=== PATIENT | male | born 1935 | race Caucasian/White ===

== ENCOUNTER 2016-08-27 11:38 | Inpatient (IN) | payer OTHER, MEDICARE ==
[2016-08-27] MEDS ORDERED: oxyCODONE HCL 5 MG TABLET PO ONE (12:00)
[2016-08-27] MEDS ORDERED: oxyCODONE HCL 5 MG TABLET ONE (12:07)
[2016-08-27 12:27] LABS: BASOPHIL 0.6 % (0-2.0); MCH 29.8 pg (25.7-33.7); MCHC 33.2 g/dl (32.0-35.9); MEAN PLT VOLUME 6.8 fl (7.5-11.1); NEUTROPHILS 72.5 % (42.8-82.8); PLATELET COUNT 317 K/MM3 (134-434); RDW 15.6 % (11.9-15.9); WHITE BLOOD COUNT 6.3 K/mm3 (4.0-10.0)
[2016-08-27 12:46] LABS: ALBUMIN 2.7 g/dl (3.4-5.0); ANION GAP 8 (8-16); BILIRUBIN,TOTAL 0.5 mg/dL (0.2-1.0); CALCIUM 8.6 mg/dL (8.5-10.1); CO2 31 mmol/L (21-32); CREATININE 0.7 mg/dL (0.7-1.3); GLUCOSE,RANDOM 152 mg/dL (74-106); MAGNESIUM 1.9 mg/dL (1.8-2.4); SGOT/AST 17 U/L (15-37); SGPT/ALT 12 U/L (12-78)
[2016-08-27 12:47] LABS: ALK PHOS 126 U/L (45-117); TOT PROT 5.4 g/dl (6.4-8.2)
--- NOTE | 2016-08-27 12:52 | PDOC ---
*Physical Exam - Vital Signs Last Vital Signs Temp Pulse Resp BP Pulse Ox 97.3 F L 78 20 107/84 100 08/27/16 11:53 08/27/16 11:53 08/27/16 11:53 08/27/16 11:53 08/27/16 11:53 ED Treatment Course - LABORATORY CBC & Chemistry Diagram: 08/28/16 07:10 08/28/16 07:10 - ADDITIONAL ORDERS Additional order review: Laboratory Results 08/27/16 12:04 Sodium 139 Potassium 4.1 Chloride 100 Carbon Dioxide 31 Anion Gap 8 BUN 13 Creatinine 0.7 Creat Clearance w eGFR > 60 Random Glucose 152 H D Calcium 8.6 Magnesium 1.9 D Total Bilirubin 0.5 D AST 17 D ALT 12 D Alkaline Phosphatase 126 H D Total Protein 5.4 L Albumin 2.7 L 08/27/16 12:04 RBC 4.19 D MCV 90.0 MCHC 33.2 RDW 15.6 MPV 6.8 L Neutrophils % 72.5 Lymphocytes % 11.7 Monocytes % 10.2 Eosinophils % 5.0 H Basophils % 0.6 - Medications Given in the ED: ED Medications Discontinued Medications Generic Name Dose Route Start Last Admin Trade Name Freq PRN Reason Stop Dose Admin Oxycodone HCl 10 mg 08/27/16 12:00 08/27/16 12:09 Roxicodone - PO 08/27/16 12:01 10 mg ONCE ONE Administration Medical Decision Making - Medical Decision Making 08/27/16 12:51 Patient seen and evaluated with the nurse practitioner. I agree with the overall evaluation, assessment, and management with the following summary of visit: 80-year-old male with worsening cellulitis despite outpatient antibiotics. Has history of similar complicated peripheral cellulitis. Agree with management as outlined, will admit for IV antibiotics. *DC/Admit/Observation/Transfer Diagnosis at time of Disposition: Cellulitis, Sepsis, Leg pain
[2016-08-27] MEDS ORDERED: SODIUM CHLORIDE 1,000 ML IV STA (13:07)
[2016-08-27] MEDS ORDERED: VANCOMYCIN 1,000 MG in DEXTROSE 5%-WATER - 250 ML IVPB ONE (13:09)
[2016-08-27] MEDS ORDERED: PIPERACILLIN/TAZOB 3.375 GM 3.375 GM in DEXTROSE 5%-WATER - 50 ML IVPB SCH (13:15)
[2016-08-27] MEDS ORDERED: PIPERACILLIN/TAZOB 3.375 GM 50 ML IVPB ONE (13:25)
[2016-08-27] MEDS ORDERED: VANCOMYCIN 1 GRAM (PRE-DOCKED) 250 ML IVPB ONE (13:25)
--- NOTE | 2016-08-27 13:50 | PDOC ---
History of Present Illness - General Chief Complaint: Wound Infection Stated Complaint: FOOT PAIN Time Seen by Provider: 08/27/16 11:45 History Source: Patient Exam Limitations: Dementia - History of Present Illness Initial Comments: 08/27/16 12:50 80-year-old male brought in by for worsening bilateral lower extremity redness swelling, and pain. states patient had cellulitis a few months ago and completed antibiotics at that point. states patient has had no fever and receives home care services with no abnormal vital signs. Patient with history of cellulitis, AMS secondary to sepsis, dementia, BPH, high cholesterol , hypertension, and seizures. Timing/Duration: getting worse Severity: moderate Associated Symptoms: denies: denies symptoms Past History - Past Medical History Allergies/Adverse Reactions: Allergies Allergy/AdvReac Type Severity Reaction Status Date / Time No Known Allergies Allergy Verified 08/27/16 11:55 Home Medications: Ambulatory Orders Atorvastatin Ca [Lipitor] 40 mg PO HS #30 tablet 03/19/16 Carbidopa/Levodopa *Cr* 50/200 [Sinemet *Cr* 50/200 -] 1 combo PO TID #90 tablet.er 03/19/16 Cilostazol 100 mg PO DAILY #30 tablet 03/19/16 Metoprolol Tartrate [Lopressor -] 25 mg PO BID #60 tablet 03/19/16 Oxycodone HCl 10 mg PO Q4H PRN #30 tablet MDD 60mg 03/19/16 Quetiapine Fumarate [Seroquel -] 75 mg PO BID #90 tablet 03/19/16 Cholecalciferol (Vitamin D3) [Vitamin D3] 1,000 unit PO DAILY 08/27/16 Olanzapine [Zyprexa -] 10 mg PO HS 08/27/16 Anemia: No Asthma: No Cancer: No Cardiac Disorders: Yes CVA: No COPD: No Dementia: Yes Diabetes: No GI Disorders: Yes (COLONIC POLYPS,DIVERTICULOSIS) Disorders: Yes (BPH) HTN: Yes Hypercholesterolemia: Yes Liver Disease: No Seizures: Yes Thyroid Disease: No - Surgical History Abdominal Surgery: No Appendectomy: Yes Cardiac Surgery: No Cholecystectomy: No Lung Surgery: No Neurologic Surgery: No Orthopedic Surgery: Yes (S/P BILATERAL FOOT SURGERIES FOR HAMMER TOES WITH SUBSEQUENT REMOVAL OF) - Immunization History Immunization Up to Date: Yes - Psycho/Social/Smoking Cessation Hx Anxiety: No Suicidal Ideation: No Smoking History: Unknown if ever smoked Have you smoked in the past 12 months: No If you are a former smoker, when did you quit?: 1959 Information on smoking cessation initiated: No Hx Alcohol Use: No Drug/Substance Use Hx: No Substance Use Type: None Hx Substance Use Treatment: No Patient Lives Alone: No Lives with/in: spouse/SO Review of Systems - Review of Systems Able to Perform ROS?: Yes Constitutional: No: Symptoms Reported HEENTM: No: Symptoms Reported Respiratory: No: Symptoms reported Cardiac (ROS): Yes: Edema (ble) ABD/GI: No: Symptoms Reported : No: Symptoms Reported Musculoskeletal: Yes: Muscle Pain (BLE calves) Integumentary: Yes: Erythema Neurological: No: Symptoms reported Endocrine: No: Symptoms Reported Hematologic/Lymphatic: No: Symptoms Reported *Physical Exam - Vital Signs Last Vital Signs Temp Pulse Resp BP Pulse Ox 97.3 F L 78 20 107/84 100 08/27/16 11:53 08/27/16 11:53 08/27/16 11:53 08/27/16 11:53 08/27/16 11:53 - Physical Exam General Appearance: Yes: Nourished, Appropriately Dressed. No: Apparent Distress HEENT: positive: FAHEEM. negative: Pale Conjunctivae Neck: positive: Supple Respiratory/Chest: positive: Lungs Clear, Normal Breath Sounds. negative: Respiratory Distress, Accessory Muscle Use Cardiovascular: positive: Regular Rhythm, Regular Rate. negative: Murmur Gastrointestinal/Abdominal: positive: Soft. negative: Tenderness Extremity: positive: Normal Capillary Refill, Pedal Edema (2+ bilateral pitting) , Erythema (to bilateral lower extremity with pustular bullae to right lower extremity . no increased warmth) Integumentary: positive: Erythema, Moist Neurologic: positive: Alert, Motor Strength 5/5 (moves all extremities on stretcher) ED Treatment Course - LABORATORY CBC & Chemistry Diagram: 08/27/16 12:04 08/27/16 12:04 - ADDITIONAL ORDERS Additional order review: Laboratory Results 08/27/16 08/27/16 12:04 12:04 Sodium 139 Potassium 4.1 Chloride 100 Carbon Dioxide 31 Anion Gap 8 BUN 13 Creatinine 0.7 Creat Clearance w eGFR > 60 Random Glucose 152 H D Lactic Acid 2.599 H* Calcium 8.6 Magnesium 1.9 D Total Bilirubin 0.5 D AST 17 D ALT 12 D Alkaline Phosphatase 126 H D Total Protein 5.4 L Albumin 2.7 L 08/27/16 12:04 RBC 4.19 D MCV 90.0 MCHC 33.2 RDW 15.6 MPV 6.8 L Neutrophils % 72.5 Lymphocytes % 11.7 Monocytes % 10.2 Eosinophils % 5.0 H Basophils % 0.6 - RADIOLOGY Radiology Studies Ordered: Category Date Time Status DUPLEX VASCUL US-2LEGS [US] Stat Ultrasound 08/27/16 11:59 Taken - Medications Given in the ED: ED Medications Discontinued Medications Generic Name Dose Route Start Last Admin Trade Name Freq PRN Reason Stop Dose Admin Oxycodone HCl 10 mg 08/27/16 12:00 08/27/16 12:09 Roxicodone - PO 08/27/16 12:01 10 mg ONCE ONE Administration Medical Decision Making - Medical Decision Making 08/27/16 12:57 Patient with worsening bilateral lower extremity redness and pain patient with history of cellulitis and clinically presents the cellulitis. Patient ordered for septic workup including ultrasound to rule out DVT. Patient requesting oxycodone which he takes every 4 hours for pain control. 08/27/16 13:59 Laboratory Tests 08/27/16 08/27/16 08/27/16 12:04 12:04 12:04 WBC 6.3 Hgb 12.5 D Hct 37.7 D MPV 6.8 L Neutrophils % 72.5 Eosinophils % 5.0 H Sodium 139 Potassium 4.1 Chloride 100 Carbon Dioxide 31 Anion Gap 8 BUN 13 Creatinine 0.7 Creat Clearance w eGFR > 60 Random Glucose 152 H D Lactic Acid 2.599 H* Calcium 8.6 Magnesium 1.9 D AST 17 D ALT 12 D Alkaline Phosphatase 126 H D Total Protein 5.4 L Albumin 2.7 L DVT study negative. Patient ordered for Vanco Zosyn second lactic acid and a second bag of IV fluid. pt's urine pending. Will microblog Dr. Hsieh for admission. 08/27/16 15:06 Laboratory Tests 08/27/16 13:20 Urine Ketones Negative Urine Blood 1+ H Urine Urobilinogen Negative Ur Leukocyte Esterase Negative Urine RBC 9 Urine WBC 2 *DC/Admit/Observation/Transfer Diagnosis at time of Disposition: Cellulitis Qualifiers: Site of cellulitis: extremity Site of cellulitis of extremity: lower extremity Laterality: unspecified laterality Qualified Code(s): L03.119 - Cellulitis of unspecified part of limb Sepsis Qualifiers: Sepsis type: sepsis due to unspecified organism Qualified Code(s): A41.9 - Sepsis, unspecified organism Leg pain Qualifiers: Laterality: bilateral Qualified Code(s): M79.604 - Pain in right leg - Discharge Dispostion Admit: Yes - Referrals Referrals: Mo Menon MD [Primary Care Provider] - - Patient Instructions - Post Discharge Activity
[2016-08-27 14:03] LABS: URINE APPEARANCE CLOUDY; URINE BILIRUBIN NEGATIVE (NEGATIVE); URINE COLOR YELLOW; URINE GLUCOSE (UA) NEGATIVE (NEGATIVE); URINE KETONE NEGATIVE (NEGATIVE); URINE LEUK ESTERASE NEGATIVE (NEGATIVE); URINE NITRITE NEGATIVE (NEGATIVE); URINE PROTEIN NEGATIVE (NEGATIVE); URINE UROBILINOGEN NEGATIVE E.U./dl (0.2-1.0)
[2016-08-27 14:06] LABS: URINE BLOOD 1+ (NEGATIVE)
[2016-08-27 14:08] LABS: URINE MUCUS RARE; URINE RBC 9 /hpf (0-3); URINE WBC 2 /hpf (3-5)
[2016-08-27] MEDS ORDERED: PROMETHAZINE HCL 25 MG/1 ML VIAL IM PRN (14:43)
[2016-08-27] MEDS ORDERED: PATIENT'S OWN MEDICATION (NON-FORMULARY) (Oxycodone Hcl [Oxycodone Hcl] 10 MG) PO PRN (14:43)
[2016-08-27] MEDS ORDERED: SODIUM CHLORIDE 1,000 ML IV SCH (15:00)
[2016-08-27] MEDS ORDERED: oxyCODONE HCL 5 MG TABLET PO PRN (15:03)
--- NOTE | 2016-08-27 15:15 | HP ---
Admitting History and Physical - Primary Care Physician PCP: Mo Menon - Admission Chief Complaint: I'm ready to get out of here History of Present Illness: Mr Whitfield is a 80 year old male with history of dementia who was brought in for worsening cellulitis. 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 She says that over the past month she notes his legs have become redder. Wound care was coming and recommended he come to the hospital today for further care. She says he has been on antibiotics in the past but not currently, she is unsure when was the last time he took antibiotics. Mr Whitfield is able to answer yes/no questions appropriately. He denies fevers, chills, lightheadedness, dizziness, chest pain, shortness of breath, abdominal pain, nausea, vomiting, diarrhea, or difficulty urinating. He says he feels fine. 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 Cardiovascular: Yes: HTN, Hyperlipdemia, Other (PVD with claudication) Gastrointestinal: Yes: GERD Renal/: Yes: Other (CKD) Musculoskeletal: Yes: Osteoarthritis - Past Surgical History Past Surgical History: Yes: Appendectomy - Smoking History Smoking history: Unknown if ever smoked Have you smoked in the past 12 months: No If you are a former smoker, when did you quit?: 1960 - Alcohol/Substance Use Hx Alcohol Use: No History of Substance Use: reports: None - Social History Usual Living Arrangement: Yes: With Spouse ADL: Family Assistance History of Recent Travel: No Home Medications - Allergies Allergies/Adverse Reactions: Allergies Allergy/AdvReac Type Severity Reaction Status Date / Time No Known Allergies Allergy Verified 08/27/16 11:55 - Home Medications Home Medications: Ambulatory Orders Atorvastatin Ca [Lipitor] 40 mg PO HS #30 tablet 03/19/16 Carbidopa/Levodopa *Cr* 50/200 [Sinemet *Cr* 50/200 -] 1 combo PO TID #90 tablet.er 03/19/16 Cilostazol 100 mg PO DAILY #30 tablet 03/19/16 Metoprolol Tartrate [Lopressor -] 25 mg PO BID #60 tablet 03/19/16 Oxycodone HCl 10 mg PO Q4H PRN #30 tablet MDD 60mg 03/19/16 Quetiapine Fumarate [Seroquel -] 75 mg PO BID #90 tablet 03/19/16 Cholecalciferol (Vitamin D3) [Vitamin D3] 1,000 unit PO DAILY 08/27/16 Olanzapine [Zyprexa -] 10 mg PO HS 08/27/16 Family Disease History - Family Disease History Family Disease History: CA: Father (colon), Mother (unsure) Review of Systems Findings/Remarks: full review of systems obtained, as per HPI and otherwise negative Physical Examination Vital Signs: Vital Signs Temperature 97.3 F L 08/27/16 11:53 Pulse Rate 78 08/27/16 11:53 Respiratory Rate 20 08/27/16 11:53 Blood Pressure 107/84 08/27/16 11:53 O2 Sat by Pulse Oximetry (%) 100 08/27/16 11:53 Constitutional: Yes: No Distress, Calm, Obese Eyes: Yes: Conjunctiva Clear, PERRL HENT: Yes: Atraumatic, Normocephalic Cardiovascular: Yes: Regular Rate and Rhythm. No: Gallop, Murmur, Rub Respiratory: Yes: Regular, CTA Bilaterally. No: Rales, Rhonchi, Wheezes Gastrointestinal: Yes: Normal Bowel Sounds, Soft. No: Distention, Tenderness Extremities: Yes: Erythema (bilaterally, R>L with pustules) Edema: Yes Edema: LLE: 1+, RLE: 1+ Labs: CBC, BMP 08/27/16 12:04 08/27/16 12:04 Imaging - Results Ultrasound: Report Reviewed Problem List - Problems (1) Cellulitis Assessment/Plan: -patient with cellulitis of bilateral extremities, R>L -right leg with developing pustules -admit to the hospital -received vancomycin and zosyn in the ED -consult ID for further antibiotic care -wound care consult Code(s): L03.90 - CELLULITIS, UNSPECIFIED Qualifiers: Site of cellulitis: extremity Site of cellulitis of extremity: lower extremity Laterality: unspecified laterality Qualified Code(s): L03.119 - Cellulitis of unspecified part of limb (2) Sepsis Assessment/Plan: -cellulitis with lactic acidosis -treat with antibiotics per ID -gentle hydration Code(s): A41.9 - SEPSIS, UNSPECIFIED ORGANISM Qualifiers: Sepsis type: sepsis due to unspecified organism Qualified Code(s): A41.9 - Sepsis, unspecified organism (3) Dementia Assessment/Plan: -stable -with behavioral disturbance in the past -today friendly on exam -continue seroquel and zyprexa -may have some worsening with infection and change in environment Code(s): F03.90 - UNSPECIFIED DEMENTIA WITHOUT BEHAVIORAL DISTURBANCE Qualifiers: Dementia type: unspecified type Dementia behavioral disturbance: with behavioral disturbance Qualified Code(s): F03.91 - Unspecified dementia with behavioral disturbance; F10.97 - Alcohol use, unspecified with alcohol- induced persisting dementia (4) HTN (hypertension) Assessment/Plan: -controlled -continue toprol Code(s): I10 - ESSENTIAL (PRIMARY) HYPERTENSION (5) Parkinson disease Assessment/Plan: -continue sinemet Code(s): G20 - PARKINSON'S DISEASE (6) PVD (peripheral vascular disease) Assessment/Plan: -continue pletal Code(s): I73.9 - PERIPHERAL VASCULAR DISEASE, UNSPECIFIED
[2016-08-27] MEDS: oxyCODONE HCL 5 MG TABLET PO SCH ×2 (16:39→21:30)
[2016-08-27] MEDS: morphine CARPU-JECT 2 MG/1 ML DISP.SYRIN IVPUSH PRN (16:39)
--- NOTE | 2016-08-27 17:53 | PN ---
Progress Note (short form) - Note Progress Note: ID Consult dictated Recurrent bilateral LE cellulitis Hx Parkinsonism/ OBS Hx C difficile Pending c/s empiric vancomycin/zosyn
[2016-08-27 18:38] VITALS: BMI 35.8
[2016-08-27] MEDS: PIPERACILLIN/TAZOB 3.375 GM 50 ML IVPB SCH (18:53)
[2016-08-27] MEDS: VANCOMYCIN 1 GRAM (PRE-DOCKED) 250 ML IVPB SCH (18:54)
--- NOTE | 2016-08-27 19:22 | CONS ---
DATE OF CONSULTATION: DATE OF DICTATION: 08/27/2016 INFECTIOUS DISEASE CONSULTATION HISTORY OF PRESENT ILLNESS: The patient is a 80-year-old male with a history of Parkinsonism, dementia, and recurrent lower extremity cellulitis, now admitted with worsening erythema, warmth, and swelling of the lower extremities bilaterally. Patient was seen in the emergency room in the presence of his . He reports developing worsening bilateral leg edema, erythema, and pustules with purulent drainage. He denied any traumatic injury. No reports of any insect or animal bites or scratches. No associated fevers or chills. He denies recent oral antibiotic therapy. He has had a history of recurrent lower extremity cellulitis, last hospitalization for that condition was in April of 2016. Cultures in the past have grown klebsiella from the urine. PAST MEDICAL HISTORY: Positive for Parkinsonism, dementia, chronic kidney disease, gastroesophageal reflux, diverticulosis, peripheral vascular disease, hypertension, BPH, hyperlipidemia, C. difficile colitis (January,). ALLERGIES: No known allergies. MEDICATION: Include vancomycin and Zosyn, heparin, Zyprexa, Seroquel, Lopressor, Colace, Sinemet, Lipitor, oxycodone. SOCIAL HISTORY: Lives at home with his . Nonsmoker. Nondrinker. SYSTEMS REVIEW: Neurologic: Positive for Parkinsonism and dementia. Cardiac: Negative chest pain or palpitations. Respiratory: Negative cough or sputum production. Gastrointestinal: Negative vomiting or diarrhea. Genitourinary: Negative for urinary tract infection. LABORATORY DATA: White count 6.3, hematocrit 37.7, platelet count 317. BUN 13, creatinine 0.7. Urinalysis: 2 white cells, blood in urine cultures are pending. PHYSICAL EXAMINATION: General: He is awake and responsive. He is mildly confused . Vital signs: Temperature 98.2, blood pressure 136/65, pulse 67 regular, respirations 19 per minute. HEENT: Sclerae anicteric. Cardiovascular: Heart sounds S1, S2. Respiratory: Lungs clear. Abdomen: Soft. Nontender. Extremities: Positive for lower extremity edema. There is intense erythema involving both lower extremities from below the knee to the ankle area. It is warm to touch. There are scattered pustular lesions present, predominantly on the right lower extremity with seropurulent drainage. No crepitus or fluctuance. No lymphangitic streaking. IMPRESSION: 1. Recurrent bilateral lower extremity cellulitis. 2. Possible sepsis secondary to skin sores. 3. History of Parkinsonism and dementia. 4. History of Clostridium difficile colitis. Pending sepsis workup, empiric antibiotic coverage with vancomycin and Zosyn. Local wound care. Case discussed with patient's , present at the time of the examination. Thank you for the kind referral. LISETH WOODS M.D. [id number]
[2016-08-27] MEDS: METOPROLOL TARTRATE 25 MG TABLET (FP) PO SCH (22:18)
[2016-08-27] MEDS: ATORVASTATIN CA 40 MG TABLET (FP) PO SCH (22:18)
[2016-08-27] MEDS: QUEtiapine FUMARATE 25 MG TABLET (FP) PO SCH (22:18)
[2016-08-27] MEDS: OLANZapine 10 MG TABLET PO SCH (22:18)
[2016-08-27] MEDS: DOCUSATE SODIUM 100 MG CAPSULE (FP) PO SCH (22:18)
[2016-08-27] MEDS: HEPARIN NA (PORCINE) 5,000 UNITS/ML 1ML VIAL SQ SCH (22:18)
[2016-08-28] MEDS: oxyCODONE HCL 5 MG TABLET PO SCH ×6 (00:15→21:00)
[2016-08-28] MEDS: PIPERACILLIN/TAZOB 3.375 GM 50 ML IVPB SCH ×3 (01:55→17:11)
[2016-08-28] MEDS: VANCOMYCIN 1 GRAM (PRE-DOCKED) 250 ML IVPB SCH ×2 (06:33→17:56)
[2016-08-28] MEDS: HEPARIN NA (PORCINE) 5,000 UNITS/ML 1ML VIAL SQ SCH ×3 (06:33→21:24)
[2016-08-28 08:17] LABS: BASOPHIL 0.4 % (0-2.0); EOSINOPHIL 6.4 % (0-4.5); MCH 29.9 pg (25.7-33.7); MCHC 33.2 g/dl (32.0-35.9); MEAN CELL VOLUME 89.9 fl (80-96); MEAN PLT VOLUME 6.8 fl (7.5-11.1); NEUTROPHILS 63.3 % (42.8-82.8); PLATELET COUNT 339 K/MM3 (134-434); RDW 15.6 % (11.9-15.9); WHITE BLOOD COUNT 6.8 K/mm3 (4.0-10.0)
[2016-08-28 08:39] LABS: CALCIUM 8.9 mg/dL (8.5-10.1); MAGNESIUM 2.1 mg/dL (1.8-2.4)
[2016-08-28 08:40] LABS: CREATININE 0.8 mg/dL (0.7-1.3); PHOSPHOROUS 3.6 mg/dL (2.5-4.9)
--- NOTE | 2016-08-28 09:28 | CONSULT ---
Consultation: REQUESTING PROVIDER: Dr. Zhen Pompa (Dr. Grady covering until 08/30) CONSULT REQUEST: We have been asked to surgically evaluate this patient for b/l LE cellulitis. HISTORY OF PRESENT ILLNESS: Called to eval 80 yo male with PMHx noted below. Patient admitted to [facility] for worsening of LE cellulitis (chronic). Mr. Whitfield is well know to Wound Care Service. 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 Denies n/v/f/c, CP, SOB, numbness, tingling or coolness to lower extremity b/l. PMHx: Dementia, Parkinson's, HTN, Hyperlipdemia, PVD with claudication, GERD, CKD and Osteoarthritis ROS: CONSTITUTIONAL: Absent: diaphoresis, generalized weakness, malaise, loss of appetite, weight change CARDIOVASCULAR: Absent: syncope, palpitations, irregular heart rate, lightheadedness RESPIRATORY: Absent: cough, orthopnea, wheezing, stridor, hemoptysis GASTROINTESTINAL:Absent: abdominal distension, constipation, melena, hematochezia GENITOURINARY: Absent: dysuria, frequency, urgency, hesitancy, hematuria, flank pain, genital pain MUSCULOSKELETAL: Absent: myalgia, arthralgia, joint swelling, back pain, neck pain SKIN: Absent: SEE ABOVE. HEMATOLOGIC/IMMUNOLOGIC: Absent: easy bleeding, easy bruising, lymphadenopathy, frequent infections NEUROLOGIC: Absent: headache, focal weakness, dizziness, unsteady gait, seizure , mental status changes PSYCHIATRIC: Absent: anxiety, depression, suicidal or homicidal ideation, hallucinations. VITALS Temp Pulse Resp BP Pulse Ox 98.5 F 109 H 19 127/96 96 08/28/16 05:48 08/28/16 05:48 08/28/16 05:48 08/28/16 05:48 08/27/16 15:50 PE GENERAL: Awake, alert, in no acute distress. LUNGS: CTA b/l anteriorly COR: RRR ABD: Obese. Soft. NT. LE: b/l LE +2 edema (R>L). Feet warm b/l. No calf tenderness. RLE w/ circumfrential cellulitis w/ pustule formation to lateral aspect of virk. LLE erythematous. Palpable DP on left . Hard to assess right DP due to edema. Cap refill < 3 seconds b/l LABS: CBC, BMP 08/28/16 07:10 08/28/16 07:10 <Alverto Campbell P - Last Filed: 08/28/16 09:12> Consultation: REQUESTING PROVIDER: CONSULT REQUEST: We have been asked to surgically evaluate this patient for ( specify). HISTORY OF PRESENT ILLNESS: REVIEW OF SYSTEMS: CONSTITUTIONAL: Absent: fever, chills, diaphoresis, generalized weakness, malaise, loss of appetite, weight change CARDIOVASCULAR: Absent: chest pain, syncope, palpitations, irregular heart rate, lightheadedness , peripheral edema RESPIRATORY: Absent: cough, shortness of breath, dyspnea with exertion, orthopnea, wheezing, stridor, hemoptysis GASTROINTESTINAL: Absent: abdominal pain, abdominal distension, nausea, vomiting, diarrhea, constipation, melena, hematochezia GENITOURINARY: Absent: dysuria, frequency, urgency, hesitancy, hematuria, flank pain, genital pain MUSCULOSKELETAL: Absent: myalgia, arthralgia, joint swelling, back pain, neck pain SKIN: Absent: rash, itching, pallor HEMATOLOGIC/IMMUNOLOGIC: Absent: easy bleeding, easy bruising, lymphadenopathy, frequent infections NEUROLOGIC: Absent: headache, focal weakness or paresthesias, dizziness, unsteady gait, seizure, mental status changes, bladder or bowel incontinence PSYCHIATRIC: Absent: anxiety, depression, suicidal or homicidal ideation, hallucinations. PHYSICAL EXAMINATION Vital Signs Temperature 98.2 F 08/28/16 14:03 Pulse Rate 88 08/28/16 14:03 Respiratory Rate 20 08/28/16 09:00 Blood Pressure 102/44 08/28/16 14:03 O2 Sat by Pulse Oximetry (%) 96 08/27/16 15:50 GENERAL: Awake, alert, and fully oriented, in no acute distress. HEAD: Normal with no signs of trauma. EYES: Pupils equal, round and reactive to light, sclera anicteric, conjunctiva clear. NECK: Normal range of motion, supple without lymphadenopathy, JVD, or masses. LUNGS: Breath sounds equal, clear to auscultation bilaterally. No wheezes, and no crackles. No accessory muscle use. HEART: Regular rate and rhythm, normal S1 and S2 without murmur, rub or gallop. ABDOMEN: Soft, nontender, not distended, normoactive bowel sounds, no guarding, no rebound, no masses. No hepatomegaly or splenomegaly. MUSCULOSKELETAL: Normal range of motion at all joints. No bony deformities or tenderness. No CVA tenderness. UPPER EXTREMITIES: 2+ pulses, warm, well-perfused. No cyanosis. Cap refill <2 seconds. No peripheral edema. LOWER EXTREMITIES: 2+ pulses, warm, well-perfused. No calf tenderness. No peripheral edema. NEUROLOGICAL: Normal speech, gait not observed. PSYCH: Cooperative. Good eye contact. Appropriate mood and affect. SKIN: Warm, dry, normal turgor, no rashes or lesions noted. LABS: Laboratory Results - last 24 hr 08/28/16 08/28/16 08/28/16 07:10 07:10 07:10 WBC 6.8 RBC 4.09 Hgb 12.2 Hct 36.7 MCV 89.9 MCHC 33.2 RDW 15.6 Plt Count 339 MPV 6.8 L Neutrophils % 63.3 Lymphocytes % 17.8 D Monocytes % 12.1 H Eosinophils % 6.4 H Basophils % 0.4 Sodium 139 Potassium 4.3 Chloride 101 Carbon Dioxide 32 Anion Gap 6 L BUN 12 Creatinine 0.8 Random Glucose 85 D Lactic Acid 1.823 Calcium 8.9 Phosphorus 3.6 Magnesium 2.1 History reviewed and patient discussed with PA. Chronic leg swelling and ulceration. No fever or leukocytosis. Current wound care and antibiotics acceptable. <Oscar Grady - Last Filed: 08/28/16 20:01> Problem List - Problems (1) Cellulitis Assessment/Plan: Dressing changes ordered --> xeroform to rle. Both: kerlix from toes to knees then compression with tammy bandage agian, wrapping from toes to knees. Leg elevation while in bed or seated in chair. IV ABX Cont care per primary team No surgical intervention at this time. Code(s): L03.90 - CELLULITIS, UNSPECIFIED Qualifiers: Site of cellulitis: extremity Site of cellulitis of extremity: lower extremity Laterality: unspecified laterality Qualified Code(s): L03.119 - Cellulitis of unspecified part of limb <Alverto Campbell - Last Filed: 08/28/16 09:12> Visit type - Case Type Case Type: ED Admission - Emergency Emergency Visit: Yes ED Registration Date: 08/27/16 Care time: The patient presented to the Emergency Department on the above date and was hospitalized for further evaluation of their emergent condition. - New patient This patient is new to me today: Yes Date on this admission: 08/28/16 <Alverto Campbell - Last Filed: 08/28/16 09:12>
[2016-08-28] MEDS: METOPROLOL TARTRATE 25 MG TABLET (FP) PO SCH ×2 (10:04→21:22)
[2016-08-28] MEDS: QUEtiapine FUMARATE 25 MG TABLET (FP) PO SCH ×2 (10:04→21:24)
[2016-08-28] MEDS: CHOLECALCIFEROL (VITAMIN D3) 1,000 UNIT TABLET (FP) PO SCH (10:04)
[2016-08-28] MEDS: DOCUSATE SODIUM 100 MG CAPSULE (FP) PO SCH ×2 (10:05→21:23)
[2016-08-28] MEDS: POLYETHYLENE GLYCOL 3350 119 GM BTL PO SCH (10:06)
--- NOTE | 2016-08-28 11:03 | PN ---
Progress Note, Physician History of Present Illness: Awake, mildly confused No c/o leg pain No fever/ chills Tolerating antibiotics - Current Medication List Current Medications: Active Medications Acetaminophen (Tylenol -) 650 mg PO Q4H PRN PRN Reason: FEVER OR PAIN Atorvastatin Calcium (Lipitor -) 40 mg PO HS [facility] Last Admin: 08/27/16 22:18 Dose: 40 mg Carbidopa/Levodopa (Sinemet *Cr* 50/200 -) 1 combo PO TID [facility] Last Admin: 08/28/16 06:33 Dose: 1 combo Cholecalciferol (Vitamin D3 -) 1,000 unit PO DAILY [facility] Last Admin: 08/28/16 10:04 Dose: 1,000 unit Cilostazol (Pletal -) 100 mg PO DAILY [facility] Docusate Sodium (Colace -) 100 mg PO BID [facility] Last Admin: 08/28/16 10:05 Dose: 100 mg Heparin Sodium (Porcine) (Heparin -) 5,000 unit SQ TID [facility] Last Admin: 08/28/16 06:33 Dose: 5,000 unit Sodium Chloride (Normal Saline -) 1,000 mls @ 50 mls/hr IV ASDIR [facility] Stop: 08/28/16 14:47 Last Admin: 08/27/16 16:56 Dose: 50 mls/hr Vancomycin HCl (Vancomycin (Pre-Docked)) 250 mls @ 200 mls/hr IVPB Q12H [facility] Last Admin: 08/28/16 06:33 Dose: 200 mls/hr Piperacillin Sod/Tazobactam Sod (Zosyn 3.375gm Ivpb (Pre-Docked)) 50 mls @ 100 mls/hr IVPB Q8H-IV [facility] Last Admin: 08/28/16 10:05 Dose: 100 mls/hr Metoprolol Tartrate (Lopressor -) 25 mg PO BID [facility] Last Admin: 08/28/16 10:04 Dose: 25 mg Morphine Sulfate (Morphine Injection -) 1 mg IVPUSH Q4H PRN PRN Reason: PAIN Last Admin: 08/27/16 16:39 Dose: 1 mg Olanzapine (Zyprexa -) 10 mg PO HS [facility] Last Admin: 08/27/16 22:18 Dose: 10 mg Oxycodone HCl (Roxicodone -) 10 mg PO Q4H [facility] Last Admin: 08/28/16 08:36 Dose: 10 mg Polyethylene Glycol (Miralax (For Daily Use) -) 17 gm PO DAILY [facility] Last Admin: 08/28/16 10:06 Dose: 17 gm Promethazine HCl (Phenergan Injection -) 25 mg IM Q6H PRN PRN Reason: NAUSEA AND/OR VOMITING Quetiapine Fumarate (Seroquel -) 75 mg PO BID [facility] Last Admin: 08/28/16 10:04 Dose: 75 mg - Objective Vital Signs: Vital Signs Temperature 97.4 F L 08/28/16 09:00 Pulse Rate 71 08/28/16 09:00 Respiratory Rate 20 08/28/16 09:00 Blood Pressure 129/55 08/28/16 09:00 O2 Sat by Pulse Oximetry (%) 96 08/27/16 15:50 Constitutional: Yes: No Distress Eyes: Yes: Conjunctiva Clear Cardiovascular: Yes: Regular Rate and Rhythm, S1, S2 Respiratory: Yes: CTA Bilaterally Gastrointestinal: Yes: Normal Bowel Sounds, Soft, Abdomen, Obese. No: Tenderness Extremities: Yes: Other (+ erythema/warmth/tenderness LE bilaterally) Edema: Yes Labs: CBC, BMP 08/28/16 07:10 08/28/16 07:10 Assessment/Plan Bilateral LE cellulitis, recurrent Parkinsonism/ OBS Hx C difficile Continue empiric zosyn/ vancomycin Local wound care
[2016-08-28] MEDS: CILOSTAZOL 100 MG TABLET PO SCH (12:36)
--- NOTE | 2016-08-28 13:16 | PN ---
Progress Note, Physician Chief Complaint: Says he needs a pain pill, unable to obtain any further subjective. at bedside stating he just had pain medications - Current Medication List Current Medications: Active Medications Acetaminophen (Tylenol -) 650 mg PO Q4H PRN PRN Reason: FEVER OR PAIN Atorvastatin Calcium (Lipitor -) 40 mg PO HS [facility] Last Admin: 08/27/16 22:18 Dose: 40 mg Carbidopa/Levodopa (Sinemet *Cr* 50/200 -) 1 combo PO TID [facility] Last Admin: 08/28/16 06:33 Dose: 1 combo Cholecalciferol (Vitamin D3 -) 1,000 unit PO DAILY [facility] Last Admin: 08/28/16 10:04 Dose: 1,000 unit Cilostazol (Pletal -) 100 mg PO DAILY [facility] Last Admin: 08/28/16 12:36 Dose: 100 mg Docusate Sodium (Colace -) 100 mg PO BID [facility] Last Admin: 08/28/16 10:05 Dose: 100 mg Heparin Sodium (Porcine) (Heparin -) 5,000 unit SQ TID [facility] Last Admin: 08/28/16 06:33 Dose: 5,000 unit Sodium Chloride (Normal Saline -) 1,000 mls @ 50 mls/hr IV [facility]IR [facility] Stop: 08/28/16 14:47 Last Admin: 08/27/16 16:56 Dose: 50 mls/hr Vancomycin HCl (Vancomycin (Pre-Docked)) 250 mls @ 200 mls/hr IVPB Q12H [facility] Last Admin: 08/28/16 06:33 Dose: 200 mls/hr Piperacillin Sod/Tazobactam Sod (Zosyn 3.375gm Ivpb (Pre-Docked)) 50 mls @ 100 mls/hr IVPB Q8H-IV [facility] Last Admin: 08/28/16 10:05 Dose: 100 mls/hr Metoprolol Tartrate (Lopressor -) 25 mg PO BID [facility] Last Admin: 08/28/16 10:04 Dose: 25 mg Morphine Sulfate (Morphine Injection -) 1 mg IVPUSH Q4H PRN PRN Reason: PAIN Last Admin: 08/27/16 16:39 Dose: 1 mg Olanzapine (Zyprexa -) 10 mg PO HS [facility] Last Admin: 08/27/16 22:18 Dose: 10 mg Oxycodone HCl (Roxicodone -) 10 mg PO Q4H [facility] Last Admin: 08/28/16 12:36 Dose: 10 mg Polyethylene Glycol (Miralax (For Daily Use) -) 17 gm PO DAILY [facility] Last Admin: 08/28/16 10:06 Dose: 17 gm Promethazine HCl (Phenergan Injection -) 25 mg IM Q6H PRN PRN Reason: NAUSEA AND/OR VOMITING Quetiapine Fumarate (Seroquel -) 75 mg PO BID [facility] Last Admin: 08/28/16 10:04 Dose: 75 mg - Objective Vital Signs: Vital Signs Temperature 97.4 F L 08/28/16 09:00 Pulse Rate 71 08/28/16 09:00 Respiratory Rate 20 08/28/16 09:00 Blood Pressure 129/55 08/28/16 09:00 O2 Sat by Pulse Oximetry (%) 96 08/27/16 15:50 Constitutional: Yes: No Distress, Calm, Obese Cardiovascular: Yes: Regular Rate and Rhythm. No: Gallop, Murmur, Rub Respiratory: Yes: Regular, CTA Bilaterally. No: Rales, Rhonchi, Wheezes Gastrointestinal: Yes: Normal Bowel Sounds, Soft. No: Distention, Tenderness Extremities: Yes: Other (BLE wrapped) Edema: Yes Edema: LLE: Trace, RLE: Trace Labs: CBC, BMP 08/28/16 07:10 08/28/16 07:10 Problem List - Problems (1) Cellulitis Code(s): L03.90 - CELLULITIS, UNSPECIFIED Qualifiers: Site of cellulitis: extremity Site of cellulitis of extremity: lower extremity Laterality: unspecified laterality Qualified Code(s): L03.119 - Cellulitis of unspecified part of limb (2) Sepsis Code(s): A41.9 - SEPSIS, UNSPECIFIED ORGANISM Qualifiers: Sepsis type: sepsis due to unspecified organism Qualified Code(s): A41.9 - Sepsis, unspecified organism (3) Dementia Code(s): F03.90 - UNSPECIFIED DEMENTIA WITHOUT BEHAVIORAL DISTURBANCE Qualifiers: Dementia type: unspecified type Dementia behavioral disturbance: with behavioral disturbance Qualified Code(s): F03.91 - Unspecified dementia with behavioral disturbance; F10.97 - Alcohol use, unspecified with alcohol- induced persisting dementia (4) HTN (hypertension) Code(s): I10 - ESSENTIAL (PRIMARY) HYPERTENSION (5) Parkinson disease Code(s): G20 - PARKINSON'S DISEASE (6) PVD (peripheral vascular disease) Code(s): I73.9 - PERIPHERAL VASCULAR DISEASE, UNSPECIFIED Assessment/Plan (1) Cellulitis Assessment/Plan: -appreciate wound care and ID assistance -legs currently wrapped -on broad spectrum antibiotics -continue currently, will discuss with ID and wound care Code(s): L03.90 - CELLULITIS, UNSPECIFIED Qualifiers: Site of cellulitis: extremity Site of cellulitis of extremity: lower extremity Laterality: unspecified laterality Qualified Code(s): L03.119 - Cellulitis of unspecified part of limb (2) Sepsis Assessment/Plan: -resolved -will stop IVF Code(s): A41.9 - SEPSIS, UNSPECIFIED ORGANISM Qualifiers: Sepsis type: sepsis due to unspecified organism Qualified Code(s): A41.9 - Sepsis, unspecified organism (3) Dementia Assessment/Plan: -stable -with behavioral disturbance in the past -today friendly on exam -continue seroquel and zyprexa Code(s): F03.90 - UNSPECIFIED DEMENTIA WITHOUT BEHAVIORAL DISTURBANCE Qualifiers: Dementia type: unspecified type Dementia behavioral disturbance: with behavioral disturbance Qualified Code(s): F03.91 - Unspecified dementia with behavioral disturbance; F10.97 - Alcohol use, unspecified with alcohol- induced persisting dementia (4) HTN (hypertension) Assessment/Plan: -controlled -continue toprol Code(s): I10 - ESSENTIAL (PRIMARY) HYPERTENSION (5) Parkinson disease Assessment/Plan: -continue sinemet Code(s): G20 - PARKINSON'S DISEASE (6) PVD (peripheral vascular disease) Assessment/Plan: -continue pletal Code(s): I73.9 - PERIPHERAL VASCULAR DISEASE, UNSPECIFIED
[2016-08-28] MEDS ORDERED: PT OWN MED DRAWER 7, Y5N ONE ×2 (14:21→21:11)
[2016-08-28] MEDS: ATORVASTATIN CA 40 MG TABLET (FP) PO SCH (21:23)
[2016-08-28] MEDS: OLANZapine 10 MG TABLET PO SCH (21:25)
[2016-08-29] MEDS: oxyCODONE HCL 5 MG TABLET PO SCH ×6 (00:20→20:25)
[2016-08-29] MEDS: PIPERACILLIN/TAZOB 3.375 GM 50 ML IVPB SCH ×3 (02:30→17:17)
[2016-08-29] MEDS: VANCOMYCIN 1 GRAM (PRE-DOCKED) 250 ML IVPB SCH ×2 (06:48→18:30)
[2016-08-29] MEDS: HEPARIN NA (PORCINE) 5,000 UNITS/ML 1ML VIAL SQ SCH ×3 (06:48→21:26)
[2016-08-29 07:37] LABS: BASOPHIL 0.6 % (0-2.0); EOSINOPHIL 6.3 % (0-4.5); MCHC 33.7 g/dl (32.0-35.9); MEAN PLT VOLUME 6.9 fl (7.5-11.1); NEUTROPHILS 63.2 % (42.8-82.8); PLATELET COUNT 334 K/MM3 (134-434); RDW 15.5 % (11.9-15.9); WHITE BLOOD COUNT 6.8 K/mm3 (4.0-10.0)
[2016-08-29] MEDS: ACETAMINOPHEN 325 MG TABLET (FP) PO PRN (07:43)
[2016-08-29 08:31] LABS: CALCIUM 8.4 mg/dL (8.5-10.1); CREATININE 0.7 mg/dL (0.7-1.3); PHOSPHOROUS 3.3 mg/dL (2.5-4.9)
[2016-08-29] MEDS ORDERED: PT OWN MED DRAWER 7, Y5N ONE (10:45)
[2016-08-29] MEDS: CILOSTAZOL 100 MG TABLET PO SCH (10:57)
[2016-08-29] MEDS: QUEtiapine FUMARATE 25 MG TABLET (FP) PO SCH ×2 (10:58→21:27)
[2016-08-29] MEDS: DOCUSATE SODIUM 100 MG CAPSULE (FP) PO SCH ×2 (10:58→21:25)
[2016-08-29] MEDS: METOPROLOL TARTRATE 25 MG TABLET (FP) PO SCH ×2 (10:58→21:27)
[2016-08-29] MEDS: CHOLECALCIFEROL (VITAMIN D3) 1,000 UNIT TABLET (FP) PO SCH (10:59)
[2016-08-29] MEDS: POLYETHYLENE GLYCOL 3350 119 GM BTL PO SCH (11:01)
--- NOTE | 2016-08-29 15:08 | PN ---
Progress Note, Physician Chief Complaint: Mr Whitfield says he is feeling fine and is without complaint. - Current Medication List Current Medications: Active Medications Acetaminophen (Tylenol -) 650 mg PO Q4H PRN PRN Reason: FEVER OR PAIN Last Admin: 08/29/16 07:43 Dose: 650 mg Atorvastatin Calcium (Lipitor -) 40 mg PO HS [facility] Last Admin: 08/28/16 21:23 Dose: 40 mg Carbidopa/Levodopa (Sinemet *Cr* 50/200 -) 1 combo PO TID [facility] Last Admin: 08/29/16 06:48 Dose: 1 combo Cholecalciferol (Vitamin D3 -) 1,000 unit PO DAILY [facility] Last Admin: 08/29/16 10:59 Dose: 1,000 unit Cilostazol (Pletal -) 100 mg PO DAILY [facility] Last Admin: 08/29/16 10:57 Dose: 100 mg Docusate Sodium (Colace -) 100 mg PO BID [facility] Last Admin: 08/29/16 10:58 Dose: 100 mg Heparin Sodium (Porcine) (Heparin -) 5,000 unit SQ TID [facility] Last Admin: 08/29/16 13:41 Dose: 5,000 unit Vancomycin HCl (Vancomycin (Pre-Docked)) 250 mls @ 200 mls/hr IVPB Q12H [facility] Last Admin: 08/29/16 06:48 Dose: 200 mls/hr Piperacillin Sod/Tazobactam Sod (Zosyn 3.375gm Ivpb (Pre-Docked)) 50 mls @ 100 mls/hr IVPB Q8H-IV [facility] Last Admin: 08/29/16 11:04 Dose: 100 mls/hr Metoprolol Tartrate (Lopressor -) 25 mg PO BID [facility] Last Admin: 08/29/16 10:58 Dose: 25 mg Morphine Sulfate (Morphine Injection -) 1 mg IVPUSH Q4H PRN PRN Reason: PAIN Last Admin: 08/27/16 16:39 Dose: 1 mg Olanzapine (Zyprexa -) 10 mg PO HS [facility] Last Admin: 08/28/16 21:25 Dose: 10 mg Oxycodone HCl (Roxicodone -) 10 mg PO Q4H [facility] Last Admin: 08/29/16 13:38 Dose: 10 mg Polyethylene Glycol (Miralax (For Daily Use) -) 17 gm PO DAILY [facility] Last Admin: 08/29/16 11:01 Dose: Not Given Promethazine HCl (Phenergan Injection -) 25 mg IM Q6H PRN PRN Reason: NAUSEA AND/OR VOMITING Quetiapine Fumarate (Seroquel -) 75 mg PO BID [facility] Last Admin: 08/29/16 10:58 Dose: 75 mg - Objective Vital Signs: Vital Signs Temperature 97.2 F L 08/29/16 14:46 Pulse Rate 75 08/29/16 14:46 Respiratory Rate 20 08/29/16 09:00 Blood Pressure 140/60 08/29/16 09:00 O2 Sat by Pulse Oximetry (%) 96 08/27/16 15:50 Constitutional: Yes: No Distress, Calm, Obese Cardiovascular: Yes: Regular Rate and Rhythm. No: Gallop, Murmur, Rub Respiratory: Yes: Regular, CTA Bilaterally. No: Rales, Rhonchi, Wheezes Gastrointestinal: Yes: Normal Bowel Sounds, Soft. No: Distention, Tenderness Extremities: Yes: Other (legs wrapped) Edema: Yes Edema: LLE: Trace, RLE: Trace Labs: CBC, BMP 08/29/16 06:30 08/29/16 06:30 Problem List - Problems (1) Cellulitis Code(s): L03.90 - CELLULITIS, UNSPECIFIED Qualifiers: Site of cellulitis: extremity Site of cellulitis of extremity: lower extremity Laterality: unspecified laterality Qualified Code(s): L03.119 - Cellulitis of unspecified part of limb (2) Sepsis Code(s): A41.9 - SEPSIS, UNSPECIFIED ORGANISM Qualifiers: Sepsis type: sepsis due to unspecified organism Qualified Code(s): A41.9 - Sepsis, unspecified organism (3) Dementia Code(s): F03.90 - UNSPECIFIED DEMENTIA WITHOUT BEHAVIORAL DISTURBANCE Qualifiers: Dementia type: unspecified type Dementia behavioral disturbance: with behavioral disturbance Qualified Code(s): F03.91 - Unspecified dementia with behavioral disturbance; F10.97 - Alcohol use, unspecified with alcohol- induced persisting dementia (4) HTN (hypertension) Code(s): I10 - ESSENTIAL (PRIMARY) HYPERTENSION (5) Parkinson disease Code(s): G20 - PARKINSON'S DISEASE (6) PVD (peripheral vascular disease) Code(s): I73.9 - PERIPHERAL VASCULAR DISEASE, UNSPECIFIED Assessment/Plan (1) Cellulitis Assessment/Plan: -appreciate wound care and ID assistance -legs currently wrapped -continue vancomycin and zosyn Code(s): L03.90 - CELLULITIS, UNSPECIFIED Qualifiers: Site of cellulitis: extremity Site of cellulitis of extremity: lower extremity Laterality: unspecified laterality Qualified Code(s): L03.119 - Cellulitis of unspecified part of limb (2) Sepsis Assessment/Plan: -resolved Code(s): A41.9 - SEPSIS, UNSPECIFIED ORGANISM Qualifiers: Sepsis type: sepsis due to unspecified organism Qualified Code(s): A41.9 - Sepsis, unspecified organism (3) Dementia Assessment/Plan: -stable -with behavioral disturbance in the past -continues to be friendly -continue seroquel and zyprexa Code(s): F03.90 - UNSPECIFIED DEMENTIA WITHOUT BEHAVIORAL DISTURBANCE Qualifiers: Dementia type: unspecified type Dementia behavioral disturbance: with behavioral disturbance Qualified Code(s): F03.91 - Unspecified dementia with behavioral disturbance; F10.97 - Alcohol use, unspecified with alcohol- induced persisting dementia (4) HTN (hypertension) Assessment/Plan: -controlled -continue toprol Code(s): I10 - ESSENTIAL (PRIMARY) HYPERTENSION (5) Parkinson disease Assessment/Plan: -continue sinemet Code(s): G20 - PARKINSON'S DISEASE (6) PVD (peripheral vascular disease) Assessment/Plan: -continue pletal Code(s): I73.9 - PERIPHERAL VASCULAR DISEASE, UNSPECIFIED
--- NOTE | 2016-08-29 15:42 | PN ---
Progress Note, Physician History of Present Illness: No c/o leg pain at rest No c/o fever/ chills Tolerating antibiotics - Current Medication List Current Medications: Active Medications Acetaminophen (Tylenol -) 650 mg PO Q4H PRN PRN Reason: FEVER OR PAIN Last Admin: 08/29/16 07:43 Dose: 650 mg Atorvastatin Calcium (Lipitor -) 40 mg PO HS [facility] Last Admin: 08/28/16 21:23 Dose: 40 mg Carbidopa/Levodopa (Sinemet *Cr* 50/200 -) 1 combo PO TID [facility] Last Admin: 08/29/16 06:48 Dose: 1 combo Cholecalciferol (Vitamin D3 -) 1,000 unit PO DAILY [facility] Last Admin: 08/29/16 10:59 Dose: 1,000 unit Cilostazol (Pletal -) 100 mg PO DAILY [facility] Last Admin: 08/29/16 10:57 Dose: 100 mg Docusate Sodium (Colace -) 100 mg PO BID [facility] Last Admin: 08/29/16 10:58 Dose: 100 mg Heparin Sodium (Porcine) (Heparin -) 5,000 unit SQ TID [facility] Last Admin: 08/29/16 13:41 Dose: 5,000 unit Vancomycin HCl (Vancomycin (Pre-Docked)) 250 mls @ 200 mls/hr IVPB Q12H [facility] Last Admin: 08/29/16 06:48 Dose: 200 mls/hr Piperacillin Sod/Tazobactam Sod (Zosyn 3.375gm Ivpb (Pre-Docked)) 50 mls @ 100 mls/hr IVPB Q8H-IV [facility] Last Admin: 08/29/16 11:04 Dose: 100 mls/hr Metoprolol Tartrate (Lopressor -) 25 mg PO BID [facility] Last Admin: 08/29/16 10:58 Dose: 25 mg Morphine Sulfate (Morphine Injection -) 1 mg IVPUSH Q4H PRN PRN Reason: PAIN Last Admin: 08/27/16 16:39 Dose: 1 mg Olanzapine (Zyprexa -) 10 mg PO HS [facility] Last Admin: 08/28/16 21:25 Dose: 10 mg Oxycodone HCl (Roxicodone -) 10 mg PO Q4H [facility] Last Admin: 08/29/16 13:38 Dose: 10 mg Polyethylene Glycol (Miralax (For Daily Use) -) 17 gm PO DAILY [facility] Last Admin: 08/29/16 11:01 Dose: Not Given Promethazine HCl (Phenergan Injection -) 25 mg IM Q6H PRN PRN Reason: NAUSEA AND/OR VOMITING Quetiapine Fumarate (Seroquel -) 75 mg PO BID [facility] Last Admin: 08/29/16 10:58 Dose: 75 mg - Objective Vital Signs: Vital Signs Temperature 97.2 F L 08/29/16 14:46 Pulse Rate 75 08/29/16 14:46 Respiratory Rate 20 08/29/16 09:00 Blood Pressure 140/60 08/29/16 09:00 O2 Sat by Pulse Oximetry (%) 96 08/27/16 15:50 Constitutional: Yes: No Distress Eyes: Yes: Conjunctiva Clear Cardiovascular: Yes: Regular Rate and Rhythm, S1, S2 Respiratory: Yes: CTA Bilaterally Gastrointestinal: Yes: Normal Bowel Sounds, Soft. No: Tenderness Extremities: Yes: Other (decreased edema/ erythema LE bilaterally) Labs: CBC, BMP 08/29/16 06:30 08/29/16 06:30 Assessment/Plan Bilateral LE cellulitis, recurrent Parkinsonism/ OBS Hx C difficile Continue empiric zosyn/ vancomycin Vanco level pending Local wound care
[2016-08-29] MEDS: ATORVASTATIN CA 40 MG TABLET (FP) PO SCH (21:26)
[2016-08-29] MEDS: OLANZapine 10 MG TABLET PO SCH (21:27)
[2016-08-30] MEDS: oxyCODONE HCL 5 MG TABLET PO SCH ×6 (01:10→20:30)
[2016-08-30] MEDS: PIPERACILLIN/TAZOB 3.375 GM 50 ML IVPB SCH ×2 (02:42→09:46)
[2016-08-30] MEDS ORDERED: PT OWN MED DRAWER 7, Y5N ONE ×3 (06:02→20:52)
[2016-08-30] MEDS: VANCOMYCIN 1 GRAM (PRE-DOCKED) 250 ML IVPB SCH ×2 (06:10→17:51)
[2016-08-30] MEDS: HEPARIN NA (PORCINE) 5,000 UNITS/ML 1ML VIAL SQ SCH ×3 (06:13→21:05)
[2016-08-30 08:35] LABS: BASOPHIL 0.5 % (0-2.0); EOSINOPHIL 7.4 % (0-4.5); MCH 29.6 pg (25.7-33.7); MCHC 33.4 g/dl (32.0-35.9); MEAN CELL VOLUME 88.7 fl (80-96); MEAN PLT VOLUME 6.7 fl (7.5-11.1); NEUTROPHILS 63.1 % (42.8-82.8); PLATELET COUNT 352 K/MM3 (134-434); RDW 15.7 % (11.9-15.9); WHITE BLOOD COUNT 6.9 K/mm3 (4.0-10.0)
--- NOTE | 2016-08-30 08:52 | PN ---
Progress Note, Physician Chief Complaint: Mr Whitfield says he is feeling fine and is without complaint. - Current Medication List Current Medications: Active Medications Acetaminophen (Tylenol -) 650 mg PO Q4H PRN PRN Reason: FEVER OR PAIN Last Admin: 08/29/16 07:43 Dose: 650 mg Atorvastatin Calcium (Lipitor -) 40 mg PO HS [facility] Last Admin: 08/29/16 21:26 Dose: 40 mg Carbidopa/Levodopa (Sinemet *Cr* 50/200 -) 1 combo PO TID [facility] Last Admin: 08/30/16 06:11 Dose: 1 combo Cholecalciferol (Vitamin D3 -) 1,000 unit PO DAILY [facility] Last Admin: 08/29/16 10:59 Dose: 1,000 unit Cilostazol (Pletal -) 100 mg PO DAILY [facility] Last Admin: 08/29/16 10:57 Dose: 100 mg Docusate Sodium (Colace -) 100 mg PO BID [facility] Last Admin: 08/29/16 21:25 Dose: 100 mg Heparin Sodium (Porcine) (Heparin -) 5,000 unit SQ TID [facility] Last Admin: 08/30/16 06:13 Dose: 5,000 unit Vancomycin HCl (Vancomycin (Pre-Docked)) 250 mls @ 200 mls/hr IVPB Q12H [facility] Last Admin: 08/30/16 06:10 Dose: 200 mls/hr Piperacillin Sod/Tazobactam Sod (Zosyn 3.375gm Ivpb (Pre-Docked)) 50 mls @ 100 mls/hr IVPB Q8H-IV [facility] Last Admin: 08/30/16 02:42 Dose: 100 mls/hr Metoprolol Tartrate (Lopressor -) 25 mg PO BID [facility] Last Admin: 08/29/16 21:27 Dose: 25 mg Morphine Sulfate (Morphine Injection -) 1 mg IVPUSH Q4H PRN PRN Reason: PAIN Last Admin: 08/27/16 16:39 Dose: 1 mg Olanzapine (Zyprexa -) 10 mg PO HS [facility] Last Admin: 08/29/16 21:27 Dose: 10 mg Oxycodone HCl (Roxicodone -) 10 mg PO Q4H [facility] Last Admin: 08/30/16 07:57 Dose: 10 mg Polyethylene Glycol (Miralax (For Daily Use) -) 17 gm PO DAILY [facility] Last Admin: 08/29/16 11:01 Dose: Not Given Promethazine HCl (Phenergan Injection -) 25 mg IM Q6H PRN PRN Reason: NAUSEA AND/OR VOMITING Quetiapine Fumarate (Seroquel -) 75 mg PO BID [facility] Last Admin: 08/29/16 21:27 Dose: 75 mg - Objective Vital Signs: Vital Signs Temperature 98.4 F 08/30/16 02:05 Pulse Rate 75 08/30/16 02:05 Respiratory Rate 20 08/30/16 02:05 Blood Pressure 126/63 08/30/16 02:05 O2 Sat by Pulse Oximetry (%) 96 08/27/16 15:50 Constitutional: Yes: Well Nourished, No Distress, Calm Cardiovascular: Yes: Regular Rate and Rhythm. No: Gallop, Murmur, Rub Respiratory: Yes: Regular, CTA Bilaterally. No: Rales, Rhonchi, Wheezes Gastrointestinal: Yes: Normal Bowel Sounds, Soft. No: Distention, Tenderness Extremities: Yes: Other (wrapped) Edema: Yes Edema: LLE: Trace, RLE: Trace Labs: CBC, BMP 08/30/16 07:00 Problem List - Problems (1) Cellulitis Code(s): L03.90 - CELLULITIS, UNSPECIFIED Qualifiers: Site of cellulitis: extremity Site of cellulitis of extremity: lower extremity Laterality: unspecified laterality Qualified Code(s): L03.119 - Cellulitis of unspecified part of limb (2) Sepsis Code(s): A41.9 - SEPSIS, UNSPECIFIED ORGANISM Qualifiers: Sepsis type: sepsis due to unspecified organism Qualified Code(s): A41.9 - Sepsis, unspecified organism (3) Dementia Code(s): F03.90 - UNSPECIFIED DEMENTIA WITHOUT BEHAVIORAL DISTURBANCE Qualifiers: Dementia type: unspecified type Dementia behavioral disturbance: with behavioral disturbance Qualified Code(s): F03.91 - Unspecified dementia with behavioral disturbance; F10.97 - Alcohol use, unspecified with alcohol- induced persisting dementia (4) HTN (hypertension) Code(s): I10 - ESSENTIAL (PRIMARY) HYPERTENSION (5) Parkinson disease Code(s): G20 - PARKINSON'S DISEASE (6) PVD (peripheral vascular disease) Code(s): I73.9 - PERIPHERAL VASCULAR DISEASE, UNSPECIFIED Assessment/Plan (1) Cellulitis Assessment/Plan: -appreciate wound care and ID assistance -legs currently wrapped -continue vancomycin -zosyn discontinued per ID Code(s): L03.90 - CELLULITIS, UNSPECIFIED Qualifiers: Site of cellulitis: extremity Site of cellulitis of extremity: lower extremity Laterality: unspecified laterality Qualified Code(s): L03.119 - Cellulitis of unspecified part of limb (2) Sepsis Assessment/Plan: -resolved Code(s): A41.9 - SEPSIS, UNSPECIFIED ORGANISM Qualifiers: Sepsis type: sepsis due to unspecified organism Qualified Code(s): A41.9 - Sepsis, unspecified organism (3) Dementia Assessment/Plan: -stable -with behavioral disturbance in the past -continues to be friendly -continue seroquel and zyprexa Code(s): F03.90 - UNSPECIFIED DEMENTIA WITHOUT BEHAVIORAL DISTURBANCE Qualifiers: Dementia type: unspecified type Dementia behavioral disturbance: with behavioral disturbance Qualified Code(s): F03.91 - Unspecified dementia with behavioral disturbance; F10.97 - Alcohol use, unspecified with alcohol- induced persisting dementia (4) HTN (hypertension) Assessment/Plan: -controlled -continue toprol Code(s): I10 - ESSENTIAL (PRIMARY) HYPERTENSION (5) Parkinson disease Assessment/Plan: -continue sinemet Code(s): G20 - PARKINSON'S DISEASE (6) PVD (peripheral vascular disease) Assessment/Plan: -continue pletal Code(s): I73.9 - PERIPHERAL VASCULAR DISEASE, UNSPECIFIED
[2016-08-30 09:03] LABS: CALCIUM 8.5 mg/dL (8.5-10.1); CREATININE 0.7 mg/dL (0.7-1.3); MAGNESIUM 2.1 mg/dL (1.8-2.4); PHOSPHOROUS 3.7 mg/dL (2.5-4.9)
[2016-08-30] MEDS: DOCUSATE SODIUM 100 MG CAPSULE (FP) PO SCH ×2 (09:49→21:05)
[2016-08-30] MEDS: METOPROLOL TARTRATE 25 MG TABLET (FP) PO SCH ×2 (09:49→21:08)
[2016-08-30] MEDS: POLYETHYLENE GLYCOL 3350 119 GM BTL PO SCH (09:49)
[2016-08-30] MEDS: QUEtiapine FUMARATE 25 MG TABLET (FP) PO SCH ×2 (09:49→21:05)
[2016-08-30] MEDS: CHOLECALCIFEROL (VITAMIN D3) 1,000 UNIT TABLET (FP) PO SCH (09:49)
[2016-08-30] MEDS: CILOSTAZOL 100 MG TABLET PO SCH (09:50)
--- NOTE | 2016-08-30 11:24 | PN ---
Progress Note, Physician History of Present Illness: No c/o leg pain No fever/ chills Tolerating antibiotics Vanco trough noted - Current Medication List Current Medications: Active Medications Acetaminophen (Tylenol -) 650 mg PO Q4H PRN PRN Reason: FEVER OR PAIN Last Admin: 08/29/16 07:43 Dose: 650 mg Atorvastatin Calcium (Lipitor -) 40 mg PO HS [facility] Last Admin: 08/29/16 21:26 Dose: 40 mg Carbidopa/Levodopa (Sinemet *Cr* 50/200 -) 1 combo PO TID [facility] Last Admin: 08/30/16 06:11 Dose: 1 combo Cholecalciferol (Vitamin D3 -) 1,000 unit PO DAILY [facility] Last Admin: 08/30/16 09:49 Dose: 1,000 unit Cilostazol (Pletal -) 100 mg PO DAILY [facility] Last Admin: 08/30/16 09:50 Dose: 100 mg Docusate Sodium (Colace -) 100 mg PO BID [facility] Last Admin: 08/30/16 09:49 Dose: 100 mg Heparin Sodium (Porcine) (Heparin -) 5,000 unit SQ TID [facility] Last Admin: 08/30/16 06:13 Dose: 5,000 unit Vancomycin HCl (Vancomycin (Pre-Docked)) 250 mls @ 200 mls/hr IVPB Q12H [facility] Last Admin: 08/30/16 06:10 Dose: 200 mls/hr Piperacillin Sod/Tazobactam Sod (Zosyn 3.375gm Ivpb (Pre-Docked)) 50 mls @ 100 mls/hr IVPB Q8H-IV [facility] Last Admin: 08/30/16 09:46 Dose: 100 mls/hr Metoprolol Tartrate (Lopressor -) 25 mg PO BID [facility] Last Admin: 08/30/16 09:49 Dose: 25 mg Morphine Sulfate (Morphine Injection -) 1 mg IVPUSH Q4H PRN PRN Reason: PAIN Last Admin: 08/27/16 16:39 Dose: 1 mg Olanzapine (Zyprexa -) 10 mg PO HS [facility] Last Admin: 08/29/16 21:27 Dose: 10 mg Oxycodone HCl (Roxicodone -) 10 mg PO Q4H [facility] Last Admin: 08/30/16 07:57 Dose: 10 mg Polyethylene Glycol (Miralax (For Daily Use) -) 17 gm PO DAILY [facility] Last Admin: 08/30/16 09:49 Dose: 17 gm Promethazine HCl (Phenergan Injection -) 25 mg IM Q6H PRN PRN Reason: NAUSEA AND/OR VOMITING Quetiapine Fumarate (Seroquel -) 75 mg PO BID [facility] Last Admin: 08/30/16 09:49 Dose: 75 mg - Objective Vital Signs: Vital Signs Temperature 98.5 F 08/30/16 09:01 Pulse Rate 82 08/30/16 09:01 Respiratory Rate 20 08/30/16 09:01 Blood Pressure 144/68 08/30/16 09:01 O2 Sat by Pulse Oximetry (%) 93 L 08/30/16 09:00 Constitutional: Yes: No Distress Eyes: Yes: Conjunctiva Clear Cardiovascular: Yes: Regular Rate and Rhythm, S1, S2 Respiratory: Yes: CTA Bilaterally Gastrointestinal: Yes: Normal Bowel Sounds, Soft. No: Tenderness Extremities: Yes: Other (decreased bilateral LE edema Continued improvement, bilateral LE erythema) Labs: CBC, BMP 08/30/16 07:00 08/30/16 07:00 Assessment/Plan Bilateral LE cellulitis, recurrent + wound c/s MRSA Parkinsonism/ OBS Hx C difficile Continue vancomycin; D/C zosyn Anticipate pt will need additional 24-48hr IV antibiotics Local wound care
[2016-08-30] MEDS: ACETAMINOPHEN 325 MG TABLET (FP) PO PRN (13:20)
[2016-08-30] MEDS: OLANZapine 10 MG TABLET PO SCH (21:04)
[2016-08-30] MEDS: ATORVASTATIN CA 40 MG TABLET (FP) PO SCH (21:05)
[2016-08-31] MEDS: oxyCODONE HCL 5 MG TABLET PO SCH ×6 (00:15→20:32)
[2016-08-31] MEDS: morphine CARPU-JECT 2 MG/1 ML DISP.SYRIN IVPUSH PRN (03:05)
[2016-08-31] MEDS: VANCOMYCIN 1 GRAM (PRE-DOCKED) 250 ML IVPB SCH ×2 (06:35→18:42)
[2016-08-31] MEDS: HEPARIN NA (PORCINE) 5,000 UNITS/ML 1ML VIAL SQ SCH ×3 (06:35→21:27)
[2016-08-31] MEDS: ACETAMINOPHEN 325 MG TABLET (FP) PO PRN (06:39)
[2016-08-31 07:22] LABS: BASOPHIL 0.5 % (0-2.0); EOSINOPHIL 8.3 % (0-4.5); MCH 29.7 pg (25.7-33.7); MCHC 33.4 g/dl (32.0-35.9); MEAN CELL VOLUME 89.1 fl (80-96); MEAN PLT VOLUME 6.9 fl (7.5-11.1); PLATELET COUNT 380 K/MM3 (134-434); RDW 15.6 % (11.9-15.9); WHITE BLOOD COUNT 6.1 K/mm3 (4.0-10.0)
[2016-08-31 07:39] LABS: CALCIUM 8.7 mg/dL (8.5-10.1); CREATININE 0.7 mg/dL (0.7-1.3); MAGNESIUM 2.1 mg/dL (1.8-2.4); PHOSPHOROUS 3.8 mg/dL (2.5-4.9)
[2016-08-31] MEDS: QUEtiapine FUMARATE 25 MG TABLET (FP) PO SCH ×2 (09:47→21:27)
[2016-08-31] MEDS: DOCUSATE SODIUM 100 MG CAPSULE (FP) PO SCH ×2 (09:48→21:27)
[2016-08-31] MEDS: CHOLECALCIFEROL (VITAMIN D3) 1,000 UNIT TABLET (FP) PO SCH (09:48)
[2016-08-31] MEDS: METOPROLOL TARTRATE 25 MG TABLET (FP) PO SCH ×2 (09:48→21:27)
[2016-08-31] MEDS: POLYETHYLENE GLYCOL 3350 119 GM BTL PO SCH (09:49)
[2016-08-31] MEDS ORDERED: PT OWN MED DRAWER 7, Y5N ONE (09:52)
[2016-08-31] MEDS: CILOSTAZOL 100 MG TABLET PO SCH (09:55)
--- NOTE | 2016-08-31 14:58 | PN ---
Physical Exam: SUBJECTIVE: Patient seen and examined. Refuses to walk or get OOB. OBJECTIVE: Vital Signs Period Temp Pulse Resp BP Sys/Martinez Pulse Ox Last 24 Hr 97.8 F-98.2 F 67-72 20-20 132-157/79-84 93-95 GENERAL: The patient is awake, alert, and fully oriented, in no acute distress. HEAD: Normal with no signs of trauma. LUNGS: Breath sounds equal, clear to auscultation bilaterally, no wheezes, no crackles, no accessory muscle use. HEART: Regular rate and rhythm, S1, S2 without murmur, rub or gallop. ABDOMEN: Soft, nontender, nondistended, normoactive bowel sounds, no guarding, no rebound, no hepatosplenomegaly, no masses. RLE: extensive venous stasis changes, erythema, warm to touch, multiple areas of broken blisters with minor bleeding; right foot 4+ edema, 2+ pulses LLE: extensive venous stasis changes, erythema, warm to touch, one area of broken blister with bleeding; left foot 2+ edema, 2+ pulses NEUROLOGICAL: Cranial nerves II through XII grossly intact. Normal speech, gait not observed. Laboratory Results - last 24 hr 08/31/16 08/31/16 05:50 05:50 WBC 6.1 RBC 3.94 L Hgb 11.7 Hct 35.1 L MCV 89.1 MCHC 33.4 RDW 15.6 Plt Count 380 MPV 6.9 L Neutrophils % 59.0 Lymphocytes % 19.1 D Monocytes % 13.1 H Eosinophils % 8.3 H Basophils % 0.5 Sodium 140 Potassium 4.3 Chloride 101 Carbon Dioxide 32 Anion Gap 7 L BUN 8 Creatinine 0.7 Random Glucose 69 L Calcium 8.7 Phosphorus 3.8 Magnesium 2.1 Active Medications Generic Name Dose Route Start Last Admin Trade Name Freq PRN Reason Stop Dose Admin Acetaminophen 650 mg 08/27/16 14:43 08/31/16 06:39 Tylenol - PO 650 mg Q4H PRN Administration FEVER OR PAIN Atorvastatin Calcium 40 mg 08/27/16 22:00 08/30/16 21:05 Lipitor - PO 40 mg HS IRENE Administration Carbidopa/Levodopa 1 combo 08/27/16 22:00 08/31/16 14:06 Sinemet *Cr* 50/200 - PO 1 combo TID IRENE Administration Cholecalciferol 1,000 unit 08/28/16 10:00 08/31/16 09:48 Vitamin D3 - PO 1,000 unit DAILY IRENE Administration Cilostazol 100 mg 08/28/16 10:00 08/31/16 09:55 Pletal - PO 100 mg DAILY IRENE Administration Docusate Sodium 100 mg 08/27/16 22:00 08/31/16 09:48 Colace - PO 100 mg BID IRENE Administration Heparin Sodium (Porcine) 5,000 unit 08/27/16 22:00 08/31/16 14:06 Heparin - SQ 5,000 unit TID IRENE Administration Vancomycin HCl 250 mls @ 200 mls/hr 08/27/16 18:00 08/31/16 06:35 Vancomycin (Pre-Docked) IVPB 200 mls/hr Q12H IRENE Administration Metoprolol Tartrate 25 mg 08/27/16 22:00 08/31/16 09:48 Lopressor - PO 25 mg BID IRENE Administration Olanzapine 10 mg 08/27/16 22:00 08/30/16 21:04 Zyprexa - PO 10 mg HS IRENE Administration Oxycodone HCl 10 mg 08/27/16 16:16 08/31/16 11:54 Roxicodone - PO 10 mg Q4H IRENE Administration Polyethylene Glycol 17 gm 08/28/16 10:00 08/31/16 09:49 Miralax (For Daily Use) - PO 17 gm DAILY IRENE Administration Promethazine HCl 25 mg 08/27/16 14:43 Phenergan Injection - IM Q6H PRN NAUSEA AND/OR VOMITING Quetiapine Fumarate 75 mg 08/27/16 22:00 08/31/16 09:47 Seroquel - PO 75 mg BID IRENE Administration ASSESSMENT/PLAN: Bilateral lower extremity MRSA cellulitis --continue Vanco (day #5) --apply xeroform to open blisters and cover with sterile gauze daily Sepsis, resolved Dementia with behavioral distrubance --continue Zyprexa, Seroquel Hypertension --continue metoprolol Peripheral vascular disease Parkinson's disease --continue carbidopa/levodopa Peripheral vascular disease F/E/N Fluids: PO intake adequate Electrolytes: replete as indicated Nutrition: low sodium DVT prophylaxis: subq heparin Dispo: patient refuses to participate in PT; continues to require inpatient care. Full code. Visit type - Emergency Visit Emergency Visit: Yes ED Registration Date: 08/27/16 Care time: The patient presented to the Emergency Department on the above date and was hospitalized for further evaluation of their emergent condition. - New Patient This patient is new to me today: Yes Date on this admission: 08/31/16 - Critical Care Critical Care patient: No
[2016-08-31] MEDS: OLANZapine 10 MG TABLET PO SCH (21:26)
[2016-08-31] MEDS: ATORVASTATIN CA 40 MG TABLET (FP) PO SCH (21:27)
[2016-09-01] MEDS: oxyCODONE HCL 5 MG TABLET PO SCH ×6 (00:59→20:08)
[2016-09-01] MEDS: VANCOMYCIN 1 GRAM (PRE-DOCKED) 250 ML IVPB SCH ×2 (05:19→17:01)
[2016-09-01] MEDS: HEPARIN NA (PORCINE) 5,000 UNITS/ML 1ML VIAL SQ SCH ×3 (05:20→21:24)
[2016-09-01 07:46] LABS: BASOPHIL 0.2 % (0-2.0); EOSINOPHIL 4.2 % (0-4.5); MCH 29.8 pg (25.7-33.7); MCHC 33.5 g/dl (32.0-35.9); MEAN PLT VOLUME 6.6 fl (7.5-11.1); NEUTROPHILS 72.1 % (42.8-82.8); PLATELET COUNT 385 K/MM3 (134-434); RDW 15.8 % (11.9-15.9); WHITE BLOOD COUNT 8.9 K/mm3 (4.0-10.0)
[2016-09-01 08:11] LABS: ALBUMIN 2.6 g/dl (3.4-5.0); ANION GAP 6 (8-16); BILIRUBIN,TOTAL 0.5 mg/dL (0.2-1.0); CALCIUM 8.6 mg/dL (8.5-10.1); CO2 31 mmol/L (21-32); CREATININE 0.7 mg/dL (0.7-1.3); GLUCOSE,RANDOM 78 mg/dL (74-106); SGOT/AST 13 U/L (15-37); SGPT/ALT 6 U/L (12-78); TOT PROT 5.3 g/dl (6.4-8.2)
[2016-09-01 08:12] LABS: ALK PHOS 101 U/L (45-117)
[2016-09-01] MEDS: CHOLECALCIFEROL (VITAMIN D3) 1,000 UNIT TABLET (FP) PO SCH (09:38)
[2016-09-01] MEDS: DOCUSATE SODIUM 100 MG CAPSULE (FP) PO SCH ×2 (09:39→21:24)
[2016-09-01] MEDS: METOPROLOL TARTRATE 25 MG TABLET (FP) PO SCH ×2 (09:39→21:24)
[2016-09-01] MEDS: POLYETHYLENE GLYCOL 3350 119 GM BTL PO SCH (09:39)
[2016-09-01] MEDS: CILOSTAZOL 100 MG TABLET PO SCH (09:40)
[2016-09-01] MEDS: QUEtiapine FUMARATE 25 MG TABLET (FP) PO SCH ×2 (09:40→21:24)
[2016-09-01] MEDS ORDERED: PT OWN MED DRAWER 7, Y5N ONE ×2 (13:37→21:02)
--- NOTE | 2016-09-01 17:58 | HP ---
CHIEF COMPLAINT: PCP: HISTORY OF PRESENT ILLNESS: ER course was notable for: (1) (2) (3) Recent Travel: PAST MEDICAL HISTORY: PAST SURGICAL HISTORY: Social History: Smoking: Alcohol: Drugs: Family History: Allergies No Known Allergies Allergy (Verified 08/27/16 11:55) HOME MEDICATIONS: Medication Instructions Recorded Atorvastatin Ca [Lipitor] 40 mg PO HS #30 tablet 03/19/16 Carbidopa/Levodopa *Cr* 50/200 1 combo PO TID #90 tablet.er 03/19/16 [Sinemet *Cr* 50/200 -] Cilostazol 100 mg PO DAILY #30 tablet 03/19/16 Metoprolol Tartrate [Lopressor -] 25 mg PO BID #60 tablet 03/19/16 Oxycodone HCl 10 mg PO Q4H PRN #30 tablet MDD 03/19/16 60mg Quetiapine Fumarate [Seroquel -] 75 mg PO BID #90 tablet 03/19/16 Cholecalciferol (Vitamin D3) 1,000 unit PO DAILY 08/27/16 [Vitamin D3] Olanzapine [Zyprexa -] 10 mg PO HS 08/27/16 REVIEW OF SYSTEMS CONSTITUTIONAL: Absent: fever, chills, diaphoresis, generalized weakness, malaise, loss of appetite, weight change HEENT: Absent: rhinorrhea, nasal congestion, throat pain, throat swelling, difficulty swallowing, mouth swelling, ear pain, eye pain, visual changes CARDIOVASCULAR: Absent: chest pain, syncope, palpitations, irregular heart rate, lightheadedness , peripheral edema RESPIRATORY: Absent: cough, shortness of breath, dyspnea with exertion, orthopnea, wheezing, stridor, hemoptysis GASTROINTESTINAL: Absent: abdominal pain, abdominal distension, nausea, vomiting, diarrhea, constipation, melena, hematochezia GENITOURINARY: Absent: dysuria, frequency, urgency, hesitancy, hematuria, flank pain, genital pain MUSCULOSKELETAL: Absent: myalgia, arthralgia, joint swelling, back pain, neck pain SKIN: Absent: rash, itching, pallor HEMATOLOGIC/IMMUNOLOGIC: Absent: easy bleeding, easy bruising, lymphadenopathy, frequent infections ENDOCRINE: Absent: unexplained weight gain, unexplained weight loss, heat intolerance, cold intolerance NEUROLOGIC: Absent: headache, focal weakness or paresthesias, dizziness, unsteady gait, seizure, mental status changes, bladder or bowel incontinence PSYCHIATRIC: Absent: anxiety, depression, suicidal or homicidal ideation, hallucinations. PHYSICAL EXAMINATION Vital Signs - 24 hr 08/31/16 08/31/16 08/31/16 19:27 21:00 22:00 Temperature 97.8 F Pulse Rate 79 71 Respiratory 18 18 Rate Blood Pressure 150/73 166/86 O2 Sat by Pulse 95 Oximetry (%) 09/01/16 09/01/16 09/01/16 06:00 08:00 14:59 Temperature 98.0 F 98.1 F 98.4 F Pulse Rate 75 85 79 Respiratory 16 20 20 Rate Blood Pressure 144/63 147/74 95/57 O2 Sat by Pulse 95 Oximetry (%) GENERAL: Awake, alert, and fully oriented, in no acute distress. HEAD: Normal with no signs of trauma. EYES: Pupils equal, round and reactive to light, extraocular movements intact, sclera anicteric, conjunctiva clear. No lid lag. EARS, NOSE, THROAT: Ears normal, nares patent, oropharynx clear without exudates. Moist mucous membranes. NECK: Normal range of motion, supple without lymphadenopathy, JVD, or masses. LUNGS: Breath sounds equal, clear to auscultation bilaterally. No wheezes, and no crackles. No accessory muscle use. HEART: Regular rate and rhythm, normal S1 and S2 without murmur, rub or gallop. ABDOMEN: Soft, nontender, not distended, normoactive bowel sounds, no guarding, no rebound, no masses. No hepatomegaly or splenomegaly. MUSCULOSKELETAL: Normal range of motion at all joints. No bony deformities or tenderness. No CVA tenderness. UPPER EXTREMITIES: 2+ pulses, warm, well-perfused. No cyanosis. No clubbing. Cap refill <2 seconds. No peripheral edema. LOWER EXTREMITIES: 2+ pulses, warm, well-perfused. No calf tenderness. No peripheral edema. NEUROLOGICAL: Cranial nerves II-XII intact. Normal speech. Normal gait. PSYCHIATRIC: Cooperative. Good eye contact. Appropriate mood and affect. SKIN: Warm, dry, normal turgor, no rashes or lesions noted. Laboratory Results - last 24 hr 09/01/16 09/01/16 06:00 06:00 WBC 8.9 D RBC 3.86 L Hgb 11.5 L Hct 34.4 L MCV 89.0 MCHC 33.5 RDW 15.8 Plt Count 385 MPV 6.6 L Neutrophils % 72.1 D Lymphocytes % 10.8 D Monocytes % 12.7 H Eosinophils % 4.2 Basophils % 0.2 Sodium 138 Potassium 4.2 Chloride 101 Carbon Dioxide 31 Anion Gap 6 L BUN 11 D Creatinine 0.7 Creat Clearance w eGFR > 60 Random Glucose 78 Calcium 8.6 Magnesium 2.0 Total Bilirubin 0.5 AST 13 L D ALT 6 L D Alkaline Phosphatase 101 Total Protein 5.3 L Albumin 2.6 L ASSESSMENT/PLAN:
--- NOTE | 2016-09-01 17:59 | PN ---
Physical Exam: SUBJECTIVE: Patient seen and examined at bedside. present. OBJECTIVE: Vital Signs Period Temp Pulse Resp BP Sys/Martinez Pulse Ox Last 24 Hr 97.8 F-98.4 F 71-85 16-20 95-166/57-86 95-95 GENERAL: The patient is awake, alert, and fully oriented, in no acute distress. HEAD: Normal with no signs of trauma. LUNGS: Breath sounds equal, clear to auscultation bilaterally, no wheezes, no crackles, no accessory muscle use. HEART: Regular rate and rhythm, S1, S2 without murmur, rub or gallop. ABDOMEN: Soft, nontender, nondistended, normoactive bowel sounds, no guarding, no rebound, no hepatosplenomegaly, no masses. RLE: extensive venous stasis changes, erythema, warm to touch, bleeding sites have all resolved; right foot 4+ edema, 2+ pulses LLE: extensive venous stasis changes, erythema, warm to touch, bleeding sites have all resolved; left foot 2+ edema, 2+ pulses NEUROLOGICAL: Cranial nerves II through XII grossly intact. Normal speech, gait not observed. Laboratory Results - last 24 hr 09/01/16 09/01/16 06:00 06:00 WBC 8.9 D RBC 3.86 L Hgb 11.5 L Hct 34.4 L MCV 89.0 MCHC 33.5 RDW 15.8 Plt Count 385 MPV 6.6 L Neutrophils % 72.1 D Lymphocytes % 10.8 D Monocytes % 12.7 H Eosinophils % 4.2 Basophils % 0.2 Sodium 138 Potassium 4.2 Chloride 101 Carbon Dioxide 31 Anion Gap 6 L BUN 11 D Creatinine 0.7 Creat Clearance w eGFR > 60 Random Glucose 78 Calcium 8.6 Magnesium 2.0 Total Bilirubin 0.5 AST 13 L D ALT 6 L D Alkaline Phosphatase 101 Total Protein 5.3 L Albumin 2.6 L Active Medications Generic Name Dose Route Start Last Admin Trade Name Freq PRN Reason Stop Dose Admin Acetaminophen 650 mg 08/27/16 14:43 08/31/16 06:39 Tylenol - PO 650 mg Q4H PRN Administration FEVER OR PAIN Atorvastatin Calcium 40 mg 08/27/16 22:00 08/31/16 21:27 Lipitor - PO 40 mg HS IRENE Administration Carbidopa/Levodopa 1 combo 08/27/16 22:00 09/01/16 13:40 Sinemet *Cr* 50/200 - PO 1 combo TID IRENE Administration Cholecalciferol 1,000 unit 08/28/16 10:00 09/01/16 09:38 Vitamin D3 - PO 1,000 unit DAILY IRENE Administration Cilostazol 100 mg 08/28/16 10:00 09/01/16 09:40 Pletal - PO 100 mg DAILY IRENE Administration Docusate Sodium 100 mg 08/27/16 22:00 09/01/16 09:39 Colace - PO 100 mg BID IRENE Administration Heparin Sodium (Porcine) 5,000 unit 08/27/16 22:00 09/01/16 13:55 Heparin - SQ 5,000 unit TID IRENE Administration Vancomycin HCl 250 mls @ 200 mls/hr 08/27/16 18:00 09/01/16 17:01 Vancomycin (Pre-Docked) IVPB 200 mls/hr Q12H IRENE Administration Metoprolol Tartrate 25 mg 08/27/16 22:00 09/01/16 09:39 Lopressor - PO 25 mg BID IRENE Administration Olanzapine 10 mg 08/27/16 22:00 08/31/16 21:26 Zyprexa - PO 10 mg HS IRENE Administration Oxycodone HCl 10 mg 08/27/16 16:16 09/01/16 17:00 Roxicodone - PO 10 mg Q4H IRENE Administration Polyethylene Glycol 17 gm 08/28/16 10:00 09/01/16 09:39 Miralax (For Daily Use) - PO 17 gm DAILY IRENE Administration Promethazine HCl 25 mg 08/27/16 14:43 Phenergan Injection - IM Q6H PRN NAUSEA AND/OR VOMITING Quetiapine Fumarate 75 mg 08/27/16 22:00 09/01/16 09:40 Seroquel - PO 75 mg BID IRENE Administration Microbiology 08/27/16 12:04 Blood - Peripheral Venous Blood Culture - Final NO GROWTH AFTER 5 DAYS INCUBATION 08/27/16 12:04 Blood - Peripheral Venous Blood Culture - Final NO GROWTH AFTER 5 DAYS INCUBATION 08/27/16 12:04 Leg - Right Lower Gram Stain - Final 08/27/16 12:04 Leg - Right Lower Wound Culture - Final Mr S Aureus Staphylococcus Epidermidis 08/27/16 13:20 Urine - Urine Clean Catch Urine Culture - Final NO GROWTH OBTAINED ASSESSMENT/PLAN: Bilateral lower extremity MRSA cellulitis --continue Vanco (day #5) --apply xeroform to any open blisters and cover lightly with curlix daily Sepsis, resolved Dementia with behavioral distrubance --continue Zyprexa, Seroquel Hypertension --continue metoprolol Peripheral vascular disease Parkinson's disease --continue carbidopa/levodopa F/E/N Fluids: PO intake adequate Electrolytes: replete as indicated Nutrition: low sodium DVT prophylaxis: subq heparin Dispo: patient refuses to participate with PT; continues to require inpatient care. Full code. Visit type - Emergency Visit Emergency Visit: Yes ED Registration Date: 08/27/16 Care time: The patient presented to the Emergency Department on the above date and was hospitalized for further evaluation of their emergent condition. - New Patient This patient is new to me today: No - Critical Care Critical Care patient: No
[2016-09-01] MEDS: OLANZapine 10 MG TABLET PO SCH (21:24)
[2016-09-01] MEDS: ATORVASTATIN CA 40 MG TABLET (FP) PO SCH (21:24)
[2016-09-02] MEDS: oxyCODONE HCL 5 MG TABLET PO SCH ×7 (00:04→23:59)
[2016-09-02] MEDS ORDERED: PT OWN MED DRAWER 7, Y5N ONE ×3 (05:51→21:01)
[2016-09-02] MEDS: HEPARIN NA (PORCINE) 5,000 UNITS/ML 1ML VIAL SQ SCH ×3 (05:52→21:09)
[2016-09-02] MEDS: VANCOMYCIN 1 GRAM (PRE-DOCKED) 250 ML IVPB SCH (05:52)
[2016-09-02] MEDS: QUEtiapine FUMARATE 25 MG TABLET (FP) PO SCH ×2 (09:34→21:09)
[2016-09-02] MEDS: DOCUSATE SODIUM 100 MG CAPSULE (FP) PO SCH ×2 (09:34→21:09)
[2016-09-02] MEDS: METOPROLOL TARTRATE 25 MG TABLET (FP) PO SCH ×2 (09:35→21:09)
[2016-09-02] MEDS: CHOLECALCIFEROL (VITAMIN D3) 1,000 UNIT TABLET (FP) PO SCH (09:35)
[2016-09-02] MEDS: POLYETHYLENE GLYCOL 3350 119 GM BTL PO SCH (09:36)
[2016-09-02] MEDS: CILOSTAZOL 100 MG TABLET PO SCH (10:16)
--- NOTE | 2016-09-02 13:28 | PN ---
Progress Note (short form) - Note Progress Note: Subjective: The patient was seen and examined at the bedside, he has no complaints at this time Awaiting reevaluation by ID for abx duration Current Medications Generic Name Dose Route Start Last Admin Trade Name Freq PRN Reason Stop Dose Admin Acetaminophen 650 mg 08/27/16 14:43 08/31/16 06:39 Tylenol - PO 650 mg Q4H PRN Administration FEVER OR PAIN Atorvastatin Calcium 40 mg 08/27/16 22:00 09/01/16 21:24 Lipitor - PO 40 mg HS IRENE Administration Carbidopa/Levodopa 1 combo 08/27/16 22:00 09/02/16 05:52 Sinemet *Cr* 50/200 - PO 1 combo TID IRENE Administration Cholecalciferol 1,000 unit 08/28/16 10:00 09/02/16 09:35 Vitamin D3 - PO 1,000 unit DAILY IRENE Administration Cilostazol 100 mg 08/28/16 10:00 09/02/16 10:16 Pletal - PO 100 mg DAILY IRENE Administration Docusate Sodium 100 mg 08/27/16 22:00 09/02/16 09:34 Colace - PO 100 mg BID IRENE Administration Heparin Sodium (Porcine) 5,000 unit 08/27/16 22:00 09/02/16 05:52 Heparin - SQ 5,000 unit TID IRENE Administration Vancomycin HCl 250 mls @ 200 mls/hr 08/27/16 18:00 09/02/16 05:52 Vancomycin (Pre-Docked) IVPB 200 mls/hr Q12H IRENE Administration Metoprolol Tartrate 25 mg 08/27/16 22:00 09/02/16 09:35 Lopressor - PO 25 mg BID IRENE Administration Olanzapine 10 mg 08/27/16 22:00 09/01/16 21:24 Zyprexa - PO 10 mg HS IRENE Administration Oxycodone HCl 10 mg 08/27/16 16:16 09/02/16 12:21 Roxicodone - PO 10 mg Q4H IRENE Administration Polyethylene Glycol 17 gm 08/28/16 10:00 09/02/16 09:36 Miralax (For Daily Use) - PO 17 gm DAILY IRENE Administration Promethazine HCl 25 mg 08/27/16 14:43 Phenergan Injection - IM Q6H PRN NAUSEA AND/OR VOMITING Quetiapine Fumarate 75 mg 08/27/16 22:00 09/02/16 09:34 Seroquel - PO 75 mg BID IRENE Administration Objective: Vital Signs Period Temp Pulse Resp BP Sys/Martinez Pulse Ox Last 24 Hr 97.9 F-98.4 F 65-79 18-20 95-141/57-70 96 Physical Exam: General: NAD, A&Ox3 Lungs: CTA bilaterally Heart: RRR, S1S2 Abd: Soft, non-tender, non-distended. Normoactive bowel sounds Ext: B/l lower extremities with chronic venous stasis changes, non-blanchable erythema, warm. B/l pitting edema, R>L. RLE wound with dressing in place, c/d/i Neuro: CN 2-12 intact CBCD WBC 8.9 K/mm3 (4.0-10.0) D 09/01/16 06:00 RBC 3.86 M/mm3 (4.00-5.60) L 09/01/16 06:00 Hgb 11.5 GM/dL (11.7-16.9) L 09/01/16 06:00 Hct 34.4 % (35.4-49) L 09/01/16 06:00 MCV 89.0 fl (80-96) 09/01/16 06:00 MCHC 33.5 g/dl (32.0-35.9) 09/01/16 06:00 RDW 15.8 % (11.9-15.9) 09/01/16 06:00 Plt Count 385 K/MM3 (134-434) 09/01/16 06:00 MPV 6.6 fl (7.5-11.1) L 09/01/16 06:00 CMP Sodium 138 mmol/L (136-145) 09/01/16 06:00 Potassium 4.2 mmol/L (3.5-5.1) 09/01/16 06:00 Chloride 101 mmol/L (98-107) 09/01/16 06:00 Carbon Dioxide 31 mmol/L (21-32) 09/01/16 06:00 Anion Gap 6 (8-16) L 09/01/16 06:00 BUN 11 mg/dL (7-18) D 09/01/16 06:00 Creatinine 0.7 mg/dL (0.7-1.3) 09/01/16 06:00 Creat Clearance w eGFR > 60 (>60) 09/01/16 06:00 Random Glucose 78 mg/dL (74-106) 09/01/16 06:00 Calcium 8.6 mg/dL (8.5-10.1) 09/01/16 06:00 Total Bilirubin 0.5 mg/dL (0.2-1.0) 09/01/16 06:00 AST 13 U/L (15-37) L D 09/01/16 06:00 ALT 6 U/L (12-78) L D 09/01/16 06:00 Alkaline Phosphatase 101 U/L (45-117) 09/01/16 06:00 Total Protein 5.3 g/dl (6.4-8.2) L 09/01/16 06:00 Albumin 2.6 g/dl (3.4-5.0) L 09/01/16 06:00 Microbiology 08/27/16 12:04 Blood - Peripheral Venous Blood Culture - Final NO GROWTH AFTER 5 DAYS INCUBATION 08/27/16 12:04 Blood - Peripheral Venous Blood Culture - Final NO GROWTH AFTER 5 DAYS INCUBATION 08/27/16 12:04 Leg - Right Lower Gram Stain - Final 08/27/16 12:04 Leg - Right Lower Wound Culture - Final Mr S Aureus Staphylococcus Epidermidis 08/27/16 13:20 Urine - Urine Clean Catch Urine Culture - Final NO GROWTH OBTAINED Assessment: This is a 80 year old male with PMHx of dementia, HTN, hyperlipidemia, PVD, CKD, osteoarthritis, who presented to the ED with worsening cellulitis. Plan: 1) ID: Recurrent b/l lower extremity MRSA cellulitis - Continue Vancomycin (day 7) - Continue local wound care with xeroform to open blisters and cover with curlex then compression with tammy bandage - Leg elevation - Appreciate ID consult 2) Cardiology: HTN - Continue Lopressor - BP controlled Peripheral vascular disease 3) Neuro: Parkinson's disease - Continue Sinemet Dementia - Continue Seroquel - Continue Zyprexa 4) F/E/N: - Monitor electrolytes - Sodium controlled diet 5) Prophylaxis: - Patient has continued to refuse physical therapy - Heparin 5,000u sq tid 6) Dispo: - Today pending ID recommendations CODE STATUS: FULL CODE Visit type - Emergency Visit Emergency Visit: Yes ED Registration Date: 08/27/16 Care time: The patient presented to the Emergency Department on the above date and was hospitalized for further evaluation of their emergent condition. - New Patient This patient is new to me today: Yes Date on this admission: 09/02/16 - Critical Care Critical Care patient: No
--- NOTE | 2016-09-02 14:07 | PN ---
Progress Note, Physician History of Present Illness: C/O low back pain No c/o leg pain Afebrile - Current Medication List Current Medications: Active Medications Acetaminophen (Tylenol -) 650 mg PO Q4H PRN PRN Reason: FEVER OR PAIN Last Admin: 08/31/16 06:39 Dose: 650 mg Atorvastatin Calcium (Lipitor -) 40 mg PO HS [facility] [place] Last Admin: 09/01/16 21:24 Dose: 40 mg Carbidopa/Levodopa (Sinemet *Cr* 50/200 -) 1 combo PO TID [facility] [place] Last Admin: 09/02/16 05:52 Dose: 1 combo Cholecalciferol (Vitamin D3 -) 1,000 unit PO DAILY [facility] [place] Last Admin: 09/02/16 09:35 Dose: 1,000 unit Cilostazol (Pletal -) 100 mg PO DAILY [facility] [place] Last Admin: 09/02/16 10:16 Dose: 100 mg Docusate Sodium (Colace -) 100 mg PO BID [facility] [place] Last Admin: 09/02/16 09:34 Dose: 100 mg Heparin Sodium (Porcine) (Heparin -) 5,000 unit SQ TID [facility] [place] Last Admin: 09/02/16 05:52 Dose: 5,000 unit Metoprolol Tartrate (Lopressor -) 25 mg PO BID [facility] [place] Last Admin: 09/02/16 09:35 Dose: 25 mg Olanzapine (Zyprexa -) 10 mg PO [facility] Last Admin: 09/01/16 21:24 Dose: 10 mg Oxycodone HCl (Roxicodone -) 10 mg PO Q4H [facility] [place] Last Admin: 09/02/16 12:21 Dose: 10 mg Polyethylene Glycol (Miralax (For Daily Use) -) 17 gm PO DAILY [facility] [place] Last Admin: 09/02/16 09:36 Dose: 17 gm Promethazine HCl (Phenergan Injection -) 25 mg IM Q6H PRN PRN Reason: NAUSEA AND/OR VOMITING Quetiapine Fumarate (Seroquel -) 75 mg PO BID [facility] [place] Last Admin: 09/02/16 09:34 Dose: 75 mg Trimethoprim/Sulfamethoxazole (Bactrim Ds -) 1 each PO BID [facility] - Objective Vital Signs: Vital Signs Temperature 97.9 F 09/02/16 09:00 Pulse Rate 65 09/02/16 09:00 Respiratory Rate 18 09/02/16 09:00 Blood Pressure 125/70 09/02/16 09:00 O2 Sat by Pulse Oximetry (%) 96 09/01/16 21:00 Constitutional: Yes: No Distress Cardiovascular: Yes: Regular Rate and Rhythm, S1, S2 Respiratory: Yes: CTA Bilaterally Gastrointestinal: Yes: Normal Bowel Sounds, Soft, Abdomen, Obese. No: Tenderness Extremities: Yes: Other (erythema LE much improved. No warmth + chronic venous stasis) Labs: CBC, BMP 09/01/16 06:00 09/01/16 06:00 Assessment/Plan Bilateral LE cellulitis, recurrent- improved + wound c/s MRSA Parkinsonism/ OBS Hx C difficile D/C vancomycin Substitute po Bactrim DS bid x 7d Local wound care
--- NOTE | 2016-09-02 14:20 | DS ---
Physical Examination Vital Signs: Vital Signs Temperature 97.9 F 09/02/16 09:00 Pulse Rate 65 09/02/16 09:00 Respiratory Rate 18 09/02/16 09:00 Blood Pressure 125/70 09/02/16 09:00 O2 Sat by Pulse Oximetry (%) 96 09/01/16 21:00 Findings/Remarks: Physical Exam: General: NAD, A&Ox3 Lungs: CTA bilaterally Heart: RRR, S1S2 Abd: Soft, non-tender, non-distended. Normoactive bowel sounds Ext: B/l lower extremities with chronic venous stasis changes, non-blanchable erythema, warm. B/l pitting edema, R>L. RLE wound with dressing in place, c/d/i Neuro: CN 2-12 intact Labs: CBC, BMP 09/01/16 06:00 09/01/16 06:00 Discharge Summary Reason For Visit: SEPSIS/CELLULITIS Current Active Problems Cellulitis (Acute) Leg pain (Acute) Sepsis (Acute) Hospital Course: This is a 80 year old male with PMHx of dementia, HTN, hyperlipidemia, PVD, CKD , osteoarthritis, who presented to the ED with worsening cellulitis. Plan: 1) ID: Recurrent b/l lower extremity MRSA cellulitis - Bactrim as an outpatient - Continue local wound care with xeroform to open blisters and cover with curlex then compression with tammy bandage - Leg elevation - Appreciate ID consult 2) Cardiology: HTN - Continue Lopressor - BP controlled Peripheral vascular disease 3) Neuro: Parkinson's disease - Continue Sinemet Dementia - Continue Seroquel - Continue Zyprexa 4) F/E/N: - Sodium controlled diet Please follow-up with ID, vascular surgery, and pcp within 1 week. Please return to the ED with new, persistent, or worsening symptoms. This discharge took 35 minutes to complete. Condition: Improved - Instructions Diet, Activity, Other Instructions: Please return to the ED with new, persistent, or worsening symptoms. Please follow-up with providers as indicated. Right leg wound care instructions: xeroform dressing daily to wound with Kerlix from toes to knees on both legs followed by tammy bandage Referrals: Zhen Pompa MD [Staff Physician] - (Please follow-up with vascular surgery for further management of your lower extremities ) Mo Menon MD [Primary Care Provider] - (Please follow up with your pcp within 2-3 days for further management of your legs) Cullen Lacy MD [Staff Physician] - (Please follow-up with Dr. Lacy ( infectious disease) within 1 week for further management of your lower extermity cellulitis) Disposition: VNS/HOME HEALTH CARE - Home Medications Comprehensive Discharge Medication List: Ambulatory Orders Atorvastatin Ca [Lipitor] 40 mg PO HS #30 tablet 03/19/16 Carbidopa/Levodopa *Cr* 50/200 [Sinemet *Cr* 50/200 -] 1 combo PO TID #90 tablet.er 03/19/16 Cilostazol 100 mg PO DAILY #30 tablet 03/19/16 Metoprolol Tartrate [Lopressor -] 25 mg PO BID #60 tablet 03/19/16 Oxycodone HCl 10 mg PO Q4H PRN #30 tablet MDD 60mg 03/19/16 Quetiapine Fumarate [Seroquel -] 75 mg PO BID #90 tablet 03/19/16 Cholecalciferol (Vitamin D3) [Vitamin D3] 1,000 unit PO DAILY 08/27/16 Olanzapine [Zyprexa -] 10 mg PO HS 08/27/16 Docusate Sodium [Colace -] 100 mg PO BID capsule 09/02/16 Sulfamethoxazole/Trimethoprim [Bactrim DS -] 1 each PO BID #14 tablet 09/02/16 This patient is new to me today: Yes Date on this admission: 09/02/16 Emergency Visit: Yes ED Registration Date: 08/27/16 Care time: The patient presented to the Emergency Department on the above date and was hospitalized for further evaluation of their emergent condition. Critical Care patient: No - Discharge Referral Referred to [facility] No
[2016-09-02] MEDS: OLANZapine 10 MG TABLET PO SCH (21:09)
[2016-09-02] MEDS: SULFAMETHOXAZOLE/TRIMETHOPRIM 800MG/160MG D.S. TABLET PO SCH (21:09)
[2016-09-02] MEDS: ATORVASTATIN CA 40 MG TABLET (FP) PO SCH (21:09)
[2016-09-03] MEDS: oxyCODONE HCL 5 MG TABLET PO SCH ×2 (04:21→08:23)
[2016-09-03] MEDS ORDERED: PT OWN MED DRAWER 7, Y5N ONE ×2 (05:28→08:58)
[2016-09-03] MEDS: HEPARIN NA (PORCINE) 5,000 UNITS/ML 1ML VIAL SQ SCH (05:34)
[2016-09-03] MEDS: CHOLECALCIFEROL (VITAMIN D3) 1,000 UNIT TABLET (FP) PO SCH (09:21)
[2016-09-03] MEDS: QUEtiapine FUMARATE 25 MG TABLET (FP) PO SCH (09:21)
[2016-09-03] MEDS: METOPROLOL TARTRATE 25 MG TABLET (FP) PO SCH (09:21)
[2016-09-03] MEDS: SULFAMETHOXAZOLE/TRIMETHOPRIM 800MG/160MG D.S. TABLET PO SCH (09:22)
[2016-09-03] MEDS: DOCUSATE SODIUM 100 MG CAPSULE (FP) PO SCH (09:22)
[2016-09-03] MEDS: CILOSTAZOL 100 MG TABLET PO SCH (09:22)
[2016-09-03] MEDS: POLYETHYLENE GLYCOL 3350 119 GM BTL PO SCH (09:29)
--- NOTE | 2016-09-03 10:06 | CONSULT ---
Consult - text type - Consultation Consultation Note: Podiatry Consultation: 80 year old Parkinson's M, sent in for admission for B/L cellulitis. Podiatry consultation requested for trimming of elongated, discolored, thickened toe nails x 10. As per nursing staff, B/L LE cellulitis improved. Denies any open lesions/wounds on the toes. PMHx: Parkinson's Dx, HTN, HLP, claudication Meds: noted in chart PSHx: appendectomy ALL: NKMA VISHNU: Pedal pulses 1/4, TG wnl, CFT brisk to all toes bilaterally. Toe nails are elongated, discolored, thickened, tender with subungual debris x 10 bilaterally. No open wounds, no signs of pedal infection. Dry, scaling lesions on bilateral feet. Imp: 80 year old M with onychomycosis x 10, tinea pedis bilaterally 1. Manual debridement of mycotic nails x 10 with nail nipper. Patient tolerated the procedure well without complications. 2. Recommend Rx for clotrimazole cream for tinea pedis as outpatient. Apply daily to bilateral feet. 3. Foot hygiene discussed. 4. Can f/u with me in [facility] wound healing center in about 3 months. Thank you for the courtesy of this consultation. Anneliese Alfaro DPM
[2016-09-03 10:07] VITALS: BP 155/69; PULSE 77; TEMP 98.6
== END 2016-09-03 10:32 | disposition home health service (06) | DRG 602 ==
LOC: JER 11:38 → JERBED 15:17 → J6S 18:08
PROVIDERS: ADMIT Internal Medicine; ATTEND Registered Nurse
PROC: 0HDQXZZ Extraction of Finger Nail, External Approach (ICD-10-PCS; principal; 2016-09-03)
DX: L03.116 Cellulitis of left lower limb (principal); A41.02 Sepsis due to Methicillin resistant Staphylococcus aureus; F03.91 Unspecified dementia, unspecified severity, with behavioral disturbance; L03.115 Cellulitis of right lower limb; G20 Parkinson's disease; I73.9 Peripheral vascular disease, unspecified; E78.5 Hyperlipidemia, unspecified; I12.9 Hypertensive chronic kidney disease with stage 1 through stage 4 chronic kidney disease, or unspecified chronic kidney disease; N18.9 Chronic kidney disease, unspecified; F09 Unspecified mental disorder due to known physiological condition; K21.9 Gastro-esophageal reflux disease without esophagitis; B35.3 Tinea pedis; B35.1 Tinea unguium
CPT/HCPCS: 36415; 71010-TC; 80048; 80053; 81003; 81015; 83605; 83735; 84100; 85025; 87040; 87070; 87086; 87186; 87205; 93970-TC; 99285-25; G0480; J1644

== ENCOUNTER 2017-09-28 17:20 | Inpatient (IN) | payer MEDICARE, OTHER ==
[2017-09-28] MEDS ORDERED: SODIUM CHLORIDE 0.9% 1000 ML INFUS.BAG IV PRN (17:55)
--- NOTE | 2017-09-28 18:17 | PDOC ---
History of Present Illness - General Chief Complaint: SIRS, Suspected/Possible Stated Complaint: SEPSIS/fever Time Seen by Provider: 09/28/17 17:29 History Source: EMS, Significant Other Exam Limitations: Dementia - History of Present Illness Initial Comments: This is an 82 YOM with h/o dementia, Parkinson's disease, leg cellulitis with sepsis (admitted 08/27/17-09/02/17), PVD, claudication, and HTN who presents BIBA for fever. The patient is unable to provide any of his relevant medical history 2/2 his severe dementia. The states that the patient has been feeling sick with cough, sore throat, and SOB for the past 2-3 days but today she began taking his temperature, measuring it to be up to 102 orally. She additionally notes that he has chonic wounds all over both of his legs d/t his vascular disease, and they have noticed pus drainage whenever they take a scab off of them. The patient has a home health aid who comes to the house daily, and he lives with his in their home. Per the , he has a DNR order but would want to be intubated temporarily in the event that he needed help breathing. Past History - Past Medical History Allergies/Adverse Reactions: Allergies Allergy/AdvReac Type Severity Reaction Status Date / Time No Known Allergies Allergy Verified 08/27/16 11:55 Home Medications: Ambulatory Orders Atorvastatin Ca [Lipitor] 40 mg PO HS #30 tablet 03/19/16 Carbidopa/Levodopa *Cr* 50/200 [Sinemet *Cr* 50/200 -] 1 combo PO TID #90 tablet.er 03/19/16 Cilostazol 100 mg PO DAILY #30 tablet 03/19/16 Metoprolol Tartrate [Lopressor -] 25 mg PO BID #60 tablet 03/19/16 Oxycodone HCl 10 mg PO Q4H PRN #30 tablet MDD 60mg 03/19/16 Quetiapine Fumarate [Seroquel -] 75 mg PO BID #90 tablet 03/19/16 Cholecalciferol (Vitamin D3) [Vitamin D3] 1,000 unit PO DAILY 08/27/16 Olanzapine [Zyprexa -] 10 mg PO HS 08/27/16 Bismuth Tribromoph/Petrolatum [Xeroform Petrolatum Dress] 1 each TP DAILY #30 bandage 09/02/16 Docusate Sodium [Colace -] 100 mg PO BID capsule 09/02/16 Sulfamethoxazole/Trimethoprim [Bactrim DS -] 1 each PO BID #14 tablet 09/02/16 Anemia: No Asthma: No Cancer: No Cardiac Disorders: Yes CVA: No COPD: No Dementia: Yes Diabetes: No GI Disorders: Yes (COLONIC POLYPS,DIVERTICULOSIS) Disorders: Yes (BPH) HTN: Yes Hypercholesterolemia: Yes Liver Disease: No Seizures: Yes Thyroid Disease: No - Surgical History Abdominal Surgery: No Appendectomy: Yes Cardiac Surgery: No Cholecystectomy: No Lung Surgery: No Neurologic Surgery: No Orthopedic Surgery: Yes (S/P BILATERAL FOOT SURGERIES FOR HAMMER TOES WITH SUBSEQUENT REMOVAL OF) - Immunization History Immunization Up to Date: Yes - Suicide/Smoking/Psychosocial Hx Smoking History: Unknown if ever smoked Have you smoked in the past 12 months: No If you are a former smoker, when did you quit?: 1960 Information on smoking cessation initiated: No Hx Alcohol Use: No Drug/Substance Use Hx: No Substance Use Type: None Hx Substance Use Treatment: No Review of Systems - Review of Systems Able to Perform ROS?: No (dementia) *Physical Exam - Vital Signs Last Vital Signs Temp Pulse Resp BP Pulse Ox 101.1 F H 105 H 18 118/68 90 L 09/28/17 17:30 09/28/17 17:30 09/28/17 17:30 09/28/17 17:30 09/28/17 17:30 - Physical Exam General Appearance: Yes: Nourished, Appropriately Dressed, Obese, Other ( elderly chronically ill-appearing male who occasionally answers simple yes/no questions, does not appear uncomfortable, accompanied by at bedside). No: Apparent Distress HEENT: positive: EOMI, FAHEEM, Normal Voice, Hearing Grossly Normal, Other (thick secretions present within oropharynx). negative: Normal ENT Inspection, Scleral Icterus (R), Scleral Icterus (L), Nasal Congestion Neck: positive: Trachea midline, Supple. negative: Tender, Rigid Respiratory/Chest: positive: Lungs Clear, Normal Breath Sounds. negative: Respiratory Distress, Crackles, Rhonchi, Stridor, Wheezing Cardiovascular: positive: Regular Rhythm, Regular Rate, S1, S2, Systolic Murmur (2/6). negative: Edema, JVD Gastrointestinal/Abdominal: positive: Normal Bowel Sounds, Flat, Soft. negative : Tender, Organomegaly, Pulsatile Mass, Guarding Musculoskeletal: positive: Normal Inspection. negative: Decreased Range of Motion, Vertebral Tenderness Extremity: positive: Normal Capillary Refill, Normal Inspection, Normal Range of Motion. negative: Tender, Cyanosis Integumentary: positive: Normal Color, Dry, Warm. negative: Erythema, Rash, Bruising Neurologic: positive: rock lather II-XII NML intact (grossly), Normal Mood/Affect, Responsive, Disoriented (baseline disoriented per , patient ), Other ( patient unable to follow commands, does make eye contact and track). negative: Fully Oriented, EOM Palsy, Facial Droop ED Treatment Course - LABORATORY CBC & Chemistry Diagram: 09/28/17 17:57 09/28/17 17:57 - RADIOLOGY Radiology Studies Ordered: Category Date Time Status CHEST X-RAY PORTABLE* [RAD] Stat Radiology 09/28/17 17:55 Ordered Medical Decision Making - Medical Decision Making 09/28/17 20:34 DDX IBNLT sepsis from PNA (bacterial versus viral e.g. influenza), cellulitis ( BLE), UTI, other source. Ordered is sepsis order set (complete), flu swab, vancomycin, 1 liter fluid bolus and likely more pending BNP. 09/28/17 20:37 Lactate 2.8, WBC 21.7k, CXR with patchy infiltrates with L>R and worse at the bases. BNP 743 and 2 liters additional IVF ordered. Zosyn added on for empiric coverage. 09/28/17 20:43 Microblog sent to [facility] for admission (patient's PCP is Jass Menon). [facility] not covering Dr. Sinan monson. 09/28/17 21:[address] Irene who is admitting for Dr. Sinan monson. Patient admitted to Inpatient Telemetry. Consult placed to ID (Dr. Raygoza). 09/28/17 21:05 Placed order for repeat cardiac enzymes and lactate at 10 pm. *DC/Admit/Observation/Transfer Diagnosis at time of Disposition: Sepsis Qualifiers: Sepsis type: sepsis due to unspecified organism Qualified Code(s): A41.9 - Sepsis, unspecified organism Dementia Qualifiers: Dementia type: unspecified type Dementia behavioral disturbance: without behavioral disturbance Qualified Code(s): F03.90 - Unspecified dementia without behavioral disturbance Pneumonia Qualifiers: Pneumonia type: due to unspecified organism Laterality: unspecified laterality Lung location: unspecified part of lung Qualified Code(s): J18.9 - Pneumonia, unspecified organism Cellulitis Qualifiers: Site of cellulitis: extremity Site of cellulitis of extremity: lower extremity Laterality: unspecified laterality Qualified Code(s): L03.119 - Cellulitis of unspecified part of limb - Discharge Dispostion Condition at time of disposition: Guarded Admit: Yes - Referrals Referrals: Mo Menon MD [Primary Care Provider] - - Patient Instructions - Post Discharge Activity
[2017-09-28] MEDS ORDERED: VANCOMYCIN 1 GRAM (PRE-DOCKED) 1,000 MG/250 ML BAG IVPB ONE ×2 (18:28→19:00)
[2017-09-28 18:40] LABS: BASO % 0.2 % (0-2.0); HEMATOCRIT 43.6 % (35.4-49); HEMOGLOBIN 14.3 GM/dL (11.7-16.9); LYMPH % 1.6 % (8-40); MCH 30.1 pg (25.7-33.7); MCHC 32.7 g/dl (32.0-35.9); MEAN CELL VOLUME 92.3 fl (80-96); MEAN PLT VOLUME 7.1 fl (7.5-11.1); MONO % 5.5 % (3.8-10.2); NEUT % 92.7 % (42.8-82.8); PLATELET COUNT 376 K/MM3 (134-434); RBC 4.73 M/mm3 (4.00-5.60); VENOUS PH 7.38 (7.32-7.42); VENOUS PO2 27.7 mmHg (28-48); WHITE BLOOD COUNT 21.7 K/mm3 (4.0-10.0)
[2017-09-28 18:53] LABS: INR 1.14 (0.82-1.09); PROTHROMBIN TIME (PATIENT) 12.9 SEC (9.98-11.88)
[2017-09-28 18:56] LABS: ACTIVATED PTT 33.9 SECONDS (26.9-34.4)
[2017-09-28 19:11] LABS: ANION GAP 7 (8-16); BILIRUBIN,TOTAL 1.1 mg/dL (0.2-1.0); BLOOD UREA NITROGEN 18 mg/dL (7-18); CHLORIDE 102 mmol/L (98-107); CO2 32 mmol/L (21-32); CREATININE 1.1 mg/dL (0.7-1.3); GLUCOSE,RANDOM 112 mg/dL (74-106); POTASSIUM 4.9 mmol/L (3.5-5.1); SGOT/AST 14 U/L (15-37); SGPT/ALT 8 U/L (12-78); SODIUM 141 mmol/L (136-145); TOT PROT 6.4 g/dl (6.4-8.2)
[2017-09-28 19:14] LABS: ALK PHOS 154 U/L (45-117)
[2017-09-28 19:15] LABS: N-TERMINAL BNP 743.07 pg/ml (5-450)
[2017-09-28 19:21] LABS: URINE APPEARANCE CLEAR; URINE BILIRUBIN NEGATIVE (NEGATIVE); URINE BLOOD NEGATIVE (NEGATIVE); URINE COLOR DKYELLOW; URINE GLUCOSE (UA) NEGATIVE (NEGATIVE); URINE KETONE TRACE (NEGATIVE); URINE LEUK ESTERASE NEGATIVE (NEGATIVE); URINE NITRITE NEGATIVE (NEGATIVE)
[2017-09-28 19:31] LABS: URINE PROTEIN 1+ (NEGATIVE)
[2017-09-28 19:32] LABS: EPI CELLS RARE /HPF (FEW); URINE MUCUS RARE
[2017-09-28] MEDS ORDERED: SODIUM CHLORIDE 2,000 ML IV STA (20:30)
[2017-09-28] MEDS ORDERED: PIPERACIL/TAZOB 3.375 GM 3.375 GM/50 ML PREMIX IVPB ONE (20:36)
[2017-09-28] MEDS ORDERED: ACETAMINOPHEN 1000 MG/100 ML VIAL (NON FORMULARY) IVPB ONE (20:43)
[2017-09-28] MEDS ORDERED: ACETAMINOPHEN INJECTION 100 ML IVPB ONE (20:47)
[2017-09-28] MEDS ORDERED: PIPERACILLIN/TAZOB 3.375 GM 3.375 GM/50 ML BAG IVPB ONE ×2 (20:47→23:06)
[2017-09-28] MEDS ORDERED: QUEtiapine FUMARATE 50 MG TABLET PO SCH (22:00)
[2017-09-28] MEDS ORDERED: PIPERACIL/TAZOB 3.375 GM 3.375 GM/50 ML PREMIX IVPB SCH (22:00)
--- NOTE | 2017-09-28 22:06 | HP ---
Admitting History and Physical - Admission Chief Complaint: fever, unresponsive at home History of Present Illness: 82 yo male, h/o dementia, LE wounds from chronic PVD, presents to ED with cough , congestion and fevers. noted today was barely responsive, so advised to come to ED. In ED found to be septic with WBC >20,000, fever 101, tachycardic. Found to have LLL infiltrates and sarted on IVF, abx, with improved mental status. Answers almost all questions "no" and wants to go home, denies any complaints currently. 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 Cardiovascular: Yes: HTN, Hyperlipdemia, Other (PVD with claudication) Gastrointestinal: Yes: GERD Renal/: Yes: Other (CKD) Musculoskeletal: Yes: Osteoarthritis - Past Surgical History Past Surgical History: Yes: Appendectomy - Smoking History Smoking history: Unknown if ever smoked Have you smoked in the past 12 months: No If you are a former smoker, when did you quit?: 1960 - Alcohol/Substance Use Hx Alcohol Use: No History of Substance Use: reports: None - Social History ADL: Family Assistance History of Recent Travel: No Home Medications - Allergies Allergies/Adverse Reactions: Allergies Allergy/AdvReac Type Severity Reaction Status Date / Time No Known Allergies Allergy Verified 08/27/16 11:55 - Home Medications Home Medications: Ambulatory Orders Atorvastatin Ca [Lipitor] 40 mg PO HS #30 tablet 03/19/16 Carbidopa/Levodopa *Cr* 50/200 [Sinemet *Cr* 50/200 -] 1 combo PO TID #90 tablet.er 03/19/16 Cilostazol 100 mg PO DAILY #30 tablet 03/19/16 Metoprolol Tartrate [Lopressor -] 25 mg PO BID #60 tablet 03/19/16 Oxycodone HCl 10 mg PO Q4H PRN #30 tablet MDD 60mg 03/19/16 Quetiapine Fumarate [Seroquel -] 75 mg PO BID #90 tablet 03/19/16 Cholecalciferol (Vitamin D3) [Vitamin D3] 1,000 unit PO DAILY 08/27/16 Olanzapine [Zyprexa -] 10 mg PO HS 08/27/16 Bismuth Tribromoph/Petrolatum [Xeroform Petrolatum Dress] 1 each TP DAILY #30 bandage 09/02/16 Docusate Sodium [Colace -] 100 mg PO BID capsule 09/02/16 Sulfamethoxazole/Trimethoprim [Bactrim DS -] 1 each PO BID #14 tablet 09/02/16 Family Disease History - Family Disease History Family Disease History: CA: Father (colon), Mother (unsure) Review of Systems - Review of Systems Constitutional: reports: Fever, Lethargy Eyes: reports: No Symptoms HENT: denies: Difficult Swallowing, Throat Pain Neck: denies: Decreased ROM, Tenderness Cardiovascular: denies: Chest Pain, Palpitations Respiratory: reports: Cough. denies: SOB Gastrointestinal: denies: Abdominal Pain, Constipation, Diarrhea, Nausea, Vomiting Genitourinary: denies: Burning, Discharge, Dysuria Musculoskeletal: denies: Back Pain, Extremity Pain Integumentary: reports: Wound (b/l LE) Neurological: reports: Confusion Physical Examination Vital Signs: Vital Signs Temperature 101.6 F H 09/28/17 18:13 Pulse Rate 90 09/28/17 18:59 Respiratory Rate 16 09/28/17 18:59 Blood Pressure 118/68 09/28/17 17:30 O2 Sat by Pulse Oximetry (%) 98 09/28/17 18:59 Constitutional: Yes: No Distress, Mild Distress (as wants to go home) Eyes: Yes: Conjunctiva Clear, EOM Intact, PERRL HENT: Yes: Atraumatic, Normocephalic Neck: Yes: Supple, Trachea Midline Cardiovascular: Yes: Regular Rate and Rhythm, S1, S2. No: Murmur Respiratory: Yes: Regular, Rhonchi. No: Rales, Wheezes Gastrointestinal: Yes: Normal Bowel Sounds, Soft, Abdomen, Obese. No: Distention, Tenderness Extremities: Yes: Other (dressing b/l LE) Edema: No Neurological: Yes: Alert, Confusion Labs: CBC, BMP 09/28/17 17:57 09/28/17 17:57 Imaging - Results Chest X-ray: Image Reviewed (unofficially has LLL infiltrates) Problem List - Problems (1) Sepsis Assessment/Plan: -likely pneumonia, but possibly also skin source. Given vanco and zojaimen in ED ( ID consulted) Code(s): A41.9 - SEPSIS, UNSPECIFIED ORGANISM Qualifiers: Sepsis type: sepsis due to unspecified organism Qualified Code(s): A41.9 - Sepsis, unspecified organism (2) Elevated troponin Assessment/Plan: -due to sepsis? -repeat CE, cardio consult, tele monitor Code(s): R74.8 - ABNORMAL LEVELS OF OTHER SERUM ENZYMES (3) Cellulitis Assessment/Plan: -given vanco, to cont zosyn Code(s): L03.90 - CELLULITIS, UNSPECIFIED Qualifiers: Site of cellulitis: extremity Site of cellulitis of extremity: lower extremity Laterality: unspecified laterality Qualified Code(s): L03.119 - Cellulitis of unspecified part of limb (4) Pneumonia Assessment/Plan: -on zosyn Code(s): J18.9 - PNEUMONIA, UNSPECIFIED ORGANISM Qualifiers: Pneumonia type: due to unspecified organism Laterality: unspecified laterality Lung location: unspecified part of lung Qualified Code(s): J18.9 - Pneumonia, unspecified organism (5) Dementia Assessment/Plan: -has history of behavioral disturbance -on olanzapine, seroquel Code(s): F03.90 - UNSPECIFIED DEMENTIA WITHOUT BEHAVIORAL DISTURBANCE Qualifiers: Dementia type: unspecified type Dementia behavioral disturbance: without behavioral disturbance Qualified Code(s): F03.90 - Unspecified dementia without behavioral disturbance (6) HTN (hypertension) Assessment/Plan: -cont metoprolol Code(s): I10 - ESSENTIAL (PRIMARY) HYPERTENSION (7) PVD (peripheral vascular disease) Assessment/Plan: -on cilastazol Code(s): I73.9 - PERIPHERAL VASCULAR DISEASE, UNSPECIFIED (8) Parkinson disease Assessment/Plan: -on sinemet Code(s): G20 - PARKINSON'S DISEASE
[2017-09-28] MEDS ORDERED: PIPERACILLIN/TAZOB 3.375 GM 3.375 GM in DEXTROSE 5%-WATER - 100 ML IVPB SCH (22:15)
[2017-09-28] MEDS ORDERED: ATORVASTATIN CA 40 MG TABLET (FP) ONE (22:31)
[2017-09-28] MEDS ORDERED: METOPROLOL TARTRATE 25 MG TABLET (FP) ONE (22:31)
[2017-09-28] MEDS ORDERED: DOCUSATE SODIUM 100 MG CAPSULE (FP) PO ONE (22:32)
[2017-09-28] MEDS ORDERED: CARBIDOPA/LEVODOPA 25/100 TABLET (FP) ONE (22:32)
[2017-09-28] MEDS ORDERED: QUEtiapine FUMARATE 25 MG TABLET (FP) ONE (22:32)
[2017-09-28] MEDS: ATORVASTATIN CA 40 MG TABLET (FP) PO SCH (22:52)
[2017-09-28] MEDS: METOPROLOL TARTRATE 25 MG TABLET (FP) PO SCH (22:52)
[2017-09-28] MEDS: DOCUSATE SODIUM 100 MG CAPSULE (FP) PO SCH (22:52)
[2017-09-28] MEDS: OLANZapine 10 MG TABLET PO SCH (22:53)
[2017-09-28] MEDS: QUETIAPINE FUMARATE 25 MG, QUETIAPINE FUMARATE 50 MG PO SCH (22:53)
[2017-09-28] MEDS: PIPERACILLIN/TAZOB 3.375 GM 3.375 GM in DEXTROSE 5%-WATER - 100 ML IVPB SCH (23:03)
[2017-09-28] MEDS ORDERED: oxyCODONE HCL 5 MG TABLET ONE (23:05)
[2017-09-28] MEDS: oxyCODONE HCL 5 MG TABLET PO PRN (23:12)
--- NOTE | 2017-09-29 00:40 | PDOC ---
Attending Attestation - Resident Resident Name: Carol Deluna - ED Attending Attestation I have performed the following: I have examined & evaluated the patient, The case was reviewed & discussed with the resident, I agree w/resident's findings & plan, Exceptions are as noted - HPI HPI: 09/29/17 00:40 82 yo male BIBA for fever and increased weakness and LE erythema - Physicial Exam PE: 09/29/17 00:40 82 yo male BIBA ill appearing with b/l lower extremities with chronic venous stasis and cough head ncat eyes librado eomi neck supple lungs cvs tachycardia abd protuberant,no rebound,no guarding ext b/l erythema,multiple lesions neuro sl lethargic,moving his extremities - Medical Decision Making 09/30/17 22:25 82 yo BIBA for sepsis admitted for cellulitis,pneumonia
[2017-09-29] MEDS ORDERED: PIPERACILLIN/TAZOB 3.375 GM 3.375 GM/50 ML BAG IVPB ONE (03:57)
[2017-09-29] MEDS: PIPERACILLIN/TAZOB 3.375 GM 3.375 GM in DEXTROSE 5%-WATER - 100 ML IVPB SCH (05:04)
[2017-09-29] MEDS: oxyCODONE HCL 5 MG TABLET PO PRN ×3 (08:15→18:11)
[2017-09-29] MEDS ORDERED: oxyCODONE HCL 5 MG TABLET ONE (08:17)
--- NOTE | 2017-09-29 08:55 | CON.ID ---
Consult Consult Specialty:: infectious disease Referred by:: jewell - History of Present Illness Chief Complaint: fever, cough, sore throat History of Present Illness: 82 year old man with dementia and parkinsons disease recently hospitalized 08/27 to 09/02 for lower extremity cellulitis - +MRSA - treated with vancomycin, discharged on bactrim for one week now brought to ED by family with fever at home, cough reports purulent drainage from scabs on legs he had negative influenza screen in ED CXRAY with LLL infiltrate, he was started on vanco/zosyn currently he is still in ED afebrile resting comfortably, no respiratory complaints no cough noted - History Source History Provided By: Patient, Medical Record Limitations to Obtaining History: Dementia - 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, 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 Cardio/Vascular: Yes: HTN, Hyperlipdemia, Other (PVD with claudication) Gastrointestinal: Yes: GERD Renal/: Yes: Other (CKD) Infectious Disease: Yes: C-Diff (january 2016) Musculoskeletal: Yes: Osteoarthritis - Past Surgical History Past Surgical History: Yes: Appendectomy Additional Surgical History: bilateral foot surgery - Alcohol/Substance Use Hx Alcohol Use: No History of Substance Use: reports: None - Smoking History Smoking history: Unknown if ever smoked Have you smoked in the past 12 months: No If you are a former smoker, when did you quit?: 1960 - Social History Usual Living Arrangement: With Spouse ADL: Family Assistance History of Recent Travel: No Home Medications - Allergies Allergies/Adverse Reactions: Allergies Allergy/AdvReac Type Severity Reaction Status Date / Time No Known Allergies Allergy Verified 08/27/16 11:55 - Home Medications Home Medications: Ambulatory Orders Atorvastatin Ca [Lipitor] 40 mg PO HS #30 tablet 03/19/16 Carbidopa/Levodopa *Cr* 50/200 [Sinemet *Cr* 50/200 -] 1 combo PO TID #90 tablet.er 03/19/16 Cilostazol 100 mg PO DAILY #30 tablet 03/19/16 Metoprolol Tartrate [Lopressor -] 25 mg PO BID #60 tablet 03/19/16 Oxycodone HCl 10 mg PO Q4H PRN #30 tablet MDD 60mg 03/19/16 Quetiapine Fumarate [Seroquel -] 75 mg PO BID #90 tablet 03/19/16 Cholecalciferol (Vitamin D3) [Vitamin D3] 1,000 unit PO DAILY 08/27/16 Olanzapine [Zyprexa -] 10 mg PO HS 08/27/16 Bismuth Tribromoph/Petrolatum [Xeroform Petrolatum Dress] 1 each TP DAILY #30 bandage 09/02/16 Docusate Sodium [Colace -] 100 mg PO BID capsule 09/02/16 Sulfamethoxazole/Trimethoprim [Bactrim DS -] 1 each PO BID #14 tablet 09/02/16 Family Disease History - Family Disease History Family Disease History: CA: Father (colon), Mother (unsure) Review of Systems - Review of Systems Constitutional: reports: Fever. denies: Lethargy Respiratory: reports: Cough Gastrointestinal: reports: No Symptoms Genitourinary: reports: No Symptoms Integumentary: reports: Other (drainage from scabs on legs- purulent) Neurological: reports: No Symptoms Physical Exam Vital Signs: Vital Signs Temperature 98.2 F 09/28/17 23:38 Pulse Rate 72 09/29/17 06:56 Respiratory Rate 16 09/29/17 06:56 Blood Pressure 129/60 09/29/17 06:56 O2 Sat by Pulse Oximetry (%) 96 09/29/17 06:56 Constitutional: Yes: Well Nourished, No Distress, Calm Eyes: Yes: Conjunctiva Clear HENT: Yes: Atraumatic, Normocephalic. No: Thrush Neck: Yes: Supple, Trachea Midline Cardiovascular: Yes: Regular Rate and Rhythm Respiratory: Yes: Regular, CTA Bilaterally, Diminished Gastrointestinal: Yes: Normal Bowel Sounds, Soft, Abdomen, Obese ...Rectal Exam: Yes: Deferred Renal/: No: Bladder Distention, Moreno Present Extremities: Yes: Other (bilateral venous stasis with multiple scabs-some with purulent drainage minimal erythema) Edema: LLE: 1+, RLE: 1+ Neurological: Yes: Alert. No: Lethargy Labs: CBC, BMP 09/28/17 17:57 09/28/17 17:57 Microbiology 09/28/17 18:49 Nasopharyngeal Swab Influenza Types A,B Antigen (DANIEL) - Final 09/28/17 18:49 Nasopharyngeal Swab - Final Imaging - Results Chest X-ray: Report Reviewed, Image Reviewed (probable LLL intfiltrate) Problem List - Problems (1) Sepsis Code(s): A41.9 - SEPSIS, UNSPECIFIED ORGANISM Qualifiers: Sepsis type: sepsis due to unspecified organism Qualified Code(s): A41.9 - Sepsis, unspecified organism (2) Pneumonia Code(s): J18.9 - PNEUMONIA, UNSPECIFIED ORGANISM Qualifiers: Pneumonia type: due to unspecified organism Laterality: left Lung location: lower lobe of lung Qualified Code(s): J18.1 - Lobar pneumonia, unspecified organism (3) Cellulitis Code(s): L03.90 - CELLULITIS, UNSPECIFIED Qualifiers: Site of cellulitis: extremity Site of cellulitis of extremity: lower extremity Laterality: unspecified laterality Qualified Code(s): L03.119 - Cellulitis of unspecified part of limb (4) MRSA (methicillin resistant staph aureus) culture positive Code(s): Z22.322 - CARRIER OR SUSPECTED CARRIER OF METHICILLIN RESIS STAPH (5) Elevated troponin Code(s): R74.8 - ABNORMAL LEVELS OF OTHER SERUM ENZYMES Assessment/Plan fever, leukocytosis, lactic acidosis sepsis suspect pneumonia and cellulitis are contributors recent admission to hospital MRSA culture positive influenza swab negative agree with HAP coverage with vancomycin and zosyn culture legs legionella urinary antige f/u blood cultures mrsa isolation elevated troponins -cardiology to see, suspect due to sepsis
--- NOTE | 2017-09-29 09:44 | CON.CARD ---
Consult Consult Specialty:: cardio Referred by:: hospitalist Reason for Consultation:: sob, elev troponin - History of Present Illness Chief Complaint: cough, sob History of Present Illness: 82 yo male here with fever, cough, sore throat. recently here with MRSA wound on leg sec to cellulitis. family reports ongoing purulent drainage from wound. flu negative in ER, cxr early infiltrate. 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 Cardio/Vascular: Yes: HTN, Hyperlipdemia, Other (PVD with claudication) Gastrointestinal: Yes: GERD Renal/: Yes: Other (CKD) Infectious Disease: Yes: C-Diff (january 2016) Musculoskeletal: Yes: Osteoarthritis - Past Surgical History Past Surgical History: Yes: Appendectomy Additional Surgical History: bilateral foot surgery - Alcohol/Substance Use Hx Alcohol Use: No History of Substance Use: reports: None - Smoking History Smoking history: Unknown if ever smoked Have you smoked in the past 12 months: No If you are a former smoker, when did you quit?: 1959 - Social History Usual Living Arrangement: With Spouse ADL: Family Assistance History of Recent Travel: No Home Medications - Allergies Allergies/Adverse Reactions: Allergies Allergy/AdvReac Type Severity Reaction Status Date / Time No Known Allergies Allergy Verified 08/27/16 11:55 - Home Medications Home Medications: Ambulatory Orders Atorvastatin Ca [Lipitor] 40 mg PO HS #30 tablet 03/19/16 Carbidopa/Levodopa *Cr* 50/200 [Sinemet *Cr* 50/200 -] 1 combo PO TID #90 tablet.er 03/19/16 Cilostazol 100 mg PO DAILY #30 tablet 03/19/16 Metoprolol Tartrate [Lopressor -] 25 mg PO BID #60 tablet 03/19/16 Oxycodone HCl 10 mg PO Q4H PRN #30 tablet MDD 60mg 03/19/16 Quetiapine Fumarate [Seroquel -] 75 mg PO BID #90 tablet 03/19/16 Cholecalciferol (Vitamin D3) [Vitamin D3] 1,000 unit PO DAILY 12/27/16 Olanzapine [Zyprexa -] 10 mg PO HS 08/27/16 Bismuth Tribromoph/Petrolatum [Xeroform Petrolatum Dress] 1 each TP DAILY #30 bandage 09/02/16 Docusate Sodium [Colace -] 100 mg PO BID capsule 09/02/16 Sulfamethoxazole/Trimethoprim [Bactrim DS -] 1 each PO BID #14 tablet 09/02/16 Family Disease History - Family Disease History Family Disease History: CA: Father (colon), Mother (unsure) Review of Systems - Review of Systems Constitutional: denies: Chills Eyes: denies: Eye Pain HENT: denies: Nasal Congestion Neck: denies: Stiffness Cardiovascular: denies: Palpitations Respiratory: denies: Orthopnea, PND Gastrointestinal: denies: Diarrhea, Rectal Bleeding Genitourinary: denies: Burning, Hematuria Musculoskeletal: denies: Muscle Pain Integumentary: denies: Rash Neurological: denies: Numbness, Seizure, Syncope Endocrine: denies: Excessive Sweating Hematology/Lymphatic: denies: Excessive Bleeding Vital Signs: Vital Signs Temperature 98.2 F 09/28/17 23:38 Pulse Rate 72 09/29/17 06:56 Respiratory Rate 16 09/29/17 06:56 Blood Pressure 129/60 09/29/17 06:56 O2 Sat by Pulse Oximetry (%) 96 09/29/17 06:56 Constitutional: Yes: Well Nourished, No Distress Eyes: No: Sclera Icterus HENT: No: Nasal Congestion Neck: No: Decreased ROM Respiratory: Yes: CTA Bilaterally. No: Accessory Muscle Use, Rales, Wheezes Gastrointestinal: Yes: Normal Bowel Sounds. No: Distention, Hepatomegaly, Palpable Mass, Tenderness Cardiovascular: Yes: Regular Rate and Rhythm JVD: No Carotid Bruit: No PMI: Non-Displaced Heart Sounds: Yes: S1, S2. No: Gallop Murmur: No: Systolic Murmur, Diastolic Murmur Musculoskeletal: Yes: Other (No kyphosis) Extremities: No: Cold, Cyanosis Edema: No (chronic skin changes) Peripheral Pulses: 2+ Left Carotid, 2+ Right Carotid, 2+ Left Doralis Pedis, 2+ Right Dorsalis Pedis Integumentary: No: Jaundice Neurological: Yes: Alert, Oriented (x3) Psychiatric: No: Agitated - Other Data Labs, Other Data: CBC, BMP 09/28/17 17:57 09/28/17 17:57 INR, PTT INR 1.14 (0.82-1.09) 09/28/17 17:57 Troponin, BNP 09/28/17 09/28/17 17:57 23:30 Troponin I 0.13 H D 0.08 H D B-Natriuretic Peptide 743.07 H Troponin, BNP 09/28/17 09/28/17 17:57 23:30 Troponin I 0.13 H D 0.08 H D B-Natriuretic Peptide 743.07 H Laboratory Tests 09/28/17 09/28/17 09/28/17 17:57 17:57 17:57 WBC 21.7 H D Hgb 14.3 D Plt Count 376 Sodium 141 Potassium 4.9 Carbon Dioxide 32 BUN 18 D Creatinine 1.1 D Lactic Acid 2.8 H* AST 14 L ALT 8 L D Creatine Kinase 36 L Troponin I 0.13 H D B-Natriuretic Peptide 743.07 H Albumin 3.0 L 09/28/17 23:30 WBC Hgb Plt Count Sodium Potassium Carbon Dioxide BUN Creatinine Lactic Acid AST ALT Creatine Kinase 45 Troponin I 0.08 H D B-Natriuretic Peptide Albumin Assessment/Plan ECG--sinus tach; R bowden axis (borderline). inc RBBB. no pathol q's. no ST-Ts ( similar to prior 04/16) CXR--early L base infiltrate Echo 2016: nl LV/EF; dd1; nl RV; mild LAE; valves WNL; no RVSP (2015 echo: at least mild pHTN) MPI (fuad) 2012: no STs. no ischemia. nl EF sepsis/CXR early L base infiltrate/HAP (recently discharged), elevated lactate/ chronic cellulitis with active wound: -abx per ID -ok for IVF if bp trends down or other indicators of ongoing sepsis elevated troponin: -troponin in intermediate range, flat trend = not c/w ACS -no isch ecg changes -no sx's suggestive of angina -observe HTN: -bp currently stable despite active infection -cont metoprolol as doing COPD: -? details of prior w/u, saw dr pack in past, pt didn't comply with meds at that tmie chronic venous ins'y, LE edema: -recently treated for cellulitis/wound -per pmd -exam tds for chf given habitus, not suspected here with no cxr congestion either. PAD: -mild PVR abnormalities. -had been on pletal per pmd/dr rose, nonspecific chronic LE sx's
[2017-09-29] MEDS ORDERED: PIPERACILLIN/TAZOB 3.375 GM 3.375 GM in DEXTROSE 5%-WATER - 100 ML IVPB SCH (09:45)
[2017-09-29] MEDS: VANCOMYCIN 1,250 MG in DEXTROSE 5%-WATER - 250 ML IVPB SCH ×2 (10:13→23:37)
[2017-09-29] MEDS: DOCUSATE SODIUM 100 MG CAPSULE (FP) PO SCH ×2 (10:14→23:37)
[2017-09-29] MEDS: ENOXAPARIN NA (PORCINE) 40 MG/0.4 ML DISP.SYRIN SQ SCH (10:14)
[2017-09-29] MEDS: METOPROLOL TARTRATE 25 MG TABLET (FP) PO SCH ×2 (10:14→23:37)
[2017-09-29] MEDS: CILOSTAZOL 100 MG TABLET PO SCH (10:15)
[2017-09-29] MEDS: QUETIAPINE FUMARATE 25 MG, QUETIAPINE FUMARATE 50 MG PO SCH ×2 (10:15→23:38)
[2017-09-29] MEDS: CHOLECALCIFEROL (VITAMIN D3) 1,000 UNIT TABLET (FP) PO SCH (10:16)
[2017-09-29] MEDS ORDERED: cefTRIAXone 2 GM/100 ML BAG (PRE-DOCKED) IVPB SCH (12:15)
[2017-09-29] MEDS: ACETAMINOPHEN 325 MG TABLET (FP) PO PRN ×2 (12:18→18:12)
[2017-09-29 12:39] VITALS: BMI 32.3
--- NOTE | 2017-09-29 13:03 | EKG ---
Test Reason : Blood Pressure : / mmHG Vent. Rate : 103 BPM Atrial Rate : 103 BPM P-R Int : 166 ms QRS Dur : 086 ms QT Int : 348 ms P-R-T Axes : 058 111 031 degrees QTc Int : 455 ms SINUS TACHYCARDIA POSSIBLE RIGHT VENTRICULAR HYPERTROPHY ABNORMAL ECG WHEN COMPARED WITH ECG OF 24-APR-2016 18:10, NO SIGNIFICANT CHANGE WAS FOUND Confirmed by CARIDAD NELSON MD ([id number]) on 09/29/2017 1:02:51 PM Referred By: Confirmed By:CARIDAD NELSON MD
--- NOTE | 2017-09-29 13:05 | PN ---
Addendum entered and electronically signed by Migel Hsieh MD 09/29/17 14:52 : Patient seen and examined with Susan Ospina NP. Agree with physical exam and assessment and plan as detailed below. Original Note: Progress Note, Physician Chief Complaint: Pt sitting in bed in no acute distress. appears calm. at bedside - Current Medication List Current Medications: Active Medications Acetaminophen (Tylenol -) 650 mg PO Q4H PRN PRN Reason: FEVER Last Admin: 09/29/17 12:18 Dose: 650 mg Atorvastatin Calcium (Lipitor -) 40 mg PO HS [facility] Last Admin: 09/28/17 22:52 Dose: 40 mg Carbidopa/Levodopa (Sinemet *Cr* 50/200 -) 1 combo PO TID [facility] Last Admin: 09/29/17 08:00 Dose: 1 combo Ceftriaxone Sodium (Rocephin 2gm Ivpb (Pre-Docked)) 2 gm IVPB DAILY [facility] PRN Reason: Protocol Cholecalciferol (Vitamin D3 -) 1,000 unit PO DAILY [facility] Last Admin: 09/29/17 10:16 Dose: 1,000 unit Cilostazol (Pletal -) 100 mg PO DAILY [facility] Last Admin: 09/29/17 10:15 Dose: 100 mg Docusate Sodium (Colace -) 100 mg PO BID [facility] Last Admin: 09/29/17 10:14 Dose: 100 mg Enoxaparin Sodium (Lovenox -) 40 mg SQ DAILY [facility] Last Admin: 09/29/17 10:14 Dose: 40 mg Vancomycin HCl 1,250 mg/ (Dextrose) 250 mls @ 166.667 mls/hr IVPB BID [facility] PRN Reason: Protocol Last Admin: 09/29/17 10:13 Dose: 166.667 mls/hr Influenza Virus Vaccine Quadrival (Flulaval Quad 7956-1004) 60 mcg IM .ONCE ONE Stop: 09/29/17 12:40 Metoprolol Tartrate (Lopressor -) 25 mg PO BID [facility] Last Admin: 09/29/17 10:14 Dose: 25 mg Olanzapine (Zyprexa -) 10 mg PO HS [facility] Last Admin: 09/28/17 22:53 Dose: 10 mg Oxycodone HCl (Roxicodone -) 10 mg PO Q4H PRN PRN Reason: PAIN LEVEL 5-10 Last Admin: 09/29/17 12:18 Dose: 10 mg Quetiapine Fumarate 25 mg/ (Quetiapine Fumarate 50 mg) 75 mg PO BID [facility] Last Admin: 09/29/17 10:15 Dose: 75 mg Sodium Chloride (Normal Saline -) 1,000 ml IV Q20M PRN PRN Reason: MAP<65mm Hg OR SBP <90 Last Admin: 09/28/17 18:50 Dose: 1,000 ml - Objective Vital Signs: Vital Signs Temperature 98.2 F 09/29/17 12:26 Pulse Rate 76 09/29/17 12:26 Respiratory Rate 20 09/29/17 12:26 Blood Pressure 133/75 09/29/17 12:26 O2 Sat by Pulse Oximetry (%) 94 L 09/29/17 12:26 Constitutional: Yes: No Distress, Calm Cardiovascular: Yes: WNL, Regular Rate and Rhythm. No: Gallop, Murmur, Rub Respiratory: Yes: Regular, Other (pt not taking deep breaths, unable to hear clearly). No: SOB, Tachypnea, Wheezes Gastrointestinal: Yes: WNL, Normal Bowel Sounds, Soft, Abdomen, Obese. No: Distention, Tenderness Edema: Yes Edema: LLE: 1+, RLE: 1+ Wound/Incision: Yes: Open to air, Draining (b/l lower extremities crusted, open areas) Neurological: Yes: WNL, Alert, Confusion Psychiatric: Yes: Alert Labs: CBC, BMP 09/28/17 17:57 09/28/17 17:57 INR, PTT INR 1.14 (0.82-1.09) 09/28/17 17:57 - ....Imaging Chest X-ray: Report Reviewed Problem List - Problems (1) Pneumonia Assessment/Plan: CAP, chest xray LLL infiltrate, leukocytosis, influenza swab neg, UA neg continue ceftriaxone f/u on blood/urine cultures, urine legionella antigen ID following Code(s): J18.9 - PNEUMONIA, UNSPECIFIED ORGANISM Qualifiers: Pneumonia type: due to unspecified organism Laterality: left Lung location: lower lobe of lung Qualified Code(s): J18.1 - Lobar pneumonia, unspecified organism (2) Sepsis Assessment/Plan: wbc 21.7, chest xray LLL infiltrate, b/l cellulitis with purulent drainage continue ceftriaxone and vancomycin f/u blood cultures Code(s): A41.9 - SEPSIS, UNSPECIFIED ORGANISM Qualifiers: Sepsis type: sepsis due to unspecified organism Qualified Code(s): A41.9 - Sepsis, unspecified organism (3) Acute metabolic encephalopathy Assessment/Plan: secondary to sepsis improved, pt back at baseline Code(s): G93.41 - METABOLIC ENCEPHALOPATHY (4) Cellulitis Assessment/Plan: chronic pvd, +mrsa, b/l cellulitis with purulent drainage and crusting continue vanco wound culture ordered wound care consulted ID following Code(s): L03.90 - CELLULITIS, UNSPECIFIED Qualifiers: Site of cellulitis: extremity Site of cellulitis of extremity: lower extremity Laterality: unspecified laterality Qualified Code(s): L03.119 - Cellulitis of unspecified part of limb (5) Elevated troponin Assessment/Plan: secondary to sepsis trending down tele cardiology following will monitor Code(s): R74.8 - ABNORMAL LEVELS OF OTHER SERUM ENZYMES (6) Dementia Assessment/Plan: continue zyprexa, seroquel will monitor Code(s): F03.90 - UNSPECIFIED DEMENTIA WITHOUT BEHAVIORAL DISTURBANCE Qualifiers: Dementia type: Parkinson's disease Dementia behavioral disturbance: without behavioral disturbance Qualified Code(s): G20 - Parkinson's disease; F02.80 - Dementia in other diseases classified elsewhere without behavioral disturbance; F02.80 - Dementia in other diseases classified elsewhere without behavioral disturbance; F02.80 - Dementia in other diseases classified elsewhere without behavioral disturbance (7) MRSA (methicillin resistant staph aureus) culture positive Assessment/Plan: continue vancomycin ID following Code(s): Z22.322 - CARRIER OR SUSPECTED CARRIER OF METHICILLIN RESIS STAPH (8) PVD (peripheral vascular disease) Assessment/Plan: chronic continue cilastazol continue lovenox Code(s): I73.9 - PERIPHERAL VASCULAR DISEASE, UNSPECIFIED (9) HTN (hypertension) Assessment/Plan: stable continue metoprolol Code(s): I10 - ESSENTIAL (PRIMARY) HYPERTENSION (10) Hyperlipidemia Assessment/Plan: continue atorvastatin 40mg Code(s): E78.5 - HYPERLIPIDEMIA, UNSPECIFIED (11) Parkinson disease Assessment/Plan: continue sinemet Code(s): G20 - PARKINSON'S DISEASE
[2017-09-29] MEDS: CEFTRIAXONE IN IS-OSM DEXTROSE 2 GM/50 ML BAG IVPB SCH (13:34)
--- NOTE | 2017-09-29 14:25 | CONSULT ---
- Consultation REQUESTING PROVIDER: Zhen Pompa CONSULT REQUEST: We have been asked to surgically evaluate this patient for LE cellulitis PCP: Morgan Irene History Provided By: Patient, Medical Record Limitations to Obtaining History: Dementia HPI: Called to thalia 82 yo male with PMHx noted below. Admitted to [facility] with sepsis secondary to CAP. CXR 09/28/16 --> LLL infiltrate. Patient seen/evaluated by ID who started patient on IV ABX. Currently, sitting in bed with HOB at ~ 30 degree. Appears calm. Denies n/v/f/c, CP, SOB, GRANDA, hemoptysis, cough, wheezing. PMHx: Obesity, OA, Dementia, Parkinson's, HTN, Hyperlipidemia, PVD (w/ claudication), GERD, CKD, C-diff(2015) PSHx: Appendectomy, b/l foot surgery Home Meds Atorvastatin Ca [Lipitor] 40 mg PO HS #30 tablet Carbidopa/Levodopa *Cr* 50/200 [Sinemet *Cr* 50/200 -] 1 combo PO TID #90 tablet.er Cilostazol 100 mg PO DAILY #30 tablet Metoprolol Tartrate [Lopressor -] 25 mg PO BID #60 tablet Oxycodone HCl 10 mg PO Q4H PRN #30 tablet MDD 60mg Quetiapine Fumarate [Seroquel -] 75 mg PO BID #90 tablet Cholecalciferol (Vitamin D3) [Vitamin D3] 1,000 unit PO DAILY Olanzapine [Zyprexa -] 10 mg PO HS Bismuth Tribromoph/Petrolatum [Xeroform Petrolatum Dress] 1 each TP DAILY #30 bandage Docusate Sodium [Colace -] 100 mg PO BID capsule Sulfamethoxazole/Trimethoprim [Bactrim DS -] 1 each PO BID #14 tablet Allergies: NKDA ROS Systems reviewed and are negative except for what's contained in HPI. PE: GENERAL: nad. HEAD: nc.at. EYES: Sclera anicteric, conjunctiva clear. NECK: Normal ROM, supple without lymphadenopathy, JVD, or masses. LUNGS: cta bilat. slightly diminished at bases bilat HEART: rrr ABDOMEN: obese. Soft, nt, nd, normoactive bowel sounds MUSCULOSKELETAL: No CVAT bilat LE: 1+ edema bilat. +pulses, warm, well-perfused. No cyanosis. Cap refill <2 seconds. b/l venous stasis w/ multiple lesions- serous drainage. Mild erythema Last Vital Signs Temp Pulse Resp BP Pulse Ox 98.2 F 64 20 111/50 94 L 09/29/17 14:05 09/29/17 14:05 09/29/17 14:05 09/29/17 14:05 09/29/17 12:26 Blood Type Blood Type O POSITIVE 09/28/17 17:57 CBC, BMP 09/28/17 17:57 09/28/17 17:57 INR, PTT INR 1.14 (0.82-1.09) 09/28/17 17:57 Hepatic Panel Total Bilirubin 1.1 mg/dL (0.2-1.0) H D 09/28/17 17:57 AST 14 U/L (15-37) L 09/28/17 17:57 ALT 8 U/L (12-78) L D 09/28/17 17:57 Alkaline Phosphatase 154 U/L (45-117) H D 09/28/17 17:57 Albumin 3.0 g/dl (3.4-5.0) L 09/28/17 17:57 Urine Urine Color Dkyellow 09/28/17 18:52 Urine Appearance Clear 09/28/17 18:52 Urine pH 5.0 (5.0-8.0) D 09/28/17 18:52 Ur Specific [employer] 1.026 (1.001-1.035) 09/28/17 18:52 Urine Protein 1+ (NEGATIVE) H 09/28/17 18:52 Urine Glucose (UA) Negative (NEGATIVE) 09/28/17 18:52 Urine Ketones Trace (NEGATIVE) H 09/28/17 18:52 Urine Blood Negative (NEGATIVE) 09/28/17 18:52 Urine Nitrite Negative (NEGATIVE) 09/28/17 18:52 Urine Bilirubin Negative (NEGATIVE) 09/28/17 18:52 Ur Leukocyte Esterase Negative (NEGATIVE) 09/28/17 18:52 Ur Epithelial Cells Rare /HPF (FEW) 09/28/17 18:52 Urine Mucus Rare 09/28/17 18:52 Microbiology 09/28/17 18:49 Nasopharyngeal Swab Influenza Types A,B Antigen (DANIEL) - Final 09/28/17 18:49 Nasopharyngeal Swab - Final Problem List - Problems (1) Cellulitis Assessment/Plan: Xeroform to open lesions. 4x4, Kerlix, light LESLYE compression keep legs elevated while in bed or seated in chair. Cont IV ABX per ID for CAP Monitor WBC Cont medical management No surgical intervention Code(s): L03.90 - CELLULITIS, UNSPECIFIED Qualifiers: Site of cellulitis: extremity Site of cellulitis of extremity: lower extremity Laterality: unspecified laterality Qualified Code(s): L03.119 - Cellulitis of unspecified part of limb (2) Pneumonia Code(s): J18.9 - PNEUMONIA, UNSPECIFIED ORGANISM Qualifiers: Pneumonia type: due to unspecified organism Laterality: left Lung location: lower lobe of lung Qualified Code(s): J18.1 - Lobar pneumonia, unspecified organism Visit type - Case Type Case Type: ED Admission - Emergency Emergency Visit: Yes ED Registration Date: 09/28/17 Care time: The patient presented to the Emergency Department on the above date and was hospitalized for further evaluation of their emergent condition. - New patient This patient is new to me today: Yes Date on this admission: 09/29/17
[2017-09-29] MEDS ORDERED: FLU VACCINE QUAD 60 MCG/0.5 ML (MDV 17-18) IM ONE (16:00)
[2017-09-29] MEDS ORDERED: PT OWN MED DRAWER 7, Y5N ONE (23:00)
[2017-09-29] MEDS: OLANZapine 10 MG TABLET PO SCH (23:38)
[2017-09-29] MEDS: ATORVASTATIN CA 40 MG TABLET (FP) PO SCH (23:38)
[2017-09-30 07:47] LABS: ANION GAP 2 (8-16); BLOOD UREA NITROGEN 14 mg/dL (7-18); CHLORIDE 106 mmol/L (98-107); CO2 31 mmol/L (21-32); CREATININE 0.7 mg/dL (0.7-1.3); GLUCOSE,RANDOM 83 mg/dL (74-106); PHOSPHOROUS 2.9 mg/dL (2.5-4.9); POTASSIUM 4.1 mmol/L (3.5-5.1); SODIUM 139 mmol/L (136-145)
[2017-09-30 07:50] LABS: BASO % 0.2 % (0-2.0); EOS % 4.3 % (0-4.5); HEMOGLOBIN 11.5 GM/dL (11.7-16.9); LYMPH % 8.2 % (8-40); MCH 30.4 pg (25.7-33.7); MCHC 32.9 g/dl (32.0-35.9); MEAN CELL VOLUME 92.4 fl (80-96); MEAN PLT VOLUME 7.2 fl (7.5-11.1); MONO % 9.7 % (3.8-10.2); NEUT % 77.6 % (42.8-82.8); PLATELET COUNT 285 K/MM3 (134-434); RBC 3.79 M/mm3 (4.00-5.60); RDW 14.7 % (11.9-15.9); WHITE BLOOD COUNT 8.3 K/mm3 (4.0-10.0)
[2017-09-30] MEDS: CEFTRIAXONE IN IS-OSM DEXTROSE 2 GM/50 ML BAG IVPB SCH (10:01)
[2017-09-30] MEDS: METOPROLOL TARTRATE 25 MG TABLET (FP) PO SCH (10:02)
[2017-09-30] MEDS: CILOSTAZOL 100 MG TABLET PO SCH (10:02)
[2017-09-30] MEDS: DOCUSATE SODIUM 100 MG CAPSULE (FP) PO SCH (10:02)
[2017-09-30] MEDS: ENOXAPARIN NA (PORCINE) 40 MG/0.4 ML DISP.SYRIN SQ SCH (10:02)
[2017-09-30] MEDS: CHOLECALCIFEROL (VITAMIN D3) 1,000 UNIT TABLET (FP) PO SCH (10:02)
[2017-09-30] MEDS: QUEtiapine FUMARATE 25 MG TABLET (FP) PO SCH (10:03)
[2017-09-30] MEDS: VANCOMYCIN 1,250 MG in DEXTROSE 5%-WATER - 250 ML IVPB SCH (10:58)
--- NOTE | 2017-09-30 12:47 | PN ---
Progress Note, Physician Chief Complaint: Pt sitting in bed in no acute distress. appears calm. denies any chest pain, sob , n/v/d. - Current Medication List Current Medications: Active Medications Acetaminophen (Tylenol -) 650 mg PO Q4H PRN PRN Reason: FEVER Last Admin: 09/29/17 18:12 Dose: 650 mg Atorvastatin Calcium (Lipitor -) 40 mg PO HS [facility] Last Admin: 09/29/17 23:38 Dose: 40 mg Carbidopa/Levodopa (Sinemet *Cr* 50/200 -) 1 combo PO TID [facility] Last Admin: 09/30/17 05:52 Dose: 1 combo Cholecalciferol (Vitamin D3 -) 1,000 unit PO DAILY [facility] Last Admin: 09/30/17 10:02 Dose: 1,000 unit Cilostazol (Pletal -) 100 mg PO DAILY [facility] Last Admin: 09/30/17 10:02 Dose: 100 mg Docusate Sodium (Colace -) 100 mg PO BID [facility] Last Admin: 09/30/17 10:02 Dose: 100 mg Enoxaparin Sodium (Lovenox -) 40 mg SQ DAILY [facility] Last Admin: 09/30/17 10:02 Dose: 40 mg Vancomycin HCl 1,250 mg/ (Dextrose) 250 mls @ 166.667 mls/hr IVPB BID [facility] PRN Reason: Protocol Last Admin: 09/30/17 10:58 Dose: 166.667 mls/hr CEFTRIAXONE IN IS-OSM DEXTROSE (Ceftriaxone 2 Gm-D5w Bag) 2 gm in 50 mls @ 100 mls/hr IVPB DAILY [facility] Last Admin: 09/30/17 10:01 Dose: 100 mls/hr Metoprolol Tartrate (Lopressor -) 25 mg PO BID [facility] Last Admin: 09/30/17 10:02 Dose: 25 mg Olanzapine (Zyprexa -) 10 mg PO HS [facility] Last Admin: 09/29/17 23:38 Dose: 10 mg Oxycodone HCl (Roxicodone -) 10 mg PO Q4H PRN PRN Reason: PAIN LEVEL 5-10 Last Admin: 09/29/17 18:11 Dose: 10 mg Quetiapine Fumarate (Seroquel -) 75 mg PO BID [facility] Last Admin: 09/30/17 10:03 Dose: 75 mg - Objective Vital Signs: Vital Signs Temperature 99.1 F 01/30/18 09:11 Pulse Rate 88 09/30/17 09:11 Respiratory Rate 20 09/30/17 09:11 Blood Pressure 159/74 09/30/17 09:11 O2 Sat by Pulse Oximetry (%) 97 09/29/17 21:00 Constitutional: Yes: Well Nourished, No Distress, Calm Cardiovascular: Yes: WNL, Regular Rate and Rhythm. No: Gallop, Murmur Respiratory: Yes: Regular, CTA Bilaterally, Diminished. No: Accessory Muscle Use, Rales, Rhonchi, SOB, Tachypnea Gastrointestinal: Yes: WNL, Normal Bowel Sounds, Soft, Abdomen, Obese. No: Distention, Tenderness Musculoskeletal: Yes: WNL Extremities: Yes: WNL Edema: Yes Edema: LLE: 1+, RLE: 1+ Wound/Incision: Yes: Dressing Dry and Intact (b/l lower extremities) Neurological: Yes: Alert, Confusion Psychiatric: Yes: Alert Labs: CBC, BMP 09/30/17 06:00 09/30/17 06:00 INR, PTT INR 1.14 (0.82-1.09) 09/28/17 17:57 Problem List - Problems (1) Pneumonia Code(s): J18.9 - PNEUMONIA, UNSPECIFIED ORGANISM Qualifiers: Pneumonia type: due to unspecified organism Laterality: left Lung location: lower lobe of lung Qualified Code(s): J18.1 - Lobar pneumonia, unspecified organism (2) Sepsis Code(s): A41.9 - SEPSIS, UNSPECIFIED ORGANISM Qualifiers: Sepsis type: sepsis due to unspecified organism Qualified Code(s): A41.9 - Sepsis, unspecified organism (3) Acute metabolic encephalopathy Code(s): G93.41 - METABOLIC ENCEPHALOPATHY (4) Cellulitis Code(s): L03.90 - CELLULITIS, UNSPECIFIED Qualifiers: Site of cellulitis: extremity Site of cellulitis of extremity: lower extremity Laterality: unspecified laterality Qualified Code(s): L03.119 - Cellulitis of unspecified part of limb (5) Elevated troponin Code(s): R74.8 - ABNORMAL LEVELS OF OTHER SERUM ENZYMES (6) Dementia Code(s): F03.90 - UNSPECIFIED DEMENTIA WITHOUT BEHAVIORAL DISTURBANCE Qualifiers: Dementia type: Parkinson's disease Dementia behavioral disturbance: without behavioral disturbance Qualified Code(s): G20 - Parkinson's disease; F02.80 - Dementia in other diseases classified elsewhere without behavioral disturbance; F02.80 - Dementia in other diseases classified elsewhere without behavioral disturbance; F02.80 - Dementia in other diseases classified elsewhere without behavioral disturbance (7) MRSA (methicillin resistant staph aureus) culture positive Code(s): Z22.322 - CARRIER OR SUSPECTED CARRIER OF METHICILLIN RESIS STAPH (8) PVD (peripheral vascular disease) Code(s): I73.9 - PERIPHERAL VASCULAR DISEASE, UNSPECIFIED (9) HTN (hypertension) Code(s): I10 - ESSENTIAL (PRIMARY) HYPERTENSION (10) Hyperlipidemia Code(s): E78.5 - HYPERLIPIDEMIA, UNSPECIFIED (11) Parkinson disease Code(s): G20 - PARKINSON'S DISEASE Assessment/Plan (1) Pneumonia Assessment/Plan: CAP, chest xray LLL infiltrate, leukocytosis, influenza swab neg UA/UC, blood cultures neg f/u on urine legionella antigen continue ceftriaxone ID following Code(s): J18.9 - PNEUMONIA, UNSPECIFIED ORGANISM Qualifiers: Pneumonia type: due to unspecified organism Laterality: left Lung location: lower lobe of lung Qualified Code(s): J18.1 - Lobar pneumonia, unspecified organism (2) Sepsis Assessment/Plan: wbc wnl, chest xray LLL infiltrate, b/l cellulitis with purulent drainage continue ceftriaxone and vancomycin blood cultures neg Code(s): A41.9 - SEPSIS, UNSPECIFIED ORGANISM Qualifiers: Sepsis type: sepsis due to unspecified organism Qualified Code(s): A41.9 - Sepsis, unspecified organism (3) Acute metabolic encephalopathy Assessment/Plan: secondary to sepsis improved, pt back at baseline Code(s): G93.41 - METABOLIC ENCEPHALOPATHY (4) Cellulitis Assessment/Plan: chronic pvd, +mrsa, b/l cellulitis with purulent drainage and crusting continue vanco wound culture pending wound care as directed ID following Code(s): L03.90 - CELLULITIS, UNSPECIFIED Qualifiers: Site of cellulitis: extremity Site of cellulitis of extremity: lower extremity Laterality: unspecified laterality Qualified Code(s): L03.119 - Cellulitis of unspecified part of limb (5) Elevated troponin Assessment/Plan: secondary to sepsis trending down tele cardiology following will monitor Code(s): R74.8 - ABNORMAL LEVELS OF OTHER SERUM ENZYMES (6) Dementia Assessment/Plan: continue zyprexa, seroquel will monitor Code(s): F03.90 - UNSPECIFIED DEMENTIA WITHOUT BEHAVIORAL DISTURBANCE Qualifiers: Dementia type: Parkinson's disease Dementia behavioral disturbance: without behavioral disturbance Qualified Code(s): G20 - Parkinson's disease; F02.80 - Dementia in other diseases classified elsewhere without behavioral disturbance; F02.80 - Dementia in other diseases classified elsewhere without behavioral disturbance; F02.80 - Dementia in other diseases classified elsewhere without behavioral disturbance (7) MRSA (methicillin resistant staph aureus) culture positive Assessment/Plan: continue vancomycin ID following Code(s): Z22.322 - CARRIER OR SUSPECTED CARRIER OF METHICILLIN RESIS STAPH (8) PVD (peripheral vascular disease) Assessment/Plan: chronic continue cilastazol continue lovenox Code(s): I73.9 - PERIPHERAL VASCULAR DISEASE, UNSPECIFIED (9) HTN (hypertension) Assessment/Plan: stable continue metoprolol Code(s): I10 - ESSENTIAL (PRIMARY) HYPERTENSION (10) Hyperlipidemia Assessment/Plan: continue atorvastatin 40mg Code(s): E78.5 - HYPERLIPIDEMIA, UNSPECIFIED (11) Parkinson disease Assessment/Plan: continue sinemet Code(s): G20 - PARKINSON'S DISEASE
--- NOTE | 2017-09-30 13:41 | PN ---
Progress Note (short form) - Note Progress Note: Chief Complaint: cough, sob History of Present Illness: S: patient denies complaints today. no cp, palps, dizziness, sob. remote ex cigs Current Medications Acetaminophen (Tylenol -) 650 mg PO Q4H PRN PRN Reason: FEVER Last Admin: 09/29/17 18:12 Dose: 650 mg Atorvastatin Calcium (Lipitor -) 40 mg PO HS [facility] Last Admin: 09/29/17 23:38 Dose: 40 mg Carbidopa/Levodopa (Sinemet *Cr* 50/200 -) 1 combo PO TID [facility] Last Admin: 09/30/17 05:52 Dose: 1 combo Cholecalciferol (Vitamin D3 -) 1,000 unit PO DAILY [facility] Last Admin: 09/30/17 10:02 Dose: 1,000 unit Cilostazol (Pletal -) 100 mg PO DAILY [facility] Last Admin: 09/30/17 10:02 Dose: 100 mg Docusate Sodium (Colace -) 100 mg PO BID [facility] Last Admin: 09/30/17 10:02 Dose: 100 mg Enoxaparin Sodium (Lovenox -) 40 mg SQ DAILY [facility] Last Admin: 09/30/17 10:02 Dose: 40 mg Vancomycin HCl 1,250 mg/ (Dextrose) 250 mls @ 166.667 mls/hr IVPB BID [facility] PRN Reason: Protocol Last Admin: 09/30/17 10:58 Dose: 166.667 mls/hr CEFTRIAXONE IN IS-OSM DEXTROSE (Ceftriaxone 2 Gm-D5w Bag) 2 gm in 50 mls @ 100 mls/hr IVPB DAILY [facility] Last Admin: 09/30/17 10:01 Dose: 100 mls/hr Metoprolol Tartrate (Lopressor -) 25 mg PO BID [facility] Last Admin: 09/30/17 10:02 Dose: 25 mg Olanzapine (Zyprexa -) 10 mg PO HS [facility] Last Admin: 09/29/17 23:38 Dose: 10 mg Oxycodone HCl (Roxicodone -) 10 mg PO Q4H PRN PRN Reason: PAIN LEVEL 5-10 Last Admin: 09/29/17 18:11 Dose: 10 mg Quetiapine Fumarate (Seroquel -) 75 mg PO BID [facility] Last Admin: 09/30/17 10:03 Dose: 75 mg Vital Signs - 24 hr 09/29/17 09/29/17 09/29/17 14:05 18:00 21:00 Temperature 98.2 F 97.9 F Pulse Rate 64 67 Respiratory 20 18 Rate Blood Pressure 111/50 143/72 O2 Sat by Pulse 97 Oximetry (%) 09/29/17 09/30/17 09/30/17 23:56 03:00 05:46 Temperature 98 F 98.2 F 98.4 F Pulse Rate 74 60 71 Respiratory 18 20 20 Rate Blood Pressure 138/90 148/62 108/52 O2 Sat by Pulse Oximetry (%) 09/30/17 09/30/17 09:00 09:11 Temperature 99.1 F 99.1 F Pulse Rate 88 88 Respiratory 20 20 Rate Blood Pressure 159/74 159/74 O2 Sat by Pulse 97 Oximetry (%) Intake & Output 09/28/17 09/29/17 09/30/17 10/01/17 07:59 07:59 07:59 07:59 Intake Total 500 520 150 Output Total 200 Balance 300 520 150 Weight 300 lb 251 lb 6 oz Constitutional: Yes: Well Nourished, No Distress Eyes: No: Sclera Icterus HENT: No: Nasal Congestion Neck: No: Decreased ROM Respiratory: Yes: bibasilar dullness. No: Accessory Muscle Use, Rales, Wheezes Gastrointestinal: Yes: Normal Bowel Sounds. No: Distention, Hepatomegaly, Palpable Mass, Tenderness Cardiovascular: Yes: Regular Rate and Rhythm JVD: No Carotid Bruit: No PMI: Non-Displaced Heart Sounds: Yes: S1, S2. No: Gallop Murmur: No: Systolic Murmur, Diastolic Murmur Musculoskeletal: Yes: Other (No kyphosis) Extremities: No: Cold, Cyanosis Edema: trace - 1+, diffuse dependent edema Peripheral Pulses: 2+ Left Carotid, 2+ Right Carotid, 2+ Left Doralis Pedis, 2+ Right Dorsalis Pedis Integumentary: No: Jaundice Neurological: Yes: Alert, Oriented Psychiatric: No: Agitated - Other Data Labs, Other Data: CBC, BMP 09/30/17 06:00 09/30/17 06:00 Laboratory Tests 09/28/17 09/30/17 09/30/17 17:57 06:00 06:00 Hgb 14.3 D Lactic Acid 0.8 Magnesium 2.0 Assessment/Plan ECG--sinus tach; R bowden axis (borderline). inc RBBB. no pathol q's. no ST-Ts ( similar to prior 04/16) CXR--early L base infiltrate Echo 2016: nl LV/EF; dd1; nl RV; mild LAE; valves WNL; no RVSP (2015 echo: at least mild pHTN) MPI (fuad) 2012: no STs. no ischemia. nl EF 82 yo with h/o htn, hl, pad with claudication, venous insufficiency with h/o cellulitis, ?copd, GERD with Lyn's, dementia/parkinson's here with sob/ sepsis/pna/celllulitis. sepsis/CXR early L base infiltrate/HAP (recently discharged), elevated lactate/ chronic cellulitis with active wound: -abx per ID. mgm't of wound per vascular surgery. -ok for IVF if bp trends down or other indicators of ongoing sepsis elevated troponin: -troponin in intermediate range, flat trend = not c/w ACS -no isch ecg changes -no sx's suggestive of angina -observe HTN: -bp currently overall stable on home regimen (lopressor bid) despite active infection -cont to monitor COPD: -? details of prior w/u, saw dr pack in past, pt didn't comply with meds at that tmie chronic venous ins'y, LE edema: -recently treated for cellulitis/wound -per pmd -exam tds for chf given habitus, not suspected here with no cxr congestion either. PAD: -mild PVR abnormalities. -had been on pletal per pmd/dr rose, continues on it here. not on anti- platelets. vascular following. nonspecific chronic LE sx's - con't home atorva 40 -
--- NOTE | 2017-09-30 13:58 | PN ---
Progress Note (short form) - Note Progress Note: much more alert and conversant no complaints Vital Signs Period Temp Pulse Resp BP Sys/Martinez Pulse Ox Last 24 Hr 97.9 F-99.1 F 60-88 18-20 108-159/50-90 97-97 cor-rrr lungs decreased bs at bases abd soft,nt ext legs wrapped CBC, BMP 09/30/17 06:00 09/30/17 06:00 Microbiology 09/29/17 09:10 Ulcer Wound Culture - Preliminary Presumptive Mrsa (Pbp2a Pos) 09/28/17 18:52 Urine - Urine Clean Catch Urine Culture - Final NO GROWTH OBTAINED 09/28/17 17:57 Blood - Peripheral Venous Blood Culture - Preliminary NO GROWTH OBTAINED AFTER 24 HOURS, INCUBATION TO CONTINUE FOR 4 DAYS. 09/28/17 17:57 Blood - Peripheral Venous Blood Culture - Preliminary NO GROWTH OBTAINED AFTER 24 HOURS, INCUBATION TO CONTINUE FOR 4 DAYS. 09/28/17 18:49 Nasopharyngeal Swab Influenza Types A,B Antigen (DANIEL) - Final 09/28/17 18:49 Nasopharyngeal Swab - Final Current Medications Acetaminophen (Tylenol -) 650 mg PO Q4H PRN PRN Reason: FEVER Last Admin: 09/29/17 18:12 Dose: 650 mg Atorvastatin Calcium (Lipitor -) 40 mg PO HS [facility] Last Admin: 09/29/17 23:38 Dose: 40 mg Carbidopa/Levodopa (Sinemet *Cr* 50/200 -) 1 combo PO TID [facility] [place] Last Admin: 09/30/17 05:52 Dose: 1 combo Cholecalciferol (Vitamin D3 -) 1,000 unit PO DAILY [facility] [place] Last Admin: 09/30/17 10:02 Dose: 1,000 unit Cilostazol (Pletal -) 100 mg PO DAILY [facility] Last Admin: 09/30/17 10:02 Dose: 100 mg Docusate Sodium (Colace -) 100 mg PO BID [facility] Last Admin: 09/30/17 10:02 Dose: 100 mg Enoxaparin Sodium (Lovenox -) 40 mg SQ DAILY [facility] Last Admin: 09/30/17 10:02 Dose: 40 mg Vancomycin HCl 1,250 mg/ (Dextrose) 250 mls @ 166.667 mls/hr IVPB BID [facility] PRN Reason: Protocol Last Admin: 09/30/17 10:58 Dose: 166.667 mls/hr CEFTRIAXONE IN IS-OSM DEXTROSE (Ceftriaxone 2 Gm-D5w Bag) 2 gm in 50 mls @ 100 mls/hr IVPB DAILY [facility] [place] Last Admin: 09/30/17 10:01 Dose: 100 mls/hr Metoprolol Tartrate (Lopressor -) 25 mg PO BID [facility] [place] Last Admin: 09/30/17 10:02 Dose: 25 mg Olanzapine (Zyprexa -) 10 mg PO HS [facility] [place] Last Admin: 09/29/17 23:38 Dose: 10 mg Oxycodone HCl (Roxicodone -) 10 mg PO Q4H PRN PRN Reason: PAIN LEVEL 5-10 Last Admin: 09/29/17 18:11 Dose: 10 mg Quetiapine Fumarate (Seroquel -) 75 mg PO BID [facility] Last Admin: 09/30/17 10:03 Dose: 75 mg a/p pneumonia -CAP cellulitis MRSA vanco/rocephin day #2 check vanco trough overall improved Problem List - Problems (1) Sepsis Code(s): A41.9 - SEPSIS, UNSPECIFIED ORGANISM Qualifiers: Sepsis type: sepsis due to unspecified organism Qualified Code(s): A41.9 - Sepsis, unspecified organism (2) Pneumonia Code(s): J18.9 - PNEUMONIA, UNSPECIFIED ORGANISM Qualifiers: Pneumonia type: due to unspecified organism Laterality: left Lung location: lower lobe of lung Qualified Code(s): J18.1 - Lobar pneumonia, unspecified organism (3) Cellulitis Code(s): L03.90 - CELLULITIS, UNSPECIFIED Qualifiers: Site of cellulitis: extremity Site of cellulitis of extremity: lower extremity Laterality: unspecified laterality Qualified Code(s): L03.119 - Cellulitis of unspecified part of limb (4) MRSA (methicillin resistant staph aureus) culture positive Code(s): Z22.322 - CARRIER OR SUSPECTED CARRIER OF METHICILLIN RESIS STAPH (5) Elevated troponin Code(s): R74.8 - ABNORMAL LEVELS OF OTHER SERUM ENZYMES
[2017-09-30] MEDS ORDERED: PT OWN MED DRAWER 7, Y5N ONE (23:53)
[2017-10-01] MEDS: DOCUSATE SODIUM 100 MG CAPSULE (FP) PO SCH ×3 (00:12→21:26)
[2017-10-01] MEDS: QUEtiapine FUMARATE 25 MG TABLET (FP) PO SCH ×3 (00:12→21:28)
[2017-10-01] MEDS: METOPROLOL TARTRATE 25 MG TABLET (FP) PO SCH ×3 (00:12→21:27)
[2017-10-01] MEDS: ATORVASTATIN CA 40 MG TABLET (FP) PO SCH ×2 (00:12→21:26)
[2017-10-01] MEDS: VANCOMYCIN 1,250 MG in DEXTROSE 5%-WATER - 250 ML IVPB SCH ×2 (00:13→11:18)
[2017-10-01] MEDS: OLANZapine 10 MG TABLET PO SCH ×2 (00:13→17:49)
[2017-10-01] MEDS ORDERED: LORazepam 2 MG/ML SDV VIAL IVPUSH ONE (00:29)
[2017-10-01] MEDS ORDERED: HALOPERIDOL LACTATE 5 MG/ML IM ONE ×2 (02:53→05:39)
--- NOTE | 2017-10-01 06:21 | HOSP ---
Subjective - Review of Symptoms Events since last encounter: Called by nurse who reports pt remains combative and refusing any care despite ativan 1mg IVP and haldol 2mg IM. Pt did not receive his PM medications including vancomycin. Subjective: Pt states he is fine. But that everyone is out to get him. And that I don't really care, I am just acting. Pt grabbed my hands and arms and squeezed and twisted to inflict pain. When pt asked why he is doing this, he stated that he wasnt really here. He stated that he was in a grocery store. Pt finally did allow me to examine him after much talking him down. Physical Examination Vital Signs: Vital Signs Temperature 98.0 F 09/30/17 18:22 Pulse Rate 85 09/30/17 18:22 Respiratory Rate 18 09/30/17 18:22 Blood Pressure 179/81 10/01/17 06:01 O2 Sat by Pulse Oximetry (%) 97 09/30/17 09:00 Findings/Remarks: Pt laying in bed calmly on approach but when examiner close enough, pt grabbed examiners arms. Constitutional: Yes: No Distress Cardiovascular: Yes: Regular Rate and Rhythm, S1, S2 Respiratory: Yes: CTA Bilaterally Gastrointestinal: Yes: Normal Bowel Sounds, Soft. No: Tenderness Labs: CBC, BMP 09/30/17 06:00 09/30/17 06:00 Hospitalist Encounter Assessment: Agitation - pt combative and agitated with all cares, refusing to allow vitals to be taken. Pulled out IV - attempted to give pt po meds when calm after exam. Pt took water into his mouth and spit it at examiner. did not attempt to give pt pills after this - haldol 2mg IM to be given again. - will need medications to be reassessed by primary team. - zyprexa dosing changed from HS to 6pm. - RN to attempt IV placement after haldol takes effect.
[2017-10-01 08:43] LABS: BASO % 0.4 % (0-2.0); EOS % 3.9 % (0-4.5); HEMATOCRIT 33.7 % (35.4-49); HEMOGLOBIN 11.3 GM/dL (11.7-16.9); LYMPH % 9.7 % (8-40); MCH 30.7 pg (25.7-33.7); MCHC 33.5 g/dl (32.0-35.9); MEAN CELL VOLUME 91.6 fl (80-96); MONO % 10.9 % (3.8-10.2); NEUT % 75.1 % (42.8-82.8); PLATELET COUNT 294 K/MM3 (134-434); RBC 3.68 M/mm3 (4.00-5.60); RDW 14.4 % (11.9-15.9); WHITE BLOOD COUNT 7.1 K/mm3 (4.0-10.0)
--- NOTE | 2017-10-01 09:48 | PN ---
Progress Note (short form) - Note Progress Note: "please don't hurt me I didn't do anything wrong" he is alert but paranoid pulled out his iv last night refused po meds going for head ct no SOB no chest pain or abd pain Vital Signs Period Temp Pulse Resp BP Sys/Martinez Pulse Ox Last 24 Hr 97.7 F-99.0 F 77-85 18-20 125-179/64-88 cor-rrr lungs clear, decreased bs at bases abd soft, NT, +BS ext-+open scabs, no edema minimal erythema, minimal drainage CBC, BMP 10/01/17 08:00 Microbiology 09/28/17 17:57 Blood - Peripheral Venous Blood Culture - Preliminary NO GROWTH OBTAINED AFTER 48 HOURS, INCUBATION TO CONTINUE FOR 3 DAYS. 09/28/17 17:57 Blood - Peripheral Venous Blood Culture - Preliminary NO GROWTH OBTAINED AFTER 48 HOURS, INCUBATION TO CONTINUE FOR 3 DAYS. 09/29/17 09:10 Ulcer Gram Stain - Final 09/29/17 09:10 Ulcer Wound Culture - Preliminary Presumptive Mrsa (Pbp2a Pos) 09/28/17 18:52 Urine - Urine Clean Catch Urine Culture - Final NO GROWTH OBTAINED 09/28/17 18:49 Nasopharyngeal Swab Influenza Types A,B Antigen (DANIEL) - Final 09/28/17 18:49 Nasopharyngeal Swab - Final a/p pneumonia -CAP cellulitis MRSA vanco/rocephin day #[address]- will d/w PMD currently has no iv access, nurse reports intermittently refusing pills as well Problem List - Problems (1) Sepsis Code(s): A41.9 - SEPSIS, UNSPECIFIED ORGANISM Qualifiers: Sepsis type: sepsis due to unspecified organism Qualified Code(s): A41.9 - Sepsis, unspecified organism (2) Pneumonia Code(s): J18.9 - PNEUMONIA, UNSPECIFIED ORGANISM Qualifiers: Pneumonia type: due to unspecified organism Laterality: left Lung location: lower lobe of lung Qualified Code(s): J18.1 - Lobar pneumonia, unspecified organism (3) Cellulitis Code(s): L03.90 - CELLULITIS, UNSPECIFIED Qualifiers: Site of cellulitis: extremity Site of cellulitis of extremity: lower extremity Laterality: unspecified laterality Qualified Code(s): L03.119 - Cellulitis of unspecified part of limb (4) MRSA (methicillin resistant staph aureus) culture positive Code(s): Z22.322 - CARRIER OR SUSPECTED CARRIER OF METHICILLIN RESIS STAPH (5) Elevated troponin Code(s): R74.8 - ABNORMAL LEVELS OF OTHER SERUM ENZYMES
[2017-10-01 10:06] LABS: ANION GAP 6 (8-16); BLOOD UREA NITROGEN 9 mg/dL (7-18); CALCIUM 8.1 mg/dL (8.5-10.1); CHLORIDE 105 mmol/L (98-107); CO2 30 mmol/L (21-32); CREATININE 0.6 mg/dL (0.7-1.3); GLUCOSE,RANDOM 80 mg/dL (74-106); PHOSPHOROUS 2.4 mg/dL (2.5-4.9); POTASSIUM 3.7 mmol/L (3.5-5.1); SODIUM 141 mmol/L (136-145)
[2017-10-01] MEDS ORDERED: PT OWN MED DRAWER 7, Y5N ONE ×2 (10:51→17:09)
[2017-10-01] MEDS: ENOXAPARIN NA (PORCINE) 40 MG/0.4 ML DISP.SYRIN SQ SCH (10:54)
[2017-10-01] MEDS: CILOSTAZOL 100 MG TABLET PO SCH (10:54)
[2017-10-01] MEDS: CHOLECALCIFEROL (VITAMIN D3) 1,000 UNIT TABLET (FP) PO SCH (10:54)
[2017-10-01] MEDS: CEFTRIAXONE IN IS-OSM DEXTROSE 2 GM/50 ML BAG IVPB SCH (11:18)
--- NOTE | 2017-10-01 12:57 | PN ---
Progress Note, Physician Chief Complaint: Pt sitting in bed in no acute distress. appears calm but nonverbal and guarded. denies any chest pain, sob, n/v/d. - Current Medication List Current Medications: Active Medications Acetaminophen (Tylenol -) 650 mg PO Q4H PRN PRN Reason: FEVER Last Admin: 09/29/17 18:12 Dose: 650 mg Atorvastatin Calcium (Lipitor -) 40 mg PO HS [facility] Last Admin: 10/01/17 00:12 Dose: Not Given Carbidopa/Levodopa (Sinemet *Cr* 50/200 -) 1 combo PO TID [facility] Last Admin: 10/01/17 06:36 Dose: Not Given Cefuroxime Axetil (Ceftin -) 500 mg PO BID [facility] Cholecalciferol (Vitamin D3 -) 1,000 unit PO DAILY [facility] Last Admin: 10/01/17 10:54 Dose: 1,000 unit Cilostazol (Pletal -) 100 mg PO DAILY [facility] Last Admin: 10/01/17 10:54 Dose: 100 mg Docusate Sodium (Colace -) 100 mg PO BID [facility] Last Admin: 10/01/17 10:54 Dose: 100 mg Enoxaparin Sodium (Lovenox -) 40 mg SQ DAILY [facility] Last Admin: 10/01/17 10:54 Dose: 40 mg Metoprolol Tartrate (Lopressor -) 25 mg PO BID [facility] Last Admin: 10/01/17 10:54 Dose: 25 mg Olanzapine (Zyprexa -) 10 mg PO DAILY@1800 [facility] Oxycodone HCl (Roxicodone -) 10 mg PO Q4H PRN PRN Reason: PAIN LEVEL 5-10 Last Admin: 09/29/17 18:11 Dose: 10 mg Quetiapine Fumarate (Seroquel -) 75 mg PO BID [facility] Last Admin: 10/01/17 10:54 Dose: 75 mg - Objective Vital Signs: Vital Signs Temperature 99.0 F 10/01/17 09:24 Pulse Rate 83 10/01/17 09:24 Respiratory Rate 20 10/01/17 09:24 Blood Pressure 162/88 10/01/17 09:24 O2 Sat by Pulse Oximetry (%) 97 10/01/17 09:00 Constitutional: Yes: Well Nourished, No Distress, Calm Cardiovascular: Yes: WNL, Regular Rate and Rhythm Respiratory: Yes: WNL, Regular, Diminished. No: Rales, Rhonchi, Tachypnea, Wheezes Gastrointestinal: Yes: WNL, Normal Bowel Sounds, Soft, Abdomen, Obese. No: Distention, Tenderness Extremities: Yes: Erythema Edema: Yes Edema: LLE: 2+, RLE: 2+ Wound/Incision: Yes: Dressing Dry and Intact (b/l lower extremities) Labs: CBC, BMP 10/01/17 08:00 10/01/17 08:00 INR, PTT INR 1.14 (0.82-1.09) 09/28/17 17:57 - ....Imaging Cat Scan: Report Reviewed Problem List - Problems (1) Pneumonia Code(s): J18.9 - PNEUMONIA, UNSPECIFIED ORGANISM Qualifiers: Pneumonia type: due to unspecified organism Laterality: left Lung location: lower lobe of lung Qualified Code(s): J18.1 - Lobar pneumonia, unspecified organism (2) Sepsis Code(s): A41.9 - SEPSIS, UNSPECIFIED ORGANISM Qualifiers: Sepsis type: sepsis due to unspecified organism Qualified Code(s): A41.9 - Sepsis, unspecified organism (3) Acute metabolic encephalopathy Code(s): G93.41 - METABOLIC ENCEPHALOPATHY (4) Cellulitis Code(s): L03.90 - CELLULITIS, UNSPECIFIED Qualifiers: Site of cellulitis: extremity Site of cellulitis of extremity: lower extremity Laterality: unspecified laterality Qualified Code(s): L03.119 - Cellulitis of unspecified part of limb (5) Elevated troponin Code(s): R74.8 - ABNORMAL LEVELS OF OTHER SERUM ENZYMES (6) Dementia Code(s): F03.90 - UNSPECIFIED DEMENTIA WITHOUT BEHAVIORAL DISTURBANCE Qualifiers: Dementia type: Parkinson's disease Dementia behavioral disturbance: without behavioral disturbance Qualified Code(s): G20 - Parkinson's disease; F02.80 - Dementia in other diseases classified elsewhere without behavioral disturbance; F02.80 - Dementia in other diseases classified elsewhere without behavioral disturbance; F02.80 - Dementia in other diseases classified elsewhere without behavioral disturbance (7) MRSA (methicillin resistant staph aureus) culture positive Code(s): Z22.322 - CARRIER OR SUSPECTED CARRIER OF METHICILLIN RESIS STAPH (8) PVD (peripheral vascular disease) Code(s): I73.9 - PERIPHERAL VASCULAR DISEASE, UNSPECIFIED (9) HTN (hypertension) Code(s): I10 - ESSENTIAL (PRIMARY) HYPERTENSION (10) Hyperlipidemia Code(s): E78.5 - HYPERLIPIDEMIA, UNSPECIFIED (11) Parkinson disease Code(s): G20 - PARKINSON'S DISEASE Assessment/Plan (1) Pneumonia Assessment/Plan: CAP, chest xray LLL infiltrate, leukocytosis, influenza swab neg UA/UC, blood cultures neg Pt afebrile for 48 hours on PO ceftin ID following Code(s): J18.9 - PNEUMONIA, UNSPECIFIED ORGANISM Qualifiers: Pneumonia type: due to unspecified organism Laterality: left Lung location: lower lobe of lung Qualified Code(s): J18.1 - Lobar pneumonia, unspecified organism (2) Sepsis Assessment/Plan: wbc wnl, chest xray LLL infiltrate, b/l cellulitis with purulent drainage blood cultures neg ceftin and doxycycline per ID Code(s): A41.9 - SEPSIS, UNSPECIFIED ORGANISM Qualifiers: Sepsis type: sepsis due to unspecified organism Qualified Code(s): A41.9 - Sepsis, unspecified organism (3) Acute metabolic encephalopathy Assessment/Plan: secondary to sepsis improved, pt back at baseline Code(s): G93.41 - METABOLIC ENCEPHALOPATHY (4) Cellulitis Assessment/Plan: chronic pvd, +mrsa, b/l cellulitis with purulent drainage and crusting on po ceftin and doxycycline wound care as directed ID following Code(s): L03.90 - CELLULITIS, UNSPECIFIED Qualifiers: Site of cellulitis: extremity Site of cellulitis of extremity: lower extremity Laterality: unspecified laterality Qualified Code(s): L03.119 - Cellulitis of unspecified part of limb (5) Elevated troponin Assessment/Plan: secondary to sepsis trending down tele cardiology following will monitor Code(s): R74.8 - ABNORMAL LEVELS OF OTHER SERUM ENZYMES (6) Dementia Assessment/Plan: pt has been very agitated per jewel hole cornerer, refusing meds and uncooperative with care, head ct without significant findings, possible related to unfamilar setting and loss of routine at home continue zyprexa, seroquel will monitor Code(s): F03.90 - UNSPECIFIED DEMENTIA WITHOUT BEHAVIORAL DISTURBANCE Qualifiers: Dementia type: Parkinson's disease Dementia behavioral disturbance: without behavioral disturbance Qualified Code(s): G20 - Parkinson's disease; F02.80 - Dementia in other diseases classified elsewhere without behavioral disturbance; F02.80 - Dementia in other diseases classified elsewhere without behavioral disturbance; F02.80 - Dementia in other diseases classified elsewhere without behavioral disturbance (7) MRSA (methicillin resistant staph aureus) culture positive Assessment/Plan: Ceftin and doxycycline per ID ID following Code(s): Z22.322 - CARRIER OR SUSPECTED CARRIER OF METHICILLIN RESIS STAPH (8) PVD (peripheral vascular disease) Assessment/Plan: chronic continue cilastazol continue lovenox Code(s): I73.9 - PERIPHERAL VASCULAR DISEASE, UNSPECIFIED (9) HTN (hypertension) Assessment/Plan: stable continue metoprolol Code(s): I10 - ESSENTIAL (PRIMARY) HYPERTENSION (10) Hyperlipidemia Assessment/Plan: continue atorvastatin 40mg Code(s): E78.5 - HYPERLIPIDEMIA, UNSPECIFIED (11) Parkinson disease Assessment/Plan: continue sinemet Code(s): G20 - PARKINSON'S DISEASE Spoke to at bedside, she wishes to take pt home considering his agitation and uncooperative behavior with meds/care at the hospital. I agree considering pt has been afebrile for 48 hours, wbc normal and without further signs and symptoms. Pt is on oral antibiotics. Dispo home tomorrow on po antibiotics and home services
[2017-10-01] MEDS: CEFUROXIME AXETIL 500 MG TABLET PO SCH ×2 (14:29→21:25)
[2017-10-01] MEDS: DOXYCYCLINE HYCLATE 100 MG CAPSULE PO SCH (17:49)
[2017-10-01] MEDS: oxyCODONE HCL 5 MG TABLET PO PRN (20:19)
[2017-10-02 07:40] LABS: BASO % 0.4 % (0-2.0); EOS % 2.4 % (0-4.5); HEMATOCRIT 36.4 % (35.4-49); HEMOGLOBIN 12.2 GM/dL (11.7-16.9); LYMPH % 12.3 % (8-40); MCH 30.6 pg (25.7-33.7); MCHC 33.6 g/dl (32.0-35.9); MEAN CELL VOLUME 91.1 fl (80-96); MONO % 11.3 % (3.8-10.2); NEUT % 73.6 % (42.8-82.8); PLATELET COUNT 330 K/MM3 (134-434); RDW 14.5 % (11.9-15.9); WHITE BLOOD COUNT 7.2 K/mm3 (4.0-10.0)
[2017-10-02 08:36] LABS: ANION GAP 8 (8-16); BLOOD UREA NITROGEN 11 mg/dL (7-18); CALCIUM 8.8 mg/dL (8.5-10.1); CHLORIDE 105 mmol/L (98-107); CO2 27 mmol/L (21-32); CREATININE 0.7 mg/dL (0.7-1.3); GLUCOSE,RANDOM 87 mg/dL (74-106); MAGNESIUM 1.9 mg/dL (1.8-2.4); PHOSPHOROUS 2.6 mg/dL (2.5-4.9); POTASSIUM 3.7 mmol/L (3.5-5.1); SODIUM 140 mmol/L (136-145)
[2017-10-02] MEDS ORDERED: PT OWN MED DRAWER 7, Y5N ONE ×3 (10:18→22:07)
[2017-10-02] MEDS: CHOLECALCIFEROL (VITAMIN D3) 1,000 UNIT TABLET (FP) PO SCH (10:27)
[2017-10-02] MEDS: METOPROLOL TARTRATE 25 MG TABLET (FP) PO SCH ×2 (10:27→22:12)
[2017-10-02] MEDS: ENOXAPARIN NA (PORCINE) 40 MG/0.4 ML DISP.SYRIN SQ SCH (10:27)
[2017-10-02] MEDS: DOCUSATE SODIUM 100 MG CAPSULE (FP) PO SCH ×2 (10:27→22:40)
[2017-10-02] MEDS: DOXYCYCLINE HYCLATE 100 MG CAPSULE PO SCH (10:27)
[2017-10-02] MEDS: CILOSTAZOL 100 MG TABLET PO SCH (10:28)
[2017-10-02] MEDS: QUEtiapine FUMARATE 25 MG TABLET (FP) PO SCH ×2 (10:28→22:12)
[2017-10-02] MEDS: CEFUROXIME AXETIL 500 MG TABLET PO SCH ×2 (10:28→22:13)
[2017-10-02] MEDS ORDERED: PROMETHAZINE HCL 25 MG TABLET PO PRN (13:51)
--- NOTE | 2017-10-02 13:52 | PN ---
Progress Note, Physician Chief Complaint: Patient mental status much improved today, much more pleasant. Denies cp, sob, n /v. However later patient had episode of emesis. - Current Medication List Current Medications: Active Medications Acetaminophen (Tylenol -) 650 mg PO Q4H PRN PRN Reason: FEVER Last Admin: 09/29/17 18:12 Dose: 650 mg Atorvastatin Calcium (Lipitor -) 40 mg PO HS [facility] Last Admin: 10/01/17 21:26 Dose: 40 mg Carbidopa/Levodopa (Sinemet *Cr* 50/200 -) 1 combo PO TID [facility] Last Admin: 10/02/17 05:50 Dose: 1 combo Cefuroxime Axetil (Ceftin -) 500 mg PO BID [facility] Last Admin: 10/02/17 10:28 Dose: 500 mg Cholecalciferol (Vitamin D3 -) 1,000 unit PO DAILY [facility] Last Admin: 10/02/17 10:27 Dose: 1,000 unit Cilostazol (Pletal -) 100 mg PO DAILY [facility] Last Admin: 10/02/17 10:28 Dose: 100 mg Docusate Sodium (Colace -) 100 mg PO BID [facility] Last Admin: 10/02/17 10:27 Dose: 100 mg Doxycycline Hyclate (Vibramycin -) 100 mg PO BID@1000,1800 [facility] Last Admin: 10/02/17 10:27 Dose: 100 mg Enoxaparin Sodium (Lovenox -) 40 mg SQ DAILY [facility] Last Admin: 10/02/17 10:27 Dose: 40 mg Metoprolol Tartrate (Lopressor -) 25 mg PO BID [facility] Last Admin: 10/02/17 10:27 Dose: 25 mg Olanzapine (Zyprexa -) 10 mg PO DAILY@1800 [facility] Last Admin: 10/01/17 17:49 Dose: 10 mg Oxycodone HCl (Roxicodone -) 10 mg PO Q4H PRN PRN Reason: PAIN LEVEL 5-10 Last Admin: 10/01/17 20:19 Dose: 10 mg Quetiapine Fumarate (Seroquel -) 75 mg PO BID [facility] Last Admin: 10/02/17 10:28 Dose: 75 mg - Objective Vital Signs: Vital Signs Temperature 37.0 C 10/02/17 09:00 Pulse Rate 69 10/02/17 09:00 Respiratory Rate 18 10/02/17 09:00 Blood Pressure 168/89 10/02/17 09:00 O2 Sat by Pulse Oximetry (%) 95 10/02/17 09:00 Constitutional: Yes: No Distress, Calm, Obese Cardiovascular: Yes: Regular Rate and Rhythm. No: Gallop, Murmur, Rub Respiratory: Yes: Regular, CTA Bilaterally. No: Rales, Rhonchi, Wheezes Gastrointestinal: Yes: Normal Bowel Sounds, Soft. No: Distention, Tenderness Extremities: Yes: WNL Edema: No Labs: CBC, BMP 10/02/17 07:00 10/02/17 08:15 INR, PTT INR 1.14 (0.82-1.09) 09/28/17 17:57 Assessment/Plan (1) Pneumonia Assessment/Plan: -stable -continue oral antibiotics -plan for discharge once emesis resolved Code(s): J18.9 - PNEUMONIA, UNSPECIFIED ORGANISM Qualifiers: Pneumonia type: due to unspecified organism Laterality: left Lung location: lower lobe of lung Qualified Code(s): J18.1 - Lobar pneumonia, unspecified organism (2) Sepsis Assessment/Plan: -resolved Code(s): A41.9 - SEPSIS, UNSPECIFIED ORGANISM Qualifiers: Sepsis type: sepsis due to unspecified organism Qualified Code(s): A41.9 - Sepsis, unspecified organism (3) Acute metabolic encephalopathy Assessment/Plan: -back to baseline Code(s): G93.41 - METABOLIC ENCEPHALOPATHY (4) Cellulitis Assessment/Plan: -continue ceftin and vibramycin -may need to stop vibramycin if causing emesis Code(s): L03.90 - CELLULITIS, UNSPECIFIED Qualifiers: Site of cellulitis: extremity Site of cellulitis of extremity: lower extremity Laterality: unspecified laterality Qualified Code(s): L03.119 - Cellulitis of unspecified part of limb (5) Elevated troponin Assessment/Plan: -stable -stress induced Code(s): R74.8 - ABNORMAL LEVELS OF OTHER SERUM ENZYMES (6) Dementia Assessment/Plan: -back to baseline -continue current management Code(s): F03.90 - UNSPECIFIED DEMENTIA WITHOUT BEHAVIORAL DISTURBANCE Qualifiers: Dementia type: Parkinson's disease Dementia behavioral disturbance: without behavioral disturbance Qualified Code(s): G20 - Parkinson's disease; F02.80 - Dementia in other diseases classified elsewhere without behavioral disturbance; F02.80 - Dementia in other diseases classified elsewhere without behavioral disturbance; F02.80 - Dementia in other diseases classified elsewhere without behavioral disturbance (7) MRSA (methicillin resistant staph aureus) culture positive Assessment/Plan: -continue vibramycin currently Code(s): Z22.322 - CARRIER OR SUSPECTED CARRIER OF METHICILLIN RESIS STAPH (8) PVD (peripheral vascular disease) Assessment/Plan: -continue cilastozal and lovenox Code(s): I73.9 - PERIPHERAL VASCULAR DISEASE, UNSPECIFIED (9) HTN (hypertension) Assessment/Plan: -continue metoprolol Code(s): I10 - ESSENTIAL (PRIMARY) HYPERTENSION (10) Hyperlipidemia Assessment/Plan: -continue lipitor Code(s): E78.5 - HYPERLIPIDEMIA, UNSPECIFIED (11) Parkinson disease Assessment/Plan: -continue sinemet Code(s): G20 - PARKINSON'S DISEASE (12) Emesis -patient with sudden onset emesis -brown, concern for coffee grounds -send emesis for occult blood -check cbc now and at 1999 -prn phenergan -protonix IV bid, first dose now -npo except meds -will hold on GI consult currently unless having GI bleed
[2017-10-02] MEDS ORDERED: PROMETHAZINE HCL 25 MG/1 ML VIAL IM PRN (15:24)
[2017-10-02] MEDS: PANTOPRAZOLE SODIUM 40 MG VIAL IVPUSH SCH ×2 (17:31→22:18)
[2017-10-02] MEDS: OLANZapine 10 MG TABLET PO SCH (17:31)
--- NOTE | 2017-10-02 18:31 | PN ---
Progress Note (short form) - Note Progress Note: Chief Complaint: cough, sob History of Present Illness: S: episode of agitation 09/30, refused po meds yesterday --> head ct negative for acute pathology. no significant agitation today. emesis today, axr showed fecal retention. bp higher today, endorses pain in ankles and low back. no cp, palps, dizziness, sob. remote ex cigs Current Medications Acetaminophen (Tylenol -) 650 mg PO Q4H PRN PRN Reason: FEVER Last Admin: 09/29/17 18:12 Dose: 650 mg Atorvastatin Calcium (Lipitor -) 40 mg PO HS [facility] Last Admin: 10/01/17 21:26 Dose: 40 mg Carbidopa/Levodopa (Sinemet *Cr* 50/200 -) 1 combo PO TID [facility] Last Admin: 10/02/17 14:14 Dose: 1 combo Cefuroxime Axetil (Ceftin -) 500 mg PO BID [facility] Last Admin: 10/02/17 10:28 Dose: 500 mg Cholecalciferol (Vitamin D3 -) 1,000 unit PO DAILY [facility] Last Admin: 10/02/17 10:27 Dose: 1,000 unit Cilostazol (Pletal -) 100 mg PO DAILY [facility] Last Admin: 10/02/17 10:28 Dose: 100 mg Docusate Sodium (Colace -) 100 mg PO BID [facility] Last Admin: 10/02/17 10:27 Dose: 100 mg Metoprolol Tartrate (Lopressor -) 25 mg PO BID [facility] Last Admin: 10/02/17 10:27 Dose: 25 mg Olanzapine (Zyprexa -) 10 mg PO DAILY@1800 [facility] Last Admin: 10/02/17 17:31 Dose: 10 mg Oxycodone HCl (Roxicodone -) 10 mg PO Q4H PRN PRN Reason: PAIN LEVEL 5-10 Last Admin: 10/01/17 20:19 Dose: 10 mg Pantoprazole Sodium (Protonix Iv) 40 mg IVPUSH BID [facility] Last Admin: 10/02/17 17:31 Dose: 40 mg Promethazine HCl (Phenergan Injection -) 25 mg IM Q4H PRN PRN Reason: NAUSEA AND/OR VOMITING Last Admin: 10/02/17 17:30 Dose: 25 mg Quetiapine Fumarate (Seroquel -) 75 mg PO BID [facility] Last Admin: 10/02/17 10:28 Dose: 75 mg Vital Signs - 24 hr 10/01/17 10/01/17 10/02/17 20:28 20:31 04:00 Temperature 98.2 F 98 F Pulse Rate 85 69 Respiratory 18 18 18 Rate Blood Pressure 160/74 158/81 O2 Sat by Pulse 91 L Oximetry (%) 10/02/17 10/02/17 10/02/17 09:00 15:22 18:03 Temperature 98.6 F 98.2 F 97.9 F Pulse Rate 69 76 97 H Respiratory 18 20 20 Rate Blood Pressure 168/89 166/84 179/85 O2 Sat by Pulse 95 Oximetry (%) Intake & Output 09/30/17 10/01/17 10/02/17 10/03/17 07:59 07:59 07:59 07:59 Intake Total 520 450 550 777 Balance 520 450 550 777 Weight 251 lb 6 oz 249 lb 1.6 oz Constitutional: Yes: Well Nourished, No Distress Eyes: No: Sclera Icterus HENT: No: Nasal Congestion Neck: No: Decreased ROM Respiratory: Yes: bibasilar dullness. No: Accessory Muscle Use, Rales, Wheezes Gastrointestinal: Yes: Normal Bowel Sounds. No: Distention, Hepatomegaly, Palpable Mass, Tenderness Cardiovascular: Yes: Regular Rate and Rhythm JVD: No Carotid Bruit: No PMI: Non-Displaced Heart Sounds: Yes: S1, S2. No: Gallop Murmur: No: Systolic Murmur, Diastolic Murmur Musculoskeletal: Yes: Other (No kyphosis) Extremities: No: Cold, Cyanosis Edema: trace dependent edema Peripheral Pulses: 2+ Left Carotid, 2+ Right Carotid, 2+ Left Doralis Pedis, 2+ Right Dorsalis Pedis Integumentary: No: Jaundice Neurological: Yes: Alert, Oriented Psychiatric: No: Agitated - Other Data Labs, Other Data: CBC, BMP 10/02/17 07:00 10/02/17 08:15 Laboratory Tests 10/02/17 08:15 Magnesium 1.9 Assessment/Plan ECG--sinus tach; R bowden axis (borderline). inc RBBB. no pathol q's. no ST-Ts ( similar to prior 04/16) CXR--early L base infiltrate Echo 2016: nl LV/EF; dd1; nl RV; mild LAE; valves WNL; no RVSP (2015 echo: at least mild pHTN) MPI (fuad) 2012: no STs. no ischemia. nl EF 82 yo with h/o htn, hl, pad with claudication, venous insufficiency with h/o cellulitis, ?copd, GERD with Lyn's, dementia/parkinson's here with sob/ sepsis/pna/celllulitis. sepsis/CXR early L base infiltrate/HAP (recently discharged), elevated lactate/ chronic cellulitis with active wound: -abx per ID. mgm't of wound per vascular surgery. -resolving. s/p IVF elevated troponin: -troponin in intermediate range, flat trend = not c/w ACS -no isch ecg changes -no sx's suggestive of angina -observe HTN: -bp currently overall stable on home regimen (lopressor bid) despite active infection -10/02: bp trending home. ? on lisinopril 40 mg as outpatient (per prior office notes). Will add back low dose. COPD: -? details of prior w/u, saw dr pack in past, pt didn't comply with meds at that tmie chronic venous ins'y, LE edema: -recently treated for cellulitis/wound -per pmd -exam tds for chf given habitus, not suspected here with no cxr congestion either. -may have been on lasix as outpatient. Recently requiring IVF and edema stable/ minimal, weight stable so will hold off on resuming for now. PAD: -mild PVR abnormalities. -had been on pletal per pmd/dr rose, continues on it here. not on asa or plavix. vascular following. nonspecific chronic LE sx's - con't home atorva 40
[2017-10-02] MEDS ORDERED: LISINOPRIL 10 MG TABLET (FP) PO SCH (18:45)
[2017-10-02] MEDS ORDERED: INSULIN (NOVOLOG) ASPART 100 UNITS/ML 10ML VIAL ONE (18:55)
[2017-10-02] MEDS: ATORVASTATIN CA 40 MG TABLET (FP) PO SCH (22:18)
[2017-10-03 07:44] LABS: BASO % 0.4 % (0-2.0); EOS % 1.4 % (0-4.5); HEMATOCRIT 38.9 % (35.4-49); HEMOGLOBIN 12.7 GM/dL (11.7-16.9); LYMPH % 13.6 % (8-40); MCH 29.9 pg (25.7-33.7); MCHC 32.8 g/dl (32.0-35.9); MEAN CELL VOLUME 91.2 fl (80-96); MONO % 12.2 % (3.8-10.2); NEUT % 72.4 % (42.8-82.8); PLATELET COUNT 379 K/MM3 (134-434); RBC 4.26 M/mm3 (4.00-5.60); RDW 14.5 % (11.9-15.9)
[2017-10-03 07:58] LABS: ANION GAP 8 (8-16); BLOOD UREA NITROGEN 13 mg/dL (7-18); CALCIUM 8.4 mg/dL (8.5-10.1); CHLORIDE 105 mmol/L (98-107); CO2 29 mmol/L (21-32); CREATININE 0.7 mg/dL (0.7-1.3); GLUCOSE,RANDOM 77 mg/dL (74-106); MAGNESIUM 1.8 mg/dL (1.8-2.4); PHOSPHOROUS 2.9 mg/dL (2.5-4.9); POTASSIUM 3.6 mmol/L (3.5-5.1); SODIUM 142 mmol/L (136-145)
[2017-10-03 09:02] VITALS: BP 160/78; PULSE 82; TEMP 98.2
[2017-10-03] MEDS ORDERED: LISINOPRIL 10 MG TABLET (FP) PO SCH (10:00)
[2017-10-03] MEDS ORDERED: PT OWN MED DRAWER 7, Y5N ONE (10:24)
[2017-10-03] MEDS: CHOLECALCIFEROL (VITAMIN D3) 1,000 UNIT TABLET (FP) PO SCH (10:26)
[2017-10-03] MEDS: DOCUSATE SODIUM 100 MG CAPSULE (FP) PO SCH (10:26)
[2017-10-03] MEDS: METOPROLOL TARTRATE 25 MG TABLET (FP) PO SCH (10:26)
[2017-10-03] MEDS: QUEtiapine FUMARATE 25 MG TABLET (FP) PO SCH (10:27)
[2017-10-03] MEDS: PANTOPRAZOLE SODIUM 40 MG VIAL IVPUSH SCH (10:27)
[2017-10-03] MEDS: CILOSTAZOL 100 MG TABLET PO SCH (10:27)
[2017-10-03] MEDS: CEFUROXIME AXETIL 500 MG TABLET PO SCH (10:28)
--- NOTE | 2017-10-03 10:38 | DS ---
Physical Examination Vital Signs: Vital Signs Temperature 36.8 C 10/03/17 09:01 Pulse Rate 82 10/03/17 09:01 Respiratory Rate 20 10/03/17 09:01 Blood Pressure 160/78 10/03/17 09:01 O2 Sat by Pulse Oximetry (%) 95 10/02/17 21:00 Labs: CBC, BMP 10/03/17 06:30 10/03/17 06:30 Discharge Summary Reason For Visit: SEPSIS, DEMENTIA PNEUMONIA Current Active Problems Acute metabolic encephalopathy (Acute) Cellulitis (Acute) Dementia (Acute) Elevated troponin (Acute) Hyperlipidemia (Acute) MRSA (methicillin resistant staph aureus) culture positive (Acute) Pneumonia (Acute) Sepsis (Acute) Condition: Stable - Instructions Diet, Activity, Other Instructions: resume previous diet and activity Referrals: Mo Menon MD [Primary Care Provider] - Disposition: VNS/HOME HEALTH CARE - Home Medications Comprehensive Discharge Medication List: Ambulatory Orders Atorvastatin Ca [Lipitor] 40 mg PO HS #30 tablet 03/19/16 Carbidopa/Levodopa *Cr* 50/200 [Sinemet *Cr* 50/200 -] 1 combo PO TID #90 tablet.er 03/19/16 Cilostazol 100 mg PO DAILY #30 tablet 03/19/16 Metoprolol Tartrate [Lopressor -] 25 mg PO BID #60 tablet 03/19/16 Oxycodone HCl 10 mg PO Q4H PRN #30 tablet MDD 60mg 03/19/16 Quetiapine Fumarate [Seroquel -] 75 mg PO BID #90 tablet 03/19/16 Cholecalciferol (Vitamin D3) [Vitamin D3] 1,000 unit PO DAILY 08/27/16 Olanzapine [Zyprexa -] 10 mg PO HS 08/27/16 Bismuth Tribromoph/Petrolatum [Xeroform Petrolatum Dress] 1 each TP DAILY #30 bandage 09/02/16 Docusate Sodium [Colace -] 100 mg PO BID capsule 09/02/16 Cefuroxime Axetil [Ceftin -] 500 mg PO BID #3 tablet 10/03/17 Lisinopril [Prinivil] 10 mg PO DAILY #30 tablet 10/03/17
== END 2017-10-03 14:25 | disposition home health service (06) | DRG 871 ==
LOC: JER 17:20 → JERBED 21:10 → J7W 09-29 09:17
PROVIDERS: ADMIT Specialist; ATTEND Specialist
DX: A41.9 Sepsis, unspecified organism (principal); J18.9 Pneumonia, unspecified organism; G93.41 Metabolic encephalopathy; E87.2 Acidosis; L03.116 Cellulitis of left lower limb; L03.115 Cellulitis of right lower limb; G20 Parkinson's disease; F02.80 Dementia in other diseases classified elsewhere, unspecified severity, without behavioral disturbance, psychotic disturbance, mood disturbance, and anxiety; I73.9 Peripheral vascular disease, unspecified; E66.9 Obesity, unspecified; K21.9 Gastro-esophageal reflux disease without esophagitis; J44.9 Chronic obstructive pulmonary disease, unspecified; E78.5 Hyperlipidemia, unspecified; I12.9 Hypertensive chronic kidney disease with stage 1 through stage 4 chronic kidney disease, or unspecified chronic kidney disease; N18.9 Chronic kidney disease, unspecified; I87.2 Venous insufficiency (chronic) (peripheral); R11.10 Vomiting, unspecified; Z68.37 Body mass index [BMI] 37.0-37.9, adult
CPT/HCPCS: 36415; 70450-TC; 71045-TC; 74018-TC; 80048; 80053; 81003; 81015; 82550; 82803; 83605; 83735; 83880; 84100; 84484; 85025; 85610; 85730; 86850; 86900; 86901; 87040; 87070; 87086; 87186; 87205; 87804; 90688; 93005; 93010; 97161-GP; 99285-25; G0480

== ENCOUNTER 2019-07-22 20:00 | Inpatient (IN) | payer OTHER ==
[2019-07-22 20:18] VITALS: BMI 38.4
[2019-07-22] MEDS ORDERED: SODIUM CHLORIDE 1,000 ML IV STA (20:26)
[2019-07-22] MEDS ORDERED: ACETAMINOPHEN 1000 MG/100 ML VIAL (NON FORMULARY) IVPB ONE (20:26)
--- NOTE | 2019-07-22 20:26 | PDOC ---
History of Present Illness - General Chief Complaint: Nausea/Vomiting Stated Complaint: VOMITING Time Seen by Provider: 07/22/19 20:12 History Source: Patient Exam Limitations: Clinical Condition, Dementia - History of Present Illness Initial Comments: Tomer Whitfield is a 83 yo M w a hx of dementia, Parkinsons, HTN, HLD, PVD w claudication, chronic stasis dermatitis, non-ambulatory, CKD, Osteoarthritis, and GERD who presents to the [facility] er with his after 2 days of dark projectile vomiting associated with dark diarrhea. The states that he tried staying home hoping it would go away but the patient would simply not stop vomiting. The patient denies having any abdominal pain. The patient also states that he has not been feeling week or lightheaded recently. He denies taking NSAIDs for his osteoarthritis. The states that his abdomen is significantly more distended than usual despite the patient not having any abdominal pain. The patient also endorses chronic back pain which has not changed recently in character. Denies chest pain, SOB, difficulty breathing, headache, blurry vision, dysuria, frequency, or urgency. PCP: Dr. Anne/Teto PSH: Appendectomy Social Hx: Lives at home with who is the patient's primary director staffing Allergies: NKA, NKDA Past History - Past Medical History Allergies/Adverse Reactions: Allergies Allergy/AdvReac Type Severity Reaction Status Date / Time No Known Allergies Allergy Verified 07/22/19 20:16 Home Medications: Ambulatory Orders Atorvastatin Ca [Lipitor] 40 mg PO HS #30 tablet 03/19/16 Carbidopa/Levodopa *Cr* 50/200 [Sinemet *Cr* 50/200 -] 1 combo PO TID #90 tablet.er 03/19/16 Cilostazol 100 mg PO DAILY #30 tablet 03/19/16 Metoprolol Tartrate [Lopressor -] 25 mg PO BID #60 tablet 03/19/16 Oxycodone HCl 10 mg PO Q4H PRN #30 tablet MDD 60mg 03/19/16 Quetiapine Fumarate [Seroquel -] 75 mg PO BID #90 tablet 03/19/16 Cholecalciferol (Vitamin D3) [Vitamin D3] 1,000 unit PO DAILY 08/27/16 Olanzapine [Zyprexa -] 10 mg PO HS 08/27/16 Bismuth Tribromoph/Petrolatum [Xeroform Petrolatum Dress] 1 each TP DAILY #30 bandage 09/02/16 Docusate Sodium [Colace -] 100 mg PO BID capsule 09/02/16 Cefuroxime Axetil [Ceftin -] 500 mg PO BID #3 tablet 10/03/17 Lisinopril [Prinivil] 10 mg PO DAILY #30 tablet 10/03/17 Anemia: No Asthma: No Cancer: No Cardiac Disorders: Yes CVA: No COPD: No CHF: No Dementia: Yes Diabetes: No GI Disorders: Yes (COLONIC POLYPS,DIVERTICULOSIS) Disorders: Yes (BPH) HTN: Yes Hypercholesterolemia: Yes Liver Disease: No Seizures: Yes Thyroid Disease: No - Surgical History Abdominal Surgery: No Appendectomy: Yes Cardiac Surgery: No Cholecystectomy: No Lung Surgery: No Neurologic Surgery: No Orthopedic Surgery: Yes (S/P BILATERAL FOOT SURGERIES FOR HAMMER TOES WITH SUBSEQUENT REMOVAL OF) - Immunization History Immunization Up to Date: Yes - Psycho Social/Smoking Cessation Hx Smoking History: Unknown if ever smoked Have you smoked in the past 12 months: No If you are a former smoker, when did you quit?: 1959 Information on smoking cessation initiated: No Hx Alcohol Use: No Drug/Substance Use Hx: No Substance Use Type: None Hx Substance Use Treatment: No Review of Systems - Review of Systems Able to Perform ROS?: Yes Comments:: CONSTITUTIONAL: Absent: fever, no chills, no fatigue EYES: Absent: visual changes ENT: Absent: ear pain, no sore throat CARDIOVASCULAR: Absent: chest pain, no palpitations RESPIRATORY: Absent: cough, no SOB GI: Present: nausea, vomiting, diarrhea Absent: abdominal pain, no constipation GENITOURINARY: Absent: dysuria, no frequency, no hematuria MUSKULOSKELETAL: Present: back pain, arthralgia Absent: no myalgia SKIN: Absent: rash NEURO: Absent: headache *Physical Exam - Vital Signs Last Vital Signs Temp Pulse Resp BP Pulse Ox 98.8 F 93 H 18 152/72 93 L 07/22/19 20:17 07/22/19 20:17 07/22/19 20:17 07/22/19 20:17 07/22/19 20:17 - Physical Exam Comments: GENERAL: Mask facies, Obese, bedbound. No apparent distress. HEENT: Normocephalic, atraumatic. PERRL, EOM intact. CARDIOVASCULAR: Normal S1, S2. Regular rate and rhythm. PULMONARY: No evidence of respiratory distress. Lungs clear to auscultation bilaterally. No wheezing, rales or rhonchi. ABDOMEN: Distended, non-tender. Normal bowel sounds. EXTREMITIES: Normal ROM in upper extremities. Limited ROM in lower extremities. Right leg deformity. SKIN: Warm, dry. chronic stasis dermatitis in both lower legs. NEUROLOGICAL: No focal neurological deficits. ED Treatment Course - LABORATORY CBC & Chemistry Diagram: 07/22/19 22:02 07/22/19 22:02 Medical Decision Making - Medical Decision Making Tomer Whitfield is a 83 yo M w a hx of dementia, Parkinsons, HTN, HLD, PVD w claudication, chronic stasis dermatitis, non-ambulatory, CKD, Osteoarthritis, and GERD who presents to the [facility] er with his after 2 days of dark projectile vomiting associated with dark diarrhea. The states that he tried staying home hoping it would go away but the patient would simply not stop vomiting. The patient denies having any abdominal pain. The patient also states that he has not been feeling week or lightheaded recently. He denies taking NSAIDs for his osteoarthritis. The states that his abdomen is significantly more distended than usual despite the patient not having any abdominal pain. The patient also endorses chronic back pain which has not changed recently in character. Denies chest pain, SOB, difficulty breathing, headache, blurry vision, dysuria, frequency, or urgency. Vital Signs Temp Pulse Resp BP Pulse Ox 98.8 F 93 H 18 152/72 93 L 07/22/19 20:17 07/22/19 20:17 07/22/19 20:17 07/22/19 20:17 07/22/19 20:17 DDx IBNLT: GI bleed, gastroenteritis, SBO, LBO, paralytic ileus, electrolyte/, etabolic disturbance, anemia, coagulopathy Plan: Labs, CTAP, IV hydration, anti-emetics, EKG, CXR, likely admission to hospital EKG: NS rate of 96, narrow complexes, Slight RAD, no hypertrophy, inferior posterior infarct - age undetermined. QTc - 487, IN - 176. Labs: Leukocytosis with left shift, elevated BUN, mildly elevated glucose. CTAP: FINDINGS: Small left and trace right pleural effusions with overlying atelectasis Moderate hiatal hernia containing mostly fat Patulous GE junction with refluxed contrast in the visualized distal esophagus. The distal esophagus appears mildly thickened possibly secondary to reflux esophagitis Coronary artery and aortic valve calcifications. Trace pericardial effusion Gynecomastia There are fatty changes of the pancreas 6 mm nonobstructing stone left kidney The upper abdominal visceral organs are otherwise unremarkable The stomach is moderately distended with fluid and air There are a few mildly prominent loops of proximal jejunum with air-fluid levels , possibly ileus. These taper to normal caliber distally without a discrete transition point identified The appendix is not visualized Colonic diverticulosis, predominantly left colon without evidence of acute diverticulitis Moderate to large amount of retained stool in the rectosigmoid with concern for impaction Enlarged prostate No intra-abdominal free air, free fluid or loculated collections Re-assessment: Patient's abdomen still distended and he has vomited over 5 times since ED arrival - CT suggests possible ileus. - Will place NG tube to decompress bowel - NG tube placed and 500 cc of coffee ground emesis came out immediately on return. - CXR ordered for NG tube placement confirmation. disposition: Admit to hospital for severe persistent vomiting and the inability to maintain oral hydration Discharge - Discharge Information Problems reviewed: Yes Clinical Impression/Diagnosis: Coffee ground emesis, Projectile vomiting with nausea, Parkinson disease Abdominal pain Qualifiers: Abdominal location: unspecified location Qualified Code(s): R10.9 - Unspecified abdominal pain Condition: Stable - Admission Yes - Follow up/Referral - Patient Discharge Instructions - Post Discharge Activity
[2019-07-22] MEDS ORDERED: ONDANSETRON 4 MG/2 ML VIAL IVPUSH ONE ×2 (20:27→22:48)
[2019-07-22] MEDS ORDERED: FAMOTIDINE 20 MG/50 ML IVPB 20 MG/50 ML MG IVPB ONE ×2 (21:03→21:17)
[2019-07-22] MEDS ORDERED: MAG HYDROX/AL HYDROX/SIMETH 30 ML UNIT-DOSE CUP PO ONE (21:03)
[2019-07-22] MEDS ORDERED: ACETAMINOPHEN INJECTION 100 ML IVPB ONE (21:17)
[2019-07-22] MEDS ORDERED: MAG HYDROX/AL HYDROX/SIMETH 30 ML UNIT-DOSE CUP ONE (21:17)
[2019-07-22] MEDS ORDERED: ONDANSETRON 4 MG/2 ML VIAL ONE ×2 (21:17→23:04)
[2019-07-22] MEDS ORDERED: PANTOPRAZOLE SODIUM 40 MG VIAL IVPUSH ONE (21:20)
[2019-07-22 22:18] LABS: EOS % 0.1 % (0-4.5); HEMATOCRIT 43.4 % (35.4-49); HEMOGLOBIN 14.2 GM/dL (11.7-16.9); LYMPH % 2.6 % (8-40); MCHC 32.7 g/dl (32.0-35.9); MEAN CELL VOLUME 94.7 fl (80-96); MEAN PLT VOLUME 7.1 fl (7.5-11.1); MONO % 7.7 % (3.8-10.2); NEUT % 89.6 % (42.8-82.8); PLATELET COUNT 452 K/MM3 (134-434); RBC 4.58 M/mm3 (4.00-5.60); RDW 14.5 % (11.9-15.9)
[2019-07-22 22:30] LABS: INR 1.29 (0.83-1.09); PROTHROMBIN TIME (PATIENT) 15.3 SEC (9.7-13.0)
[2019-07-22 22:33] LABS: ACTIVATED PTT 35.5 SECONDS (25.2-36.5)
[2019-07-22 22:39] LABS: PLATELET ESTIMATE ADEQUATE
[2019-07-22 22:49] LABS: PHOSPHOROUS 3.2 mg/dL (2.5-4.9)
[2019-07-22 22:51] LABS: ALBUMIN 3.6 g/dl (3.4-5.0); BLOOD UREA NITROGEN 22.1 mg/dL (7-18); CALCIUM 9.2 mg/dL (8.5-10.1); POTASSIUM 3.9 mmol/L (3.5-5.1); TOT PROT 6.7 g/dl (6.4-8.2)
[2019-07-22] MEDS ORDERED: PANTOPRAZOLE SODIUM 40 MG VIAL ONE (23:04)
--- NOTE | 2019-07-22 23:31 | PDOC ---
Documentation entered by Timo Bueno SCRIBE, acting as scribe for Leonardo Moore MD. Leonardo Moore MD: This documentation has been prepared by the Myles ulloa Daniel, SCRIBE, under my direction and personally reviewed by me in its entirety. I confirm that the documentation accurately reflects all work, treatment, procedures, and medical decision making performed by me. Attending Attestation - Resident Resident Name: Robert Benites - ED Attending Attestation I have performed the following: I have examined & evaluated the patient, The case was reviewed & discussed with the resident, I agree w/resident's findings & plan, Exceptions are as noted - HPI HPI: 07/22/19 21:19 The patient is an 83 year old male with a past medical history of dementia, CKD , Parkinsons disease, HTN, HLD, peripheral vascular disease, GERD, and OA here today for evaluation of vomiting and diarrhea. The patient reports that he has had 3 days of non stop vomiting that is dark brown in color. He also reports 3- 4 daily episodes of dark diarrhea. Denies any significant abdominal pain but does endorse bloating. Denies CP/SOB. Patient denies headache, lightheadedness. Denies fever, chills. Denies chest pain, shortness of breath. Denies abdominal pain. Allergies: NKA Surgical history: appendectomy 07/23/19 01:20 - Physicial Exam PE: 07/22/19 21:19 GENERAL: Awake, alert, in no acute distress. HEAD: No signs of trauma EYES: PERRLA, EOMI, sclera anicteric, conjunctiva clear ENT: Auricles normal inspection, hearing grossly normal, nares patent, oropharynx clear without exudates. Moist mucosa NECK: Nontender, no stepoffs, Normal ROM, supple, no lymphadenopathy, JVD, or masses LUNGS: Breath sounds equal, clear to auscultation bilaterally. No wheezes, and no crackles HEART: Regular rate and rhythm, normal S1 and S2, no murmurs, rubs or gallops ABDOMEN: Soft, + distended, No guarding, no rebound. No masses EXTREMITIES: Normal range of motion, no edema. No clubbing or cyanosis. No cords, erythema, or tenderness NEUROLOGICAL: Cranial nerves II through XII intact. 5/5 strength and sensation in all extremities, Normal speech, normal gait, normal cerebellar function SKIN: Warm, Dry, normal turgor, no rashes or lesions noted. - Medical Decision Making 07/22/19 21:59 83 M with abdominal distention, vomiting, and diarrhea. Will r/o SBO. - Labs - CTAP 07/23/19 01:[address] [facility] report of CT shows ?ileus, no SBO However, pt with persistent projectile vomiting, clinically appears to have obstruction NGT placed Admitted to hospitalist
[2019-07-22] MEDS ORDERED: LACTATED RINGERS SOLUTION 1,000 ML/1,000 ML INFUS.BAG IV SCH (23:45)
[2019-07-23] MEDS ORDERED: TETRACAINE/BENZOCAINE/BUTAMBEN 20 GM SPR TP ONE (00:14)
[2019-07-23] MEDS ORDERED: LIDOCAINE HCL 2% JELLY (30 ML/TUBE) TP ONE (00:15)
[2019-07-23] MEDS ORDERED: LIDOCAINE HCL 2% JELLY (5 ML/TUBE) ONE ×2 (00:20→21:45)
[2019-07-23] MEDS ORDERED: BENZOCAINE 20% 57 GM BOTTLE TP ONE (00:20)
--- NOTE | 2019-07-23 01:00 | PN ---
Teaching Attending Note Name of Resident: Beth Villa ATTENDING PHYSICIAN STATEMENT I saw and evaluated the patient. I reviewed the resident's note and discussed the case with the resident. I agree with the resident's findings and plan as documented. SUBJECTIVE: Patient is an 83 year old man with PMH of Dementia, Appendectomy, Parkinson's disease, HTN, HLD, PVD with claudication, Chronic stasis dermatitis, CKD, Osteoarthritis, and GERD who presents to the ER with 2 days of dark projectile vomiting associated with dark diarrhea. The states that he tried staying home hoping it would go away but the patient would simply not stop vomiting. The patient denies having any abdominal pain. The patient also states that he has not been feeling week or lightheaded recently. He denies taking NSAIDs for his osteoarthritis. The states that his abdomen is significantly more distended than usual despite the patient not having any abdominal pain. The patient also has chronic back pain which has not changed recently in character. Patient denies chest pain, SOB, difficulty breathing, headache, blurry vision, dysuria, frequency, or urgency. No sick contacts and no recent travel. Denies tobacco, alcohol or illicit drug use. He also reports 3-4 daily episodes of dark diarrhea. Denies any significant abdominal pain but does endorse bloating. OBJECTIVE: Alert and restless - pulled out NGT Vital Signs Period Temp Pulse Resp BP Sys/Martinez Pulse Ox Last 24 Hr 98.8 F 93 18 152/72 93-97 HEENT: No Jaundice, eye redness or discharge, PERRLA, EOMI. Normocephalic, atraumatic. External ears are normal and hearing is grossly intact. No nasal discharge. Neck: Supple, nontender. No palpable adenopathy or thyromegaly. No JVD Chest: Good effort. Clear to auscultation and percussion. Heart: Regular. No S3, rub or murmur Abdomen: Distended, soft, nontender; reducible umblical hernia and no HSM. No rebound or guarding. Normal bowel sounds. Ext: Peripheral pulses intact. Chronic stasis dermatitis. No leg edema. Skin: Warm and dry. No petechiae, rash or ecchymosis. Neuro: Alert. Oriented x3. CN 2-12 grossly intact. Sensation grossly intact in upper extremities but diminished below the knees. Lower extremity weakness. gait not tested for safety reasons. Psych: Appropriate mood and affect. Good insight. Current Medications Generic Name Dose Route Start Last Admin Trade Name Freq PRN Reason Stop Dose Admin Lactated Ringer's 1,000 ml in 1,000 mls @ 75 mls/hr 07/22/19 23:45 07/22/19 23:53 Lactated Ringers Solution IV 75 mls/hr ASDIR IRENE Administration Home Medications Medication Instructions Recorded Atorvastatin Ca [Lipitor] 40 mg PO HS #30 tablet 03/19/16 Carbidopa/Levodopa *Cr* 50/200 1 combo PO TID #90 tablet.er 03/19/16 [Sinemet *Cr* 50/200 -] Cilostazol 100 mg PO DAILY #30 tablet 03/19/16 Metoprolol Tartrate [Lopressor -] 25 mg PO BID #60 tablet 03/19/16 Oxycodone HCl 10 mg PO Q4H PRN #30 tablet MDD 03/19/16 60mg Quetiapine Fumarate [Seroquel -] 75 mg PO BID #90 tablet 03/19/16 Cholecalciferol (Vitamin D3) 1,000 unit PO DAILY 08/27/16 [Vitamin D3] Olanzapine [Zyprexa -] 10 mg PO HS 08/27/16 Bismuth Tribromoph/Petrolatum 1 each TP DAILY #30 bandage 09/02/16 [Xeroform Petrolatum Dress] Docusate Sodium [Colace -] 100 mg PO BID capsule 09/02/16 Cefuroxime Axetil [Ceftin -] 500 mg PO BID #3 tablet 10/03/17 Lisinopril [Prinivil] 10 mg PO DAILY #30 tablet 10/03/17 Abnormal Lab Results 07/22/19 07/22/19 07/22/19 22:02 22:02 22:02 WBC 22.0 H Plt Count 452 H MPV 7.1 L Absolute Neuts (auto) 19.6 H Neutrophils % 89.6 H D Neutrophils % (Manual) 86.0 H Lymphocytes % 2.6 L D Lymphocytes % (Manual) 6.0 L Monocytes % (Manual) 3 L PT with INR 15.30 H INR 1.29 H Anion Gap 7 L BUN 22.1 H Random Glucose 134 H Alkaline Phosphatase 122 H ASSESSMENT AND PLAN: 1. Vomiting/?GI bleeding - CT abdomen/pelvis preliminary report = "The stomach is moderately distended with fluid and air. There are a few mildly prominent loops of proximal jejunum with air-fluid levels, possibly ileus. The appendix is not visualized. Colonic diverticulosis, predominantly left colon without evidence of acute diverticulitis. Moderate to large amount of retained stool in the rectosigmoid with concern for impaction. Enlarged prostate. No intra- abdominal free air, free fluid or loculated collections". EKG shows NSR with T wave inversion in II,III and V3. Will repeat EKG and troponin. Patient vomited over 5 times since ER arrival and NG tube placed and 500 cc of coffee ground emesis came out immediately on return. Etiology of leukocytosis is unclear. Will use fleet enema to address fecal impaction and treat with Flagyl and Levaquin for possible colitis or enteritis. Monitor HCT q 6 hour and give IV protonix. CXR shows cardiomegaly and wide mediastinum. Its unclear whether he had ever been investigated for lower extremity weakness and difficulty with ambulation. Will get lumbosacral MRI to rule out spinal cord compression or vertebral osteomyelitis/pathology. If MRI is negative, will need EMG. Consult PT and neurology. Will continue comprehensive care for all of patients comorbid conditions. 2. Obesity Counseled on the risks associated with obesity. Will provide patient all the necessary assistance, counseling and positive reinforcement to facilitate weight loss. Consult flame hardening machine operator. 3. Hypertension - Restart suitable outpatient antihypertensive drugs when clinically appropriate. Revise regimen to ensure [id number] excellent BP control and professor of counseling patient on the injurious effects of uncontrolled hypertension. Nonpharmacologic measures to control hypertension like weight loss , salt restriction and exercise discussed. Importance of adherence to treatment regimen and attainment of normotension emphasized. 4. DVT prophylaxis - SCD 5. Advance directives - Full code
--- NOTE | 2019-07-23 01:43 | HP ---
CHIEF COMPLAINT: vomiting PCP: Dr. Anne/Dr. Irene HISTORY OF PRESENT ILLNESS: 83 y/o male PMH dementia, Parkinson disease, CKD, HTN, HLD, PVD, GERD, OA, colonic polyps, diverticulosis c/o vomiting for three days. Vomitus was dark brown an occurred multiple times per day. Symptom onset was sudden and associated with lethargy. He reports abdominal distension but no tenderness. He denies use of medications to relieve symptoms, new foods, sick contacts, and recent illness. He states he has had back pain for many years. It is aching in character, non-radiating, and alleviated with rest. He denies GARCÍA, vision change , cough, SOB, CP, joint pain or any new skin changes. 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 Allergies: No Known Allergies Allergy (Verified 07/22/19 20:16) HOME MEDICATIONS: Home Medications Medication Instructions Recorded Atorvastatin Ca [Lipitor] 40 mg PO HS #30 tablet 03/19/16 Carbidopa/Levodopa *Cr* 50/200 1 combo PO TID #90 tablet.er 03/19/16 [Sinemet *Cr* 50/200 -] Cilostazol 100 mg PO DAILY #30 tablet 03/19/16 Metoprolol Tartrate [Lopressor -] 25 mg PO BID #60 tablet 03/19/16 Oxycodone HCl 10 mg PO Q4H PRN #30 tablet MDD 03/19/16 60mg Quetiapine Fumarate [Seroquel -] 75 mg PO BID #90 tablet 03/19/16 Cholecalciferol (Vitamin D3) 1,000 unit PO DAILY 08/27/16 [Vitamin D3] Olanzapine [Zyprexa -] 10 mg PO HS 08/27/16 Bismuth Tribromoph/Petrolatum 1 each TP DAILY #30 bandage 09/02/16 [Xeroform Petrolatum Dress] Docusate Sodium [Colace -] 100 mg PO BID capsule 09/02/16 Cefuroxime Axetil [Ceftin -] 500 mg PO BID #3 tablet 10/03/17 Lisinopril [Prinivil] 10 mg PO DAILY #30 tablet 10/03/17 REVIEW OF SYSTEMS CONSTITUTIONAL: Absent: fever, chills, diaphoresis, generalized weakness, malaise, loss of appetite, weight change HEENT: Absent: rhinorrhea, nasal congestion, throat pain, throat swelling, difficulty swallowing, mouth swelling, ear pain, eye pain, visual changes CARDIOVASCULAR: Absent: chest pain, syncope, palpitations, irregular heart rate, lightheadedness , peripheral edema RESPIRATORY: Absent: cough, shortness of breath, dyspnea with exertion, orthopnea, wheezing, stridor, hemoptysis GASTROINTESTINAL: Absent: abdominal pain, abdominal distension, nausea, vomiting, diarrhea, constipation, melena, hematochezia GENITOURINARY: Absent: dysuria, frequency, urgency, hesitancy, hematuria, flank pain, genital pain MUSCULOSKELETAL: Absent: myalgia, arthralgia, joint swelling, back pain, neck pain SKIN: Absent: rash, itching, pallor HEMATOLOGIC/IMMUNOLOGIC: Absent: easy bleeding, easy bruising, lymphadenopathy, frequent infections ENDOCRINE: Absent: unexplained weight gain, unexplained weight loss, heat intolerance, cold intolerance NEUROLOGIC: Absent: headache, focal weakness or paresthesias, dizziness, unsteady gait, seizure, mental status changes, bladder or bowel incontinence PSYCHIATRIC: Absent: anxiety, depression, suicidal or homicidal ideation, hallucinations. PHYSICAL EXAMINATION Vital Signs - 24 hr 07/22/19 07/22/19 20:17 23:21 Temperature 98.8 F Pulse Rate 93 H Respiratory 18 Rate Blood Pressure 152/72 O2 Sat by Pulse 93 L 97 Oximetry (%) GENERAL: AOx3, obese, in no acute distress, ?verbal tic, shouts "Minerva/help" HEAD: NCAT. Moustache partly shaven off on LEFT EYES: ANDREI, EOMI, grossly intact visual field (must reorient pt to instructions regularly) conjunctiva clear. ENT: Ears normal, nares patent, oropharynx clear without exudates. Moist mucous membranes. NECK: Normal range of motion, supple without lymphadenopathy, JVD, or masses. LUNGS: CTAB. LEft upper lobe wheeze. No crackles. No accessory muscle use. HEART: RRR s1 s2 ABDOMEN: Obese, distended, soft, NT, BS present in all 4 quadrants MUSCULOSKELETAL: No bony deformities or tenderness. No CVA tenderness. UPPER EXTREMITIES: 2+ pulses, warm, well-perfused. No cyanosis. No clubbing. No peripheral edema. LOWER EXTREMITIES: 1+ edema BL. Venous stasis BL. Shiny. Hairless distal to knee. 2+ pulses, warm, well-perfused. NEUROLOGICAL: Decreased sensation to touch distal to knee BL. Lower extremity power 4/5 BL. Cranial nerves II-XII intact. Normal speech. Gait not appreciated. PSYCHIATRIC: Cooperative. Good eye contact. Appropriate mood and affect. SKIN: Warm, dry, normal turgor, no rashes or lesions noted, normal capillary refill. Laboratory Results - last 24 hr 07/22/19 07/22/19 07/22/19 20:33 22:02 22:02 WBC 22.0 H RBC 4.58 Hgb 14.2 Hct 43.4 MCV 94.7 MCH 31.0 MCHC 32.7 RDW 14.5 Plt Count 452 H MPV 7.1 L Absolute Neuts (auto) 19.6 H Neutrophils % 89.6 H D Neutrophils % (Manual) 86.0 H Band Neutrophils % 5.0 Lymphocytes % 2.6 L D Lymphocytes % (Manual) 6.0 L Monocytes % 7.7 Monocytes % (Manual) 3 L Eosinophils % 0.1 D Eosinophils % (Manual) 0.0 Basophils % 0.0 Basophils % (Manual) 0.0 Nucleated RBC % 0 Platelet Estimate Adequate PT with INR INR PTT (Actin FS) Sodium 141 Potassium 3.9 Chloride 102 Carbon Dioxide 32 Anion Gap 7 L BUN 22.1 H Creatinine 1.0 Est GFR (CKD-EPI)AfAm 81.45 Est GFR (CKD-EPI)NonAf 70.27 Random Glucose 134 H Lactic Acid Calcium 9.2 Phosphorus Magnesium Total Bilirubin 1.0 AST 29 ALT 30 Alkaline Phosphatase 122 H Creatine Kinase Troponin I Total Protein 6.7 Albumin 3.6 Lipase 79 Stool Occult Blood Negative Blood Type Antibody Screen 07/22/19 07/22/19 07/22/19 22:02 22:02 22:02 WBC RBC Hgb Hct MCV MCH MCHC RDW Plt Count MPV Absolute Neuts (auto) Neutrophils % Neutrophils % (Manual) Band Neutrophils % Lymphocytes % Lymphocytes % (Manual) Monocytes % Monocytes % (Manual) Eosinophils % Eosinophils % (Manual) Basophils % Basophils % (Manual) Nucleated RBC % Platelet Estimate PT with INR 15.30 H INR 1.29 H PTT (Actin FS) 35.5 Sodium Potassium Chloride Carbon Dioxide Anion Gap BUN Creatinine Est GFR (CKD-EPI)AfAm Est GFR (CKD-EPI)NonAf Random Glucose Lactic Acid Calcium Phosphorus 3.2 Magnesium 2.3 Total Bilirubin AST ALT Alkaline Phosphatase Creatine Kinase 124 Troponin I < 0.02 Total Protein Albumin Lipase Stool Occult Blood Blood Type Antibody Screen 07/22/19 07/22/19 22:02 22:14 WBC RBC Hgb Hct MCV MCH MCHC RDW Plt Count MPV Absolute Neuts (auto) Neutrophils % Neutrophils % (Manual) Band Neutrophils % Lymphocytes % Lymphocytes % (Manual) Monocytes % Monocytes % (Manual) Eosinophils % Eosinophils % (Manual) Basophils % Basophils % (Manual) Nucleated RBC % Platelet Estimate PT with INR INR PTT (Actin FS) Sodium Potassium Chloride Carbon Dioxide Anion Gap BUN Creatinine Est GFR (CKD-EPI)AfAm Est GFR (CKD-EPI)NonAf Random Glucose Lactic Acid 1.9 Calcium Phosphorus Magnesium Total Bilirubin AST ALT Alkaline Phosphatase Creatine Kinase Troponin I Total Protein Albumin Lipase Stool Occult Blood Blood Type O POSITIVE Antibody Screen Negative ASSESSMENT/PLAN: 83 y/o male PMH dementia, Parkinson disease, CKD, HTN, HLD, PVD, GERD, OA, colonic polyps, diverticulosis c/o vomiting for three days. CT scan suggestive of stool impaction vs ileus: retained stool at rectosigmoid junction with prominent loops. Additional findings on CT: Trace pleural effusions, hiatal hernia, patulous GE junction, pericardial effusion, 6 mm LEFT kidney stone and stomach distension. # Stool impaction - IV hydration - Fleet enema - Diet as tolerated # Leukocytosis - UA - Consult GI - Rocephin - Flagyl # Lower extremity loss in sensation - MRI lumbosacral spine - PT - Consult neuro # HTN - Resume home regimen #F/E/N - NS - Cont. to monitor - Low sodium diet # DVT prophylaxis - Heparin SQ # Disposition - Admit to med/surg Jose Garay MD Visit type - Emergency Visit Emergency Visit: Yes ED Registration Date: 07/23/19 Care time: The patient presented to the Emergency Department on the above date and was hospitalized for further evaluation of their emergent condition. - New Patient This patient is new to me today: Yes Date on this admission: 07/23/19 - Critical Care Critical Care patient: No ATTENDING PHYSICIAN STATEMENT I saw and evaluated the patient. I reviewed the resident's note and discussed the case with the resident. I agree with the resident's findings and plan as documented. SUBJECTIVE: OBJECTIVE: ASSESSMENT AND PLAN:
[2019-07-23 04:28] LABS: URINE APPEARANCE CLEAR; URINE BILIRUBIN SMALL (NEGATIVE); URINE COLOR DK YELLOW; URINE GLUCOSE (UA) NEGATIVE (NEGATIVE); URINE KETONE TRACE (NEGATIVE); URINE PROTEIN 30 (NEGATIVE)
[2019-07-23 04:29] LABS: URINE LEUK ESTERASE NEGATIVE (NEGATIVE); URINE NITRITE NEGATIVE (NEGATIVE)
[2019-07-23 04:30] LABS: EPI CELLS 3.5 /HPF (0-5/HPF); HYALINE CASTS 15 /lpf (0-8); URINE BACTERIA 0.7 /hpf (NEGATIVE); URINE RBC 3 /hpf (0-4); URINE WBC 4 /hpf (0-5)
[2019-07-23 04:52] LABS: BASO % 0.4 % (0-2.0); EOS % 0.1 % (0-4.5); HEMATOCRIT 44.3 % (35.4-49); HEMOGLOBIN 14.5 GM/dL (11.7-16.9); LYMPH % 2.8 % (8-40); MCH 30.9 pg (25.7-33.7); MCHC 32.7 g/dl (32.0-35.9); MEAN CELL VOLUME 94.7 fl (80-96); MEAN PLT VOLUME 7.2 fl (7.5-11.1); MONO % 9.8 % (3.8-10.2); NEUT % 86.9 % (42.8-82.8); PLATELET COUNT 458 K/MM3 (134-434); RBC 4.68 M/mm3 (4.00-5.60); RDW 14.6 % (11.9-15.9); WHITE BLOOD COUNT 19.6 K/mm3 (4.0-10.0)
[2019-07-23] MEDS ORDERED: SODIUM PHOSPHATE/NA BIPHOS 133 ML ENEMA PR ONE (05:07)
[2019-07-23] MEDS ORDERED: DEXTROSE 5%-NORMAL SALINE 1,000 ML IV SCH (05:15)
[2019-07-23] MEDS ORDERED: ACETAMINOPHEN INJECTION 100 ML IVPB ONE (06:13)
[2019-07-23] MEDS ORDERED: CEFTRIAXONE 1 GM/50 ML BAG ONE (09:41)
[2019-07-23] MEDS ORDERED: CEFTRIAXONE 1 GM in DEXTROSE 5%-WATER - 50 ML IVPB SCH (10:00)
[2019-07-23] MEDS ORDERED: PANTOPRAZOLE SODIUM 40 MG VIAL IVPUSH SCH (10:45)
[2019-07-23] MEDS ORDERED: SODIUM CHLORIDE 1,000 ML IV SCH ×2 (10:45)
[2019-07-23] MEDS ORDERED: PANTOPRAZOLE SODIUM 40 MG/100 ML BAG IVPB ONE (11:21)
--- NOTE | 2019-07-23 12:56 | EKG ---
Test Reason : Blood Pressure : / mmHG Vent. Rate : 083 BPM Atrial Rate : 083 BPM P-R Int : 192 ms QRS Dur : 086 ms QT Int : 492 ms P-R-T Axes : 062 106 -02 degrees QTc Int : 578 ms NORMAL SINUS RHYTHM INFERIOR-POSTERIOR INFARCT (CITED ON OR BEFORE 22-JUL-2019) PROLONGED QT NONSPECIFIC ST ABNORMALITY ABNORMAL ECG Confirmed by LISETH WATSON MD ([id number]) on 07/23/2019 12:56:14 PM Referred By: ABDELRAHMAN NORTH Confirmed By:LISETH WATSON MD
--- NOTE | 2019-07-23 13:05 | EKG ---
Test Reason : Blood Pressure : / mmHG Vent. Rate : 096 BPM Atrial Rate : 096 BPM P-R Int : 176 ms QRS Dur : 090 ms QT Int : 386 ms P-R-T Axes : 054 134 -19 degrees QTc Int : 487 ms NORMAL SINUS RHYTHM INFERIOR-POSTERIOR INFARCT , AGE UNDETERMINED NONSPECIFIC ST ABNORMALITY ABNORMAL ECG Confirmed by LISETH WATSON MD ([id number]) on 07/23/2019 1:04:38 PM Referred By: Confirmed By:LISETH WATSON MD
--- NOTE | 2019-07-23 15:00 | PN ---
Physical Exam: SUBJECTIVE: Patient seen and examined at the bedside. Patient stated that he was at the hospital because he was vomiting. Otherwise is uncertain of his current condition. Denied any pain and was laying comfortably in bed. noted to the team that the patient usually spends much time in bed and does not ambulate well. OBJECTIVE: Vital Signs Period Temp Pulse Resp BP Sys/Martinez Pulse Ox Last 24 Hr 98.4 F-98.8 F 87-102 14-18 127-152/62-83 93-99 GENERAL: AOx1, obese, in no acute distress EYES: ANDREI, EOMI, grossly intact visual field (must reorient pt to instructions regularly) conjunctiva clear. NECK: Normal range of motion, supple without lymphadenopathy, JVD, or masses. LUNGS: Clear to auscultation bilaterally. No crackles. No accessory muscle use. HEART: Regular rate and rhythm, no murmurs appreciated. ABDOMEN: Obese, distended, soft, mildly tender to palpation, BS present in all 4 quadrants. Rectal exam negative for masses, gross blood, hemorrhoids. MUSCULOSKELETAL: No bony deformities or tenderness. UPPER EXTREMITIES: 2+ pulses, warm, well-perfused. No cyanosis. No clubbing. No peripheral edema. LOWER EXTREMITIES: 1+ edema BL. Venous stasis BL. Shiny. Hairless distal to knee. 2+ pulses, warm, well-perfused. NEUROLOGICAL: Decreased sensation to touch distal to knee BL. Lower extremity power 4/5 BL. Cranial nerves II-XII intact. Normal speech. Gait not appreciated. PSYCHIATRIC: Cooperative. Good eye contact. Appropriate mood and affect. SKIN: Warm, dry, normal turgor, no rashes or lesions noted, normal capillary refill. Laboratory Results - last 24 hr 07/22/19 07/22/19 07/22/19 20:33 22:02 22:02 WBC 22.0 H RBC 4.58 Hgb 14.2 Hct 43.4 MCV 94.7 MCH 31.0 MCHC 32.7 RDW 14.5 Plt Count 452 H MPV 7.1 L Absolute Neuts (auto) 19.6 H Neutrophils % 89.6 H D Neutrophils % (Manual) 86.0 H Band Neutrophils % 5.0 Lymphocytes % 2.6 L D Lymphocytes % (Manual) 6.0 L Monocytes % 7.7 Monocytes % (Manual) 3 L Eosinophils % 0.1 D Eosinophils % (Manual) 0.0 Basophils % 0.0 Basophils % (Manual) 0.0 Nucleated RBC % 0 Platelet Estimate Adequate PT with INR INR PTT (Actin FS) Sodium 141 Potassium 3.9 Chloride 102 Carbon Dioxide 32 Anion Gap 7 L BUN 22.1 H Creatinine 1.0 Est GFR (CKD-EPI)AfAm 81.45 Est GFR (CKD-EPI)NonAf 70.27 Random Glucose 134 H Lactic Acid Calcium 9.2 Phosphorus Magnesium Total Bilirubin 1.0 AST 29 ALT 30 Alkaline Phosphatase 122 H Creatine Kinase Troponin I Total Protein 6.7 Albumin 3.6 Lipase 79 Urine Color Urine Appearance Urine pH Ur Specific [place] Urine Protein Urine Glucose (UA) Urine Ketones Urine Blood Urine Nitrite Urine Bilirubin Urine Urobilinogen Ur Leukocyte Esterase Urine WBC (Auto) Urine RBC (Auto) Urine Casts (Auto) U Epithel Cells (Auto) Urine Bacteria (Auto) Stool Occult Blood Negative Blood Type Antibody Screen 07/22/19 07/22/19 07/22/19 22:02 22:02 22:02 WBC RBC Hgb Hct MCV MCH MCHC RDW Plt Count MPV Absolute Neuts (auto) Neutrophils % Neutrophils % (Manual) Band Neutrophils % Lymphocytes % Lymphocytes % (Manual) Monocytes % Monocytes % (Manual) Eosinophils % Eosinophils % (Manual) Basophils % Basophils % (Manual) Nucleated RBC % Platelet Estimate PT with INR 15.30 H INR 1.29 H PTT (Actin FS) 35.5 Sodium Potassium Chloride Carbon Dioxide Anion Gap BUN Creatinine Est GFR (CKD-EPI)AfAm Est GFR (CKD-EPI)NonAf Random Glucose Lactic Acid Calcium Phosphorus 3.2 Magnesium 2.3 Total Bilirubin AST ALT Alkaline Phosphatase Creatine Kinase 124 Troponin I < 0.02 Total Protein Albumin Lipase Urine Color Urine Appearance Urine pH Ur Specific [place] Urine Protein Urine Glucose (UA) Urine Ketones Urine Blood Urine Nitrite Urine Bilirubin Urine Urobilinogen Ur Leukocyte Esterase Urine WBC (Auto) Urine RBC (Auto) Urine Casts (Auto) U Epithel Cells (Auto) Urine Bacteria (Auto) Stool Occult Blood Blood Type Antibody Screen 07/22/19 07/22/19 07/23/19 22:02 22:14 02:30 WBC RBC Hgb Hct MCV MCH MCHC RDW Plt Count MPV Absolute Neuts (auto) Neutrophils % Neutrophils % (Manual) Band Neutrophils % Lymphocytes % Lymphocytes % (Manual) Monocytes % Monocytes % (Manual) Eosinophils % Eosinophils % (Manual) Basophils % Basophils % (Manual) Nucleated RBC % Platelet Estimate PT with INR INR PTT (Actin FS) Sodium Potassium Chloride Carbon Dioxide Anion Gap BUN Creatinine Est GFR (CKD-EPI)AfAm Est GFR (CKD-EPI)NonAf Random Glucose Lactic Acid 1.9 Calcium Phosphorus Magnesium Total Bilirubin AST ALT Alkaline Phosphatase Creatine Kinase Troponin I Total Protein Albumin Lipase Urine Color Dk yellow Urine Appearance Clear Urine pH 8.0 D Ur Specific [place] 1.051 H Urine Protein 30 Urine Glucose (UA) Negative Urine Ketones Trace H Urine Blood Negative Urine Nitrite Negative Urine Bilirubin Small Urine Urobilinogen 1.0 Ur Leukocyte Esterase Negative Urine WBC (Auto) 4 Urine RBC (Auto) 3 Urine Casts (Auto) 15 U Epithel Cells (Auto) 3.5 Urine Bacteria (Auto) 0.7 Stool Occult Blood Blood Type O POSITIVE Antibody Screen Negative 07/23/19 07/23/19 04:31 11:30 WBC 19.6 H RBC 4.68 Hgb 14.5 Hct 44.3 MCV 94.7 MCH 30.9 MCHC 32.7 RDW 14.6 Plt Count 458 H MPV 7.2 L Absolute Neuts (auto) 17.0 H Neutrophils % 86.9 H Neutrophils % (Manual) Band Neutrophils % Lymphocytes % 2.8 L Lymphocytes % (Manual) Monocytes % 9.8 Monocytes % (Manual) Eosinophils % 0.1 Eosinophils % (Manual) Basophils % 0.4 D Basophils % (Manual) Nucleated RBC % 0 Platelet Estimate PT with INR INR PTT (Actin FS) Sodium Potassium Chloride Carbon Dioxide Anion Gap BUN Creatinine Est GFR (CKD-EPI)AfAm Est GFR (CKD-EPI)NonAf Random Glucose Lactic Acid Calcium Phosphorus Magnesium Total Bilirubin AST ALT Alkaline Phosphatase Creatine Kinase Troponin I Total Protein Albumin Lipase Urine Color Urine Appearance Urine pH Ur Specific [place] Urine Protein Urine Glucose (UA) Urine Ketones Urine Blood Urine Nitrite Urine Bilirubin Urine Urobilinogen Ur Leukocyte Esterase Urine WBC (Auto) Urine RBC (Auto) Urine Casts (Auto) U Epithel Cells (Auto) Urine Bacteria (Auto) Stool Occult Blood Negative Blood Type Antibody Screen Active Medications Generic Name Dose Route Start Last Admin Trade Name Freq PRN Reason Stop Dose Admin Sodium Chloride 1,000 mls @ 100 mls/hr 07/23/19 10:45 07/23/19 11:30 Normal Saline - IV 100 mls/hr ASDIR IRENE Administration Pantoprazole Sodium 40 mg 07/23/19 10:45 07/23/19 11:30 Protonix Iv IVPUSH 40 mg BID IRENE Administration ASSESSMENT/PLAN: Tomer Whitfield is an 83 year old male with a past medical history of dementia, Parkinson disease, CKD, HTN, HLD, PVD, GERD, OA, colonic polyps, diverticulosis c/o vomiting for three days. Small Bowel Obstruction - IV hydration with NS at 100cc/hr - CT showing evidence of distended stomach consistent with partial SBO in the mid jejunal region - Fleet enema - Protonix 40mg bid - GI consulted - NPO - FOBT negative - patient had NG tube placed but pulled it out, will defer to GI to determine if needs placement Leukocytosis - UA negative for infection - likely in setting of SBO - monitor off abx, no overt signs of infection Lower extremity loss in sensation - MRI lumbosacral spine - PT HTN - Resume home regimen F/E/N - NS at 100cc/hr - Contine to monitor electrolytes and replete as necessary - Low sodium diet DVT prophylaxis - Heparin 5000 units SQ tid Disposition - continue to monitor on med/surg Visit type - Emergency Visit Emergency Visit: No - New Patient This patient is new to me today: Yes Date on this admission: 07/23/19 - Critical Care Critical Care patient: No
--- NOTE | 2019-07-23 15:54 | CON.GI ---
Consult Consult Specialty:: Gastroenterology Referred by:: Ida Gann MD Reason for Consultation:: Diarrhea - History of Present Illness Chief Complaint: Vomiting History of Present Illness: 83M is bought to the ER for vom,itng and inability to eat for the past 3 days. He has not had a BM for about a week according to his home health aide Pamela. He was eating well until 3 days ago. The vomitus is brown but nonbloody. He is bedridden due to Parkinson's Disease and chronically constipated. I last Tomer in the office on 07/20/15 and set up and EGD and colonoscopy in 07/31/15. 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 [place] [facility] but never went. Colonoscopy led to the removal of 3 cecal adenomas and hyperplastic rectal polyps. He also had universal diverticulosis. His father of colon cancer and a brother had a malignant cecal polyp. 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 found 07/31/15- never followed up for ablation therapy or surveillance), Hiatal Hernia, Other (colon adenomas) Renal/: Yes: BPH, Other (CKD) Infectious Disease: Yes: C-Diff (january 2016) Musculoskeletal: Yes: Osteoarthritis, Other (plantar fasciitis) - Past Surgical History Past Surgical History: Yes: Colonoscopy, Upper Endoscopy Additional Surgical History: bilateral foot surgeries for hammer toes and plantar fasciitis - Alcohol/Substance Use Hx Alcohol Use: Yes (remotely) History of Substance Use: reports: None - Smoking History Smoking history: Former smoker Have you smoked in the past 12 months: No If you are a former smoker, when did you quit?: 1959 - Social History Usual Living Arrangement: With Spouse ADL: Family Assistance 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[place], 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 Place of : [facility] History of Recent Travel: No Home Medications - Allergies Allergies/Adverse Reactions: Allergies Allergy/AdvReac Type Severity Reaction Status Date / Time No Known Allergies Allergy Verified 07/22/19 20:16 - Home Medications Home Medications: Ambulatory Orders Atorvastatin Ca [Lipitor] 40 mg PO HS #30 tablet 03/19/16 Metoprolol Tartrate [Lopressor -] 25 mg PO BID #60 tablet 03/19/16 Oxycodone HCl 10 mg PO Q4H PRN #30 tablet MDD 60mg 03/19/16 Olanzapine [Zyprexa -] 10 mg PO ASDIR 08/27/16 Lisinopril [Prinivil] 10 mg PO DAILY #30 tablet 10/03/17 Atorvastatin Ca [Lipitor] 40 mg DAILY 07/23/19 Famotidine 20 mg PO DAILY 07/23/19 Lactulose 1 tbs PO DAILY 07/23/19 Quetiapine Fumarate [Seroquel -] 50 mg TID 07/23/19 Family Medical History Family Hx Cancer: Father ( age 50 colon cancer), Sister ( of lymphoma NHL), Brother (cecal cancer) Family Hx Coronary Artery Disease: Mother ( of [place] in her 90s) Review of Systems Unable to obtain ROS, reason: dementia Physical Exam-GI Vital Signs: Vital Signs Temperature 98.5 F 07/23/19 11:00 Pulse Rate 87 07/23/19 11:00 Respiratory Rate 14 07/23/19 11:00 Blood Pressure 148/62 07/23/19 11:00 O2 Sat by Pulse Oximetry (%) 98 07/23/19 11:00 CBC,CMP WBC 19.6 K/mm3 (4.0-10.0) H 07/23/19 04:31 RBC 4.68 M/mm3 (4.00-5.60) 07/23/19 04:31 Hgb 14.5 GM/dL (11.7-16.9) 07/23/19 04:31 Hct 44.3 % (35.4-49) 07/23/19 04:31 MCV 94.7 fl (80-96) 07/23/19 04:31 MCH 30.9 pg (25.7-33.7) 07/23/19 04:31 MCHC 32.7 g/dl (32.0-35.9) 07/23/19 04:31 RDW 14.6 % (11.9-15.9) 07/23/19 04:31 Plt Count 458 K/MM3 (134-434) H 07/23/19 04:31 MPV 7.2 fl (7.5-11.1) L 07/23/19 04:31 Absolute Neuts (auto) 17.0 K/mm3 (1.5-8.0) H 07/23/19 04:31 Neutrophils % 86.9 % (42.8-82.8) H 07/23/19 04:31 Neutrophils % (Manual) 86.0 % (42.8-82.8) H 07/22/19 22:02 Band Neutrophils % 5.0 % 07/22/19 22:02 Lymphocytes % 2.8 % (8-40) L 07/23/19 04:31 Lymphocytes % (Manual) 6.0 % (8-40) L 07/22/19 22:02 Monocytes % 9.8 % (3.8-10.2) 07/23/19 04:31 Monocytes % (Manual) 3 % (3.8-10.2) L 07/22/19 22:02 Eosinophils % 0.1 % (0-4.5) 07/23/19 04:31 Eosinophils % (Manual) 0.0 % (0-4.5) 07/22/19 22:02 Basophils % 0.4 % (0-2.0) D 07/23/19 04:31 Basophils % (Manual) 0.0 % (0-2.0) 07/22/19 22:02 Nucleated RBC % 0 % (0-0) 07/23/19 04:31 Platelet Estimate Adequate 07/22/19 22:02 Sodium 141 mmol/L (136-145) 07/22/19 22:02 Potassium 3.9 mmol/L (3.5-5.1) 07/22/19 22:02 Chloride 102 mmol/L (98-107) 07/22/19 22:02 Carbon Dioxide 32 mmol/L (21-32) 07/22/19 22:02 Anion Gap 7 MMOL/L (8-16) L 07/22/19 22:02 BUN 22.1 mg/dL (7-18) H 07/22/19 22:02 Creatinine 1.0 mg/dL (0.55-1.3) 07/22/19 22:02 Est GFR (CKD-EPI)AfAm 81.45 07/22/19 22:02 Est GFR (CKD-EPI)NonAf 70.27 07/22/19 22:02 Random Glucose 134 mg/dL (74-106) H 07/22/19 22:02 Lactic Acid 1.9 mmol/L (0.4-2.0) 07/22/19 22:14 Calcium 9.2 mg/dL (8.5-10.1) 07/22/19 22:02 Phosphorus 3.2 mg/dL (2.5-4.9) 07/22/19 22:02 Magnesium 2.3 mg/dL (1.8-2.4) 07/22/19 22:02 Total Bilirubin 1.0 mg/dL (0.2-1) 07/22/19 22:02 AST 29 U/L (15-37) 07/22/19 22:02 ALT 30 U/L (13-61) 07/22/19 22:02 Alkaline Phosphatase 122 U/L (45-117) H 07/22/19 22:02 Creatine Kinase 124 U/L (26-308) 07/22/19 22:02 Troponin I < 0.02 ng/ml (0.00-0.05) 07/22/19 22:02 Total Protein 6.7 g/dl (6.4-8.2) 07/22/19 22:02 Albumin 3.6 g/dl (3.4-5.0) 07/22/19 22:02 Lipase 79 U/L (73-393) 07/22/19 22:02 Current Medications Generic Name Dose Route Start Last Admin Trade Name Freq PRN Reason Stop Dose Admin Sodium Chloride 1,000 mls @ 100 mls/hr 07/23/19 10:45 07/23/19 11:30 Normal Saline - IV 100 mls/hr ASDIR IRENE Administration Pantoprazole Sodium 40 mg 07/23/19 10:45 07/23/19 11:30 Protonix Iv IVPUSH 40 mg BID IRENE Administration Constitutional: Yes: Calm Eyes: Yes: Conjunctiva Clear HENT: Yes: Normocephalic Neck: Yes: Supple Cardiovascular: Yes: Regular Rate and Rhythm Respiratory: Yes: Diminished (breath sounds at the bases) Gastrointestinal Inspection: Yes: Distention ...Auscultate: Yes: Hypoactive Bowel Sounds ...Palpate: Yes: Soft, Other (nontender) ...Percussion: Yes: Tympanitic ...Rectal Exam: Yes: Guaiac Negative (impacted with semisolid brown g negative stool) Extremities: Yes: Other (everted RLQ) Edema: LLE: 3+, RLE: 3+ Integumentary: Yes: Venous Stasis Changes (lower extremities) Neurological: Yes: Confusion Labs: CBC, BMP 07/23/19 04:31 07/22/19 22:02 INR, PTT INR 1.29 (0.83-1.09) H 07/22/19 22:02 Imaging - Results Cat Scan: Report Reviewed ( Final Report CT ABDOMEN & PELVIS CT WITH CONTR Show Printer-Friendly Version Patient Name: Tomer Quintana : ID: [id number] Study Date: 22-Jul-2019 23:03 [facility] Name : TOMER QUINTANA DEPARTMENT OF RADIOLOGY Phys: Robert Benites RESIDENT : 1935 Age: 83 Sex: M [facility] [place] Acct: [id number] Loc: [address] Exam Date: 07/22/19 Status: [place] [id number] Unit Number: [id number] EXAM#: TYPE/EXAM: RESULT: [id number] CT/ABDOMEN PELVIS CT WITH CONTR HISTORY PROVIDED: Rule out SBO. Sequential axial images were obtained from the domes of the diaphragms through the symphysis pubis following the administration of intravenous contrast material. Evaluation lung bases demonstrates small bilateral pleural effusions, left greater than right. There is a hiatal hernia in the retrocardiac space with a patulous GE junction and dilatation and thickening of the distal esophagus. Clinical correlation is advised. Upper endoscopic follow-up may be warranted. The stomach, duodenum and proximal jejunal loops are moderately distended. The remainder of the small bowel is of normal-caliber. Air and stool is noted within a nondistended colon. This appearance is suggestive of a partial SBO, most likely in the mid jejunal region. Clinical correlation and follow-up is recommended. The liver, spleen, pancreas, adrenal glands and kidneys demonstrate no significant abnormalities. There is a 6 mm nonobstructing calculus within the central portion of the left kidney. There is no evidence of intra-abdominal or retroperitoneal lymphadenopathy or fluid collections. There is no evidence of pneumoperitoneum or intra-abdominal abscess. There is no CT evidence of acute appendicitis. There is extensive diverticulosis of the left colon with no evidence of acute diverticulitis. Examination of the pelvis demonstrates no evidence of pelvic masses, fluid collections or lymphadenopathy. Fecal impaction is noted within the rectum and distal sigmoid colon. The prostate gland is enlarged measuring approximately 6.4 x 5.4 x 5.2 cm. There is no evidence of acute bony pathology. IMPRESSION: 1. Bilateral pleural effusions, left greater than right. 2. Hiatal hernia with patulous GE junction and dilated and thickened distal esophagus. Endoscopic follow-up recommended. 3. Distended stomach, duodenum and proximal jejunal loops consistent with a partial SBO. Clinical correlation and follow-up recommended. 4. Left nephrolithiasis. 5. Prostatic enlargement. 6. Fecal impaction. Please see above discussion. Reported By: Dante Jensen MD 07/23/19814 Technologist: Carito Esparza Transcribed Date/Time: 07/23/19814 Core Analyst: Dante Jensen Printed Date/Time: By: Signed by: Dante Jensen Signed on: 23-Jul-2019 08:17) Problem List - Problems (1) SBO (small bowel obstruction) Code(s): K56.609 - UNSP INTESTNL OBST, UNSP TO PARTIAL VERSUS COMPLETE OBST (2) Guerrier's esophagus with high grade dysplasia Code(s): K22.711 - GUERRIER'S ESOPHAGUS WITH HIGH GRADE DYSPLASIA (3) Hiatal hernia with GERD Code(s): K21.9 - GASTRO-ESOPHAGEAL REFLUX DISEASE WITHOUT ESOPHAGITIS; K44.9 - DIAPHRAGMATIC HERNIA WITHOUT OBSTRUCTION OR GANGRENE (4) Colon adenomas Code(s): D12.6 - BENIGN NEOPLASM OF COLON, UNSPECIFIED (5) Family history of colon cancer in father Code(s): Z80.0 - FAMILY HISTORY OF MALIGNANT NEOPLASM OF DIGESTIVE ORGANS (6) Plantar fasciitis Code(s): M72.2 - PLANTAR FASCIAL FIBROMATOSIS (7) Diverticula of colon Code(s): K57.30 - DVRTCLOS OF LG INT W/O PERFORATION OR ABSCESS W/O BLEEDING (8) Parkinson disease Code(s): G20 - PARKINSON'S DISEASE (9) Projectile vomiting with nausea Code(s): R11.12 - PROJECTILE VOMITING (10) Constipation Code(s): K59.00 - CONSTIPATION, UNSPECIFIED (11) Dementia Code(s): F03.90 - UNSPECIFIED DEMENTIA WITHOUT BEHAVIORAL DISTURBANCE Qualifiers: Dementia type: Parkinson's disease Dementia behavioral disturbance: without behavioral disturbance Qualified Code(s): G20 - Parkinson's disease; F02.80 - Dementia in other diseases classified elsewhere without behavioral disturbance; F02.80 - Dementia in other diseases classified elsewhere without behavioral disturbance; F02.80 - Dementia in other diseases classified elsewhere without behavioral disturbance (12) HTN (hypertension) Code(s): I10 - ESSENTIAL (PRIMARY) HYPERTENSION (13) Hyperlipidemia Code(s): E78.5 - HYPERLIPIDEMIA, UNSPECIFIED Assessment/Plan Assessment - SBO at the level of the jejunum - Guerrier's esophagus with high grade dysplasia with thickened distal esophagus on CT ? malignancy - Chronic constipation aggravated by Parkinson's Disease - Personal h/o colon adenomas - Diverticulosis - FH colon cancer in father and brother Plan: -- NG to low intermittent suctioning -- D5 1/2 NS IV -- FUA in AM -- Pantoprazole -- EGD and colonoscopy if and when his clinical condition permits and if deemed appropriate -- SBO should have a surgical elastic knitter following
[2019-07-23] MEDS: DEXTROSE 5%-0.45% SALINE 1,000 ML IV SCH (18:29)
--- NOTE | 2019-07-23 18:53 | PN ---
Teaching Attending Note Name of Resident: Primo Tellez ATTENDING PHYSICIAN STATEMENT I saw and evaluated the patient. I reviewed the resident's note and discussed the case with the resident. I agree with the resident's findings and plan as documented. SUBJECTIVE: No complaints currently. No witnessed vomiting. OBJECTIVE: Afebrile, Hemodynamically Stable. Last Vital Signs Temp Pulse Resp BP Pulse Ox 98 F 73 20 133/76 3 L 07/23/19 17:00 07/23/19 17:00 07/23/19 17:00 07/23/19 17:00 07/23/19 17:00 HEENT - Atraumatic, normocephalic. Heart - S1 S2, RRR Lungs -decreased air entry at bases Abdomen - distended, umbilical hernia, mild generalized tenderness. Extremities - chronic venous stasis skin changes. Neuro - AAO x 1-2. Tone/Power normal all 4 extremities. Laboratory Results - last 24 hr 07/22/19 07/22/19 07/22/19 20:33 22:02 22:02 WBC 22.0 H RBC 4.58 Hgb 14.2 Hct 43.4 MCV 94.7 MCH 31.0 MCHC 32.7 RDW 14.5 Plt Count 452 H MPV 7.1 L Absolute Neuts (auto) 19.6 H Neutrophils % 89.6 H D Neutrophils % (Manual) 86.0 H Band Neutrophils % 5.0 Lymphocytes % 2.6 L D Lymphocytes % (Manual) 6.0 L Monocytes % 7.7 Monocytes % (Manual) 3 L Eosinophils % 0.1 D Eosinophils % (Manual) 0.0 Basophils % 0.0 Basophils % (Manual) 0.0 Nucleated RBC % 0 Platelet Estimate Adequate PT with INR INR PTT (Actin FS) Sodium 141 Potassium 3.9 Chloride 102 Carbon Dioxide 32 Anion Gap 7 L BUN 22.1 H Creatinine 1.0 Est GFR (CKD-EPI)AfAm 81.45 Est GFR (CKD-EPI)NonAf 70.27 Random Glucose 134 H Lactic Acid Calcium 9.2 Phosphorus Magnesium Total Bilirubin 1.0 AST 29 ALT 30 Alkaline Phosphatase 122 H Creatine Kinase Troponin I Total Protein 6.7 Albumin 3.6 Lipase 79 Urine Color Urine Appearance Urine pH Ur Specific [place] Urine Protein Urine Glucose (UA) Urine Ketones Urine Blood Urine Nitrite Urine Bilirubin Urine Urobilinogen Ur Leukocyte Esterase Urine WBC (Auto) Urine RBC (Auto) Urine Casts (Auto) U Epithel Cells (Auto) Urine Bacteria (Auto) Stool Occult Blood Negative Blood Type Antibody Screen 07/22/19 07/22/19 07/22/19 22:02 22:02 22:02 WBC RBC Hgb Hct MCV MCH MCHC RDW Plt Count MPV Absolute Neuts (auto) Neutrophils % Neutrophils % (Manual) Band Neutrophils % Lymphocytes % Lymphocytes % (Manual) Monocytes % Monocytes % (Manual) Eosinophils % Eosinophils % (Manual) Basophils % Basophils % (Manual) Nucleated RBC % Platelet Estimate PT with INR 15.30 H INR 1.29 H PTT (Actin FS) 35.5 Sodium Potassium Chloride Carbon Dioxide Anion Gap BUN Creatinine Est GFR (CKD-EPI)AfAm Est GFR (CKD-EPI)NonAf Random Glucose Lactic Acid Calcium Phosphorus 3.2 Magnesium 2.3 Total Bilirubin AST ALT Alkaline Phosphatase Creatine Kinase 124 Troponin I < 0.02 Total Protein Albumin Lipase Urine Color Urine Appearance Urine pH Ur Specific [place] Urine Protein Urine Glucose (UA) Urine Ketones Urine Blood Urine Nitrite Urine Bilirubin Urine Urobilinogen Ur Leukocyte Esterase Urine WBC (Auto) Urine RBC (Auto) Urine Casts (Auto) U Epithel Cells (Auto) Urine Bacteria (Auto) Stool Occult Blood Blood Type Antibody Screen 07/22/19 07/22/19 07/23/19 22:02 22:14 02:30 WBC RBC Hgb Hct MCV MCH MCHC RDW Plt Count MPV Absolute Neuts (auto) Neutrophils % Neutrophils % (Manual) Band Neutrophils % Lymphocytes % Lymphocytes % (Manual) Monocytes % Monocytes % (Manual) Eosinophils % Eosinophils % (Manual) Basophils % Basophils % (Manual) Nucleated RBC % Platelet Estimate PT with INR INR PTT (Actin FS) Sodium Potassium Chloride Carbon Dioxide Anion Gap BUN Creatinine Est GFR (CKD-EPI)AfAm Est GFR (CKD-EPI)NonAf Random Glucose Lactic Acid 1.9 Calcium Phosphorus Magnesium Total Bilirubin AST ALT Alkaline Phosphatase Creatine Kinase Troponin I Total Protein Albumin Lipase Urine Color Dk yellow Urine Appearance Clear Urine pH 8.0 D Ur Specific [place] 1.051 H Urine Protein 30 Urine Glucose (UA) Negative Urine Ketones Trace H Urine Blood Negative Urine Nitrite Negative Urine Bilirubin Small Urine Urobilinogen 1.0 Ur Leukocyte Esterase Negative Urine WBC (Auto) 4 Urine RBC (Auto) 3 Urine Casts (Auto) 15 U Epithel Cells (Auto) 3.5 Urine Bacteria (Auto) 0.7 Stool Occult Blood Blood Type O POSITIVE Antibody Screen Negative 07/23/19 07/23/19 04:31 11:30 WBC 19.6 H RBC 4.68 Hgb 14.5 Hct 44.3 MCV 94.7 MCH 30.9 MCHC 32.7 RDW 14.6 Plt Count 458 H MPV 7.2 L Absolute Neuts (auto) 17.0 H Neutrophils % 86.9 H Neutrophils % (Manual) Band Neutrophils % Lymphocytes % 2.8 L Lymphocytes % (Manual) Monocytes % 9.8 Monocytes % (Manual) Eosinophils % 0.1 Eosinophils % (Manual) Basophils % 0.4 D Basophils % (Manual) Nucleated RBC % 0 Platelet Estimate PT with INR INR PTT (Actin FS) Sodium Potassium Chloride Carbon Dioxide Anion Gap BUN Creatinine Est GFR (CKD-EPI)AfAm Est GFR (CKD-EPI)NonAf Random Glucose Lactic Acid Calcium Phosphorus Magnesium Total Bilirubin AST ALT Alkaline Phosphatase Creatine Kinase Troponin I Total Protein Albumin Lipase Urine Color Urine Appearance Urine pH Ur Specific [place] Urine Protein Urine Glucose (UA) Urine Ketones Urine Blood Urine Nitrite Urine Bilirubin Urine Urobilinogen Ur Leukocyte Esterase Urine WBC (Auto) Urine RBC (Auto) Urine Casts (Auto) U Epithel Cells (Auto) Urine Bacteria (Auto) Stool Occult Blood Negative Blood Type Antibody Screen Current Medications Generic Name Dose Route Start Last Admin Trade Name Freq PRN Reason Stop Dose Admin Sodium Chloride 1,000 mls @ 100 mls/hr 07/23/19 10:45 07/23/19 11:30 Normal Saline - IV 100 mls/hr ASDIR IRENE Administration Dextrose/Sodium Chloride 1,000 mls @ 100 mls/hr 07/23/19 18:15 07/23/19 18:29 D5-1/2ns - IV 100 mls/hr ASDIR IRENE Administration Pantoprazole Sodium 40 mg 07/24/19 10:00 Protonix Iv IVPUSH DAILY [facility] Home Medications Medication Instructions Recorded Atorvastatin Ca [Lipitor] 40 mg PO HS #30 tablet 03/19/16 Metoprolol Tartrate [Lopressor -] 25 mg PO BID #60 tablet 03/19/16 Oxycodone HCl 10 mg PO Q4H PRN #30 tablet MDD 03/19/16 60mg Olanzapine [Zyprexa -] 10 mg PO ASDIR 08/27/16 Lisinopril [Prinivil] 10 mg PO DAILY #30 tablet 10/03/17 Atorvastatin Ca [Lipitor] 40 mg DAILY 07/23/19 Famotidine 20 mg PO DAILY 07/23/19 Lactulose 1 tbs PO DAILY 07/23/19 Quetiapine Fumarate [Seroquel -] 50 mg TID 07/23/19 ASSESSMENT AND PLAN: 83 year old man with history of Dementia, Parkinson's disease, HTN, HLD, PVD with claudication, Chronic stasis dermatitis, CKD 3, Osteoarthritis, GERD, s/p appendectomy, presents with 2 day history of dark projectile vomiting associated with dark colored diarrhea. 1. Acute Partial SBO CT A/P - bilateral effusions L > R, partial SBO, L Nephrolithiasis, Prostate enlargement, fecal impaction. NPO/IV fluids/PPI. GI/Surgery consults. Gi recommends NG tube to low suction with AXR in AM. 2. Upper GI Bleed Coffee ground emesis FOBT negative. NPO/IV fluids/IV PPI/GI Consult. 3. PD with bilateral LE weakness and gait disturbance. Lumbosacral MRI requested. PT eval. 4. HTN - Continue Lopressor, Lisinopril once oral intake resumes. 5. HLD - continue Statin 6. Dementia - normally on Seroquel, Zyprexa. DVT Px - SCDs. Heparin held due to reported coffee ground emesis.
[2019-07-23] MEDS ORDERED: POLYETHYLENE GLYCOL 3350 119 GM BTL PO SCH (22:00)
[2019-07-23] MEDS ORDERED: BENZOIN/ALOE VERA/STORAX/TOLU 58 ML BOTTLE ONE (22:40)
[2019-07-24] MEDS: DEXTROSE 5%-0.45% SALINE 1,000 ML IV SCH ×3 (04:12→18:46)
[2019-07-24 09:55] LABS: HEMATOCRIT 36.4 % (35.4-49); HEMOGLOBIN 12.1 GM/dL (11.7-16.9); MCH 31.9 pg (25.7-33.7); MCHC 33.2 g/dl (32.0-35.9); MEAN CELL VOLUME 95.9 fl (80-96); MEAN PLT VOLUME 7.1 fl (7.5-11.1); PLATELET COUNT 325 K/MM3 (134-434); RBC 3.79 M/mm3 (4.00-5.60); RDW 14.2 % (11.9-15.9); WHITE BLOOD COUNT 8.2 K/mm3 (4.0-10.0)
[2019-07-24] MEDS ORDERED: OLANZapine 5 MG TABLET PO SCH (10:00)
[2019-07-24 10:14] LABS: BLOOD UREA NITROGEN 19.9 mg/dL (7-18); CALCIUM 7.8 mg/dL (8.5-10.1); CREATININE 0.8 mg/dL (0.55-1.3); MAGNESIUM 2.3 mg/dL (1.8-2.4); PHOSPHOROUS 3.4 mg/dL (2.5-4.9); POTASSIUM 3.1 mmol/L (3.5-5.1)
[2019-07-24] MEDS: PANTOPRAZOLE SODIUM 40 MG VIAL IVPUSH SCH (10:19)
--- NOTE | 2019-07-24 10:37 | PN ---
Physical Exam: SUBJECTIVE: Patient seen and examined at bedside. No acute events overnight. Pt pulled out NG tube. OBJECTIVE: Vital Signs Temperature 98.7 F 07/24/19 06:00 Pulse Rate 78 07/24/19 06:00 Respiratory Rate 18 07/24/19 06:00 Blood Pressure 142/83 07/24/19 06:00 O2 Sat by Pulse Oximetry (%) 98 07/23/19 22:09 GENERAL: AOx1, obese, in no acute distress. Lethargic, but arousable. Not cooperative when asked questions. EYES: ANDREI, EOMI, conjunctiva clear. NECK: Normal range of motion, supple without lymphadenopathy, JVD, or masses. LUNGS: Clear to auscultation bilaterally. No crackles. No accessory muscle use. HEART: Regular rate and rhythm, no murmurs appreciated. ABDOMEN: Obese, distended, soft, mildly tender to palpation, BS present in all 4 quadrants. MUSCULOSKELETAL: No bony deformities or tenderness. UPPER EXTREMITIES: 2+ pulses, warm, well-perfused. No cyanosis. No clubbing. No peripheral edema. LOWER EXTREMITIES: 1+ edema BL. Venous stasis BL. Shiny. Hairless distal to knee. 2+ pulses, warm, well-perfused. NEUROLOGICAL: Decreased sensation to touch distal to knee BL. Lower extremity power 4/5 BL. Cranial nerves II-XII intact. Normal speech. Gait not appreciated. PSYCHIATRIC: Cooperative. Good eye contact. Appropriate mood and affect. SKIN: Warm, dry, normal turgor, no rashes or lesions noted, normal capillary refill. Laboratory Results - last 24 hr 07/23/19 07/24/19 07/24/19 11:30 07:25 07:25 WBC 8.2 RBC 3.79 L Hgb 12.1 Hct 36.4 D MCV 95.9 MCH 31.9 MCHC 33.2 RDW 14.2 Plt Count 325 D MPV 7.1 L Sodium 145 Potassium 3.1 L Chloride 108 H Carbon Dioxide 36 H Anion Gap 2 L BUN 19.9 H Creatinine 0.8 Est GFR (CKD-EPI)AfAm 97.10 Est GFR (CKD-EPI)NonAf 83.78 Random Glucose 92 Calcium 7.8 L Phosphorus 3.4 Magnesium 2.3 Stool Occult Blood Negative Active Medications Atorvastatin Calcium (Lipitor -) 40 mg PO HS IRENE Dextrose/Sodium Chloride (D5-1/2ns -) 1,000 mls @ 100 mls/hr IV ASDIR [facility] Last Admin: 07/24/19 04:12 Dose: 100 mls/hr Lisinopril (Prinivil) 10 mg PO DAILY IRENE Metoprolol Tartrate (Lopressor -) 25 mg PO BID IRENE Olanzapine (Zyprexa -) 10 mg PO DAILY IRENE Pantoprazole Sodium (Protonix Iv) 40 mg IVPUSH DAILY [facility] Quetiapine Fumarate (Seroquel -) 50 mg PO TID [facility] ASSESSMENT/PLAN: Tomer Whitfield is an 83 year old male with a past medical history of dementia, Parkinson disease, CKD, HTN, HLD, PVD, GERD, OA, colonic polyps, diverticulosis c/o vomiting for three days. #Acute Partial SBO; Resolving. -CT showing evidence of distended stomach, duodenum, and prox jejunal loops c/w with partial SBO, fecal impaction; b/l pleural effusion, L nephrolithiasis, prostate enlargement -Abd xray today showed no sign of gross SBO, free air not seen -NPO, IV hydration with D5-1/2NS at 100cc/hr, Protonix 40 BID IVP -Per surg, no surgical intervention needed at this time -Per GI, EGD/colonoscopy when clinic condition permits #Upper GI bleed; HD stable. No further witnessed episodes overnight. -FOBT negative x2 -Cont Protonix, NPO, IVf for now -Await further GI recs #Hypokalemia; 3.1 today -IV KCl given, replete PRN. recheck K in AM #Leukocytosis; Resolved. Likely in setting of SBO. No overt signs of infection; pt is afebrile, WBC wnl today. -UA negative for infection #Dementia; Cont home meds: Zyprexa 10, Seroquel 50 TID. Follow up with neuro as outpatient #Lower extremity loss in sensation/weakness; Reported upon initial admission that pt has not had this worked up in past. -MRI lumbosacral spine -PT #HTN/HLD; Cont home meds: Lisinopril 10, Metoprolol Tartrate 25 BID, Lipitor 40 #FEN -D5-1/2NS at 100cc/hr -recheck BMP in AM (K+) -Low sodium diet #Prophylaxis -Hold DVT ppx due to possible GI bleed GI: Protonix 40 IVP Dispo -cont to monitor on med-surg Visit type - Emergency Visit Emergency Visit: Yes ED Registration Date: 07/23/19 Care time: The patient presented to the Emergency Department on the above date and was hospitalized for further evaluation of their emergent condition. - New Patient This patient is new to me today: No - Critical Care Critical Care patient: No ATTENDING PHYSICIAN STATEMENT I saw and evaluated the patient. I reviewed the resident's note and discussed the case with the resident. I agree with the resident's findings and plan as documented. SUBJECTIVE: OBJECTIVE: ASSESSMENT AND PLAN:
--- NOTE | 2019-07-24 11:51 | CONSULT ---
- Consultation REQUESTING PROVIDER: Nilson HARKINS CONSULT REQUEST: We have been asked to surgically evaluate this patient for n/v/ abdominal pain and imaging findings of ? sbo on CT scan of the a/p done . PCP:Alan Osborn MD HISTORY OF PRESENT ILLNESS:Patient is an 83 year old male with a past medical history of dementia, CKD, Parkinsons disease, HTN, HLD, peripheral vascular disease, GERD, and OA here today for evaluation of vomiting and diarrhea. He presented with 3 days of non stop vomiting that is dark brown in color. He also reports 3-4 daily episodes of dark diarrhea. Denies any significant abdominal pain but does endorse bloating. His nurse today reports he had a bowel movement. # attempts at placement of an NGT were made unsuccessfully. He has not vomited since admission. PMHx: dementia/CKD/Parkinsons/HTN/HLD/PVD/GERD/Barretts esophagus/hiatal hernia/fecal impaction PSHx: open appendectomy Home Medications Medication Instructions Recorded Atorvastatin Ca [Lipitor] 40 mg PO HS #30 tablet 03/19/16 Metoprolol Tartrate [Lopressor -] 25 mg PO BID #60 tablet 03/19/16 Oxycodone HCl 10 mg PO Q4H PRN #30 tablet MDD 03/19/16 60mg Olanzapine [Zyprexa -] 10 mg PO ASDIR 08/27/16 Lisinopril [Prinivil] 10 mg PO DAILY #30 tablet 10/03/17 Atorvastatin Ca [Lipitor] 40 mg DAILY 07/23/19 Famotidine 20 mg PO DAILY 07/23/19 Lactulose 1 tbs PO DAILY 07/23/19 Quetiapine Fumarate [Seroquel -] 50 mg TID 07/23/19 Allergies Allergy/AdvReac Type Severity Reaction Status Date / Time No Known Allergies Allergy Verified 07/22/19 20:16 REVIEW OF SYSTEMS: patient unable to answer questions PHYSICAL EXAM: GENERAL: Lethargic, in no acute distress. HEAD: Normal with no signs of trauma. EYES: sclera anicteric, conjunctiva clear. NECK: Normal ROM, supple without lymphadenopathy, JVD, or masses. ABDOMEN: Soft, nontender, not distended, normoactive bowel sounds, no guarding, no rebound, no masses. No organomegaly. Umbilical hernia; healed open appendectomy scar MUSCULOSKELETAL: Normal ROM at all joints. No bony deformities or tenderness. No CVA tenderness. UPPER EXTREMITIES: 2+ pulses, warm, well-perfused. No cyanosis. Cap refill <2 seconds. No peripheral edema. LOWER EXTREMITIES: 2+ pulses, warm, well-perfused. No calf tenderness. No peripheral edema. NEUROLOGICAL: Normal speech, gait not observed. PSYCH: Cooperative. Good eye contact. Appropriate mood and affect. SKIN: Warm, dry, normal turgor, no rashes or lesions noted. Vital Signs Temperature 98.7 F 07/24/19 06:00 Pulse Rate 78 07/24/19 06:00 Respiratory Rate 18 07/24/19 06:00 Blood Pressure 142/83 07/24/19 06:00 O2 Sat by Pulse Oximetry (%) 97 07/23/19 23:00 Lab Results WBC 8.2 K/mm3 (4.0-10.0) 07/24/19 07:25 RBC 3.79 M/mm3 (4.00-5.60) L 07/24/19 07:25 Hgb 12.1 GM/dL (11.7-16.9) 07/24/19 07:25 Hct 36.4 % (35.4-49) D 07/24/19 07:25 MCV 95.9 fl (80-96) 07/24/19 07:25 MCHC 33.2 g/dl (32.0-35.9) 07/24/19 07:25 RDW 14.2 % (11.9-15.9) 07/24/19 07:25 Plt Count 325 K/MM3 (134-434) D 07/24/19 07:25 Sodium 145 mmol/L (136-145) 07/24/19 07:25 Potassium 3.1 mmol/L (3.5-5.1) L 07/24/19 07:25 Chloride 108 mmol/L (98-107) H 07/24/19 07:25 Carbon Dioxide 36 mmol/L (21-32) H 07/24/19 07:25 Anion Gap 2 MMOL/L (8-16) L 07/24/19 07:25 BUN 19.9 mg/dL (7-18) H 07/24/19 07:25 Creatinine 0.8 mg/dL (0.55-1.3) 07/24/19 07:25 Random Glucose 92 mg/dL (74-106) 07/24/19 07:25 Calcium 7.8 mg/dL (8.5-10.1) L 07/24/19 07:25 Blood Type O POSITIVE 07/22/19 22:02 Antibody Screen Negative 07/22/19 22:02 INR 1.29 (0.83-1.09) H 07/22/19 22:02 CT scan a/p reviewed AXR from today reviewed. IMP: no evidence of an acute surgical abdomen; clinically and radiographically he is not obstructed at this time PLAN: No indication for surgical intervention at this time; manage constipation/ fecal impaction as needed;IVF; will f/u Leonardo Garcia MD FACS
--- NOTE | 2019-07-24 11:52 | PN ---
Teaching Attending Note Name of Resident: Ida Parks ATTENDING PHYSICIAN STATEMENT I saw and evaluated the patient. I reviewed the resident's note and discussed the case with the resident. I agree with the resident's findings and plan as documented. SUBJECTIVE: No complaints currently. Nurse reports BM overnight. Pulled out NG tube x 2. OBJECTIVE: Afebrile, Hemodynamically Stable. Lethargic, rousable but minimally verbal. Appears disengaged. Last Vital Signs Temp Pulse Resp BP Pulse Ox 98.7 F 78 18 142/83 97 07/24/19 06:00 07/24/19 06:00 07/24/19 06:00 07/24/19 06:00 07/23/19 23:00 HEENT - Atraumatic, normocephalic. FAHEEM. Heart - S1 S2, RRR Lungs - decreased air entry at bases Abdomen - distended, umbilical hernia, no tenderness. Extremities - chronic venous stasis skin changes. Neuro - Lethargic, rousable, disoriented. Tone/Power normal all 4 extremities. Laboratory Results - last 24 hr 07/24/19 07/24/19 07:25 07:25 WBC 8.2 RBC 3.79 L Hgb 12.1 Hct 36.4 D MCV 95.9 MCH 31.9 MCHC 33.2 RDW 14.2 Plt Count 325 D MPV 7.1 L Sodium 145 Potassium 3.1 L Chloride 108 H Carbon Dioxide 36 H Anion Gap 2 L BUN 19.9 H Creatinine 0.8 Est GFR (CKD-EPI)AfAm 97.10 Est GFR (CKD-EPI)NonAf 83.78 Random Glucose 92 Calcium 7.8 L Phosphorus 3.4 Magnesium 2.3 Current Medications Generic Name Dose Route Start Last Admin Trade Name Freq PRN Reason Stop Dose Admin Atorvastatin Calcium 40 mg 07/24/19 22:00 Lipitor - PO HS IRENE Dextrose/Sodium Chloride 1,000 mls @ 100 mls/hr 07/23/19 18:15 07/24/19 04:12 D5-1/2ns - IV 100 mls/hr ASDIR IRENE Administration Lisinopril 10 mg 07/24/19 10:00 Prinivil PO DAILY IRENE Metoprolol Tartrate 25 mg 07/24/19 10:00 Lopressor - PO BID IRENE Olanzapine 10 mg 07/24/19 12:00 Zyprexa - PO DAILY IRENE Pantoprazole Sodium 40 mg 07/24/19 10:00 Protonix Iv IVPUSH DAILY [facility] Quetiapine Fumarate 50 mg 07/24/19 14:00 Seroquel - PO TID [facility] Home Medications Medication Instructions Recorded Atorvastatin Ca [Lipitor] 40 mg PO HS #30 tablet 03/19/16 Metoprolol Tartrate [Lopressor -] 25 mg PO BID #60 tablet 03/19/16 Oxycodone HCl 10 mg PO Q4H PRN #30 tablet MDD 03/19/16 60mg Olanzapine [Zyprexa -] 10 mg PO ASDIR 08/27/16 Lisinopril [Prinivil] 10 mg PO DAILY #30 tablet 10/03/17 Atorvastatin Ca [Lipitor] 40 mg DAILY 07/23/19 Famotidine 20 mg PO DAILY 07/23/19 Lactulose 1 tbs PO DAILY 07/23/19 Quetiapine Fumarate [Seroquel -] 50 mg TID 07/23/19 ASSESSMENT AND PLAN: 83 year old man with history of Dementia, Parkinson's disease, HTN, HLD, PVD with claudication, Chronic stasis dermatitis, CKD 3, Osteoarthritis, GERD, s/p appendectomy, presents with 2 day history of dark projectile vomiting associated with dark colored diarrhea. 1. Acute Partial SBO - resolving CT A/P - bilateral effusions L > R, partial SBO, L Nephrolithiasis, Prostate enlargement, fecal impaction. NPO/IV fluids/PPI. Pulled out NG tube. AXR this AM shows resolution of ileus. Leukocytosis resolved. GI/Surgery consults, will await further recommendations. 2. Upper GI Bleed Coffee ground emesis noted. FOBT negative. NPO/IV fluids/IV PPI/GI Consulted - awaiting further recommendations 3. PD with bilateral LE weakness and gait disturbance. Lumbosacral MRI requested. PT eval. Not on Sinemet or other PD medications Neurology follow up as out-patient. 4. HTN - Continue Lopressor, Lisinopril once oral intake resumes. 5. HLD - continue Statin 6. Dementia - normally on Seroquel, Zyprexa. Will resume, especially given current disengaged mental state. 7. Hypokalemia - repleted. DVT Px - SCDs. Heparin held due to reported coffee ground emesis.
--- NOTE | 2019-07-24 13:14 | PN.GI ---
GI Progress Note Subjective: GI NOte: NG insertion was unsuccessful. Tomer has however not vomited overnight and did have a BM. FUA today reveals no obstruction. His describes the vomiting as being projectile when he was home. - Objective Vital Signs: Vital Signs Temperature 98.7 F 07/24/19 06:00 Pulse Rate 78 07/24/19 06:00 Respiratory Rate 18 07/24/19 06:00 Blood Pressure 142/83 07/24/19 06:00 O2 Sat by Pulse Oximetry (%) 97 07/23/19 23:00 Laboratory Tests 07/22/19 07/22/19 07/24/19 22:02 22:14 07:25 WBC 22.0 H 8.2 Hgb 14.2 12.1 Lactic Acid 1.9 Constitutional: Calm Gastrointestinal Inspection: Yes: Distention ...Auscultate: Yes: Hypoactive Bowel Sounds ...Palpate: Yes: Soft, Other (nontender) ...Percussion: Yes: Tympanitic Labs: CBC, BMP 07/24/19 07:25 07/24/19 07:25 INR, PTT INR 1.29 (0.83-1.09) H 07/22/19 22:02 Assessment/Plan Assessment - ? resolved SBO vs ileus vs fecal imaction - Guerrier's esophagus with high grade dysplasia apparetly s/p ablative [place] [facility] [place] with thickened distal esophagus on CT ? malignancy - Chronic constipation aggravated by Parkinson's Disease - Personal h/o colon adenomas - Diverticulosis - FH colon cancer in father and brother Plan: -- [place] of clear liquids. If tolerated will start Miralax. -- D5 1/2 NS IV -- Pantoprazole -- EGD and colonoscopy if and when his clinical condition permits and if deemed appropriate -- Surgical consultation appreciated Problem List - Problems (1) SBO (small bowel obstruction) Code(s): K56.609 - UNSP INTESTNL OBST, UNSP TO PARTIAL VERSUS COMPLETE OBST (2) Guerrier's esophagus with high grade dysplasia Code(s): K22.711 - GUERRIER'S ESOPHAGUS WITH HIGH GRADE DYSPLASIA (3) Hiatal hernia with GERD Code(s): K21.9 - GASTRO-ESOPHAGEAL REFLUX DISEASE WITHOUT ESOPHAGITIS; K44.9 - DIAPHRAGMATIC HERNIA WITHOUT OBSTRUCTION OR GANGRENE (4) Colon adenomas Code(s): D12.6 - BENIGN NEOPLASM OF COLON, UNSPECIFIED (5) Family history of colon cancer in father Code(s): Z80.0 - FAMILY HISTORY OF MALIGNANT NEOPLASM OF DIGESTIVE ORGANS (6) Plantar fasciitis Code(s): M72.2 - PLANTAR FASCIAL FIBROMATOSIS (7) Diverticula of colon Code(s): K57.30 - DVRTCLOS OF LG INT W/O PERFORATION OR ABSCESS W/O BLEEDING (8) Parkinson disease Code(s): G20 - PARKINSON'S DISEASE (9) Projectile vomiting with nausea Code(s): R11.12 - PROJECTILE VOMITING (10) Constipation Code(s): K59.00 - CONSTIPATION, UNSPECIFIED (11) Dementia Code(s): F03.90 - UNSPECIFIED DEMENTIA WITHOUT BEHAVIORAL DISTURBANCE Qualifiers: Dementia type: Parkinson's disease Dementia behavioral disturbance: without behavioral disturbance Qualified Code(s): G20 - Parkinson's disease; F02.80 - Dementia in other diseases classified elsewhere without behavioral disturbance (12) HTN (hypertension) Code(s): I10 - ESSENTIAL (PRIMARY) HYPERTENSION (13) Hyperlipidemia Code(s): E78.5 - HYPERLIPIDEMIA, UNSPECIFIED
[2019-07-24] MEDS ORDERED: QUEtiapine FUMARATE 25 MG TABLET (FP) ONE ×2 (15:12→20:39)
[2019-07-24] MEDS: LISINOPRIL 10 MG TABLET (FP) PO SCH (15:17)
[2019-07-24] MEDS: QUEtiapine FUMARATE 50 MG TABLET PO SCH ×2 (15:18→21:47)
[2019-07-24] MEDS: KCL 10 MEQ IVPB 10 MEQ/100 ML INFUS.BAG IVPB SCH ×3 (15:18→18:14)
[2019-07-24] MEDS: OLANZapine 10 MG TABLET PO SCH (15:19)
[2019-07-24] MEDS: METOPROLOL TARTRATE 25 MG TABLET (FP) PO SCH ×2 (15:19→21:46)
[2019-07-24] MEDS: ACETAMINOPHEN 325 MG TABLET (FP) PO PRN (18:47)
[2019-07-24] MEDS: ATORVASTATIN CA 40 MG TABLET (FP) PO SCH (21:46)
[2019-07-25] MEDS: ACETAMINOPHEN 325 MG TABLET (FP) PO PRN ×3 (00:36→18:01)
[2019-07-25] MEDS ORDERED: PT OWN MED DRAWER 7, Y5N ONE (05:50)
[2019-07-25] MEDS: QUEtiapine FUMARATE 50 MG TABLET PO SCH ×3 (10:07→23:17)
--- NOTE | 2019-07-25 10:28 | PN.GI ---
GI Progress Note Subjective: GI NOte: Tolerating clear liquids. No vomiting. Tomer denies nausea or pain. NO BM overnight - Objective Vital Signs: Vital Signs Temperature 98.5 F 07/25/19 06:07 Pulse Rate 88 07/25/19 06:07 Respiratory Rate 20 07/25/19 06:07 Blood Pressure 133/78 07/25/19 06:07 O2 Sat by Pulse Oximetry (%) 97 07/24/19 21:00 Constitutional: Calm Gastrointestinal Inspection: Yes: Distention ...Auscultate: Yes: Hypoactive Bowel Sounds ...Palpate: Yes: Soft, Other (nontender) ...Percussion: Yes: Tympanitic Labs: CBC, BMP 07/24/19 07:25 07/24/19 07:25 INR, PTT INR 1.29 (0.83-1.09) H 07/22/19 22:02 Assessment/Plan Assessment - No further evidence of SBO. He does have a fecal imaction - Guerrier's esophagus with high grade dysplasia apparently s/p ablative therapy at [facility] [place] with thickened distal esophagus on CT ? malignancy - Chronic constipation aggravated by Parkinson's Disease - Personal h/o colon adenomas - Diverticulosis - FH colon cancer in father and brother Plan: -- Trial of full liquids. If vomiting recurs will pursue C enterography -- Will start Miralax to relieve fecal impaction. -- D5 1/2 NS IV -- Pantoprazole -- Tomer's clinical condition precludes EGD and colonoscopy. Problem List - Problems (1) SBO (small bowel obstruction) Code(s): K56.609 - UNSP INTESTNL OBST, UNSP TO PARTIAL VERSUS COMPLETE OBST (2) Guerrier's esophagus with high grade dysplasia Code(s): K22.711 - GUERRIER'S ESOPHAGUS WITH HIGH GRADE DYSPLASIA (3) Hiatal hernia with GERD Code(s): K21.9 - GASTRO-ESOPHAGEAL REFLUX DISEASE WITHOUT ESOPHAGITIS; K44.9 - DIAPHRAGMATIC HERNIA WITHOUT OBSTRUCTION OR GANGRENE (4) Colon adenomas Code(s): D12.6 - BENIGN NEOPLASM OF COLON, UNSPECIFIED (5) Family history of colon cancer in father Code(s): Z80.0 - FAMILY HISTORY OF MALIGNANT NEOPLASM OF DIGESTIVE ORGANS (6) Plantar fasciitis Code(s): M72.2 - PLANTAR FASCIAL FIBROMATOSIS (7) Diverticula of colon Code(s): K57.30 - DVRTCLOS OF LG INT W/O PERFORATION OR ABSCESS W/O BLEEDING (8) Parkinson disease Code(s): G20 - PARKINSON'S DISEASE (9) Projectile vomiting with nausea Code(s): R11.12 - PROJECTILE VOMITING (10) Constipation Code(s): K59.00 - CONSTIPATION, UNSPECIFIED (11) Dementia Code(s): F03.90 - UNSPECIFIED DEMENTIA WITHOUT BEHAVIORAL DISTURBANCE Qualifiers: Dementia type: Parkinson's disease Dementia behavioral disturbance: without behavioral disturbance Qualified Code(s): G20 - Parkinson's disease; F02.80 - Dementia in other diseases classified elsewhere without behavioral disturbance (12) HTN (hypertension) Code(s): I10 - ESSENTIAL (PRIMARY) HYPERTENSION (13) Hyperlipidemia Code(s): E78.5 - HYPERLIPIDEMIA, UNSPECIFIED
--- NOTE | 2019-07-25 11:01 | PN ---
Progress Note (short form) - Note Progress Note: SUBJECTIVE: No complaints currently. Tolerating clear liquid diet without abdominal pain/nausea/vomiting., successfully moving his bowels (non-bloody). OBJECTIVE: Afebrile, Hemodynamically Stable. Lethargic, rousable but minimally verbal. Oriented x 1. Last Vital Signs Temp Pulse Resp BP Pulse Ox 98.5 F 88 20 133/78 97 07/25/19 06:07 07/25/19 06:07 07/25/19 06:07 07/25/19 06:07 07/24/19 21:00 Heart - S1 S2, RRR Lungs - decreased air entry at bases Abdomen - distended, soft, non-tender. Bowel Sounds normal. Extremities - chronic venous stasis skin changes. Neuro - Lethargic, rousable, disoriented. Tone/Power normal all 4 extremities. Current Medications Generic Name Dose Route Start Last Admin Trade Name Freq PRN Reason Stop Dose Admin Acetaminophen 650 mg 07/24/19 18:21 07/25/19 00:36 Tylenol - PO 650 mg Q6H PRN Administration PAIN LEVEL 6-10 Atorvastatin Calcium 40 mg 07/24/19 22:00 07/24/19 21:46 Lipitor - PO 40 mg HS IRENE Administration Dextrose/Sodium Chloride 1,000 mls @ 50 mls/hr 07/24/19 18:19 07/24/19 18:46 D5-1/2ns - IV 50 mls/hr ASDIR IRENE Administration Lisinopril 10 mg 07/24/19 10:00 07/24/19 15:17 Prinivil PO Not Given DAILY IRENE Metoprolol Tartrate 25 mg 07/24/19 10:00 07/24/19 21:46 Lopressor - PO 25 mg BID IRENE Administration Olanzapine 10 mg 07/24/19 12:00 07/24/19 15:19 Zyprexa - PO 10 mg DAILY IRENE Administration Pantoprazole Sodium 40 mg 07/24/19 10:00 07/24/19 10:19 Protonix Iv IVPUSH 40 mg DAILY IRENE Administration Polyethylene Glycol 17 gm 07/25/19 14:00 Miralax (For Daily Use) - PO TID IRENE Quetiapine Fumarate 50 mg 07/24/19 14:00 07/25/19 10:07 Seroquel - PO Not Given TID [facility] Home Medications Medication Instructions Recorded Atorvastatin Ca [Lipitor] 40 mg PO HS #30 tablet 03/19/16 Metoprolol Tartrate [Lopressor -] 25 mg PO BID #60 tablet 03/19/16 Oxycodone HCl 10 mg PO Q4H PRN #30 tablet MDD 03/19/16 60mg Olanzapine [Zyprexa -] 10 mg PO ASDIR 08/27/16 Lisinopril [Prinivil] 10 mg PO DAILY #30 tablet 10/03/17 Atorvastatin Ca [Lipitor] 40 mg DAILY 07/23/19 Famotidine 20 mg PO DAILY 07/23/19 Lactulose 1 tbs PO DAILY 07/23/19 Quetiapine Fumarate [Seroquel -] 50 mg TID 07/23/19 ASSESSMENT AND PLAN: 83 year old man with history of Dementia, Parkinson's disease, HTN, HLD, PVD with intermittent claudication, Chronic stasis dermatitis, CKD 3, Osteoarthritis , GERD, Lyn's Esophagus with high grade dysplasia s/p RTx, s/p appendectomy , presents with 2 day history of dark projectile vomiting associated with dark colored diarrhea. 1. Acute Partial SBO - resoled CT A/P - bilateral effusions L > R, partial SBO, L Nephrolithiasis, Prostate enlargement, fecal impaction. AXR shows resolution of ileus. Leukocytosis resolved. Diet advanced to full liquid and Miralax added by GI. GI/Surgery following for further recommendations. 2. Upper GI Bleed Coffee ground emesis noted. FOBT negative. Continue PPI Further recommendations for work-up including EGD/Colonoscopy as per GI. 3. PD with bilateral LE weakness and gait disturbance. Lumbosacral MRI requested. PT eval. Not on Sinemet or other PD medications Neurology follow up as out-patient. 4. HTN - Continue Lopressor, Lisinopril once oral intake resumes. 5. HLD - continue Statin 6. Dementia - normally on Seroquel, Zyprexa - resumed. 7. Hypokalemia - repleted. 8. Lyn's Esophagus with high grade dysplasia s/p RTx - for GI follow up ? EGD as out-patient. DVT Px - SCDs. Heparin held due to reported coffee ground emesis. Visit type - Emergency Visit Emergency Visit: Yes ED Registration Date: 07/23/19 Care time: The patient presented to the Emergency Department on the above date and was hospitalized for further evaluation of their emergent condition. - New Patient This patient is new to me today: No - Critical Care Critical Care patient: No - Discharge Referral Referred to [facility] No
[2019-07-25] MEDS: METOPROLOL TARTRATE 25 MG TABLET (FP) PO SCH ×2 (11:59→23:17)
[2019-07-25] MEDS: LISINOPRIL 10 MG TABLET (FP) PO SCH (11:59)
[2019-07-25] MEDS: OLANZapine 10 MG TABLET PO SCH (12:00)
[2019-07-25] MEDS: PANTOPRAZOLE SODIUM 40 MG VIAL IVPUSH SCH (12:00)
[2019-07-25 13:17] LABS: BASO % 0.7 % (0-2.0); EOS % 4.6 % (0-4.5); HEMATOCRIT 36.3 % (35.4-49); LYMPH % 14.5 % (8-40); MCH 31.6 pg (25.7-33.7); MCHC 33.2 g/dl (32.0-35.9); MEAN CELL VOLUME 95.4 fl (80-96); MEAN PLT VOLUME 7.2 fl (7.5-11.1); MONO % 7.5 % (3.8-10.2); NEUT % 72.7 % (42.8-82.8); PLATELET COUNT 308 K/MM3 (134-434); RBC 3.81 M/mm3 (4.00-5.60); RDW 14.2 % (11.9-15.9); WHITE BLOOD COUNT 8.1 K/mm3 (4.0-10.0)
[2019-07-25 13:52] LABS: BLOOD UREA NITROGEN 13.8 mg/dL (7-18); CALCIUM 7.9 mg/dL (8.5-10.1); CREATININE 0.7 mg/dL (0.55-1.3); POTASSIUM 3.4 mmol/L (3.5-5.1)
[2019-07-25] MEDS ORDERED: POTASSIUM CHLORIDE TABS 20 MEQ TABLET.ER (FP) PO ONE (15:00)
[2019-07-25] MEDS: POLYETHYLENE GLYCOL 3350 119 GM BTL PO SCH ×2 (16:36→23:18)
[2019-07-25] MEDS: DEXTROSE 5%-0.45% SALINE 1,000 ML IV SCH ×2 (16:37→18:24)
[2019-07-25] MEDS ORDERED: QUEtiapine FUMARATE 25 MG TABLET (FP) ONE ×2 (16:39→22:24)
[2019-07-25] MEDS ORDERED: PATIENT'S OWN MEDICATION (NON-FORMULARY) (Oxycodone Hcl [Oxycodone Hcl] 10 MG) PO PRN (18:11)
[2019-07-25] MEDS: oxyCODONE HCL 5 MG TABLET PO PRN (18:26)
[2019-07-25] MEDS: ATORVASTATIN CA 40 MG TABLET (FP) PO SCH (23:17)
[2019-07-26] MEDS: oxyCODONE HCL 5 MG TABLET PO PRN ×2 (00:42→11:36)
[2019-07-26] MEDS ORDERED: QUEtiapine FUMARATE 25 MG TABLET (FP) ONE (05:32)
--- NOTE | 2019-07-26 11:30 | PN ---
Teaching Attending Note Name of Resident: Primo Tellez ATTENDING PHYSICIAN STATEMENT I saw and evaluated the patient. I reviewed the resident's note and discussed the case with the resident. I agree with the resident's findings and plan as documented. SUBJECTIVE: No complaints currently. Tolerating full liquid diet without abdominal pain/nausea/vomiting., successfully moving his bowels (non-bloody). OBJECTIVE: Afebrile, Hemodynamically Stable. AAO x 2. Last Vital Signs Temp Pulse Resp BP Pulse Ox 98.5 F 82 20 118/59 L 97 07/26/19 06:05 07/26/19 10:04 07/26/19 06:05 07/26/19 06:05 07/26/19 10:04 Heart - S1 S2, RRR Lungs - decreased air entry at bases Abdomen - distended, soft, non-tender. Bowel Sounds normal. Extremities - chronic venous stasis skin changes. Mild tremor UEs. Neuro - Rousable, oriented x 2. Reduced power bilateral LEs. Laboratory Results - last 24 hr 07/25/19 07/25/19 12:57 12:57 WBC 8.1 RBC 3.81 L Hgb 12.0 Hct 36.3 MCV 95.4 MCH 31.6 MCHC 33.2 RDW 14.2 Plt Count 308 MPV 7.2 L Absolute Neuts (auto) 5.9 Neutrophils % 72.7 Lymphocytes % 14.5 D Monocytes % 7.5 Eosinophils % 4.6 H D Basophils % 0.7 Nucleated RBC % 0 Sodium 141 Potassium 3.4 L Chloride 106 Carbon Dioxide 32 Anion Gap 3 L BUN 13.8 Creatinine 0.7 Est GFR (CKD-EPI)AfAm 102.58 Est GFR (CKD-EPI)NonAf 88.50 Random Glucose 120 H Calcium 7.9 L Current Medications Generic Name Dose Route Start Last Admin Trade Name Freq PRN Reason Stop Dose Admin Acetaminophen 650 mg 07/24/19 18:21 07/25/19 18:01 Tylenol - PO 650 mg Q6H PRN Administration PAIN LEVEL 6-10 Atorvastatin Calcium 40 mg 07/24/19 22:00 07/25/19 23:17 Lipitor - PO 40 mg HS IRENE Administration Dextrose/Sodium Chloride 1,000 mls @ 50 mls/hr 07/24/19 18:19 07/25/19 18:24 D5-1/2ns - IV Not Given ASDIR IRENE Lisinopril 10 mg 07/24/19 10:00 07/25/19 11:59 Prinivil PO 10 mg DAILY IRENE Administration Metoprolol Tartrate 25 mg 07/24/19 10:00 07/25/19 23:17 Lopressor - PO 25 mg BID IRENE Administration Olanzapine 10 mg 07/24/19 12:00 07/25/19 12:00 Zyprexa - PO 10 mg DAILY IRENE Administration Oxycodone HCl 10 mg 07/25/19 18:12 07/26/19 00:42 Roxicodone - PO 10 mg Q6H PRN Administration PAIN LEVEL 6-10 Pantoprazole Sodium 40 mg 07/24/19 10:00 07/25/19 12:00 Protonix Iv IVPUSH 40 mg DAILY IRENE Administration Polyethylene Glycol 17 gm 07/25/19 14:00 07/25/19 23:18 Miralax (For Daily Use) - PO 17 gm TID IRENE Administration Quetiapine Fumarate 50 mg 07/24/19 14:00 07/25/19 23:17 Seroquel - PO 50 mg TID IRENE Administration Home Medications Medication Instructions Recorded Atorvastatin Ca [Lipitor] 40 mg PO HS #30 tablet 03/19/16 Metoprolol Tartrate [Lopressor -] 25 mg PO BID #60 tablet 03/19/16 Oxycodone HCl 10 mg PO Q4H PRN #30 tablet MDD 03/19/16 60mg Olanzapine [Zyprexa -] 10 mg PO ASDIR 08/27/16 Lisinopril [Prinivil] 10 mg PO DAILY #30 tablet 10/03/17 Atorvastatin Ca [Lipitor] 40 mg DAILY 07/23/19 Famotidine 20 mg PO DAILY 07/23/19 Lactulose 1 tbs PO DAILY 07/23/19 Quetiapine Fumarate [Seroquel -] 50 mg TID 07/23/19 Polyethylene Glycol 3350 [Miralax 17 gm PO DAILY PRN #1 bottle 07/26/19 (For Daily Use) -] ASSESSMENT AND PLAN: 83 year old man with history of Dementia, Parkinson's disease, HTN, HLD, PVD with intermittent claudication, Chronic stasis dermatitis, CKD 3, Osteoarthritis , GERD, Lyn's Esophagus with high grade dysplasia s/p Ablation Tx at [facility] [place], s /p appendectomy, presents with 2 day history of dark projectile vomiting associated with dark colored diarrhea. 1. Acute Partial SBO - resolved CT A/P - bilateral effusions L > R, partial SBO, L Nephrolithiasis, Prostate enlargement, fecal impaction. AXR shows resolution of ileus. Leukocytosis resolved. Miralax added by GI. For continued diet advancement, and discharge if tolerates regular consistency diet. GI/Surgery following for further recommendations. 2. Upper GI Bleed Coffee ground emesis noted on admission - no further episodes. FOBT negative. Continue PPI Further recommendations for work-up including out-patient EGD/Colonoscopy at [facility] [place] as per GI. 3. PD with bilateral LE weakness and gait disturbance. PT eval. Not on Sinemet or other PD medications Neurology follow up as out-patient. 4. HTN - Continue Lopressor, Lisinopril. 5. HLD - continue Statin 6. Dementia - normally on Seroquel, Zyprexa - resumed. 7. Hypokalemia - repleted. 8. Lyn's Esophagus with high grade dysplasia s/p RTx - for GI follow up - EGD as out-patient. DVT Px - SCDs. Heparin held due to reported coffee ground emesis.
[2019-07-26] MEDS: METOPROLOL TARTRATE 25 MG TABLET (FP) PO SCH (11:35)
[2019-07-26] MEDS: OLANZapine 10 MG TABLET PO SCH (11:35)
[2019-07-26] MEDS: LISINOPRIL 10 MG TABLET (FP) PO SCH (11:35)
[2019-07-26] MEDS: QUEtiapine FUMARATE 50 MG TABLET PO SCH ×2 (11:36→15:34)
[2019-07-26] MEDS: PANTOPRAZOLE SODIUM 40 MG VIAL IVPUSH SCH (11:37)
[2019-07-26] MEDS: POLYETHYLENE GLYCOL 3350 119 GM BTL PO SCH ×2 (11:37→15:34)
[2019-07-26 13:47] LABS: BLOOD UREA NITROGEN 9.7 mg/dL (7-18); CALCIUM 8.1 mg/dL (8.5-10.1); CREATININE 0.7 mg/dL (0.55-1.3); POTASSIUM 3.8 mmol/L (3.5-5.1)
--- NOTE | 2019-07-26 14:32 | DS ---
Physical Exam: SUBJECTIVE: Patient seen and examined at the bedside. The patient states that he is doing well and denies any pain. Denies cp, sob, abd pain, n/v/c/d, fever, chills. OBJECTIVE: Vital Signs Period Temp Pulse Resp BP Sys/Martinez Pulse Ox Last 24 Hr 98.5 F-98.5 F 59-82 20-20 118-155/59-80 97-97 PHYSICAL EXAM GENERAL: The patient is awake, alert, and oriented to self and place. EYES: ANDREI, EOMI, grossly intact visual field, conjunctiva clear. NECK: Normal range of motion, supple without lymphadenopathy, JVD, or masses. LUNGS: Clear to auscultation bilaterally. No crackles. No accessory muscle use. HEART: Regular rate and rhythm, no murmurs appreciated. ABDOMEN: Obese, distended, soft, non tender to palpation, BS present in all 4 quadrants. MUSCULOSKELETAL: No bony deformities or tenderness. UPPER EXTREMITIES: 2+ pulses, warm, well-perfused. No cyanosis. No clubbing. No peripheral edema. LOWER EXTREMITIES: 1+ edema BL. Venous stasis dermatitis BL. Shiny. Hairless distal to knee. 2+ pulses, warm, well-perfused. NEUROLOGICAL: Decreased sensation to touch distal to knee BL. Lower extremity power 4/5 BL. Cranial nerves II-XII intact. Normal speech. Gait not appreciated. PSYCHIATRIC: Cooperative. Good eye contact. Appropriate mood and affect. SKIN: Warm, dry, normal turgor, no rashes or lesions noted, normal capillary refill. LABS Laboratory Results - last 24 hr 07/26/19 13:10 Sodium 140 Potassium 3.8 Chloride 106 Carbon Dioxide 32 Anion Gap 3 L BUN 9.7 Creatinine 0.7 Est GFR (CKD-EPI)AfAm 102.58 Est GFR (CKD-EPI)NonAf 88.50 Random Glucose 131 H Calcium 8.1 L HOSPITAL COURSE: Tomer Whitfield is an 83 year old male with a past medical history of dementia, Parkinson disease, CKD, HTN, HLD, PVD, GERD, OA, colonic polyps, diverticulosis who was admitted for projectile dark vomiting and diarrhea of several day duration. Admission labs showed leukocytosis with left shift. Patient also endorsed abdominal distension. The patient underwent an abdominal CT which showed partial SBO and fecal impaction. FOBT was performed and was negative. Patient had NG tube placed but had self-removed it. Repeat AXR showed a resolution of ileus and repeat labs showed a resolution of leukocytosis. Patient was seen by GI who recommended Miralax to resolve fecal impaction, PPI, fluids. Patient was seen by surgery who deemed that there was no acute need for surgical intervention. Patient had SBO resolve and no further episodes of vomiting or diarrhea were present. The patient was able to tolerate diet. Patient will need to follow up with GI outpatient for possible outpatient colonoscopy and endoscopy. During admission, it was noted that the patient had weakness of his lower extremities. Due to difficulty in obtaining lumbar spine MRI, patient can follow up with neurology outpatient to deem need for MRI. Patient is to follow up with outpatient neurology for Parkinson's disease. Patient was discharged in stable medical condition and is to follow up with his primary care physician, orthopedics pediatric physician, and neurologist. 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 You had a CT scan of your abdomen which showed a partial obstruction in your intestines. You were seen by a general surgeon who did not recommend any surgical intervention. You were seen by a orthopedics pediatric physician (stomach, liver, intestine doctor) who recommended laxatives, Protonix, and to follow up in the outpatient clinic. MEDICATIONS STOP taking famotidine. Please start taking Miralax 17gm daily only as needed for constipation. Please start taking Protonix 40mg daily. Please continue taking all of your home medications as prescribed. REFERRALS Please follow up with your primary care physician, Dr. Amador Menon within 1 week. Please follow up with the orthopedics pediatric physician at [facility]. If you do not have one, you may make an appointment with Dr. Graeme Liriano, within 1 week. You will need outpatient evaluation for possible endoscopy and colonoscopy. Please follow up with a neurologist as an outpatient for further evaluation of your Parkinson's. If you do not have a neurologist, you may make an appointment with Dr. Williamson within 1 week. SPECIAL INSTRUCTIONS Eat slowly and chew your food thoroughly. Do not overconsume foods. Take all of your mediations as prescribed. If you have any further symptoms of nausea, vomiting, uncontrollable diarrhea, bloody bowel movements, fever, chills, or other general feelings of unwellness, please call 911 or go to your nearest emergency room. Referrals: Luis Williamson MD [Staff Physician] - 1 Week Graeme Liriano MD [Staff Physician] - 1 Week Mo Menon MD [Primary Care Provider] - 1 Week Disposition: VNS/HOME HEALTH CARE - Home Medications Comprehensive Discharge Medication List: Ambulatory Orders RX: Atorvastatin Ca [Lipitor] 40 mg PO HS #30 tablet 03/19/16 RX: Metoprolol Tartrate [Lopressor -] 25 mg PO BID #60 tablet 03/19/16 RX: Oxycodone HCl 10 mg PO Q4H PRN #30 tablet MDD 60mg 03/19/16 RX: Olanzapine [Zyprexa -] 10 mg PO ASDIR 08/27/16 RX: Lisinopril [Prinivil] 10 mg PO DAILY #30 tablet 10/03/17 RX: Atorvastatin Ca [Lipitor] 40 mg DAILY 07/23/19 RX: Quetiapine Fumarate [Seroquel -] 50 mg TID 07/23/19 Pantoprazole Sodium [Protonix -] 40 mg PO DAILY #30 tablet.ec 07/26/19 Polyethylene Glycol 3350 [Miralax (For Daily Use) -] 17 gm PO DAILY PRN #1 bottle 07/26/19 Problem List - Problems (1) Guerrier's esophagus with high grade dysplasia Code(s): K22.711 - GUERRIER'S ESOPHAGUS WITH HIGH GRADE DYSPLASIA (2) Diverticula of colon Code(s): K57.30 - DVRTCLOS OF LG INT W/O PERFORATION OR ABSCESS W/O BLEEDING (3) Parkinson disease Code(s): G20 - PARKINSON'S DISEASE (4) Abdominal pain Code(s): R10.9 - UNSPECIFIED ABDOMINAL PAIN Qualifiers: Abdominal location: unspecified location Qualified Code(s): R10.9 - Unspecified abdominal pain (5) Coffee ground emesis Code(s): K92.0 - HEMATEMESIS (6) Projectile vomiting with nausea Code(s): R11.12 - PROJECTILE VOMITING (7) SBO (small bowel obstruction) Code(s): K56.609 - UNSP INTESTNL OBST, UNSP TO PARTIAL VERSUS COMPLETE OBST (8) CKD (chronic kidney disease) stage 3, GFR 30-59 ml/min Code(s): N18.3 - CHRONIC KIDNEY DISEASE, STAGE 3 (MODERATE) (9) Dementia Code(s): F03.90 - UNSPECIFIED DEMENTIA WITHOUT BEHAVIORAL DISTURBANCE Qualifiers: Dementia type: Parkinson's disease Dementia behavioral disturbance: without behavioral disturbance Qualified Code(s): G20 - Parkinson's disease; F02.80 - Dementia in other diseases classified elsewhere without behavioral disturbance (10) HTN (hypertension) Code(s): I10 - ESSENTIAL (PRIMARY) HYPERTENSION (11) Hyperlipidemia Code(s): E78.5 - HYPERLIPIDEMIA, UNSPECIFIED (12) JAME (acute kidney injury) Code(s): N17.9 - ACUTE KIDNEY FAILURE, UNSPECIFIED This patient is new to me today: No Emergency Visit: No Critical Care patient: No - Discharge Referral Referred to [facility] Med [facility] No
[2019-07-26 15:04] VITALS: BP 104/44; PULSE 55; TEMP 98.6
== END 2019-07-26 19:33 | disposition home health service (06) | DRG 389 ==
LOC: JER 20:00 → JERBED 07-23 00:42 → J5S 07-24 00:15
PROVIDERS: ADMIT Internal Medicine
PROC: 0D9670Z Drainage of Stomach with Drainage Device, Via Natural or Artificial Opening (ICD-10-PCS; principal; 2019-07-22)
DX: K56.600 Partial intestinal obstruction, unspecified as to cause (principal); K92.2 Gastrointestinal hemorrhage, unspecified; G20 Parkinson's disease; F02.80 Dementia in other diseases classified elsewhere, unspecified severity, without behavioral disturbance, psychotic disturbance, mood disturbance, and anxiety; I10 Essential (primary) hypertension; E78.5 Hyperlipidemia, unspecified; I73.9 Peripheral vascular disease, unspecified; K21.9 Gastro-esophageal reflux disease without esophagitis; I12.9 Hypertensive chronic kidney disease with stage 1 through stage 4 chronic kidney disease, or unspecified chronic kidney disease; I87.2 Venous insufficiency (chronic) (peripheral); E66.9 Obesity, unspecified; Z68.38 Body mass index [BMI] 38.0-38.9, adult; Z87.891 Personal history of nicotine dependence; K22.711 Barrett's esophagus with high grade dysplasia; K44.9 Diaphragmatic hernia without obstruction or gangrene; K59.09 Other constipation; N18.3 Chronic kidney disease, stage 3 (moderate); E87.6 Hypokalemia; R53.1 Weakness; K57.90 Diverticulosis of intestine, part unspecified, without perforation or abscess without bleeding; K56.7 Ileus, unspecified; N40.0 Benign prostatic hyperplasia without lower urinary tract symptoms
CPT/HCPCS: 36415; 71045-TC-FY; 74019-TC-FY; 74177-TC; 80048; 80053; 81003; 82272; 82550; 83605; 83690; 83735; 84100; 84484; 85025; 85027; 85610; 85730; 86850; 86900; 86901; 87081; 93005; 93010; 94761; 97161-GP; 99285-25; J0131; J7030

== ENCOUNTER 2019-09-11 02:37 | Inpatient (IN) | payer OTHER ==
[2019-09-11 04:29] LABS: BASO % 0.4 % (0-2.0); EOS % 0.3 % (0-4.5); HEMATOCRIT 47.5 % (35.4-49); HEMOGLOBIN 15.6 GM/dL (11.7-16.9); LYMPH % 3.4 % (8-40); MCH 30.6 pg (25.7-33.7); MCHC 32.8 g/dl (32.0-35.9); MEAN CELL VOLUME 93.4 fl (80-96); MEAN PLT VOLUME 7.2 fl (7.5-11.1); MONO % 7.4 % (3.8-10.2); NEUT % 88.5 % (42.8-82.8); PLATELET COUNT 620 K/MM3 (134-434); RBC 5.09 M/mm3 (4.00-5.60); RDW 14.7 % (11.9-15.9)
--- NOTE | 2019-09-11 04:45 | PDOC ---
Attending Attestation - Resident Resident Name: Edi Linda - ED Attending Attestation I have performed the following: I have examined & evaluated the patient, The case was reviewed & discussed with the resident, I agree w/resident's findings & plan - HPI HPI: 09/11/19 04:44 Pt comes with vomiting x 5 episode and lower abdominal pain. He lives at home, where he is cared for by his . Pt has a hx of SBO Pt has no fevers and no chills. states that he has decreased appetite, as well as abdominal pain - Physicial Exam PE: 09/11/19 05:15 A+Ox2 person and place, but not time; NAD afebrile Pt is obese and bedridden Pt has ventral hernia Pt has lower abd pain right/left Pt has no flank pain Chronic skin changes of his lower legs bilaterally Redness of cellulitis and beefiness of fungal infection on his left chin and chest/neck - Medical Decision Making 09/11/19 05:41 WBC is 27; however lactic acid is 1.7 Pt will be treated for cellulitis of his face. He will get CT scan of his abd and pelvis. 09/13/19 06:52
--- NOTE | 2019-09-11 05:05 | PDOC ---
History of Present Illness - General Chief Complaint: Nausea/Vomiting Stated Complaint: NAUSEA/VOMITTING Time Seen by Provider: 09/11/19 03:55 History Source: Spouse ( at bedside.), Old Records Exam Limitations: Dementia - History of Present Illness Initial Comments: HPI: 84 y/o male presenting to [facility] ER for evaluation of one day of persistent nonbloody, nonbilious vomiting. Pt is demented at baseline and unable to provide HPI. Pt's is at bedside and reports he has thrown up approx. 5 times over the past 24 hours. At one point, the pt was complaining of generalized abdominal pain. Last BM was yesterday and believed to be normal. No blood or change in stool color noted. believes the pt was warm to the touch but did not measure his temperature. Of note, the pt has a concerning personal and familial colon history was admitted to this facility in July 2019 for a partial SBO. He was urged to f/ u with his servicing rep at [facility]. Pt did not follow up in the clinic. Family Hx: - Father of colon cancer - Brother has a h/o malignant cecal poly Medical Hx: - HTN - HLD - Parksinsons disease - Dementia - Cecal Adenoma - [place] Colonic Diverticula - Barretts esophagus with high grade dysplasia - Hiatal Hernia Review of Systems: Unable to perform secondary to baseline dementia Physical Examination: Vital signs and nursing notes reviewed. Constitutional- Elderly adult male in no acute distress or obvious discomfort. Obese body habitus. Found semi-fowlers on hospital bed. Head- Normocephalic. No obvious external signs of trauma. Eyes- Sclerae white. Neck- Supple, trachea is midline. Erythema with honey crusting extending from left corner of mouth down the chin and onto the left upper chest wall. No fluctuance or induration. No discharge. Cardiovascular / Chest- Regular rate and regular rhythm. No murmur, rubs, clicks , or gallops. Peripheral pulses- radial pulses full. Respiratory- Breathing unlabored. Equal chest rise and fall. Clear to auscultation bilaterally. No stridor, no wheezing, no rhonchi. Gastrointestinal- Pt winces when RLQ and LLQ are palpated. No guarding. Grossly , the abdomen is distended but not taught. Midline ventral hernia that spontaneously reduces with positional changes. No pulsatile masses. No overlying skin lesions or obvious signs of trauma. Neuro- Alert and oriented to person and place but disoriented to time and events. Moving all four extremities spontaneously. No facial asymmetry. No slurred speech. Skin- Warm, dry, and intact. Psych- Affect- appropriate. Mood- normal. Speech was non-labored, non- pressured. MDM: 84 y/o male with Parkinson's Dementia presenting with one day of emesis in setting of recent SBO and multiple GI comorbidities. Vitals remarkable for borderline tachycardia without hypotension. Physical exam as described above. 11 Sep 2019 06:34 AM Pt found vomiting coffee ground emesis. Stopped spontaneously. Ordered Protonix bolus and drip. Reviewed labs. Noted leukocytosis with left shift. Possible intra-abdominal process vs reactionary. Awaiting CTAP results before starting abx. Also noted likely JAME. Ordered LR IVFB. 11 Sep 2019 07:20 AM Pt signed out to resident Dr. Valerio after she was verbally appraised of the pts HPI, current ED course, and plan of management. Will f/u pending CTAP and abx initiation. Anticipate likely admission. Past History - Past Medical History Allergies/Adverse Reactions: Allergies Allergy/AdvReac Type Severity Reaction Status Date / Time No Known Allergies Allergy Verified 09/11/19 05:16 Home Medications: Ambulatory Orders Atorvastatin Ca [Lipitor] 40 mg PO HS #30 tablet 03/19/16 Metoprolol Tartrate [Lopressor -] 25 mg PO BID #60 tablet 03/19/16 Olanzapine [Zyprexa -] 10 mg PO ASDIR 08/27/16 Lisinopril [Prinivil] 10 mg PO DAILY #30 tablet 10/03/17 Atorvastatin Ca [Lipitor] 40 mg DAILY 07/23/19 Quetiapine Fumarate [Seroquel -] 50 mg TID 07/23/19 Pantoprazole Sodium [Protonix -] 40 mg PO DAILY #30 tablet.ec 07/26/19 Polyethylene Glycol 3350 [Miralax (For Daily Use) -] 17 gm PO DAILY PRN #1 bottle 07/26/19 Carbidopa/Levodopa *Cr* 50/200 [Sinemet *Cr* 50/200 -] 1 combo PO BID 09/11/19 Oxycodone HCl 200 mg PO Q4H PRN MDD 60mg 09/11/19 Ranitidine HCl [Zantac] 150 mg PO PRN 09/11/19 traZODone HCL [Desyrel -] 200 mg PO DAILY 09/11/19 Anemia: No Asthma: No Cancer: No Cardiac Disorders: Yes CVA: No COPD: No CHF: No Dementia: Yes Diabetes: No GI Disorders: Yes (COLONIC POLYPS,DIVERTICULOSIS) Disorders: Yes (BPH) HTN: Yes Hypercholesterolemia: Yes Liver Disease: No Seizures: Yes Thyroid Disease: No - Surgical History Abdominal Surgery: No Appendectomy: Yes Cardiac Surgery: No Cholecystectomy: No Lung Surgery: No Neurologic Surgery: No Orthopedic Surgery: Yes (S/P BILATERAL FOOT SURGERIES FOR HAMMER TOES WITH SUBSEQUENT REMOVAL OF) - Immunization History Immunization Up to Date: Yes - Psycho Social/Smoking Cessation Hx Smoking History: Never smoked Have you smoked in the past 12 months: No If you are a former smoker, when did you quit?: 1960 Hx Alcohol Use: No Drug/Substance Use Hx: No Substance Use Type: None Hx Substance Use Treatment: No *Physical Exam - Vital Signs Last Vital Signs Temp Pulse Resp BP Pulse Ox 36.6 C 102 H 18 152/84 99 09/11/19 02:44 09/11/19 02:44 09/11/19 02:44 09/11/19 02:44 09/11/19 02:44 ED Treatment Course - LABORATORY CBC & Chemistry Diagram: 09/16/19 09:05 09/15/19 11:20 - ADDITIONAL ORDERS Additional order review: Laboratory Results 09/11/19 09/11/19 09/11/19 04:25 04:15 04:15 Sodium Cancelled Cancelled Potassium Cancelled Cancelled Chloride Cancelled Cancelled Carbon Dioxide Cancelled Cancelled Anion Gap Cancelled Cancelled BUN Cancelled Cancelled Creatinine Cancelled Cancelled Est GFR (CKD-EPI)AfAm Cancelled Cancelled Est GFR (CKD-EPI)NonAf Cancelled Cancelled Random Glucose Cancelled Cancelled Lactic Acid 1.7 Calcium Cancelled Cancelled Phosphorus Cancelled Magnesium Cancelled Total Bilirubin Cancelled Cancelled AST Cancelled Cancelled ALT Cancelled Cancelled Alkaline Phosphatase Cancelled Cancelled Total Protein Cancelled Cancelled Albumin Cancelled Cancelled Lipase Cancelled 09/11/19 04:15 RBC 5.09 MCV 93.4 MCHC 32.8 RDW 14.7 MPV 7.2 L Neutrophils % 88.5 H D Lymphocytes % 3.4 L D Monocytes % 7.4 Eosinophils % 0.3 D Basophils % 0.4 Discharge - Discharge Information Problems reviewed: Yes Clinical Impression/Diagnosis: Bloating Emesis Qualifiers: Vomiting type: unspecified Vomiting Intractability: unspecified Nausea presence : unspecified Qualified Code(s): R11.10 - Vomiting, unspecified Leukocytosis Qualifiers: Leukocytosis type: unspecified Qualified Code(s): D72.829 - Elevated white blood cell count, unspecified Condition: Stable - Admission Yes - Follow up/Referral - Patient Discharge Instructions - Post Discharge Activity
[2019-09-11 06:11] LABS: ALBUMIN 3.7 g/dl (3.4-5.0); BILIRUBIN,TOTAL 1.1 mg/dL (0.2-1); BLOOD UREA NITROGEN 22.8 mg/dL (7-18); CALCIUM 9.5 mg/dL (8.5-10.1); CREATININE 1.5 mg/dL (0.55-1.3); MAGNESIUM 2.3 mg/dL (1.8-2.4); PHOSPHOROUS 3.6 mg/dL (2.5-4.9); POTASSIUM 4.3 mmol/L (3.5-5.1); TOT PROT 7.2 g/dl (6.4-8.2)
[2019-09-11] MEDS ORDERED: PANTOPRAZOLE SODIUM 40 MG VIAL IVPUSH ONE (06:31)
[2019-09-11] MEDS ORDERED: LACTATED RINGERS SOLUTION 1000 ML INFUS.BAG IV ONE (06:32)
[2019-09-11] MEDS ORDERED: PANTOPRAZOLE SODIUM 80 MG in SODIUM CHLORIDE 100 ML IVPB SCH (06:45)
[2019-09-11] MEDS ORDERED: PANTOPRAZOLE SODIUM 80 MG/200 ML BAG IVPB ONE (06:53)
[2019-09-11] MEDS ORDERED: PANTOPRAZOLE SODIUM 40 MG VIAL ONE (06:53)
--- NOTE | 2019-09-11 08:47 | EKG ---
Test Reason : Blood Pressure : / mmHG Vent. Rate : 103 BPM Atrial Rate : 103 BPM P-R Int : 172 ms QRS Dur : 082 ms QT Int : 350 ms P-R-T Axes : 060 138 005 degrees QTc Int : 458 ms SINUS TACHYCARDIA RIGHT AXIS DEVIATION RIGHT VENTRICULAR HYPERTROPHY NONSPECIFIC ST AND T WAVE ABNORMALITY ABNORMAL ECG WHEN COMPARED WITH ECG OF 23-JUL-2019 09:21, NONSPECIFIC T WAVE ABNORMALITY NOW EVIDENT IN INFERIOR LEADS QT HAS SHORTENED Confirmed by ADAMARIS HARKINS, HARLEY ([id number]) on 09/11/2019 8:46:49 AM Referred By: Confirmed By:HARLEY BAILON MD
[2019-09-11] MEDS ORDERED: TETRACAINE/BENZOCAINE/BUTAMBEN 20 GM SPR TP ONE (09:20)
[2019-09-11] MEDS ORDERED: ONDANSETRON 4 MG/2 ML VIAL IVPB ONE (09:20)
[2019-09-11] MEDS ORDERED: ONDANSETRON 4 MG/2 ML VIAL ONE (09:27)
--- NOTE | 2019-09-11 09:35 | PDOC ---
History of Present Illness - General Chief Complaint: Nausea/Vomiting Stated Complaint: NAUSEA/VOMITTING Time Seen by Provider: 09/11/19 03:55 Past History - Past Medical History Allergies/Adverse Reactions: Allergies Allergy/AdvReac Type Severity Reaction Status Date / Time No Known Allergies Allergy Verified 09/11/19 05:16 Home Medications: Ambulatory Orders Atorvastatin Ca [Lipitor] 40 mg PO HS #30 tablet 03/19/16 Metoprolol Tartrate [Lopressor -] 25 mg PO BID #60 tablet 03/19/16 Olanzapine [Zyprexa -] 10 mg PO ASDIR 08/27/16 Lisinopril [Prinivil] 10 mg PO DAILY #30 tablet 10/03/17 Atorvastatin Ca [Lipitor] 40 mg DAILY 07/23/19 Quetiapine Fumarate [Seroquel -] 50 mg TID 07/23/19 Pantoprazole Sodium [Protonix -] 40 mg PO DAILY #30 tablet.ec 07/26/19 Polyethylene Glycol 3350 [Miralax (For Daily Use) -] 17 gm PO DAILY PRN #1 bottle 07/26/19 Carbidopa/Levodopa *Cr* 50/200 [Sinemet *Cr* 50/200 -] 1 combo PO BID 09/11/19 Oxycodone HCl 200 mg PO Q4H PRN MDD 60mg 09/11/19 Ranitidine HCl [Zantac] 150 mg PO PRN 09/11/19 traZODone HCL [Desyrel -] 200 mg PO DAILY 09/11/19 Anemia: No Asthma: No Cancer: No Cardiac Disorders: Yes CVA: No COPD: No CHF: No Dementia: Yes Diabetes: No GI Disorders: Yes (COLONIC POLYPS,DIVERTICULOSIS) Disorders: Yes (BPH) HTN: Yes Hypercholesterolemia: Yes Liver Disease: No Seizures: Yes Thyroid Disease: No - Surgical History Abdominal Surgery: No Appendectomy: Yes Cardiac Surgery: No Cholecystectomy: No Lung Surgery: No Neurologic Surgery: No Orthopedic Surgery: Yes (S/P BILATERAL FOOT SURGERIES FOR HAMMER TOES WITH SUBSEQUENT REMOVAL OF) - Immunization History Immunization Up to Date: Yes - Psycho Social/Smoking Cessation Hx Smoking History: Never smoked Have you smoked in the past 12 months: No If you are a former smoker, when did you quit?: 1959 Hx Alcohol Use: No Drug/Substance Use Hx: No Substance Use Type: None Hx Substance Use Treatment: No *Physical Exam - Vital Signs Last Vital Signs Temp Pulse Resp BP Pulse Ox 97.9 F 99 H 18 127/57 L 96 09/11/19 02:44 09/11/19 08:30 09/11/19 08:30 09/11/19 08:30 09/11/19 08:30 ED Treatment Course - LABORATORY CBC & Chemistry Diagram: 09/11/19 04:15 09/11/19 05:25 - ADDITIONAL ORDERS Additional order review: Laboratory Results 09/11/19 09/11/19 09/11/19 05:25 04:25 04:15 Sodium 143 Cancelled Potassium 4.3 Cancelled Chloride 104 Cancelled Carbon Dioxide 29 Cancelled Anion Gap 10 Cancelled BUN 22.8 H Cancelled Creatinine 1.5 H Cancelled Est GFR (CKD-EPI)AfAm 49.54 Cancelled Est GFR (CKD-EPI)NonAf 42.74 Cancelled Random Glucose 130 H Cancelled Lactic Acid 1.7 Calcium 9.5 Cancelled Phosphorus 3.6 Cancelled Magnesium 2.3 Cancelled Total Bilirubin 1.1 H Cancelled AST 22 Cancelled ALT 29 Cancelled Alkaline Phosphatase 134 H Cancelled Total Protein 7.2 Cancelled Albumin 3.7 Cancelled Lipase Cancelled 09/11/19 04:15 Sodium Cancelled Potassium Cancelled Chloride Cancelled Carbon Dioxide Cancelled Anion Gap Cancelled BUN Cancelled Creatinine Cancelled Est GFR (CKD-EPI)AfAm Cancelled Est GFR (CKD-EPI)NonAf Cancelled Random Glucose Cancelled Lactic Acid Calcium Cancelled Phosphorus Magnesium Total Bilirubin Cancelled AST Cancelled ALT Cancelled Alkaline Phosphatase Cancelled Total Protein Cancelled Albumin Cancelled Lipase 09/11/19 04:15 RBC 5.09 MCV 93.4 MCHC 32.8 RDW 14.7 MPV 7.2 L Neutrophils % 88.5 H D Lymphocytes % 3.4 L D Monocytes % 7.4 Eosinophils % 0.3 D Basophils % 0.4 - Medications Given in the ED: ED Medications Discontinued Medications Generic Name Dose Route Start Last Admin Trade Name Freq PRN Reason Stop Dose Admin Lactated Ringer's 1,000 ml 09/11/19 06:32 09/11/19 07:10 Lactated Ringers Solution IV 09/11/19 06:33 1,000 ml ONCE ONE Administration Pantoprazole Sodium 40 mg 09/11/19 06:31 09/11/19 07:08 Protonix Iv IVPUSH 09/11/19 06:32 40 mg ONCE ONE Administration Medical Decision Making - Medical Decision Making 09/11/19 09:35 A nonobstructing 0.6 cm calculus is noted in the mid to upper pole of the left kidney. This was noted to be present on the prior study. No retroperitoneal or pelvic lymphadenopathy is seen. No free fluid is seen in the abdomen and pelvis. No abdominal or pelvic soft tissue mass is identified. The stomach is distended with oral contrast and air. No discrete abnormality is seen. There is mild distention of the duodenum and proximal jejunum, which may represent localized ileus. The remainder of the small bowel is unremarkable. Multiple sigmoid and descending colon diverticula are identified. This was noted to be present on the prior study. A significant amount of retained stool is seen within the rectosigmoid colon, which indicates impaction. The urinary bladder is suboptimally distended and grossly unremarkable. The seminal vesicles are symmetric in size. The prostate gland is enlarged. This was noted to be present on the prior study. A small umbilical hernia is noted, which contains fat. The abdominal aorta is atherosclerotic. Osteodegenerative changes are identified involving the visualized thoracolumbar spine and pelvis. Discharge - Follow up/Referral Referrals: Mo Menon MD [Primary Care Provider] - - Patient Discharge Instructions - Post Discharge Activity
[2019-09-11 10:18] LABS: EPI CELLS 8.2 /HPF (0-5/HPF); HYALINE CASTS 201 /lpf (0-8); URINE APPEARANCE TURBID; URINE BILIRUBIN 2+ (NEGATIVE); URINE COLOR DK YELLOW; URINE GLUCOSE (UA) NEGATIVE (NEGATIVE); URINE KETONE 1+ (NEGATIVE); URINE LEUK ESTERASE 2+ (NEGATIVE); URINE NITRITE NEGATIVE (NEGATIVE); URINE PROTEIN 3+ (NEGATIVE); URINE WBC 4354 /hpf (0-5)
[2019-09-11] MEDS ORDERED: PIPERACILLIN/TAZOB 2.25 GM 2.25 GM in DEXTROSE 5%-WATER - 50 ML IVPB ONE (10:35)
[2019-09-11] MEDS ORDERED: PIPERACILLIN/TAZOB 2.25 GM 2.25 GM/50 ML BAG IVPB ONE (10:43)
[2019-09-11 11:00] LABS: URINE RBC 117.4 /hpf (0-4)
--- NOTE | 2019-09-11 11:07 | PDOC ---
*Physical Exam - Vital Signs Last Vital Signs Temp Pulse Resp BP Pulse Ox 98.9 F 96 H 18 132/69 94 L 09/11/19 09:30 09/11/19 10:00 09/11/19 10:00 09/11/19 10:00 09/11/19 10:00 ED Treatment Course - LABORATORY CBC & Chemistry Diagram: 09/18/19 09:05 09/18/19 16:00 - ADDITIONAL ORDERS Additional order review: Laboratory Results 09/11/19 09/11/19 09/11/19 09:10 09:10 05:25 Sodium 143 Potassium 4.3 Chloride 104 Carbon Dioxide 29 Anion Gap 10 BUN 22.8 H Creatinine 1.5 H Est GFR (CKD-EPI)AfAm 49.54 Est GFR (CKD-EPI)NonAf 42.74 Random Glucose 130 H Lactic Acid Calcium 9.5 Phosphorus 3.6 Magnesium 2.3 Total Bilirubin 1.1 H AST 22 ALT 29 Alkaline Phosphatase 134 H Total Protein 7.2 Albumin 3.7 Lipase Urine Color Dk yellow Urine Appearance Turbid Urine pH 5.0 D Ur Specific [place] 1.030 Urine Protein 3+ H Urine Glucose (UA) Negative Urine Ketones 1+ H Urine Blood 3+ H Urine Nitrite Negative Urine Bilirubin 2+ H Urine Urobilinogen 1.0 Ur Leukocyte Esterase 2+ H Urine WBC (Auto) 4354 Urine Casts (Auto) 201 U Epithel Cells (Auto) 8.2 Urine Bacteria (Auto) 526.0 Stool Occult Blood Negative 09/11/19 09/11/19 09/11/19 04:25 04:15 04:15 Sodium Cancelled Cancelled Potassium Cancelled Cancelled Chloride Cancelled Cancelled Carbon Dioxide Cancelled Cancelled Anion Gap Cancelled Cancelled BUN Cancelled Cancelled Creatinine Cancelled Cancelled Est GFR (CKD-EPI)AfAm Cancelled Cancelled Est GFR (CKD-EPI)NonAf Cancelled Cancelled Random Glucose Cancelled Cancelled Lactic Acid 1.7 Calcium Cancelled Cancelled Phosphorus Cancelled Magnesium Cancelled Total Bilirubin Cancelled Cancelled AST Cancelled Cancelled ALT Cancelled Cancelled Alkaline Phosphatase Cancelled Cancelled Total Protein Cancelled Cancelled Albumin Cancelled Cancelled Lipase Cancelled Urine Color Urine Appearance Urine pH Ur Specific [place] Urine Protein Urine Glucose (UA) Urine Ketones Urine Blood Urine Nitrite Urine Bilirubin Urine Urobilinogen Ur Leukocyte Esterase Urine WBC (Auto) Urine Casts (Auto) U Epithel Cells (Auto) Urine Bacteria (Auto) Stool Occult Blood 09/11/19 04:15 RBC 5.09 MCV 93.4 MCHC 32.8 RDW 14.7 MPV 7.2 L Neutrophils % 88.5 H D Lymphocytes % 3.4 L D Monocytes % 7.4 Eosinophils % 0.3 D Basophils % 0.4 - RADIOLOGY Radiology Studies Ordered: Category Date Time Status CXRPORT [CHEST X-RAY PORTABLE*] [RAD] Stat Radiology 09/11/19 10:08 Completed - Medications Given in the ED: ED Medications Discontinued Medications Generic Name Dose Route Start Last Admin Trade Name Freq PRN Reason Stop Dose Admin Benzocaine/Butamben/Tetracaine HCl 1 spray 09/11/19 09:20 09/11/19 09:35 Cetacaine Flushing - TP 09/11/19 09:21 1 spray ONCE ONE Administration Piperacillin Sod/Tazobactam 50 mls @ 100 mls/hr 09/11/19 10:35 09/11/19 10:40 Sod 2.25 gm/ Dextrose IVPB 09/11/19 11:04 100 mls/hr ONCE ONE Administration Protocol Lactated Ringer's 1,000 ml 09/11/19 06:32 09/11/19 07:10 Lactated Ringers Solution IV 09/11/19 06:33 1,000 ml ONCE ONE Administration Ondansetron HCl 4 mg 09/11/19 09:20 09/11/19 09:25 Zofran Injection IVPB 09/11/19 09:21 4 mg ONCE ONE Administration Pantoprazole Sodium 40 mg 09/11/19 06:31 09/11/19 07:08 Protonix Iv IVPUSH 09/11/19 06:32 40 mg ONCE ONE Administration Medical Decision Making - Medical Decision Making 10/01/19 06:[address] Linda 84 y/o male presenting to [facility] ER for evaluation of one day of persistent nonbloody, nonbilious vomiting. Pt is demented at baseline and unable to provide HPI. Pt's is at bedside and reports he has thrown up approx. 5 times over the past 24 hours. At one point, the pt was complaining of generalized abdominal pain. Last BM was yesterday and believed to be normal. No blood or change in stool color noted. believes the pt was warm to the touch but did not measure his temperature. Of note, the pt has a concerning personal and familial colon history was admitted to this facility in July 2019 for a partial SBO. He was urged to f/ u with his venetian blind maker at [facility]. Pt did not follow up in the clinic. pending CT. labs shwo leukocytosis, uti, [place]. could be septic from uti. started on abx. CTAP shows ileus. NGT placed. guaiac negative, does not have gi bleed. per admitting team, wanted consult for surgery. surgery consulted per admittin gteam request. admitted med/surg Discharge - Discharge Information Problems reviewed: Yes Clinical Impression/Diagnosis: Bloating Emesis Qualifiers: Vomiting type: unspecified Vomiting Intractability: unspecified Nausea presence : unspecified Qualified Code(s): R11.10 - Vomiting, unspecified Leukocytosis Qualifiers: Leukocytosis type: unspecified Qualified Code(s): D72.829 - Elevated white blood cell count, unspecified Condition: Improved Disposition: HOME - Follow up/Referral - Patient Discharge Instructions - Post Discharge Activity
[2019-09-11] MEDS: DEXTROSE 5%-0.45% SALINE 1,000 ML IV SCH ×2 (12:04→16:32)
[2019-09-11] MEDS ORDERED: ACETAMINOPHEN INJECTION 100 ML IVPB ONE (13:20)
[2019-09-11] MEDS ORDERED: ACETAMINOPHEN 1000 MG/100 ML VIAL (NON FORMULARY) IVPB ONE (13:21)
[2019-09-11 13:58] LABS: ANISOCYTOSIS 1+; MACROCYTOSIS 1+; PLATELET ESTIMATE NORMAL
[2019-09-11] MEDS ORDERED: PIPERACILLIN/TAZOBACTAM 3.375 GM VIAL IVPB ONE (17:04)
[2019-09-11] MEDS ORDERED: DEXTROSE 5%-WATER - 50 ML IVPB ONE (17:04)
[2019-09-11] MEDS: PIPERACILLIN/TAZOB 3.375 GM 3.375 GM in DEXTROSE 5%-WATER - 50 ML IVPB SCH (17:14)
--- NOTE | 2019-09-11 17:38 | HP ---
CHIEF COMPLAINT: Vomiting PCP: HISTORY OF PRESENT ILLNESS: 84 y/o male presenting to [facility] ER for evaluation of one day of persistent nonbloody, nonbilious vomiting. Pt is demented at baseline and unable to provide HPI. Pt's is at bedside and reports he has thrown up approx. 5 times over the past 24 hours. At one point, the pt was complaining of generalized abdominal pain. Last BM was yesterday and believed to be normal. No blood or change in stool color noted. believes the pt was warm to the touch but did not measure his temperature. When he had a CAT scan done in the ER it showed use. Also his white cell count was very high at 27,000. His urine shows large WBCs and there the patient is being admitted to the hospital for possible urinary tract infection sepsis and intestinal obstructions. ER course was notable for: (1) nonbloody persistent vomiting (2) very high white cell count (3) suction on the CAT scan Recent Travel: None PAST MEDICAL HISTORY: History of dementia, parkinsonism, hyperlipidemia, hypertension, arthritis PAST SURGICAL HISTORY: does remember Social History: No smoking alcohol or drug use Smoking: Alcohol: Drugs: Allergies No Known Allergies Allergy (Verified 09/11/19 05:16) HOME MEDICATIONS: Home Medications Medication Instructions Recorded Atorvastatin Ca [Lipitor] 40 mg PO HS #30 tablet 03/19/16 Metoprolol Tartrate [Lopressor -] 25 mg PO BID #60 tablet 03/19/16 Olanzapine [Zyprexa -] 10 mg PO ASDIR 08/27/16 Lisinopril [Prinivil] 10 mg PO DAILY #30 tablet 10/03/17 Atorvastatin Ca [Lipitor] 40 mg DAILY 07/23/19 Quetiapine Fumarate [Seroquel -] 50 mg TID 07/23/19 Pantoprazole Sodium [Protonix -] 40 mg PO DAILY #30 tablet.ec 07/26/19 Polyethylene Glycol 3350 [Miralax 17 gm PO DAILY PRN #1 bottle 07/26/19 (For Daily Use) -] Carbidopa/Levodopa *Cr* 50/200 1 combo PO BID 09/11/19 [Sinemet *Cr* 50/200 -] Oxycodone HCl 200 mg PO Q4H PRN MDD 60mg 09/11/19 Ranitidine HCl [Zantac] 150 mg PO PRN 09/11/19 traZODone HCL [Desyrel -] 200 mg PO DAILY 09/11/19 REVIEW OF SYSTEMS Head no headache no dizziness Ear nose throat no epistaxis Cardiovascular no chest pain Pulmonary no wheezing no coughing GI he has persistent vomiting which is not bloody and abdominal pain Endocrine no history of diabetes hypothyroidism Neuro no history of stroke Dermatology no history of stroke Locomotor no history of joint pain Rest of review of systems are negative PHYSICAL EXAMINATION Patient is comfortable HEENT normal Neck supple no JVD Lungs clear no wheezing Abdomen nontender no organomegaly bowel sounds are slow but present Extremities no edema no cyanosis normal pulses Neurologically he is alert awake oriented, nonfocal Skin no rash noted Vital Signs - 24 hr 09/11/19 09/11/19 09/11/19 02:44 08:17 08:30 Temperature 97.9 F Pulse Rate 102 H Pulse Rate [ 106 H 99 H Right Radial] Respiratory 18 18 18 Rate Blood Pressure 152/84 Blood Pressure 124/67 127/57 L [Right Arm] O2 Sat by Pulse 99 96 96 Oximetry (%) 09/11/19 09/11/19 09/11/19 09:30 10:00 11:49 Temperature 98.9 F Pulse Rate Pulse Rate [ 97 H 96 H 92 H Right Radial] Respiratory 19 18 18 Rate Blood Pressure Blood Pressure 102/64 132/69 130/66 [Right Arm] O2 Sat by Pulse 96 94 L 99 Oximetry (%) 09/11/19 09/11/19 13:00 14:25 Temperature 101.1 F H Pulse Rate Pulse Rate [ 110 H 85 Right Radial] Respiratory 21 H 18 Rate Blood Pressure Blood Pressure 121/68 104/62 [Right Arm] O2 Sat by Pulse 99 98 Oximetry (%) Laboratory Results - last 24 hr 09/11/19 09/11/19 09/11/19 04:15 04:15 04:15 WBC 27.0 H RBC 5.09 Hgb 15.6 Hct 47.5 D MCV 93.4 MCH 30.6 MCHC 32.8 RDW 14.7 Plt Count 620 H D MPV 7.2 L Absolute Neuts (auto) 23.9 H Neutrophils % 88.5 H D Neutrophils % (Manual) 91.4 H Band Neutrophils % 1.9 Lymphocytes % 3.4 L D Lymphocytes % (Manual) 1.9 L D Monocytes % 7.4 Monocytes % (Manual) 2 L Eosinophils % 0.3 D Eosinophils % (Manual) 0.0 Basophils % 0.4 Basophils % (Manual) 0.0 Myelocytes % (Man) 0 Promyelocytes % (Man) 0 Blast Cells % (Manual) 0 Nucleated RBC % 0 Metamyelocytes 0 Hypochromia 0 Platelet Estimate Normal Polychromasia 1+ Poikilocytosis 0 Anisocytosis 1+ Microcytosis 0 Macrocytosis 1+ Sodium Cancelled Cancelled Potassium Cancelled Cancelled Chloride Cancelled Cancelled Carbon Dioxide Cancelled Cancelled Anion Gap Cancelled Cancelled BUN Cancelled Cancelled Creatinine Cancelled Cancelled Est GFR (CKD-EPI)AfAm Cancelled Cancelled Est GFR (CKD-EPI)NonAf Cancelled Cancelled Random Glucose Cancelled Cancelled Lactic Acid Calcium Cancelled Cancelled Phosphorus Cancelled Magnesium Cancelled Total Bilirubin Cancelled Cancelled AST Cancelled Cancelled ALT Cancelled Cancelled Alkaline Phosphatase Cancelled Cancelled Total Protein Cancelled Cancelled Albumin Cancelled Cancelled Lipase Cancelled Urine Color Urine Appearance Urine pH Ur Specific [place] Urine Protein Urine Glucose (UA) Urine Ketones Urine Blood Urine Nitrite Urine Bilirubin Urine Urobilinogen Ur Leukocyte Esterase Urine WBC (Auto) Urine RBC (Auto) Urine Casts (Auto) U Epithel Cells (Auto) Urine Bacteria (Auto) Stool Occult Blood 09/11/19 09/11/19 09/11/19 04:25 05:25 09:10 WBC RBC Hgb Hct MCV MCH MCHC RDW Plt Count MPV Absolute Neuts (auto) Neutrophils % Neutrophils % (Manual) Band Neutrophils % Lymphocytes % Lymphocytes % (Manual) Monocytes % Monocytes % (Manual) Eosinophils % Eosinophils % (Manual) Basophils % Basophils % (Manual) Myelocytes % (Man) Promyelocytes % (Man) Blast Cells % (Manual) Nucleated RBC % Metamyelocytes Hypochromia Platelet Estimate Polychromasia Poikilocytosis Anisocytosis Microcytosis Macrocytosis Sodium 143 Potassium 4.3 Chloride 104 Carbon Dioxide 29 Anion Gap 10 BUN 22.8 H Creatinine 1.5 H Est GFR (CKD-EPI)AfAm 49.54 Est GFR (CKD-EPI)NonAf 42.74 Random Glucose 130 H Lactic Acid 1.7 Calcium 9.5 Phosphorus 3.6 Magnesium 2.3 Total Bilirubin 1.1 H AST 22 ALT 29 Alkaline Phosphatase 134 H Total Protein 7.2 Albumin 3.7 Lipase Urine Color Dk yellow Urine Appearance Turbid Urine pH 5.0 D Ur Specific [place] 1.030 Urine Protein 3+ H Urine Glucose (UA) Negative Urine Ketones 1+ H Urine Blood 3+ H Urine Nitrite Negative Urine Bilirubin 2+ H Urine Urobilinogen 1.0 Ur Leukocyte Esterase 2+ H Urine WBC (Auto) 4354 Urine RBC (Auto) 117.4 Urine Casts (Auto) 201 U Epithel Cells (Auto) 8.2 Urine Bacteria (Auto) 526.0 Stool Occult Blood 09/11/19 09:10 WBC RBC Hgb Hct MCV MCH MCHC RDW Plt Count MPV Absolute Neuts (auto) Neutrophils % Neutrophils % (Manual) Band Neutrophils % Lymphocytes % Lymphocytes % (Manual) Monocytes % Monocytes % (Manual) Eosinophils % Eosinophils % (Manual) Basophils % Basophils % (Manual) Myelocytes % (Man) Promyelocytes % (Man) Blast Cells % (Manual) Nucleated RBC % Metamyelocytes Hypochromia Platelet Estimate Polychromasia Poikilocytosis Anisocytosis Microcytosis Macrocytosis Sodium Potassium Chloride Carbon Dioxide Anion Gap BUN Creatinine Est GFR (CKD-EPI)AfAm Est GFR (CKD-EPI)NonAf Random Glucose Lactic Acid Calcium Phosphorus Magnesium Total Bilirubin AST ALT Alkaline Phosphatase Total Protein Albumin Lipase Urine Color Urine Appearance Urine pH Ur Specific [place] Urine Protein Urine Glucose (UA) Urine Ketones Urine Blood Urine Nitrite Urine Bilirubin Urine Urobilinogen Ur Leukocyte Esterase Urine WBC (Auto) Urine RBC (Auto) Urine Casts (Auto) U Epithel Cells (Auto) Urine Bacteria (Auto) Stool Occult Blood Negative CBC, BMP 09/11/19 04:15 09/11/19 05:25 Chest x-ray shows normal no pneumonia but NG tube is in place CAT scan of the abdomen impression as follows hiatal hernia with abdominal findings. Distended stomach duodenum and proximal jejunal loops consistent with a partial small bowel obstruction. Recommended clinical and surgical correlation and follow-up line colonic diverticulosis without evidence of acute diverticulitis nonobstructive left renal calculus enlarged prostate and stool in the rectum and sigmoid colon. No free air ASSESSMENT/PLAN: 84-year-old male presented to the ER with abdominal pain and vomiting found to have multiple medical problem 1. Acute abdomen possibly due to partial obstruction #2 acute sepsis possibly due to UTI or other causes #3 hypertension #4 hyperlipidemia #5 dementia #6 parkinsonism #7 arthritis. At this time make him n.p.o. start him NG tube on suction hold all his medication repeat urine in the morning Surgical evaluation Dr. Rossi discussed with him in detail. IV antibiotic is on get Zosyn and Flagyl. Will hold all his medication tonight and tomorrow morning we will repeat F UA if any improvement and he had a bowel movement we will remove NG tube and restart his medication for parkinsonism and his blood pressure medication to tonight his pressure is uncontrolled so we will just watch. Visit type - Emergency Visit Emergency Visit: Yes ED Registration Date: 09/11/19 Care time: The patient presented to the Emergency Department on the above date and was hospitalized for further evaluation of their emergent condition. - New Patient This patient is new to me today: Yes Date on this admission: 09/11/19 - Critical Care Critical Care patient: No
[2019-09-11] MEDS ORDERED: PIPERACILLIN/TAZOB 3.375 GM 3.375 GM in DEXTROSE 5%-WATER - 50 ML IVPB SCH (18:00)
[2019-09-11 19:09] VITALS: BMI 32.8
[2019-09-11] MEDS: HEPARIN NA (PORCINE) 5,000 UNITS/ML 1ML VIAL SQ SCH (21:41)
[2019-09-12] MEDS ORDERED: ACETAMINOPHEN 1000 MG/100 ML VIAL (NON FORMULARY) IVPB ONE (01:44)
[2019-09-12] MEDS ORDERED: DEXTROSE 5%-WATER - 50 ML IVPB ONE (02:00)
[2019-09-12] MEDS ORDERED: PIPERACILLIN/TAZOBACTAM 3.375 GM VIAL IVPB ONE (02:00)
[2019-09-12] MEDS: PIPERACILLIN/TAZOB 3.375 GM 3.375 GM in DEXTROSE 5%-WATER - 50 ML IVPB SCH (02:04)
[2019-09-12 07:46] LABS: BASO % 0.3 % (0-2.0); EOS % 0.7 % (0-4.5); HEMATOCRIT 40.1 % (35.4-49); HEMOGLOBIN 13.3 GM/dL (11.7-16.9); LYMPH % 13.7 % (8-40); MCH 31.2 pg (25.7-33.7); MCHC 33.3 g/dl (32.0-35.9); MEAN CELL VOLUME 93.8 fl (80-96); MEAN PLT VOLUME 7.1 fl (7.5-11.1); MONO % 14.2 % (3.8-10.2); NEUT % 71.1 % (42.8-82.8); PLATELET COUNT 434 K/MM3 (134-434); RBC 4.28 M/mm3 (4.00-5.60); RDW 15.3 % (11.9-15.9); WHITE BLOOD COUNT 10.2 K/mm3 (4.0-10.0)
--- NOTE | 2019-09-12 07:51 | PN ---
Progress Note (short form) - Note Progress Note: GI CONSULT DICTATED IMPRESSION: SBO CONSTIPATION REC: NPO / NGT INTERMITTENT SUCTION MONITOR CHEMISTRY IVF'S SURGERY EVALUATION TAP WATER ENEMAS DR SEYMOUR TO RESUME CARE FRIDAY SEE FULL CONSULT DICTATED
[2019-09-12] MEDS: DEXTROSE 5%-0.45% SALINE 1,000 ML IV SCH (09:46)
[2019-09-12] MEDS: PANTOPRAZOLE SODIUM 40 MG VIAL IVPUSH SCH (09:48)
[2019-09-12] MEDS: HEPARIN NA (PORCINE) 5,000 UNITS/ML 1ML VIAL SQ SCH ×2 (11:00→22:48)
--- NOTE | 2019-09-12 12:04 | PN ---
Progress Note (short form) - Note Progress Note: surgery full consult dictated yesterday. pt seen and examined yesterday and today. afebrile wbc now normal- ngt minimal abd- soft, nt, obese Plan- asked to evalute for leukocytosis and ileus. leukocytosis resolved. ileus is not managed with surgery. ct shows possible psbo in proximal bowel. reccommend gi eval and small bowel imaging. recommend thoracic surgery eval for para-esophageal hernia. no indication for surgical exploration. pt is no toxic. no high grade sbo. no ischemic bowel.
--- NOTE | 2019-09-12 15:52 | PN ---
Progress Note, Physician Chief Complaint: nausea and vomiting History of Present Illness: felling better, no nausea, vomiting. no bm but passing flatus. no abd pain - Current Medication List Current Medications: Active Medications Heparin Sodium (Porcine) (Heparin -) 5,000 unit SQ BID [facility] [place] Last Admin: 09/11/19 21:41 Dose: 5,000 unit Dextrose/Sodium Chloride (D5-1/2ns -) 1,000 mls @ 83 mls/hr IV ASDIR [facility] [place] Last Admin: 09/12/19 09:46 Dose: 83 mls/hr Metronidazole (Flagyl 500mg Premixed Ivpb -) 500 mg in 100 mls @ 100 mls/hr IVPB Q8H-IV IRENE Last Admin: 09/12/19 09:48 Dose: 100 mls/hr Piperacillin Sod/Tazobactam (Sod 3.375 gm/ Dextrose) 50 mls @ 100 mls/hr IVPB Q8H-IV IRENE; Protocol Pantoprazole Sodium (Protonix Iv) 40 mg IVPUSH DAILY [facility] [place] Last Admin: 09/12/19 09:48 Dose: 40 mg - Objective Vital Signs: Vital Signs Temperature 98.3 F 09/12/19 14:48 Pulse Rate 84 09/12/19 14:48 Respiratory Rate 18 09/12/19 14:48 Blood Pressure 125/67 09/12/19 14:48 O2 Sat by Pulse Oximetry (%) 97 09/12/19 09:00 Constitutional: Yes: Well Nourished, No Distress, Calm HENT: Yes: Other (+ng tube) Cardiovascular: Yes: WNL, Regular Rate and Rhythm Respiratory: Yes: WNL, Regular, CTA Bilaterally Gastrointestinal: Yes: WNL, Normal Bowel Sounds, Soft, Abdomen, Obese. No: Tenderness, Tenderness, Epigastrium, Tenderness, Rebound, Vomiting Musculoskeletal: Yes: WNL Extremities: Yes: WNL Edema: No Labs: CBC, BMP 09/12/19 06:27 09/11/19 05:25 Problem List - Problems (1) CKD (chronic kidney disease) stage 3, GFR 30-59 ml/min Code(s): N18.3 - CHRONIC KIDNEY DISEASE, STAGE 3 (MODERATE) (2) Dementia Code(s): F03.90 - UNSPECIFIED DEMENTIA WITHOUT BEHAVIORAL DISTURBANCE Qualifiers: Dementia type: Parkinson's disease Dementia behavioral disturbance: without behavioral disturbance Qualified Code(s): G20 - Parkinson's disease; F02.80 - Dementia in other diseases classified elsewhere without behavioral disturbance (3) HTN (hypertension) Code(s): I10 - ESSENTIAL (PRIMARY) HYPERTENSION (4) Hiatal hernia with GERD Code(s): K21.9 - GASTRO-ESOPHAGEAL REFLUX DISEASE WITHOUT ESOPHAGITIS; K44.9 - DIAPHRAGMATIC HERNIA WITHOUT OBSTRUCTION OR GANGRENE (5) Hyperlipidemia Code(s): E78.5 - HYPERLIPIDEMIA, UNSPECIFIED (6) Parkinson disease Code(s): G20 - PARKINSON'S DISEASE Assessment/Plan ASSESSMENT/PLAN: 84-year-old male presented to the ER with abdominal pain and vomiting 1. Partial SBO -NPO -NGT -repeat FUA now -IVF -GI and surgery eval 2. Sepsis-likely due to urinary source -leukocytosis improved, afebrile -urine cx gnb -blood cx pending -would continue with current iv abx -ID called HTN HLD Dementia Parkinsonism Arthritis holding PO meds normotensive resume home meds once tolerating PO
--- NOTE | 2019-09-12 19:27 | CONS ---
DATE OF CONSULTATION: DATE OF DICTATION: 09/12/2019 The patient is an 84-year-old man with a past medical history significant for previous episode in July of a small-bowel obstruction, who also has a history of dementia, Parkinson's, hyperlipidemia, hypertension, and arthritis. He now presents to the emergency room for evaluation of a 1-day history of constant nausea and vomiting, as per the family, with associated generalized abdominal pain and bloating. There is no report of any hematemesis, melena, or hematochezia. He states this episode is similar to his previous episode. Again, the history is obtained from the family at the bedside. Patient does not offer any additional history. He had an endoscopy and colonoscopy done by Dr. Liriano in 2014. 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 SOCIAL HISTORY: Does not smoke, drink, or use drugs. ALLERGIES: No known drug allergies. Home medications reviewed, include Lipitor, Lopressor, Zyprexa, Prevnar, Seroquel, Protonix, MiraLax, Sinemet, oxycodone, Zantac, and Zestril. REVIEW OF SYSTEMS: As per the HPI. PHYSICAL EXAMINATION: Vital Signs: Temperature max at 101.4, currently 98. Blood pressure 125/67. Pulse oximetry 84%. MA 84. Oxygen saturation 97%. Respiratory rate 18. General: In no acute distress. ENT: NG tube in place. Cardiovascular: S1, S2, regular rate and rhythm. Lungs: Bilaterally clear anteriorly to auscultation. Abdomen: Not distended, but is soft with bowel sounds. Extremities: No edema. Patient is obese. Neurological: With some confusion and dementia. LABORATORY DATA: White blood cell count on admission was 27, currently it is 10. Hemoglobin 13, hematocrit 40, MCV 93, platelet count 434. Chemistry: Sodium 143, potassium 4.3, BUN 22, creatinine 1.5, lactic acid 1.7, glucose 130, AST 22, ALT 29, alkaline phosphatase 134, total bilirubin 1.1. Urine: 3+ protein, 2+ leukocyte esterase. Stool for occult blood is negative. Cultures of the urine: [id number] gram-negative. Blood cultures are pending at this time. He had a CT scan of the abdomen and pelvis, which revealed hiatal hernia, distended stomach, duodenum and proximal loops consistent with a partial small-bowel obstruction. Also with diverticulosis, nonobstructing left renal calculus, enlarged prostate, and a significant amount of retained stool in the rectum and sigmoid colon. IMPRESSION: Abdominal pain, nausea and vomiting, secondary to small-bowel obstruction, also with an element of constipation. RECOMMENDATION: NG tube, intermittent suction. Monitor abdominal exam. An additional abdominal x-ray was ordered for today. Will follow up the results. Would also start him on tap-water enemas for cleansing. Surgery evaluation, Dr. Liriano, to follow with this patient on Friday. DO TARYN NOE/[id number]
--- NOTE | 2019-09-13 09:58 | CONS ---
DATE OF CONSULTATION: 09/11/2019 REASON FOR CONSULTATION: Leukocytosis and ileus. REQUESTING PHYSICIAN: This is an inpatient consultation as requested by the medical team. BRIEF HISTORY: This is an 84-year-old male with a history of dementia who was admitted in July for possible bowel obstruction but at the time of his surgical and GI evaluation, there was no mechanical bowel obstruction. He has had an appendectomy which he does not remember. He presents with abdominal pain and vomiting. He had a CAT scan of his abdomen and pelvis which showed a dilated stomach, duodenum and very proximal jejunum. The rest did not appear to be dilated but there was no full obstruction. The radiologist opined that this could be a partial proximal obstruction. The patient was also noted to have thickening at the junction of his esophagus and his stomach and had a moderate, what they called a hiatal hernia which to me appears to be a paraesophageal hernia, at least a type II. A nasogastric tube was placed in the emergency room with some bile. The patient denies current abdominal pain and denies chest pain. The patient was noted to have an elevated white blood cell count of 27,000 and a request was made for a surgical evaluation for exploratory laparotomy. PAST MEDICAL HISTORY: Significant for hypertension, hyperlipidemia, dementia, Lyn esophagus, hiatal hernia and Parkinson's. FAMILY HISTORY: Significant for father and a brother with colon cancer. PAST SURGICAL HISTORY: Open appendectomy. ALLERGIES: He has no known drug allergies. HOME MEDICATIONS: Lipitor, carbidopa-levodopa, Zyprexa, oxycodone, Seroquel, Zantac, Desyrel, Lipitor, Prinivil, Lopressor, Protonix and MiraLAX. REVIEW OF SYSTEMS: General: Denies fatigue. Cardiac: Denies chest pain. Respiratory: Denies shortness of breath. Gastrointestinal: Denies any abdominal pain currently. Genitourinary: Denies dysuria. Musculoskeletal: Denies joint pain. PHYSICAL EXAMINATION: General: This is a morbidly obese 84-year-old male in no distress. Head: Normocephalic. Sclerae are anicteric. Neck: Supple. Chest: Clear. Abdomen: Soft and nontender. It is not distended. There is a faint appendectomy scar. He has no obvious hernias. Extremities: There is trace edema. REVIEW OF LABORATORY DATA: His white blood cell count is 27,000 with an elevated platelet count of 600 and neutrophil bands of 23. His chemistries are unremarkable except for an elevated BUN of 22 and a creatinine of 1.5. His urinalysis shows significant white blood cells as well as leukocyte esterase. There are over 4354 white blood cells and 2+ high leukocyte esterase. IMAGING: As in HPI. ASSESSMENT: This is an 84-year-old male who has nausea and vomiting. He also had the same thing last July with an elevated white blood cell count and a shift and elevated platelets. He does have bacteria in his urine. His CAT scan shows a type II paraesophageal hernia as well as thickening at the GE junction and dilation of the stomach, duodenum and very proximal jejunum. At this point, I suspect that he does not have an acute abdomen and therefore, I do not believe that his leukocytosis is related to a surgical emergency. Most likely, this is an infectious event. As far as the reason why I was consulted for ileus , ileus would not be managed surgically. It would be managed by bowel rest, treating the cause and correcting electrolytes. The patient does have a significant paraesophageal hernia. If he is a candidate for surgery, this should be evaluated by the thoracic service to see if a repair is warranted. He runs the risk of necrosis of his stomach in the future, which would likely be an end-of-life event. I recommend continued nasogastric tube and a GI evaluation. Perhaps he may need further imaging of his proximal small bowel either by push enteroscopy, a small bowel series or a capsule study after this acute event resolves. At this point, there is no indication for exploratory surgery as he basically has a benign abdominal exam. The patient should be managed by the medical and GI services. DO WES BUNDY/[id number] OLGA LIDIA CLIFTON DO DICTATION ENDS HERE [id number] DUGLAS
--- NOTE | 2019-09-13 10:00 | CONS ---
CONTINUATION DICTATION STARTS HERE HOME MEDICATIONS: Lipitor, carbidopa-levodopa, Zyprexa, oxycodone, Seroquel, Zantac, Desyrel, Lipitor, Prinivil, Lopressor, Protonix and MiraLAX. REVIEW OF SYSTEMS: General: Denies fatigue. Cardiac: Denies chest pain. Respiratory: Denies shortness of breath. Gastrointestinal: Denies any abdominal pain currently. Genitourinary: Denies dysuria. Musculoskeletal: Denies joint pain. PHYSICAL EXAMINATION: General: This is a morbidly obese 84-year-old male in no distress. Head: Normocephalic. Sclerae are anicteric. Neck: Supple. Chest: Clear. Abdomen: Soft and nontender. It is not distended. There is a faint appendectomy scar. He has no obvious hernias. Extremities: There is trace edema. REVIEW OF LABORATORY DATA: His white blood cell count is 27,000 with an elevated platelet count of 600 and neutrophil bands of 23. His chemistries are unremarkable except for an elevated BUN of 22 and a creatinine of 1.5. His urinalysis shows significant white blood cells as well as leukocyte esterase. There are over 4354 white blood cells and 2+ high leukocyte esterase. IMAGING: As in HPI. ASSESSMENT: This is an 84-year-old male who has nausea and vomiting. He also had the same thing last July with an elevated white blood cell count and a shift and elevated platelets. He does have bacteria in his urine. His CAT scan shows a type II paraesophageal hernia as well as thickening at the GE junction and dilation of the stomach, duodenum and very proximal jejunum. At this point, I suspect that he does not have an acute abdomen and therefore, I do not believe that his leukocytosis is related to a surgical emergency. Most likely, this is an infectious event. As far as the reason why I was consulted for ileus, ileus would not be managed surgically. It would be managed by bowel rest, treating the cause and correcting electrolytes. The patient does have a significant paraesophageal hernia. If he is a candidate for surgery, this should be evaluated by the thoracic service to see if a repair is warranted. He runs the risk of necrosis of his stomach in the future, which would likely be an end-of-life event. I recommend continued nasogastric tube and a GI evaluation. Perhaps he may need further imaging of his proximal small bowel either by push enteroscopy, a small bowel series or a capsule study after this acute event resolves. At this point, there is no indication for exploratory surgery as he basically has a benign abdominal exam. The patient should be managed by the medical and GI services. DO WES BUNDY/[id number]
[2019-09-13] MEDS: PANTOPRAZOLE SODIUM 40 MG VIAL IVPUSH SCH (10:19)
[2019-09-13] MEDS: HEPARIN NA (PORCINE) 5,000 UNITS/ML 1ML VIAL SQ SCH ×2 (10:37→21:05)
--- NOTE | 2019-09-13 12:14 | PN.GI ---
GI Progress Note Subjective: GI NOte: Dr Eller's coverage is appreciated. Tomer denies pain at present. NO BMs. No vomiting since the NG was inserted. NG has only 40cc of stagnant small bowel drainage so far. His is at the bedside. - Objective Vital Signs: Vital Signs Temperature 98.1 F 09/13/19 09:00 Pulse Rate 73 09/13/19 09:00 Respiratory Rate 18 09/13/19 09:00 Blood Pressure 137/71 09/13/19 09:00 O2 Sat by Pulse Oximetry (%) 96 09/12/19 21:00 Laboratory Tests 09/11/19 09/12/19 04:15 06:27 WBC 27.0 H 10.2 H Constitutional: Calm Gastrointestinal Inspection: Yes: Distention (not tense) ...Auscultate: Yes: Hypoactive Bowel Sounds ...Palpate: Yes: Soft, Other (nontender) Labs: CBC, BMP 09/12/19 06:27 09/11/19 05:25 Assessment/Plan Impression: - Partial SBO vs fecal impaction vs ileus - Guerrier's esophagus s/p abtation therapy at [facility] [place] now the dilated esophagus and distal esophageal wall thickening - Personal h/o colon adenomas and FH of colon cancer Plan: -- NG suctioning x another [address] enterography -- I discussed the current situation in detail with Tomer's Minerva. We also discussed Tomer's personal h/o Guerrier's esophagus with an abnormal CR and his h /o colon adenoma and FH of colon cancer. He should ideally have upper and lower endoscopies but his comorbidities prohibit a safe elective undertaking of these studies Problem List - Problems (1) Guerrier's esophagus with high grade dysplasia Code(s): K22.711 - GUERRIER'S ESOPHAGUS WITH HIGH GRADE DYSPLASIA (2) Colon adenomas Code(s): D12.6 - BENIGN NEOPLASM OF COLON, UNSPECIFIED (3) Diverticula of colon Code(s): K57.30 - DVRTCLOS OF LG INT W/O PERFORATION OR ABSCESS W/O BLEEDING (4) Family history of colon cancer in father Code(s): Z80.0 - FAMILY HISTORY OF MALIGNANT NEOPLASM OF DIGESTIVE ORGANS (5) Parkinson disease Code(s): G20 - PARKINSON'S DISEASE (6) Abdominal pain Code(s): R10.9 - UNSPECIFIED ABDOMINAL PAIN Qualifiers: Abdominal location: unspecified location Qualified Code(s): R10.9 - Unspecified abdominal pain (7) Coffee ground emesis Code(s): K92.0 - HEMATEMESIS (8) Projectile vomiting with nausea Code(s): R11.12 - PROJECTILE VOMITING (9) SBO (small bowel obstruction) Code(s): K56.609 - UNSP INTESTNL OBST, UNSP TO PARTIAL VERSUS COMPLETE OBST
[2019-09-13 12:27] LABS: BASO % 0.6 % (0-2.0); EOS % 1.2 % (0-4.5); HEMATOCRIT 39.2 % (35.4-49); HEMOGLOBIN 12.9 GM/dL (11.7-16.9); LYMPH % 13.1 % (8-40); MCH 31.4 pg (25.7-33.7); MEAN PLT VOLUME 7.2 fl (7.5-11.1); MONO % 8.6 % (3.8-10.2); NEUT % 76.5 % (42.8-82.8); PLATELET COUNT 361 K/MM3 (134-434); RBC 4.12 M/mm3 (4.00-5.60); WHITE BLOOD COUNT 9.1 K/mm3 (4.0-10.0)
[2019-09-13 12:45] LABS: BLOOD UREA NITROGEN 28.3 mg/dL (7-18); CALCIUM 8.2 mg/dL (8.5-10.1); CREATININE 0.9 mg/dL (0.55-1.3); POTASSIUM 3.4 mmol/L (3.5-5.1)
--- NOTE | 2019-09-13 13:08 | PN ---
Physical Exam: SUBJECTIVE: Patient seen and examined. He denies abdominal pain, nausea. He wants to drink. OBJECTIVE: Vital Signs Period Temp Pulse Resp BP Sys/Martinez Pulse Ox Last 24 Hr 98.0 F-99.5 F 64-84 18-20 116-137/56-71 96 GENERAL: The patient is awake, alert, in no acute distress. LUNGS: Breath sounds equal, clear to auscultation bilaterally, no wheezes, no crackles, no accessory muscle use. HEART: Regular rate and rhythm, S1, S2 without murmur, rub or gallop. ABDOMEN: Obese, soft, nontender, nondistended, normoactive bowel sounds, no guarding, no rebound, no hepatosplenomegaly, no masses. EXTREMITIES: 2+ pulses, warm, well-perfused, no edema. Laboratory Results - last 24 hr 09/12/19 09/13/19 09/13/19 22:51 11:45 11:45 WBC 9.1 RBC 4.12 Hgb 12.9 Hct 39.2 MCV 95.0 MCH 31.4 MCHC 33.0 RDW 15.0 Plt Count 361 MPV 7.2 L Absolute Neuts (auto) 7.0 Neutrophils % 76.5 Lymphocytes % 13.1 Monocytes % 8.6 Eosinophils % 1.2 Basophils % 0.6 Nucleated RBC % 0 Sodium 146 H Potassium 3.4 L Chloride 111 H Carbon Dioxide 30 Anion Gap 5 L BUN 28.3 H Creatinine 0.9 Est GFR (CKD-EPI)AfAm 91.86 Est GFR (CKD-EPI)NonAf 79.26 POC Glucometer 103 Random Glucose 87 Calcium 8.2 L Active Medications Generic Name Dose Route Start Last Admin Trade Name Freq PRN Reason Stop Dose Admin Heparin Sodium (Porcine) 5,000 unit 09/11/19 22:00 09/13/19 10:37 Heparin - SQ 5,000 unit BID IRENE Administration Dextrose/Sodium Chloride 1,000 mls @ 83 mls/hr 09/11/19 12:00 09/12/19 09:46 D5-1/2ns - IV 83 mls/hr ASDIR IRENE Administration Metronidazole 500 mg in 100 mls @ 100 mls/hr 09/11/19 18:00 09/13/19 10:25 Flagyl 500mg Premixed Ivpb - IVPB 100 mls/hr Q8H-IV IRENE Administration Piperacillin Sod/Tazobactam 50 mls @ 100 mls/hr 09/11/19 18:00 Sod 3.375 gm/ Dextrose IVPB Q8H-IV IRENE Protocol Pantoprazole Sodium 40 mg 09/12/19 10:00 09/13/19 10:19 Protonix Iv IVPUSH 40 mg DAILY IRENE Administration ASSESSMENT/PLAN: This is an 84 year old man with a history of HTN, hyperlipidemia, Lyn esophagus, Parkinson disease, dementia, stage 3 CKD, PAD who presented to the ED with abdominal pain and vomiting. 1. Partial SBO - Surgery, GI evals appreciated - Maintain NG tube - Continue IV fluid 2. Sepsis (fever, tachycardia, leukocytosis) secondary to UTI - Urine culture growing gram neg rods - Blood cultures negative so far - Continue Zosyn 3. HTN - Lisinopril, Lopressor held 4. Hyperlipidemia - Lipitor held 5. Parkinson disease - Sinemet held 6. Dementia - Seroquel, Trazodone, Zyprexa held 7. Lyn esophagus 8. Acute kidney injury - Improved 9. PAD 10. Obesity Visit type - Emergency Visit Emergency Visit: Yes ED Registration Date: 09/11/19 Care time: The patient presented to the Emergency Department on the above date and was hospitalized for further evaluation of their emergent condition. - New Patient This patient is new to me today: Yes Date on this admission: 09/13/19 - Critical Care Critical Care patient: No - Discharge Referral Referred to [facility] Med P.C.: No
--- NOTE | 2019-09-13 13:22 | PN ---
Progress Note (short form) - Note Progress Note: Pt denies any nausea or emesis. No flatus, no bowel movements since 09/11. Vital Signs Period Temp Pulse Resp BP Sys/Martinez Pulse Ox Last 24 Hr 98.0 F-99.5 F 64-84 18-20 116-137/56-71 96 NGT: 40 ml in canister today, bilious GEN: Alert and answers questions ABD: soft, non-distended, non-tender CBC, BMP 09/13/19 11:45 09/13/19 11:45 A/P: 84 yo male with a history of appendectomy, now with most likely an ileus D/w Dr. Rossi, no evidence of an acute abdomen or indication to operate. Recommend to continue ngt decompression, awaiting bowel function. Repeat abd films ordered Seen by GI with the recommendations to also continue ngt decompression with repeat radiographic film in the am
--- NOTE | 2019-09-13 13:35 | CON.ID ---
Consult Consult Specialty:: infectious diseases Referred by:: Dr Gates Reason for Consultation:: uti complicated,abd pain - History of Present Illness Chief Complaint: abd pain History of Present Illness: 84 y/o male presenting to [facility] ER for evaluation of one day of persistent nonbloody, nonbilious vomiting. Pt is demented at baseline and unable to provide HPI. Pt's is at bedside and reports he has thrown up approx. 5 times over the past 24 hours. At one point, the pt was complaining of generalized abdominal pain. Last BM was yesterday and believed to be normal. No blood or change in stool color noted. believes the pt was warm to the touch but did not measure his temperature. Of note, the pt has a concerning personal and familial colon history was admitted to this facility in July 2019 for a partial SBO. He was urged to f/ u with his buttoner at [facility]. Pt did not follow up in the clinic. 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 CARE: Yes: Dementia, Parkinson's Cardio/Vascular: Yes: HTN, Hyperlipdemia, Other (PVD with claudication) Gastrointestinal: Yes: Diverticulosis, GERD (long segment Lyn's esophagus with high grade dysplasia found 07/31/15- never followed up for ablation therapy or surveillance), Hiatal Hernia, Other (colon adenomas) Renal/: Yes: BPH, Other (CKD) Infectious Disease: Yes: C-Diff (january 2016) Musculoskeletal: Yes: Osteoarthritis, Other (plantar fasciitis) - Past Surgical History Past Surgical History: Yes: Colonoscopy, Upper Endoscopy - Alcohol/Substance Use Hx Alcohol Use: No History of Substance Use: reports: None - Smoking History Smoking history: Never smoked Have you smoked in the past 12 months: No If you are a former smoker, when did you quit?: 1959 - Social History Usual Living Arrangement: With Spouse ADL: Family Assistance 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[place], 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 History of Recent Travel: No Home Medications - Allergies Allergies/Adverse Reactions: Allergies Allergy/AdvReac Type Severity Reaction Status Date / Time No Known Allergies Allergy Verified 09/11/19 05:16 - Home Medications Home Medications: Ambulatory Orders Atorvastatin Ca [Lipitor] 40 mg PO HS #30 tablet 03/19/16 Metoprolol Tartrate [Lopressor -] 25 mg PO BID #60 tablet 03/19/16 Olanzapine [Zyprexa -] 10 mg PO ASDIR 08/27/16 Lisinopril [Prinivil] 10 mg PO DAILY #30 tablet 10/03/17 Atorvastatin Ca [Lipitor] 40 mg DAILY 07/23/19 Quetiapine Fumarate [Seroquel -] 50 mg TID 07/23/19 Pantoprazole Sodium [Protonix -] 40 mg PO DAILY #30 tablet.ec 07/26/19 Polyethylene Glycol 3350 [Miralax (For Daily Use) -] 17 gm PO DAILY PRN #1 bottle 07/26/19 Carbidopa/Levodopa *Cr* 50/200 [Sinemet *Cr* 50/200 -] 1 combo PO BID 09/11/19 Oxycodone HCl 200 mg PO Q4H PRN MDD 60mg 09/11/19 Ranitidine HCl [Zantac] 150 mg PO PRN 09/11/19 traZODone HCL [Desyrel -] 200 mg PO DAILY 09/11/19 Review of Systems Unable to obtain ROS, reason: unable to obtain Physical Exam Vital Signs: Vital Signs Temperature 98.1 F 09/13/19 09:00 Pulse Rate 73 09/13/19 09:00 Respiratory Rate 18 09/13/19 09:00 Blood Pressure 137/71 09/13/19 09:00 O2 Sat by Pulse Oximetry (%) 96 09/12/19 21:00 Constitutional: Yes: No Distress, Calm Cardiovascular: Yes: Regular Rate and Rhythm Respiratory: Yes: Regular, Poor Air Entry (bases) Gastrointestinal: Yes: Hypoactive Bowel Sounds, Other (ng tube in place) Musculoskeletal: Yes: WNL Extremities: Yes: WNL Neurological: Yes: Alert, Other (dementia) Labs: CBC, BMP 09/13/19 11:45 09/13/19 11:45 Imaging - Results Chest X-ray: Report Reviewed, Image Reviewed Cat Scan: Report Reviewed, Image Reviewed Assessment/Plan Problem List - Problems (1) CKD (chronic kidney disease) stage 3, GFR 30-59 ml/min Code(s): N18.3 - CHRONIC KIDNEY DISEASE, STAGE 3 (MODERATE) (2) Dementia Code(s): F03.90 - UNSPECIFIED DEMENTIA WITHOUT BEHAVIORAL DISTURBANCE Qualifiers: Dementia type: Parkinson's disease Dementia behavioral disturbance: without behavioral disturbance Qualified Code(s): G20 - Parkinson's disease; F02.80 - Dementia in other diseases classified elsewhere without behavioral disturbance (3) HTN (hypertension) Code(s): I10 - ESSENTIAL (PRIMARY) HYPERTENSION (4) Hiatal hernia with GERD Code(s): K21.9 - GASTRO-ESOPHAGEAL REFLUX DISEASE WITHOUT ESOPHAGITIS; K44.9 - DIAPHRAGMATIC HERNIA WITHOUT OBSTRUCTION OR GANGRENE (5) Hyperlipidemia Code(s): E78.5 - HYPERLIPIDEMIA, UNSPECIFIED (6) Parkinson disease Code(s): G20 - PARKINSON'S DISEASE 7 sbo plan await for all cx reports will start patient on abx surgery on board hydration npo rest as per the team
[2019-09-13] MEDS ORDERED: MEROPENEM 1 GM VIAL (RESTRICTED TO ID) IVPB ONE (15:57)
[2019-09-13] MEDS ORDERED: DEXTROSE 5%-WATER 100 ML IVPB ONE (15:57)
[2019-09-13] MEDS: DEXTROSE 5%-0.45% SALINE 1,000 ML IV SCH (16:15)
[2019-09-13] MEDS: MEROPENEM 1 GM in DEXTROSE 5%-WATER 100 ML IVPB SCH ×2 (16:15→18:48)
[2019-09-13] MEDS: D5-1/2NS+40 MEQ KCL - 40 MEQ/1,000 ML INFUS.BAG IV SCH ×2 (18:48→21:05)
[2019-09-14] MEDS ORDERED: DEXTROSE 5%-WATER 100 ML IVPB ONE ×3 (01:40→18:11)
[2019-09-14] MEDS ORDERED: MEROPENEM 1 GM VIAL (RESTRICTED TO ID) IVPB ONE ×3 (01:40→18:11)
[2019-09-14] MEDS: MEROPENEM 1 GM in DEXTROSE 5%-WATER 100 ML IVPB SCH ×3 (01:42→18:14)
[2019-09-14] MEDS: HEPARIN NA (PORCINE) 5,000 UNITS/ML 1ML VIAL SQ SCH ×2 (09:13→21:59)
[2019-09-14] MEDS: D5-1/2NS+40 MEQ KCL - 40 MEQ/1,000 ML INFUS.BAG IV SCH (09:14)
[2019-09-14 09:33] LABS: BASO % 0.3 % (0-2.0); EOS % 1.3 % (0-4.5); HEMATOCRIT 37.1 % (35.4-49); HEMOGLOBIN 12.5 GM/dL (11.7-16.9); LYMPH % 14.8 % (8-40); MCH 31.4 pg (25.7-33.7); MCHC 33.6 g/dl (32.0-35.9); MEAN CELL VOLUME 93.2 fl (80-96); MEAN PLT VOLUME 7.4 fl (7.5-11.1); MONO % 9.6 % (3.8-10.2); PLATELET COUNT 338 K/MM3 (134-434); RBC 3.98 M/mm3 (4.00-5.60); RDW 14.6 % (11.9-15.9); WHITE BLOOD COUNT 8.4 K/mm3 (4.0-10.0)
[2019-09-14] MEDS: PANTOPRAZOLE SODIUM 40 MG VIAL IVPUSH SCH (10:00)
[2019-09-14 10:12] LABS: BLOOD UREA NITROGEN 22.6 mg/dL (7-18); CALCIUM 8.6 mg/dL (8.5-10.1); CREATININE 0.7 mg/dL (0.55-1.3); MAGNESIUM 2.4 mg/dL (1.8-2.4); PHOSPHOROUS 2.4 mg/dL (2.5-4.9); POTASSIUM 3.7 mmol/L (3.5-5.1)
--- NOTE | 2019-09-14 12:02 | PN ---
Physical Exam: SUBJECTIVE: Patient seen and examined. No events overnight. Patient denies abdominal pain. Cookie says his abdomen is much softer now. OBJECTIVE: Vital Signs Period Temp Pulse Resp BP Sys/Martinez Pulse Ox Last 24 Hr 98 F-99.0 F 60-68 20-20 132-137/58-62 96 GENERAL: in NAD HEAD: Normal with no signs of trauma. EYES: PERRL, conjunctiva clear. No ptosis. ENT: dry mucous membranes. NECK: no JVD LUNGS: Breath sounds equal, clear to auscultation bilaterally HEART: RRR ABDOMEN: Soft, nontender, nondistended, +BS EXTREMITIES: 2+ pulses, no edema Laboratory Results - last 24 hr 09/13/19 09/13/19 09/14/19 11:45 11:45 08:44 WBC 9.1 8.4 RBC 4.12 3.98 L Hgb 12.9 12.5 Hct 39.2 37.1 MCV 95.0 93.2 MCH 31.4 31.4 MCHC 33.0 33.6 RDW 15.0 14.6 Plt Count 361 338 MPV 7.2 L 7.4 L Absolute Neuts (auto) 7.0 6.2 Neutrophils % 76.5 74.0 Lymphocytes % 13.1 14.8 Monocytes % 8.6 9.6 Eosinophils % 1.2 1.3 Basophils % 0.6 0.3 Nucleated RBC % 0 0 Sodium 146 H Potassium 3.4 L Chloride 111 H Carbon Dioxide 30 Anion Gap 5 L BUN 28.3 H Creatinine 0.9 Est GFR (CKD-EPI)AfAm 91.86 Est GFR (CKD-EPI)NonAf 79.26 Random Glucose 87 Calcium 8.2 L Phosphorus Magnesium 09/14/19 08:44 WBC RBC Hgb Hct MCV MCH MCHC RDW Plt Count MPV Absolute Neuts (auto) Neutrophils % Lymphocytes % Monocytes % Eosinophils % Basophils % Nucleated RBC % Sodium 144 Potassium 3.7 Chloride 111 H Carbon Dioxide 29 Anion Gap 4 L BUN 22.6 H Creatinine 0.7 Est GFR (CKD-EPI)AfAm 101.86 Est GFR (CKD-EPI)NonAf 87.88 Random Glucose 92 Calcium 8.6 Phosphorus 2.4 L Magnesium 2.4 Active Medications Generic Name Dose Route Start Last Admin Trade Name Freq PRN Reason Stop Dose Admin Heparin Sodium (Porcine) 5,000 unit 09/11/19 22:00 09/14/19 09:13 Heparin - SQ 5,000 unit BID IRENE Administration Meropenem 1 gm/ Dextrose 100 mls @ 200 mls/hr 09/13/19 13:45 09/14/19 09:12 IVPB 200 mls/hr Q8H-IV IRENE Administration Dextrose/Sodium Chloride 40 meq in 1,000 mls @ 83 mls/hr 09/13/19 18:45 09/14 09:14 D5-1/2ns+40 Meq Kcl - IV 83 mls/hr ASDIR IRENE Administration Pantoprazole Sodium 40 mg 09/12/19 10:00 09/14/19 10:00 Protonix Iv IVPUSH 40 mg DAILY IRENE Administration ASSESSMENT/PLAN: 84-year-old male presented to the ER with abdominal pain and vomiting #Partial SBO -NPO -NGT -repeat Abdomen Xray revealed possible partial SBO. NG tube needs to be advanced 6-8 cm. Discussed NG tube advancement with Nurse. -IVF -Surgery with no intervention at this time. -Follow Gi reccs #Sepsis-likely due to urinary source -leukocytosis improved, afebrile -urine cx gnb -blood cx negative -Iv abx- meropenem -follow up ID reccs #HTN #HLD #Dementia #Parkinsonism #Arthritis #Dvt ppx: -hep sq #FEN -IV fluids: D5 1/2 NS + K -NPO at this time: hold PO meds Visit type - Emergency Visit Emergency Visit: Yes ED Registration Date: 09/11/19 Care time: The patient presented to the Emergency Department on the above date and was hospitalized for further evaluation of their emergent condition. - New Patient This patient is new to me today: Yes Date on this admission: 09/14/19 - Critical Care Critical Care patient: No ATTENDING PHYSICIAN STATEMENT I saw and evaluated the patient. I reviewed the resident's note and discussed the case with the resident. I agree with the resident's findings and plan as documented. SUBJECTIVE: OBJECTIVE: ASSESSMENT AND PLAN:
--- NOTE | 2019-09-14 15:58 | PN ---
Teaching Attending Note Name of Resident: Nani Boothe ATTENDING PHYSICIAN STATEMENT I saw and evaluated the patient. I reviewed the resident's note and discussed the case with the resident. I agree with the resident's findings and plan as documented. SUBJECTIVE: Seen and examined at bedside, no acute events overnight. Feeling ok hungry. Smiling. OBJECTIVE: Vital Signs - 24 hr 09/13/19 09/13/19 09/13/19 19:29 21:00 23:00 Temperature 99.0 F 98.8 F Pulse Rate 63 68 Respiratory 20 20 Rate Blood Pressure 137/58 L 136/62 O2 Sat by Pulse 96 Oximetry (%) 09/14/19 09/14/19 09/14/19 03:00 06:47 09:00 Temperature 98.9 F 98 F Pulse Rate 60 68 Respiratory 20 20 20 Rate Blood Pressure 134/58 L 132/60 O2 Sat by Pulse 96 Oximetry (%) 09/14/19 14:46 Temperature 98.3 F Pulse Rate Respiratory 20 Rate Blood Pressure 139/84 O2 Sat by Pulse Oximetry (%) PE: Constitutional: Well Nourished, No Distress, Calm HENT: +NGT Cardiovascular: Regular Rate and Rhythm Respiratory: WNL, Regular, CTA Bilaterally Gastrointestinal: WNL, Normal Bowel Sounds, Soft, Abdomen, Obese Musculoskeletal: WNL Extremities: WNL Edema: No c/c/e Current Medications Heparin Sodium (Porcine) (Heparin -) 5,000 unit SQ BID [facility] Last Admin: 09/14/19 09:13 Dose: 5,000 unit Meropenem 1 gm/ Dextrose 100 mls @ 200 mls/hr IVPB Q8H-IV [facility] Last Admin: 09/14/19 09:12 Dose: 200 mls/hr Dextrose/Sodium Chloride (D5-1/2ns+40 Meq Kcl -) 40 meq in 1,000 mls @ 83 mls/ hr IV ASDIR [facility] Last Admin: 09/14/19 09:14 Dose: 83 mls/hr Pantoprazole Sodium (Protonix Iv) 40 mg IVPUSH DAILY [facility] Last Admin: 09/14/19 10:00 Dose: 40 mg Laboratory Results - last 24 hr 09/14/19 09/14/19 08:44 08:44 WBC 8.4 RBC 3.98 L Hgb 12.5 Hct 37.1 MCV 93.2 MCH 31.4 MCHC 33.6 RDW 14.6 Plt Count 338 MPV 7.4 L Absolute Neuts (auto) 6.2 Neutrophils % 74.0 Lymphocytes % 14.8 Monocytes % 9.6 Eosinophils % 1.3 Basophils % 0.3 Nucleated RBC % 0 Sodium 144 Potassium 3.7 Chloride 111 H Carbon Dioxide 29 Anion Gap 4 L BUN 22.6 H Creatinine 0.7 Est GFR (CKD-EPI)AfAm 101.86 Est GFR (CKD-EPI)NonAf 87.88 Random Glucose 92 Calcium 8.6 Phosphorus 2.4 L Magnesium 2.4 Microbiology 09/12/19 09:45 Blood - Peripheral Venous Blood Culture - Preliminary NO GROWTH OBTAINED AFTER 48 HOURS, INCUBATION TO CONTINUE FOR 3 DAYS. 09/12/19 09:45 Blood - Peripheral Venous Blood Culture - Preliminary NO GROWTH OBTAINED AFTER 48 HOURS, INCUBATION TO CONTINUE FOR 3 DAYS. 09/11/19 09:10 Urine - Urine Clean Catch Urine Culture - Final Escherichia Coli Esbl Test Conductor all imaging reports reviewed ASSESSMENT AND PLAN: 84-year-old male presented to the ER with abdominal pain and vomiting 1. Partial SBO -NPO -NGT decompression -repeat FUA ordered, not done! discussed with RN -IVF -GI and surgery eval 2. Sepsis-likely due to urinary source, resolved -leukocytosis improved, afebrile -urine cx Ecoli ESBL -blood cx neg to date -started on meropenem -ID eval appreciated HTN HLD Dementia Parkinsonism Arthritis -holding PO meds Problem List - Problems (1) CKD (chronic kidney disease) stage 3, GFR 30-59 ml/min Code(s): N18.3 - CHRONIC KIDNEY DISEASE, STAGE 3 (MODERATE) (2) Dementia Code(s): F03.90 - UNSPECIFIED DEMENTIA WITHOUT BEHAVIORAL DISTURBANCE Qualifiers: Dementia type: Parkinson's disease Dementia behavioral disturbance: without behavioral disturbance Qualified Code(s): G20 - Parkinson's disease; F02.80 - Dementia in other diseases classified elsewhere without behavioral disturbance (3) HTN (hypertension) Code(s): I10 - ESSENTIAL (PRIMARY) HYPERTENSION (4) Hiatal hernia with GERD Code(s): K21.9 - GASTRO-ESOPHAGEAL REFLUX DISEASE WITHOUT ESOPHAGITIS; K44.9 - DIAPHRAGMATIC HERNIA WITHOUT OBSTRUCTION OR GANGRENE (5) Hyperlipidemia Code(s): E78.5 - HYPERLIPIDEMIA, UNSPECIFIED (6) Parkinson disease Code(s): G20 - PARKINSON'S DISEASE
--- NOTE | 2019-09-14 18:47 | PN ---
Progress Note, Physician History of Present Illness: stable no new issues - Current Medication List Current Medications: Active Medications Heparin Sodium (Porcine) (Heparin -) 5,000 unit SQ BID [facility] Last Admin: 09/14/19 09:13 Dose: 5,000 unit Meropenem 1 gm/ Dextrose 100 mls @ 200 mls/hr IVPB Q8H-IV [facility] Last Admin: 09/14/19 18:14 Dose: 200 mls/hr Dextrose/Sodium Chloride (D5-1/2ns+40 Meq Kcl -) 40 meq in 1,000 mls @ 83 mls/ hr IV ASDIR [facility] Last Admin: 09/14/19 09:14 Dose: 83 mls/hr Pantoprazole Sodium (Protonix Iv) 40 mg IVPUSH DAILY [facility] Last Admin: 09/14/19 10:00 Dose: 40 mg - Objective Vital Signs: Vital Signs Temperature 98.3 F 09/14/19 14:46 Pulse Rate 68 09/14/19 06:47 Respiratory Rate 20 09/14/19 14:46 Blood Pressure 139/84 09/14/19 14:46 O2 Sat by Pulse Oximetry (%) 96 09/14/19 09:00 Constitutional: Yes: No Distress, Calm Cardiovascular: Yes: S1, S2 Respiratory: Yes: Regular, CTA Bilaterally Gastrointestinal: Yes: Soft, Other (ng in place) Musculoskeletal: Yes: WNL Extremities: Yes: WNL Neurological: Yes: Alert Labs: CBC, BMP 09/14/19 08:44 09/14/19 08:44 Assessment/Plan Problem List - Problems (1) CKD (chronic kidney disease) stage 3, GFR 30-59 ml/min Code(s): N18.3 - CHRONIC KIDNEY DISEASE, STAGE 3 (MODERATE) (2) Dementia Code(s): F03.90 - UNSPECIFIED DEMENTIA WITHOUT BEHAVIORAL DISTURBANCE Qualifiers: Dementia type: Parkinson's disease Dementia behavioral disturbance: without behavioral disturbance Qualified Code(s): G20 - Parkinson's disease; F02.80 - Dementia in other diseases classified elsewhere without behavioral disturbance (3) HTN (hypertension) Code(s): I10 - ESSENTIAL (PRIMARY) HYPERTENSION (4) Hiatal hernia with GERD Code(s): K21.9 - GASTRO-ESOPHAGEAL REFLUX DISEASE WITHOUT ESOPHAGITIS; K44.9 - DIAPHRAGMATIC HERNIA WITHOUT OBSTRUCTION OR GANGRENE (5) Hyperlipidemia Code(s): E78.5 - HYPERLIPIDEMIA, UNSPECIFIED (6) Parkinson disease Code(s): G20 - PARKINSON'S DISEASE 7 sbo complicated uti esbl plan continue abx nutrition rest as per the team
--- NOTE | 2019-09-14 20:39 | PN.GI ---
GI Progress Note Subjective: GI NOte: FUA revealed persistent SB distension but contrast has reached the colon. NG position is high in the stomach. NG output is minimal. Tomer denies pain and tells me that he wants something to eat. - Objective Vital Signs: Vital Signs Temperature 97.5 F L 09/14/19 19:23 Pulse Rate 68 09/14/19 06:47 Respiratory Rate 20 09/14/19 14:46 Blood Pressure 151/66 09/14/19 19:23 O2 Sat by Pulse Oximetry (%) 96 09/14/19 09:00 Laboratory Tests 09/14/19 09/14/19 08:44 08:44 WBC 8.4 Hgb 12.5 BUN 22.6 H Creatinine 0.7 Constitutional: Calm Gastrointestinal Inspection: Yes: Distention (but not tense) ...Auscultate: Yes: Hypoactive Bowel Sounds ...Palpate: Yes: Soft, Other (nontender) Labs: CBC, BMP 09/14/19 08:44 09/14/19 08:44 Assessment/Plan Impression: - Partial SBO vs fecal impaction vs ileus, NG lavaged. Has little residual - Guerrier's esophagus s/p ablation therapy at [facility] [place] now has a dilated esophagus and distal esophageal wall thickening - Personal h/o colon adenomas and FH of colon cancer Plan: -- NG tube pushed lower into the stomach -- Repeat FUA in AM. If improved will do Golytely lavage -- Continue NG suctioning Problem List - Problems (1) Guerrier's esophagus with high grade dysplasia Code(s): K22.711 - GUERRIER'S ESOPHAGUS WITH HIGH GRADE DYSPLASIA (2) Colon adenomas Code(s): D12.6 - BENIGN NEOPLASM OF COLON, UNSPECIFIED (3) Diverticula of colon Code(s): K57.30 - DVRTCLOS OF LG INT W/O PERFORATION OR ABSCESS W/O BLEEDING (4) Family history of colon cancer in father Code(s): Z80.0 - FAMILY HISTORY OF MALIGNANT NEOPLASM OF DIGESTIVE ORGANS (5) Parkinson disease Code(s): G20 - PARKINSON'S DISEASE (6) Abdominal pain Code(s): R10.9 - UNSPECIFIED ABDOMINAL PAIN Qualifiers: Abdominal location: unspecified location Qualified Code(s): R10.9 - Unspecified abdominal pain (7) Coffee ground emesis Code(s): K92.0 - HEMATEMESIS (8) Projectile vomiting with nausea Code(s): R11.12 - PROJECTILE VOMITING (9) SBO (small bowel obstruction) Code(s): K56.609 - UNSP INTESTNL OBST, UNSP TO PARTIAL VERSUS COMPLETE OBST
[2019-09-15] MEDS: D5-1/2NS+40 MEQ KCL - 40 MEQ/1,000 ML INFUS.BAG IV SCH (00:31)
[2019-09-15] MEDS ORDERED: MEROPENEM 1 GM VIAL (RESTRICTED TO ID) IVPB ONE ×3 (02:36→17:33)
[2019-09-15] MEDS ORDERED: DEXTROSE 5%-WATER 100 ML IVPB ONE ×3 (02:36→17:34)
[2019-09-15] MEDS: MEROPENEM 1 GM in DEXTROSE 5%-WATER 100 ML IVPB SCH ×3 (02:45→18:10)
[2019-09-15] MEDS: HEPARIN NA (PORCINE) 5,000 UNITS/ML 1ML VIAL SQ SCH ×2 (09:49→22:19)
[2019-09-15] MEDS: PANTOPRAZOLE SODIUM 40 MG VIAL IVPUSH SCH (09:49)
--- NOTE | 2019-09-15 09:55 | PN ---
Progress Note, Physician History of Present Illness: going for xray patient pulled out his ng tube restraints now - Current Medication List Current Medications: Active Medications Heparin Sodium (Porcine) (Heparin -) 5,000 unit SQ BID [facility] Last Admin: 09/15/19 09:49 Dose: 5,000 unit Meropenem 1 gm/ Dextrose 100 mls @ 200 mls/hr IVPB Q8H-IV [facility] Last Admin: 09/15/19 09:49 Dose: 200 mls/hr Dextrose/Sodium Chloride (D5-1/2ns+40 Meq Kcl -) 40 meq in 1,000 mls @ 83 mls/ hr IV ASDIR [facility] Last Admin: 09/15/19 00:31 Dose: 83 mls/hr Pantoprazole Sodium (Protonix Iv) 40 mg IVPUSH DAILY [facility] Last Admin: 09/15/19 09:49 Dose: 40 mg - Objective Vital Signs: Vital Signs Temperature 98.2 F 09/15/19 05:56 Pulse Rate 53 L 09/15/19 05:56 Respiratory Rate 20 09/15/19 05:56 Blood Pressure 150/67 09/15/19 05:56 O2 Sat by Pulse Oximetry (%) 96 09/14/19 21:00 Constitutional: Yes: No Distress, Calm Cardiovascular: Yes: S1, S2 Respiratory: Yes: Regular, Poor Air Entry (bases) Gastrointestinal: Yes: Soft, Hypoactive Bowel Sounds Musculoskeletal: Yes: WNL Extremities: Yes: WNL Neurological: Yes: Alert Psychiatric: Yes: Other Labs: CBC, BMP 09/14/19 08:44 09/14/19 08:44 Assessment/Plan Problem List - Problems (1) CKD (chronic kidney disease) stage 3, GFR 30-59 ml/min Code(s): N18.3 - CHRONIC KIDNEY DISEASE, STAGE 3 (MODERATE) (2) Dementia Code(s): F03.90 - UNSPECIFIED DEMENTIA WITHOUT BEHAVIORAL DISTURBANCE Qualifiers: Dementia type: Parkinson's disease Dementia behavioral disturbance: without behavioral disturbance Qualified Code(s): G20 - Parkinson's disease; F02.80 - Dementia in other diseases classified elsewhere without behavioral disturbance (3) HTN (hypertension) Code(s): I10 - ESSENTIAL (PRIMARY) HYPERTENSION (4) Hiatal hernia with GERD Code(s): K21.9 - GASTRO-ESOPHAGEAL REFLUX DISEASE WITHOUT ESOPHAGITIS; K44.9 - DIAPHRAGMATIC HERNIA WITHOUT OBSTRUCTION OR GANGRENE (5) Hyperlipidemia Code(s): E78.5 - HYPERLIPIDEMIA, UNSPECIFIED (6) Parkinson disease Code(s): G20 - PARKINSON'S DISEASE 7 sbo complicated uti esbl plan continue abx nutrition rest as per the team repeat xray awaited
[2019-09-15 12:19] LABS: BASO % 0.4 % (0-2.0); EOS % 2.5 % (0-4.5); HEMATOCRIT 39.2 % (35.4-49); HEMOGLOBIN 13.2 GM/dL (11.7-16.9); LYMPH % 15.3 % (8-40); MCH 31.4 pg (25.7-33.7); MCHC 33.6 g/dl (32.0-35.9); MEAN CELL VOLUME 93.5 fl (80-96); MEAN PLT VOLUME 7.6 fl (7.5-11.1); MONO % 9.9 % (3.8-10.2); NEUT % 71.9 % (42.8-82.8); PLATELET COUNT 339 K/MM3 (134-434); RDW 14.5 % (11.9-15.9); WHITE BLOOD COUNT 7.6 K/mm3 (4.0-10.0)
--- NOTE | 2019-09-15 12:24 | PN.GI ---
GI Progress Note Subjective: GI NOte: Tomer pulled out his NG tube. He denies nausea, vomiting or abdominal pain and is hungry. FUA is no worse than before - Objective Vital Signs: Vital Signs Temperature 98.2 F 09/15/19 05:56 Pulse Rate 53 L 09/15/19 05:56 Respiratory Rate 20 09/15/19 05:56 Blood Pressure 150/67 09/15/19 05:56 O2 Sat by Pulse Oximetry (%) 96 09/14/19 21:00 CBC,CMP WBC 8.4 K/mm3 (4.0-10.0) 09/14/19 08:44 RBC 3.98 M/mm3 (4.00-5.60) L 09/14/19 08:44 Hgb 12.5 GM/dL (11.7-16.9) 09/14/19 08:44 Hct 37.1 % (35.4-49) 09/14/19 08:44 MCV 93.2 fl (80-96) 09/14/19 08:44 MCH 31.4 pg (25.7-33.7) 09/14/19 08:44 MCHC 33.6 g/dl (32.0-35.9) 09/14/19 08:44 RDW 14.6 % (11.9-15.9) 09/14/19 08:44 Plt Count 338 K/MM3 (134-434) 09/14/19 08:44 MPV 7.4 fl (7.5-11.1) L 09/14/19 08:44 Absolute Neuts (auto) 6.2 K/mm3 (1.5-8.0) 09/14/19 08:44 Neutrophils % 74.0 % (42.8-82.8) 09/14/19 08:44 Neutrophils % (Manual) 91.4 % (42.8-82.8) H 09/11/19 04:15 Band Neutrophils % 1.9 % 09/11/19 04:15 Lymphocytes % 14.8 % (8-40) 09/14/19 08:44 Lymphocytes % (Manual) 1.9 % (8-40) L D 09/11/19 04:15 Monocytes % 9.6 % (3.8-10.2) 09/14/19 08:44 Monocytes % (Manual) 2 % (3.8-10.2) L 09/11/19 04:15 Eosinophils % 1.3 % (0-4.5) 09/14/19 08:44 Eosinophils % (Manual) 0.0 % (0-4.5) 09/11/19 04:15 Basophils % 0.3 % (0-2.0) 09/14/19 08:44 Basophils % (Manual) 0.0 % (0-2.0) 09/11/19 04:15 Myelocytes % (Man) 0 % (0-2) 09/11/19 04:15 Promyelocytes % (Man) 0 % (0-2) 09/11/19 04:15 Blast Cells % (Manual) 0 % (0-0) 09/11/19 04:15 Nucleated RBC % 0 % (0-0) 09/14/19 08:44 Metamyelocytes 0 % (0-2) 09/11/19 04:15 Hypochromia 0 09/11/19 04:15 Platelet Estimate Normal 09/11/19 04:15 Polychromasia 1+ 09/11/19 04:15 Poikilocytosis 0 09/11/19 04:15 Anisocytosis 1+ 09/11/19 04:15 Microcytosis 0 09/11/19 04:15 Macrocytosis 1+ 09/11/19 04:15 Sodium 144 mmol/L (136-145) 09/14/19 08:44 Potassium 3.7 mmol/L (3.5-5.1) 09/14/19 08:44 Chloride 111 mmol/L (98-107) H 09/14/19 08:44 Carbon Dioxide 29 mmol/L (21-32) 09/14/19 08:44 Anion Gap 4 MMOL/L (8-16) L 09/14/19 08:44 BUN 22.6 mg/dL (7-18) H 09/14/19 08:44 Creatinine 0.7 mg/dL (0.55-1.3) 09/14/19 08:44 Est GFR (CKD-EPI)AfAm 101.86 09/14/19 08:44 Est GFR (CKD-EPI)NonAf 87.88 09/14/19 08:44 POC Glucometer 103 UNITS (80-120) 09/12/19 22:51 Random Glucose 92 mg/dL (74-106) 09/14/19 08:44 Lactic Acid 1.7 mmol/L (0.4-2.0) 09/11/19 04:25 Calcium 8.6 mg/dL (8.5-10.1) 09/14/19 08:44 Phosphorus 2.4 mg/dL (2.5-4.9) L 09/14/19 08:44 Magnesium 2.4 mg/dL (1.8-2.4) 09/14/19 08:44 Total Bilirubin 1.1 mg/dL (0.2-1) H 09/11/19 05:25 AST 22 U/L (15-37) 09/11/19 05:25 ALT 29 U/L (13-61) 09/11/19 05:25 Alkaline Phosphatase 134 U/L (45-117) H 09/11/19 05:25 Total Protein 7.2 g/dl (6.4-8.2) 09/11/19 05:25 Albumin 3.7 g/dl (3.4-5.0) 09/11/19 05:25 Lipase Cancelled 09/11/19 04:15 Constitutional: Calm Gastrointestinal Inspection: Yes: Distention (but soft) ...Auscultate: Yes: Hypoactive Bowel Sounds ...Palpate: Yes: Soft, Other (nontender) ...Percussion: Yes: Tympanitic Assessment/Plan Impression: - Partial SBO vs fecal impaction vs ileus appears to be resolving. Has pulled out his NG tube - Guerrier's esophagus s[place] [facility] has a dilated esophagus and distal esophageal wall thickening - Personal h/o colon adenomas and FH of colon cancer Plan: -- Trial of clear liquids and advance diet as is tolerated -- Miralax lavage Problem List - Problems (1) SBO (small bowel obstruction) Code(s): K56.609 - UNSP INTESTNL OBST, UNSP TO PARTIAL VERSUS COMPLETE OBST (2) Projectile vomiting with nausea Code(s): R11.12 - PROJECTILE VOMITING (3) Guerrier's esophagus with high grade dysplasia Code(s): K22.711 - GUERRIER'S ESOPHAGUS WITH HIGH GRADE DYSPLASIA (4) Colon adenomas Code(s): D12.6 - BENIGN NEOPLASM OF COLON, UNSPECIFIED (5) Diverticula of colon Code(s): K57.30 - DVRTCLOS OF LG INT W/O PERFORATION OR ABSCESS W/O BLEEDING (6) Family history of colon cancer in father Code(s): Z80.0 - FAMILY HISTORY OF MALIGNANT NEOPLASM OF DIGESTIVE ORGANS (7) Parkinson disease Code(s): G20 - PARKINSON'S DISEASE (8) Abdominal pain Code(s): R10.9 - UNSPECIFIED ABDOMINAL PAIN Qualifiers: Abdominal location: unspecified location Qualified Code(s): R10.9 - Unspecified abdominal pain (9) Coffee ground emesis Code(s): K92.0 - HEMATEMESIS
[2019-09-15 12:52] LABS: ALBUMIN 2.8 g/dl (3.4-5.0); BILIRUBIN,TOTAL 0.8 mg/dL (0.2-1); BLOOD UREA NITROGEN 13.2 mg/dL (7-18); CALCIUM 8.1 mg/dL (8.5-10.1); CREATININE 0.7 mg/dL (0.55-1.3); POTASSIUM 4.2 mmol/L (3.5-5.1); TOT PROT 5.5 g/dl (6.4-8.2)
--- NOTE | 2019-09-15 14:30 | PN ---
Physical Exam: SUBJECTIVE: Patient seen and examined. Offers no complaints this am. Says he feels good Pulled out NG tube. OBJECTIVE: Vital Signs Period Temp Pulse Resp BP Sys/Martinez Pulse Ox Last 24 Hr 97.5 F-98.3 F 45-54 19-20 139-176/66-84 96-96 GENERAL: in NAD HEAD: Normal with no signs of trauma. EYES: PERRL, conjunctiva clear. No ptosis. ENT: dry mucous membranes. NECK: no JVD LUNGS: Breath sounds equal, clear to auscultation bilaterally HEART: RRR ABDOMEN: Soft, nontender, nondistended, +BS EXTREMITIES: 2+ pulses, no edema Laboratory Results - last 24 hr 09/15/19 09/15/19 11:20 11:20 WBC 7.6 RBC 4.20 Hgb 13.2 Hct 39.2 MCV 93.5 MCH 31.4 MCHC 33.6 RDW 14.5 Plt Count 339 MPV 7.6 Absolute Neuts (auto) 5.5 Neutrophils % 71.9 Lymphocytes % 15.3 Monocytes % 9.9 Eosinophils % 2.5 D Basophils % 0.4 Nucleated RBC % 0 Sodium 140 Potassium 4.2 Chloride 108 H Carbon Dioxide 26 Anion Gap 5 L BUN 13.2 Creatinine 0.7 Est GFR (CKD-EPI)AfAm 101.86 Est GFR (CKD-EPI)NonAf 87.88 Random Glucose 82 Calcium 8.1 L Total Bilirubin 0.8 AST 14 L ALT 15 Alkaline Phosphatase 83 Total Protein 5.5 L Albumin 2.8 L Active Medications Generic Name Dose Route Start Last Admin Trade Name Freq PRN Reason Stop Dose Admin Heparin Sodium (Porcine) 5,000 unit 09/11/19 22:00 09/15/19 09:49 Heparin - SQ 5,000 unit BID [facility] Administration Meropenem 1 gm/ Dextrose 100 mls @ 200 mls/hr 09/13/19 13:45 09/15/19 09:49 IVPB 200 mls/hr Q8H-IV [facility] Administration Dextrose/Sodium Chloride 40 meq in 1,000 mls @ 83 mls/hr 09/13/19 18:45 09/15 00:31 D5-1/2ns+40 Meq Kcl - IV 83 mls/hr ASDIR [facility] Administration Pantoprazole Sodium 40 mg 09/12/19 10:00 09/15/19 09:49 Protonix Iv IVPUSH 40 mg DAILY [facility] Administration Polyethylene Glycol 17 gm 09/15/19 22:00 Miralax (For Daily Use) - PO BID [facility] ASSESSMENT/PLAN: 84-year-old male presented to the ER with abdominal pain and vomiting #Partial SBO -advanced diet to clears -patient removed NG tube -Todays repeat abdominal x ray with decreasing small bowel distention. air distended colon. -IVF -Surgery with no intervention at this time. -Follow Gi reccs #Sepsis-likely due to urinary source -leukocytosis resolved, afebrile -urine cx ESBL -blood cx negative -Iv abx- meropenem -follow up ID reccs #HTN #HLD #Dementia #Parkinsonism #Arthritis #Dvt ppx: -hep sq #FEN -IV fluids: D5 1/2 NS + K -clears liquid diet Visit type - Emergency Visit Emergency Visit: Yes ED Registration Date: 09/11/19 Care time: The patient presented to the Emergency Department on the above date and was hospitalized for further evaluation of their emergent condition. - New Patient This patient is new to me today: Yes Date on this admission: 09/15/19 - Critical Care Critical Care patient: No ATTENDING PHYSICIAN STATEMENT I saw and evaluated the patient. I reviewed the resident's note and discussed the case with the resident. I agree with the resident's findings and plan as documented. SUBJECTIVE: OBJECTIVE: ASSESSMENT AND PLAN:
--- NOTE | 2019-09-15 15:33 | PN ---
Teaching Attending Note Name of Resident: Nani Boothe ATTENDING PHYSICIAN STATEMENT I saw and evaluated the patient. I reviewed the resident's note and discussed the case with the resident. I agree with the resident's findings and plan as documented. SUBJECTIVE: Seen and examined at bedside, feeling better, pulled NGT out, no further vomiting nausea or sob. OBJECTIVE: Vital Signs - 24 hr 09/14/19 09/14/19 09/15/19 19:23 21:00 05:56 Temperature 97.5 F L 98.2 F Pulse Rate 45 L 53 L Respiratory 20 20 Rate Blood Pressure 151/66 150/67 O2 Sat by Pulse 96 Oximetry (%) 09/15/19 09/15/19 09:00 13:00 Temperature 97.8 F Pulse Rate 54 L Respiratory 19 19 Rate Blood Pressure 176/82 H O2 Sat by Pulse 96 Oximetry (%) PE: Constitutional: Well Nourished, No Distress, Calm Cardiovascular: Regular Rate and Rhythm Respiratory: WNL, Regular, CTA Bilaterally Gastrointestinal: WNL, Normal Bowel Sounds, Soft, Abdomen, Obese Musculoskeletal: WNL Extremities: WNL Edema: No c/c/e Current Medications Heparin Sodium (Porcine) (Heparin -) 5,000 unit SQ BID [facility] Last Admin: 09/15/19 09:49 Dose: 5,000 unit Meropenem 1 gm/ Dextrose 100 mls @ 200 mls/hr IVPB Q8H-IV [facility] Last Admin: 09/15/19 09:49 Dose: 200 mls/hr Dextrose/Sodium Chloride (D5-1/2ns+40 Meq Kcl -) 40 meq in 1,000 mls @ 83 mls/ hr IV [facility] Last Admin: 09/15/19 00:31 Dose: 83 mls/hr Pantoprazole Sodium (Protonix Iv) 40 mg IVPUSH DAILY [facility] Last Admin: 09/15/19 09:49 Dose: 40 mg Polyethylene Glycol (Miralax (For Daily Use) -) 17 gm PO BID [facility] Laboratory Results - last 24 hr 09/15/19 09/15/19 11:20 11:20 WBC 7.6 RBC 4.20 Hgb 13.2 Hct 39.2 MCV 93.5 MCH 31.4 MCHC 33.6 RDW 14.5 Plt Count 339 MPV 7.6 Absolute Neuts (auto) 5.5 Neutrophils % 71.9 Lymphocytes % 15.3 Monocytes % 9.9 Eosinophils % 2.5 D Basophils % 0.4 Nucleated RBC % 0 Sodium 140 Potassium 4.2 Chloride 108 H Carbon Dioxide 26 Anion Gap 5 L BUN 13.2 Creatinine 0.7 Est GFR (CKD-EPI)AfAm 101.86 Est GFR (CKD-EPI)NonAf 87.88 Random Glucose 82 Calcium 8.1 L Total Bilirubin 0.8 AST 14 L ALT 15 Alkaline Phosphatase 83 Total Protein 5.5 L Albumin 2.8 L Microbiology 09/12/19 09:45 Blood - Peripheral Venous Blood Culture - Preliminary NO GROWTH OBTAINED AFTER 72 HOURS, INCUBATION TO CONTINUE FOR 2 DAYS. 09/12/19 09:45 Blood - Peripheral Venous Blood Culture - Preliminary NO GROWTH OBTAINED AFTER 72 HOURS, INCUBATION TO CONTINUE FOR 2 DAYS. ASSESSMENT AND PLAN: 84-year-old male presented to the ER with abdominal pain and vomiting 1. Partial SBO, resolving -trial clear liquids -advance as tolerated -GI eval appreciated 2. Sepsis-urinary source, resolved -urine cx Ecoli ESBL -blood cx neg to date -cw meropenem -ID eval appreciated HTN HLD Dementia Parkinsonism Arthritis -resume PO meds Problem List - Problems (1) CKD (chronic kidney disease) stage 3, GFR 30-59 ml/min Code(s): N18.3 - CHRONIC KIDNEY DISEASE, STAGE 3 (MODERATE) (2) Dementia Code(s): F03.90 - UNSPECIFIED DEMENTIA WITHOUT BEHAVIORAL DISTURBANCE Qualifiers: Dementia type: Parkinson's disease Dementia behavioral disturbance: without behavioral disturbance Qualified Code(s): G20 - Parkinson's disease; F02.80 - Dementia in other diseases classified elsewhere without behavioral disturbance (3) HTN (hypertension) Code(s): I10 - ESSENTIAL (PRIMARY) HYPERTENSION (4) Hiatal hernia with GERD Code(s): K21.9 - GASTRO-ESOPHAGEAL REFLUX DISEASE WITHOUT ESOPHAGITIS; K44.9 - DIAPHRAGMATIC HERNIA WITHOUT OBSTRUCTION OR GANGRENE (5) Hyperlipidemia Code(s): E78.5 - HYPERLIPIDEMIA, UNSPECIFIED (6) Parkinson disease Code(s): G20 - PARKINSON'S DISEASE
[2019-09-15] MEDS: POLYETHYLENE GLYCOL 3350 119 GM BTL PO SCH (22:20)
[2019-09-16] MEDS ORDERED: DEXTROSE 5%-WATER 100 ML IVPB ONE ×4 (01:19→18:18)
[2019-09-16] MEDS ORDERED: MEROPENEM 1 GM VIAL (RESTRICTED TO ID) IVPB ONE ×4 (01:19→18:17)
[2019-09-16] MEDS: MEROPENEM 1 GM in DEXTROSE 5%-WATER 100 ML IVPB SCH ×3 (01:25→18:42)
[2019-09-16] MEDS: ACETAMINOPHEN 500 MG TABLET (FP) PO PRN ×2 (06:03→22:18)
[2019-09-16 09:21] LABS: BASO % 0.8 % (0-2.0); EOS % 3.5 % (0-4.5); HEMATOCRIT 41.8 % (35.4-49); HEMOGLOBIN 14.1 GM/dL (11.7-16.9); LYMPH % 15.9 % (8-40); MCH 31.4 pg (25.7-33.7); MCHC 33.8 g/dl (32.0-35.9); MEAN CELL VOLUME 92.9 fl (80-96); MEAN PLT VOLUME 7.4 fl (7.5-11.1); MONO % 8.4 % (3.8-10.2); NEUT % 71.4 % (42.8-82.8); PLATELET COUNT 362 K/MM3 (134-434); RDW 14.2 % (11.9-15.9); WHITE BLOOD COUNT 8.4 K/mm3 (4.0-10.0)
[2019-09-16 09:49] LABS: ALBUMIN 2.9 g/dl (3.4-5.0); BILIRUBIN,TOTAL 0.9 mg/dL (0.2-1); CALCIUM 8.4 mg/dL (8.5-10.1); CREATININE 0.6 mg/dL (0.55-1.3); POTASSIUM 3.9 mmol/L (3.5-5.1); TOT PROT 5.6 g/dl (6.4-8.2)
--- NOTE | 2019-09-16 10:05 | PN ---
Physical Exam: SUBJECTIVE: Patient seen and examined. No events overnight. Says he feels good. denies abdominal pain, nausea, vomiting. OBJECTIVE: Vital Signs Period Temp Pulse Resp BP Sys/Martinez Pulse Ox Last 24 Hr 97.5 F-97.8 F 54-58 19-20 136-176/62-82 96 GENERAL: in NAD HEAD: Normal with no signs of trauma. EYES: PERRL, conjunctiva clear. No ptosis. ENT: moist mucous membranes. NECK: no JVD LUNGS: Breath sounds equal, clear to auscultation bilaterally HEART: RRR ABDOMEN: Soft, nontender, nondistended, +BS EXTREMITIES: 2+ pulses, no edema Laboratory Results - last 24 hr 09/15/19 09/15/19 09/16/19 11:20 11:20 09:05 WBC 7.6 8.4 RBC 4.20 4.50 Hgb 13.2 14.1 Hct 39.2 41.8 MCV 93.5 92.9 MCH 31.4 31.4 MCHC 33.6 33.8 RDW 14.5 14.2 Plt Count 339 362 MPV 7.6 7.4 L Absolute Neuts (auto) 5.5 6.0 Neutrophils % 71.9 71.4 Lymphocytes % 15.3 15.9 Monocytes % 9.9 8.4 Eosinophils % 2.5 D 3.5 Basophils % 0.4 0.8 Nucleated RBC % 0 0 Sodium 140 Potassium 4.2 Chloride 108 H Carbon Dioxide 26 Anion Gap 5 L BUN 13.2 Creatinine 0.7 Est GFR (CKD-EPI)AfAm 101.86 Est GFR (CKD-EPI)NonAf 87.88 Random Glucose 82 Calcium 8.1 L Total Bilirubin 0.8 AST 14 L ALT 15 Alkaline Phosphatase 83 Total Protein 5.5 L Albumin 2.8 L 09/16/19 09:05 WBC RBC Hgb Hct MCV MCH MCHC RDW Plt Count MPV Absolute Neuts (auto) Neutrophils % Lymphocytes % Monocytes % Eosinophils % Basophils % Nucleated RBC % Sodium 135 L Potassium 3.9 Chloride 105 Carbon Dioxide 27 Anion Gap 4 L BUN 13.0 Creatinine 0.6 Est GFR (CKD-EPI)AfAm 108.52 Est GFR (CKD-EPI)NonAf 93.63 Random Glucose 102 Calcium 8.4 L Total Bilirubin 0.9 AST 42 H ALT 32 Alkaline Phosphatase 90 Total Protein 5.6 L Albumin 2.9 L Active Medications Generic Name Dose Route Start Last Admin Trade Name Freq PRN Reason Stop Dose Admin Acetaminophen 1,000 mg 09/16/19 05:01 09/16/19 06:03 Tylenol - PO 1,000 mg Q6H PRN Administration PAIN LEVEL 6-10 Heparin Sodium (Porcine) 5,000 unit 09/11/19 22:00 09/15/19 22:19 Heparin - SQ 5,000 unit BID [facility] Administration Meropenem 1 gm/ Dextrose 100 mls @ 200 mls/hr 09/13/19 13:45 09/16/19 01:25 IVPB 200 mls/hr Q8H-IV [facility] Administration Pantoprazole Sodium 40 mg 09/12/19 10:00 09/15/19 09:49 Protonix Iv IVPUSH 40 mg DAILY [facility] Administration Polyethylene Glycol 17 gm 09/15/19 22:00 09/15/19 22:20 Miralax (For Daily Use) - PO 17 gm BID [facility] Administration ASSESSMENT/PLAN: #Partial SBO -on clear liquid diet. will likely advance today. -IVF d/raymon -Surgery with no intervention at this time. -Follow Gi reccs #Sepsis-likely due to urinary source -leukocytosis resolved, afebrile -urine cx ESBL -blood cx negative -Day 4 Iv abx- meropenem -follow up ID reccs #HTN #HLD #Dementia #Parkinsonism #Arthritis #Dvt ppx: -hep sq #FEN -off IV fluids. now eating -full liquid diet Visit type - Emergency Visit Emergency Visit: Yes ED Registration Date: 09/11/19 Care time: The patient presented to the Emergency Department on the above date and was hospitalized for further evaluation of their emergent condition. - New Patient This patient is new to me today: Yes Date on this admission: 09/16/19 - Critical Care Critical Care patient: No ATTENDING PHYSICIAN STATEMENT I saw and evaluated the patient. I reviewed the resident's note and discussed the case with the resident. I agree with the resident's findings and plan as documented. SUBJECTIVE: OBJECTIVE: ASSESSMENT AND PLAN:
[2019-09-16] MEDS: HEPARIN NA (PORCINE) 5,000 UNITS/ML 1ML VIAL SQ SCH ×2 (10:55→22:20)
[2019-09-16] MEDS: POLYETHYLENE GLYCOL 3350 119 GM BTL PO SCH ×2 (10:56→22:20)
[2019-09-16] MEDS: PANTOPRAZOLE SODIUM 40 MG VIAL IVPUSH SCH (10:56)
--- NOTE | 2019-09-16 12:55 | PN ---
Progress Note, Physician History of Present Illness: stable doing well no new issues tolerating liquids - Current Medication List Current Medications: Active Medications Acetaminophen (Tylenol -) 1,000 mg PO Q6H PRN PRN Reason: PAIN LEVEL 6-10 Last Admin: 09/16/19 06:03 Dose: 1,000 mg Heparin Sodium (Porcine) (Heparin -) 5,000 unit SQ BID [facility] Last Admin: 09/16/19 10:55 Dose: 5,000 unit Meropenem 1 gm/ Dextrose 100 mls @ 200 mls/hr IVPB Q8H-IV [facility] Last Admin: 09/16/19 10:55 Dose: 200 mls/hr Pantoprazole Sodium (Protonix Iv) 40 mg IVPUSH DAILY [facility] Last Admin: 09/16/19 10:56 Dose: 40 mg Polyethylene Glycol (Miralax (For Daily Use) -) 17 gm PO BID [facility] Last Admin: 09/16/19 10:56 Dose: 17 gm - Objective Vital Signs: Vital Signs Temperature 97.8 F 09/16/19 05:20 Pulse Rate 58 L 09/16/19 05:20 Respiratory Rate 09/16/19 05:20 Blood Pressure 136/62 09/16/19 05:20 O2 Sat by Pulse Oximetry (%) 96 09/15/19 21:00 Constitutional: Yes: No Distress, Calm Cardiovascular: Yes: S1, S2 Respiratory: Yes: Regular, CTA Bilaterally Gastrointestinal: Yes: Normal Bowel Sounds, Soft Musculoskeletal: Yes: WNL Extremities: Yes: WNL Neurological: Yes: Alert Psychiatric: Yes: Alert Labs: CBC, BMP 09/16/19 09:05 09/16/19 09:05 Assessment/Plan Problem List - Problems (1) CKD (chronic kidney disease) stage 3, GFR 30-59 ml/min Code(s): N18.3 - CHRONIC KIDNEY DISEASE, STAGE 3 (MODERATE) (2) Dementia Code(s): F03.90 - UNSPECIFIED DEMENTIA WITHOUT BEHAVIORAL DISTURBANCE Qualifiers: Dementia type: Parkinson's disease Dementia behavioral disturbance: without behavioral disturbance Qualified Code(s): G20 - Parkinson's disease; F02.80 - Dementia in other diseases classified elsewhere without behavioral disturbance (3) HTN (hypertension) Code(s): I10 - ESSENTIAL (PRIMARY) HYPERTENSION (4) Hiatal hernia with GERD Code(s): K21.9 - GASTRO-ESOPHAGEAL REFLUX DISEASE WITHOUT ESOPHAGITIS; K44.9 - DIAPHRAGMATIC HERNIA WITHOUT OBSTRUCTION OR GANGRENE (5) Hyperlipidemia Code(s): E78.5 - HYPERLIPIDEMIA, UNSPECIFIED (6) Parkinson disease Code(s): G20 - PARKINSON'S DISEASE 7 sbo complicated uti esbl plan continue abx complete a total of 14 days
--- NOTE | 2019-09-16 15:41 | PN ---
Teaching Attending Note Name of Resident: Nani Boothe ATTENDING PHYSICIAN STATEMENT I saw and evaluated the patient. I reviewed the resident's note and discussed the case with the resident. I agree with the resident's findings and plan as documented. SUBJECTIVE: seen and examined at bedside. feeling well, no abdominal pain. OBJECTIVE: Vital Signs - 24 hr 09/15/19 09/15/19 09/16/19 17:00 21:00 05:20 Temperature 97.5 F L 97.8 F Pulse Rate 58 L 58 L Respiratory 20 20 20 Rate Blood Pressure 148/70 136/62 O2 Sat by Pulse 96 Oximetry (%) 09/16/19 09/16/19 09:00 14:42 Temperature 99.0 F Pulse Rate 58 L Respiratory 19 20 Rate Blood Pressure 145/63 O2 Sat by Pulse 96 Oximetry (%) PE: Constitutional: Well Nourished, No Distress, Calm Cardiovascular: Regular Rate and Rhythm Respiratory: WNL, Regular, CTA Bilaterally Gastrointestinal: WNL, Normal Bowel Sounds, Soft, Abdomen, Obese Musculoskeletal: WNL Extremities: WNL Edema: No c/c/e chronic venous stasis changes Current Medications Acetaminophen (Tylenol -) 1,000 mg PO Q6H PRN PRN Reason: PAIN LEVEL 6-10 Last Admin: 09/16/19 06:03 Dose: 1,000 mg Heparin Sodium (Porcine) (Heparin -) 5,000 unit SQ BID [facility] Last Admin: 09/16/19 10:55 Dose: 5,000 unit Meropenem 1 gm/ Dextrose 100 mls @ 200 mls/hr IVPB Q8H-IV [facility] Last Admin: 09/16/19 10:55 Dose: 200 mls/hr Pantoprazole Sodium (Protonix Iv) 40 mg IVPUSH DAILY [facility] Last Admin: 09/16/19 10:56 Dose: 40 mg Polyethylene Glycol (Miralax (For Daily Use) -) 17 gm PO BID [facility] Last Admin: 09/16/19 10:56 Dose: 17 gm Laboratory Results - last 24 hr 09/16/19 09/16/19 09:05 09:05 WBC 8.4 RBC 4.50 Hgb 14.1 Hct 41.8 MCV 92.9 MCH 31.4 MCHC 33.8 RDW 14.2 Plt Count 362 MPV 7.4 L Absolute Neuts (auto) 6.0 Neutrophils % 71.4 Lymphocytes % 15.9 Monocytes % 8.4 Eosinophils % 3.5 Basophils % 0.8 Nucleated RBC % 0 Sodium 135 L Potassium 3.9 Chloride 105 Carbon Dioxide 27 Anion Gap 4 L BUN 13.0 Creatinine 0.6 Est GFR (CKD-EPI)AfAm 108.52 Est GFR (CKD-EPI)NonAf 93.63 Random Glucose 102 Calcium 8.4 L Total Bilirubin 0.9 AST 42 H ALT 32 Alkaline Phosphatase 90 Total Protein 5.6 L Albumin 2.9 L Microbiology 09/12/19 09:45 Blood - Peripheral Venous Blood Culture - Preliminary NO GROWTH OBTAINED AFTER 96 HOURS, INCUBATION TO CONTINUE FOR 1 DAYS. 09/12/19 09:45 Blood - Peripheral Venous Blood Culture - Preliminary NO GROWTH OBTAINED AFTER 96 HOURS, INCUBATION TO CONTINUE FOR 1 DAYS. ASSESSMENT AND PLAN: 84-year-old male presented to the ER with abdominal pain and vomiting 1. Partial SBO, resolving -tolerating diet, advance -fu FUA today -GI eval appreciated 2. Ecoli ESBL UTI -cw meropenem total 14 days of abx needed -ID eval HTN HLD Dementia Parkinsonism Arthritis -cw current mngmt Problem List - Problems (1) CKD (chronic kidney disease) stage 3, GFR 30-59 ml/min Code(s): N18.3 - CHRONIC KIDNEY DISEASE, STAGE 3 (MODERATE) (2) Dementia Code(s): F03.90 - UNSPECIFIED DEMENTIA WITHOUT BEHAVIORAL DISTURBANCE Qualifiers: Dementia type: Parkinson's disease Dementia behavioral disturbance: without behavioral disturbance Qualified Code(s): G20 - Parkinson's disease; F02.80 - Dementia in other diseases classified elsewhere without behavioral disturbance (3) HTN (hypertension) Code(s): I10 - ESSENTIAL (PRIMARY) HYPERTENSION (4) Hiatal hernia with GERD Code(s): K21.9 - GASTRO-ESOPHAGEAL REFLUX DISEASE WITHOUT ESOPHAGITIS; K44.9 - DIAPHRAGMATIC HERNIA WITHOUT OBSTRUCTION OR GANGRENE (5) Hyperlipidemia Code(s): E78.5 - HYPERLIPIDEMIA, UNSPECIFIED (6) Parkinson disease Code(s): G20 - PARKINSON'S DISEASE
[2019-09-16] MEDS ORDERED: POLYETHYLENE GLYCOL 3350 119 GM BTL PO PRN (17:32)
[2019-09-16] MEDS: ATORVASTATIN CA 40 MG TABLET (FP) PO SCH (22:18)
[2019-09-16] MEDS: METOPROLOL TARTRATE 25 MG TABLET (FP) PO SCH (22:21)
[2019-09-17] MEDS ORDERED: DEXTROSE 5%-WATER 100 ML IVPB ONE ×3 (01:02→16:32)
[2019-09-17] MEDS ORDERED: MEROPENEM 1 GM VIAL (RESTRICTED TO ID) IVPB ONE ×3 (01:02→16:32)
[2019-09-17] MEDS: MEROPENEM 1 GM in DEXTROSE 5%-WATER 100 ML IVPB SCH ×3 (01:05→17:21)
[2019-09-17] MEDS: PANTOPRAZOLE SODIUM 40 MG VIAL IVPUSH SCH (08:59)
[2019-09-17] MEDS: OLANZapine 10 MG TABLET PO SCH (09:00)
[2019-09-17] MEDS: METOPROLOL TARTRATE 25 MG TABLET (FP) PO SCH ×2 (09:00→21:52)
[2019-09-17] MEDS: LISINOPRIL 10 MG TABLET (FP) PO SCH (09:00)
[2019-09-17] MEDS: PANTOPRAZOLE 40 MG TABLET PO SCH ×2 (09:00→11:16)
[2019-09-17] MEDS: HEPARIN NA (PORCINE) 5,000 UNITS/ML 1ML VIAL SQ SCH ×2 (09:00→21:52)
[2019-09-17] MEDS: POLYETHYLENE GLYCOL 3350 119 GM BTL PO SCH ×2 (09:00→21:53)
[2019-09-17 09:50] LABS: ALBUMIN 2.8 g/dl (3.4-5.0); BILIRUBIN,TOTAL 0.8 mg/dL (0.2-1); BLOOD UREA NITROGEN 6.8 mg/dL (7-18); CALCIUM 8.7 mg/dL (8.5-10.1); CREATININE 0.7 mg/dL (0.55-1.3); POTASSIUM 4.2 mmol/L (3.5-5.1); TOT PROT 5.6 g/dl (6.4-8.2)
--- NOTE | 2019-09-17 10:02 | PN ---
Teaching Attending Note Name of Resident: Nani Boothe ATTENDING PHYSICIAN STATEMENT I saw and evaluated the patient. I reviewed the resident's note and discussed the case with the resident. I agree with the resident's findings and plan as documented. SUBJECTIVE: In no distress at this time, states that has been passing gas no BMs yet OBJECTIVE: elderly M in no distress cvs:s1s2 ctab abd:BS+ normal, NT/ND Labs: CBCD WBC 8.4 K/mm3 (4.0-10.0) 09/16/19 09:05 RBC 4.50 M/mm3 (4.00-5.60) 09/16/19 09:05 Hgb 14.1 GM/dL (11.7-16.9) 09/16/19 09:05 Hct 41.8 % (35.4-49) 09/16/19 09:05 MCV 92.9 fl (80-96) 09/16/19 09:05 MCHC 33.8 g/dl (32.0-35.9) 09/16/19 09:05 RDW 14.2 % (11.9-15.9) 09/16/19 09:05 Plt Count 362 K/MM3 (134-434) 09/16/19 09:05 MPV 7.4 fl (7.5-11.1) L 09/16/19 09:05 CMP Sodium 138 mmol/L (136-145) 09/17/19 08:56 Potassium 4.2 mmol/L (3.5-5.1) 09/17/19 08:56 Chloride 106 mmol/L (98-107) 09/17/19 08:56 Carbon Dioxide 25 mmol/L (21-32) 09/17/19 08:56 Anion Gap 7 MMOL/L (8-16) L 09/17/19 08:56 BUN 6.8 mg/dL (7-18) L 09/17/19 08:56 Creatinine 0.7 mg/dL (0.55-1.3) 09/17/19 08:56 Calcium 8.7 mg/dL (8.5-10.1) 09/17/19 08:56 Total Bilirubin 0.8 mg/dL (0.2-1) 09/17/19 08:56 AST 46 U/L (15-37) H 09/17/19 08:56 ALT 21 U/L (13-61) 09/17/19 08:56 Alkaline Phosphatase 99 U/L (45-117) 09/17/19 08:56 Total Protein 5.6 g/dl (6.4-8.2) L 09/17/19 08:56 Albumin 2.8 g/dl (3.4-5.0) L 09/17/19 08:56 ASSESSMENT AND PLAN: 84-year-old male presented to the ER with abdominal pain and vomiting, was found to have partial SBO which is now improved and patient is tolerating PO diet At this time he is pending another abdomial Xray and if tolerating full PO diet he will be DCed tomorrow Current Medications Generic Name Dose Route Start Last Admin Trade Name Freq PRN Reason Stop Dose Admin Acetaminophen 1,000 mg 09/16/19 05:01 09/16/19 22:18 Tylenol - PO 1,000 mg Q6H PRN Administration PAIN LEVEL 6-10 Atorvastatin Calcium 40 mg 09/16/19 22:00 09/16/19 22:18 Lipitor - PO 40 mg HS [facility] Administration Carbidopa/Levodopa 1 combo 09/16/19 22:00 09/17/19 09:00 Sinemet *Cr* 50/200 - PO 1 combo BID [facility] Administration Heparin Sodium (Porcine) 5,000 unit 09/11/19 22:00 09/17/19 09:00 Heparin - SQ 5,000 unit BID [facility] Administration Meropenem 1 gm/ Dextrose 100 mls @ 200 mls/hr 09/13/19 13:45 09/17/19 09:00 IVPB 200 mls/hr Q8H-IV [facility] Administration Lisinopril 10 mg 09/17/19 10:00 09/17/19 09:00 Prinivil PO 10 mg DAILY [facility] Administration Metoprolol Tartrate 25 mg 09/16/19 22:00 09/17/19 09:00 Lopressor - PO 25 mg BID [facility] Administration Olanzapine 10 mg 09/17/19 10:00 09/17/19 09:00 Zyprexa - PO 10 mg DAILY [facility] Administration Pantoprazole Sodium 40 mg 09/12/19 10:00 09/17/19 08:59 Protonix Iv IVPUSH 40 mg DAILY [facility] Administration Pantoprazole Sodium 40 mg 09/17/19 10:00 Protonix - PO DAILY [facility] Polyethylene Glycol 17 gm 09/15/19 22:00 09/17/19 09:00 Miralax (For Daily Use) - PO 17 gm BID [facility] Administration Polyethylene Glycol 17 gm 09/16/19 17:32 Miralax (For Daily Use) - PO DAILY PRN CONSTIPATION
--- NOTE | 2019-09-17 10:37 | PN ---
Physical Exam: SUBJECTIVE: Patient seen and examined. No events overnight. patient offers no complaints. says he has not had a BM yet. Has been passing gas though. OBJECTIVE: Vital Signs Period Temp Pulse Resp BP Sys/Martinez Pulse Ox Last 24 Hr 97.7 F-99.0 F 50-60 15-21 140-145/63-79 98 GENERAL: in NAD HEAD: Normal with no signs of trauma. EYES: PERRL, conjunctiva clear. No ptosis. ENT: moist mucous membranes. NECK: no JVD LUNGS: Breath sounds equal, clear to auscultation bilaterally HEART: RRR ABDOMEN: Soft, nontender, nondistended, +BS EXTREMITIES: 2+ pulses, no edema Laboratory Results - last 24 hr 09/17/19 08:56 Sodium 138 Potassium 4.2 Chloride 106 Carbon Dioxide 25 Anion Gap 7 L BUN 6.8 L Creatinine 0.7 Est GFR (CKD-EPI)AfAm 101.86 Est GFR (CKD-EPI)NonAf 87.88 Random Glucose 99 Calcium 8.7 Total Bilirubin 0.8 AST 46 H ALT 21 Alkaline Phosphatase 99 Total Protein 5.6 L Albumin 2.8 L Active Medications Generic Name Dose Route Start Last Admin Trade Name Freq PRN Reason Stop Dose Admin Acetaminophen 1,000 mg 09/16/19 05:01 09/16/19 22:18 Tylenol - PO 1,000 mg Q6H PRN Administration PAIN LEVEL 6-10 Atorvastatin Calcium 40 mg 09/16/19 22:00 09/16/19 22:18 Lipitor - PO 40 mg HS [facility] Administration Carbidopa/Levodopa 1 combo 09/16/19 22:00 09/17/19 09:00 Sinemet *Cr* 50/200 - PO 1 combo BID [facility] Administration Heparin Sodium (Porcine) 5,000 unit 09/11/19 22:00 09/17/19 09:00 Heparin - SQ 5,000 unit BID [facility] Administration Meropenem 1 gm/ Dextrose 100 mls @ 200 mls/hr 09/13/19 13:45 09/17/19 09:00 IVPB 200 mls/hr Q8H-IV [facility] Administration Lisinopril 10 mg 09/17/19 10:00 09/17/19 09:00 Prinivil PO 10 mg DAILY [facility] Administration Metoprolol Tartrate 25 mg 09/16/19 22:00 09/17/19 09:00 Lopressor - PO 25 mg BID [facility] Administration Olanzapine 10 mg 09/17/19 10:00 09/17/19 09:00 Zyprexa - PO 10 mg DAILY [facility] Administration Pantoprazole Sodium 40 mg 09/12/19 10:00 09/17/19 08:59 Protonix Iv IVPUSH 40 mg DAILY [facility] Administration Pantoprazole Sodium 40 mg 09/17/19 10:00 Protonix - PO DAILY [facility] Polyethylene Glycol 17 gm 09/15/19 22:00 09/17/19 09:00 Miralax (For Daily Use) - PO 17 gm BID [facility] Administration Polyethylene Glycol 17 gm 09/16/19 17:32 Miralax (For Daily Use) - PO DAILY PRN CONSTIPATION ASSESSMENT/PLAN: #Partial SBO -will advance to soft today -IVF d/raymon -FU repeat abdominal x ray -Surgery with no intervention at this time. -Follow Gi reccs #Sepsis-likely due to complicated UTI ESBL -leukocytosis resolved, afebrile -urine cx ESBL -blood cx negative -Day 5 Iv abx- meropenem -follow up ID reccs -will need to complete total of 14 days of IV abx. #HTN #HLD #Dementia #Parkinsonism #Arthritis #Dvt ppx: -hep sq #FEN -off IV fluids. now eating -advance to soft dispo: will anticipate D/C tomorrow Visit type - Emergency Visit Emergency Visit: Yes ED Registration Date: 09/11/19 Care time: The patient presented to the Emergency Department on the above date and was hospitalized for further evaluation of their emergent condition. - New Patient This patient is new to me today: Yes Date on this admission: 09/17/19 - Critical Care Critical Care patient: No ATTENDING PHYSICIAN STATEMENT I saw and evaluated the patient. I reviewed the resident's note and discussed the case with the resident. I agree with the resident's findings and plan as documented. SUBJECTIVE: OBJECTIVE: ASSESSMENT AND PLAN:
[2019-09-17 10:53] LABS: BASO % 0.4 % (0-2.0); EOS % 3.2 % (0-4.5); HEMATOCRIT 43.1 % (35.4-49); HEMOGLOBIN 14.6 GM/dL (11.7-16.9); LYMPH % 13.9 % (8-40); MCH 31.5 pg (25.7-33.7); MCHC 33.8 g/dl (32.0-35.9); MEAN CELL VOLUME 93.1 fl (80-96); MEAN PLT VOLUME 7.4 fl (7.5-11.1); MONO % 9.2 % (3.8-10.2); NEUT % 73.3 % (42.8-82.8); PLATELET COUNT 406 K/MM3 (134-434); RBC 4.63 M/mm3 (4.00-5.60); RDW 14.6 % (11.9-15.9); WHITE BLOOD COUNT 9.8 K/mm3 (4.0-10.0)
--- NOTE | 2019-09-17 12:08 | PN.GI ---
GI Progress Note Subjective: GI Note: Eating with vigor and is moving bowels. No obstruction on FUA. 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[facility] [place] now has a dilated esophagus and distal esophageal wall thickening - Personal h/o colon adenomas and FH of colon cancer Plan: -- Tolerating solids -- Continue Miralax -- NO GI objections to discharge Problem List - Problems (1) SBO (small bowel obstruction) Code(s): K56.609 - UNSP INTESTNL OBST, UNSP TO PARTIAL VERSUS COMPLETE OBST (2) Projectile vomiting with nausea Code(s): R11.12 - PROJECTILE VOMITING (3) Guerrier's esophagus with high grade dysplasia Code(s): K22.711 - GUERRIER'S ESOPHAGUS WITH HIGH GRADE DYSPLASIA (4) Colon adenomas Code(s): D12.6 - BENIGN NEOPLASM OF COLON, UNSPECIFIED (5) Diverticula of colon Code(s): K57.30 - DVRTCLOS OF LG INT W/O PERFORATION OR ABSCESS W/O BLEEDING (6) Family history of colon cancer in father Code(s): Z80.0 - FAMILY HISTORY OF MALIGNANT NEOPLASM OF DIGESTIVE ORGANS (7) Parkinson disease Code(s): G20 - PARKINSON'S DISEASE (8) Abdominal pain Code(s): R10.9 - UNSPECIFIED ABDOMINAL PAIN Qualifiers: Abdominal location: unspecified location Qualified Code(s): R10.9 - Unspecified abdominal pain (9) Coffee ground emesis Code(s): K92.0 - HEMATEMESIS
--- NOTE | 2019-09-17 14:38 | PN ---
Progress Note, Physician History of Present Illness: stable no new issues tolerating diet - Current Medication List Current Medications: Active Medications Acetaminophen (Tylenol -) 1,000 mg PO Q6H PRN PRN Reason: PAIN LEVEL 6-10 Last Admin: 09/16/19 22:18 Dose: 1,000 mg Atorvastatin Calcium (Lipitor -) 40 mg PO HS [facility] Last Admin: 09/16/19 22:18 Dose: 40 mg Carbidopa/Levodopa (Sinemet *Cr* 50/200 -) 1 combo PO BID [facility] Last Admin: 09/17/19 09:00 Dose: 1 combo Heparin Sodium (Porcine) (Heparin -) 5,000 unit SQ BID [facility] Last Admin: 09/17/19 09:00 Dose: 5,000 unit Meropenem 1 gm/ Dextrose 100 mls @ 200 mls/hr IVPB Q8H-IV [facility] Last Admin: 09/17/19 09:00 Dose: 200 mls/hr Lisinopril (Prinivil) 10 mg PO DAILY [facility] Last Admin: 09/17/19 09:00 Dose: 10 mg Metoprolol Tartrate (Lopressor -) 25 mg PO BID [facility] Last Admin: 09/17/19 09:00 Dose: 25 mg Olanzapine (Zyprexa -) 10 mg PO DAILY [facility] Last Admin: 09/17/19 09:00 Dose: 10 mg Pantoprazole Sodium (Protonix Iv) 40 mg IVPUSH DAILY [facility] Last Admin: 09/17/19 08:59 Dose: 40 mg Polyethylene Glycol (Miralax (For Daily Use) -) 17 gm PO BID [facility] Last Admin: 09/17/19 09:00 Dose: 17 gm Polyethylene Glycol (Miralax (For Daily Use) -) 17 gm PO DAILY PRN PRN Reason: CONSTIPATION - Objective Vital Signs: Vital Signs Temperature 97.7 F 09/17/19 07:48 Pulse Rate 58 L 09/17/19 07:48 Respiratory Rate 15 09/17/19 07:48 Blood Pressure 140/70 09/17/19 07:48 O2 Sat by Pulse Oximetry (%) 98 09/17/19 09:00 Constitutional: Yes: No Distress, Calm Cardiovascular: Yes: S1, S2 Respiratory: Yes: Regular, CTA Bilaterally Gastrointestinal: Yes: Normal Bowel Sounds, Soft Musculoskeletal: Yes: WNL Extremities: Yes: WNL Neurological: Yes: Alert, Oriented Psychiatric: Yes: Alert, Oriented Labs: CBC, BMP 09/17/19 10:35 09/17/19 08:56 Assessment/Plan Problem List - Problems (1) CKD (chronic kidney disease) stage 3, GFR 30-59 ml/min Code(s): N18.3 - CHRONIC KIDNEY DISEASE, STAGE 3 (MODERATE) (2) Dementia Code(s): F03.90 - UNSPECIFIED DEMENTIA WITHOUT BEHAVIORAL DISTURBANCE Qualifiers: Dementia type: Parkinson's disease Dementia behavioral disturbance: without behavioral disturbance Qualified Code(s): G20 - Parkinson's disease; F02.80 - Dementia in other diseases classified elsewhere without behavioral disturbance (3) HTN (hypertension) Code(s): I10 - ESSENTIAL (PRIMARY) HYPERTENSION (4) Hiatal hernia with GERD Code(s): K21.9 - GASTRO-ESOPHAGEAL REFLUX DISEASE WITHOUT ESOPHAGITIS; K44.9 - DIAPHRAGMATIC HERNIA WITHOUT OBSTRUCTION OR GANGRENE (5) Hyperlipidemia Code(s): E78.5 - HYPERLIPIDEMIA, UNSPECIFIED (6) Parkinson disease Code(s): G20 - PARKINSON'S DISEASE 7 sbo complicated uti esbl plan continue abx complete a total of 14 days
[2019-09-17] MEDS: ACETAMINOPHEN 500 MG TABLET (FP) PO PRN (21:51)
[2019-09-17] MEDS: ATORVASTATIN CA 40 MG TABLET (FP) PO SCH (21:51)
[2019-09-18] MEDS ORDERED: DEXTROSE 5%-WATER 100 ML IVPB ONE ×3 (00:19→16:57)
[2019-09-18] MEDS ORDERED: MEROPENEM 1 GM VIAL (RESTRICTED TO ID) IVPB ONE ×3 (00:19→16:57)
[2019-09-18] MEDS: MEROPENEM 1 GM in DEXTROSE 5%-WATER 100 ML IVPB SCH ×3 (02:47→17:02)
[2019-09-18] MEDS: HEPARIN NA (PORCINE) 5,000 UNITS/ML 1ML VIAL SQ SCH ×2 (09:03→21:30)
[2019-09-18] MEDS: PANTOPRAZOLE SODIUM 40 MG VIAL IVPUSH SCH (09:03)
[2019-09-18] MEDS: METOPROLOL TARTRATE 25 MG TABLET (FP) PO SCH ×2 (09:04→21:30)
[2019-09-18] MEDS: OLANZapine 10 MG TABLET PO SCH (09:04)
[2019-09-18] MEDS: LISINOPRIL 10 MG TABLET (FP) PO SCH (09:04)
[2019-09-18] MEDS: POLYETHYLENE GLYCOL 3350 119 GM BTL PO SCH ×2 (09:05→21:31)
[2019-09-18 09:55] LABS: BASO % 0.4 % (0-2.0); EOS % 3.8 % (0-4.5); HEMATOCRIT 43.7 % (35.4-49); HEMOGLOBIN 14.8 GM/dL (11.7-16.9); LYMPH % 15.6 % (8-40); MCH 31.6 pg (25.7-33.7); MCHC 33.8 g/dl (32.0-35.9); MEAN CELL VOLUME 93.5 fl (80-96); MEAN PLT VOLUME 7.7 fl (7.5-11.1); MONO % 8.9 % (3.8-10.2); NEUT % 71.3 % (42.8-82.8); PLATELET COUNT 368 K/MM3 (134-434); RBC 4.67 M/mm3 (4.00-5.60); RDW 14.7 % (11.9-15.9); WHITE BLOOD COUNT 9.1 K/mm3 (4.0-10.0)
[2019-09-18 10:07] LABS: BILIRUBIN,TOTAL 0.7 mg/dL (0.2-1); BLOOD UREA NITROGEN 8.7 mg/dL (7-18); CALCIUM 8.5 mg/dL (8.5-10.1); CREATININE 0.7 mg/dL (0.55-1.3); POTASSIUM 3.9 mmol/L (3.5-5.1); TOT PROT 5.8 g/dl (6.4-8.2)
--- NOTE | 2019-09-18 13:47 | PN ---
Progress Note, Physician History of Present Illness: patient seen and examined at bedside with his home health aide present as well as his on speaker over the phone. all questions answered. He denies nausea vomiting fever chills chest pain or SOB. no urinary symptoms. tolerating diet well. having BMs. Afebrile. - Current Medication List Current Medications: Active Medications Acetaminophen (Tylenol -) 1,000 mg PO Q6H PRN PRN Reason: PAIN LEVEL 6-10 Last Admin: 09/17/19 21:51 Dose: 1,000 mg Atorvastatin Calcium (Lipitor -) 40 mg PO HS [facility] Last Admin: 09/17/19 21:51 Dose: 40 mg Carbidopa/Levodopa (Sinemet *Cr* 50/200 -) 1 combo PO BID [facility] Last Admin: 09/18/19 09:04 Dose: 1 combo Heparin Sodium (Porcine) (Heparin -) 5,000 unit SQ BID [facility] Last Admin: 09/18/19 09:03 Dose: 5,000 unit Meropenem 1 gm/ Dextrose 100 mls @ 200 mls/hr IVPB Q8H-IV [facility] Last Admin: 09/18/19 09:01 Dose: 200 mls/hr Lisinopril (Prinivil) 10 mg PO DAILY [facility] Last Admin: 09/18/19 09:04 Dose: 10 mg Metoprolol Tartrate (Lopressor -) 25 mg PO BID [facility] Last Admin: 09/18/19 09:04 Dose: 25 mg Olanzapine (Zyprexa -) 10 mg PO DAILY [facility] Last Admin: 09/18/19 09:04 Dose: 10 mg Pantoprazole Sodium (Protonix Iv) 40 mg IVPUSH DAILY [facility] Last Admin: 09/18/19 09:03 Dose: 40 mg Polyethylene Glycol (Miralax (For Daily Use) -) 17 gm PO BID [facility] Last Admin: 09/18/19 09:05 Dose: 17 gm Polyethylene Glycol (Miralax (For Daily Use) -) 17 gm PO DAILY PRN PRN Reason: CONSTIPATION - Objective Vital Signs: Vital Signs Temperature 98.0 F 09/18/19 07:31 Pulse Rate 58 L 09/18/19 07:31 Respiratory Rate 14 09/18/19 07:31 Blood Pressure 140/70 09/18/19 07:31 O2 Sat by Pulse Oximetry (%) 98 09/18/19 09:00 Constitutional: Yes: No Distress, Calm, Obese Eyes: Yes: Conjunctiva Clear HENT: Yes: Atraumatic Neck: Yes: Supple Cardiovascular: Yes: Regular Rate and Rhythm Respiratory: Yes: Other (right side clear to auscultation. left side with occasional mild wheezing.) Gastrointestinal: Yes: Normal Bowel Sounds, Soft. No: Tenderness, Rebound Extremities: Yes: Other (stasis dermatitis) Edema: Yes Edema: LLE: Trace, RLE: Trace Neurological: Yes: Alert, Oriented (oriented to place and self. knows his home address. knows the president. doesnt know the year.) Labs: CBC, BMP 09/18/19 09:05 09/18/19 09:05 - ....Imaging X-ray: Report Reviewed (abdominal xray from 09/17/2019) Impression/Plan Impression/Plan: 84M presented with vomiting found to have ESBL UTI. Partial SBO Resolved continue miralax Sepsis due to ESBL E. coli UTI on day 6 of meropenem discussed with ID and patient needs 14 days total of IV ABx. Will need PICC on friday and discharge. Can change to ertapenem because it is once daily. discussed with Dr. Sebastian who will see patient and make recommendations. HTN BP acceptable Continue metoprolol continue lisinopril HLD continue lipitor Dementia Parkinsonism continue sinimet continue zyprexa Dvt ppx HSQ BID GERD PPI discharge early this coming week after gets PICC line to complete 14 days of IV Abx Visit type - Emergency Visit Emergency Visit: Yes ED Registration Date: 09/11/19 Care time: The patient presented to the Emergency Department on the above date and was hospitalized for further evaluation of their emergent condition. - New Patient This patient is new to me today: Yes Date on this admission: 09/18/19 - Critical Care Critical Care patient: No
--- NOTE | 2019-09-18 13:52 | PN ---
Progress Note, Physician History of Present Illness: Pt is alert, without distress. No new specific complaints. - Current Medication List Current Medications: Active Medications Acetaminophen (Tylenol -) 1,000 mg PO Q6H PRN PRN Reason: PAIN LEVEL 6-10 Last Admin: 09/17/19 21:51 Dose: 1,000 mg Atorvastatin Calcium (Lipitor -) 40 mg PO HS [facility] Last Admin: 09/17/19 21:51 Dose: 40 mg Carbidopa/Levodopa (Sinemet *Cr* 50/200 -) 1 combo PO BID [facility] Last Admin: 09/18/19 09:04 Dose: 1 combo Heparin Sodium (Porcine) (Heparin -) 5,000 unit SQ BID [facility] Last Admin: 09/18/19 09:03 Dose: 5,000 unit Meropenem 1 gm/ Dextrose 100 mls @ 200 mls/hr IVPB Q8H-IV [facility] Last Admin: 09/18/19 09:01 Dose: 200 mls/hr Lisinopril (Prinivil) 10 mg PO DAILY [facility] Last Admin: 09/18/19 09:04 Dose: 10 mg Metoprolol Tartrate (Lopressor -) 25 mg PO BID [facility] Last Admin: 09/18/19 09:04 Dose: 25 mg Olanzapine (Zyprexa -) 10 mg PO DAILY [facility] Last Admin: 09/18/19 09:04 Dose: 10 mg Pantoprazole Sodium (Protonix Iv) 40 mg IVPUSH DAILY [facility] Last Admin: 09/18/19 09:03 Dose: 40 mg Polyethylene Glycol (Miralax (For Daily Use) -) 17 gm PO BID [facility] Last Admin: 09/18/19 09:05 Dose: 17 gm Polyethylene Glycol (Miralax (For Daily Use) -) 17 gm PO DAILY PRN PRN Reason: CONSTIPATION - Objective Vital Signs: Vital Signs Temperature 98.0 F 09/18/19 07:31 Pulse Rate 58 L 09/18/19 07:31 Respiratory Rate 14 09/18/19 07:31 Blood Pressure 140/70 09/18/19 07:31 O2 Sat by Pulse Oximetry (%) 98 09/18/19 09:00 Constitutional: Yes: No Distress, Calm Cardiovascular: Yes: Regular Rate and Rhythm Respiratory: Yes: Regular Gastrointestinal: Yes: Normal Bowel Sounds, Soft Genitourinary: Yes: WNL Edema: No Integumentary: Yes: WNL Neurological: Yes: Alert Labs: CBC, BMP 09/18/19 09:05 09/18/19 09:05 Microbiology 09/12/19 09:45 Blood - Peripheral Venous Blood Culture - Final NO GROWTH AFTER 5 DAYS INCUBATION 09/12/19 09:45 Blood - Peripheral Venous Blood Culture - Final NO GROWTH AFTER 5 DAYS INCUBATION 09/11/19 09:10 Urine - Urine Clean Catch Urine Culture - Final Escherichia Coli Esbl Medical Assistant Ob Gyn Assessment/Plan ESBL+ E. coli UTI Partial ileus Parkinsons Dementia CKD -- continue antibiotics, may switch to Ertapenem on discharge to complete total of 2 wks -- Pt is stable, afebrile
[2019-09-18 17:12] LABS: ALBUMIN 2.8 g/dl (3.4-5.0); BILIRUBIN,TOTAL 0.4 mg/dL (0.2-1); BLOOD UREA NITROGEN 8.3 mg/dL (7-18); CALCIUM 8.3 mg/dL (8.5-10.1); CREATININE 0.7 mg/dL (0.55-1.3); POTASSIUM 4.2 mmol/L (3.5-5.1); TOT PROT 5.2 g/dl (6.4-8.2)
[2019-09-18] MEDS: ATORVASTATIN CA 40 MG TABLET (FP) PO SCH (21:30)
[2019-09-19] MEDS ORDERED: DEXTROSE 5%-WATER 100 ML IVPB ONE ×3 (01:29→16:19)
[2019-09-19] MEDS ORDERED: MEROPENEM 1 GM VIAL (RESTRICTED TO ID) IVPB ONE ×3 (01:29→16:19)
[2019-09-19] MEDS: MEROPENEM 1 GM in DEXTROSE 5%-WATER 100 ML IVPB SCH ×3 (01:33→16:59)
[2019-09-19] MEDS: METOPROLOL TARTRATE 25 MG TABLET (FP) PO SCH ×2 (08:59→21:36)
[2019-09-19] MEDS: LISINOPRIL 10 MG TABLET (FP) PO SCH (08:59)
[2019-09-19] MEDS: OLANZapine 10 MG TABLET PO SCH (08:59)
[2019-09-19] MEDS: POLYETHYLENE GLYCOL 3350 119 GM BTL PO SCH ×2 (08:59→21:36)
[2019-09-19] MEDS: HEPARIN NA (PORCINE) 5,000 UNITS/ML 1ML VIAL SQ SCH ×2 (08:59→21:35)
[2019-09-19] MEDS: PANTOPRAZOLE SODIUM 40 MG VIAL IVPUSH SCH (08:59)
--- NOTE | 2019-09-19 12:13 | PN ---
Progress Note, Physician History of Present Illness: patient seen and examined at bedside with his Minerva present. she had questions. all questions answered. He denies nausea vomiting fever chills chest pain or SOB. no urinary symptoms. tolerating diet well. having BMs. Afebrile. - Current Medication List Current Medications: Active Medications Acetaminophen (Tylenol -) 1,000 mg PO Q6H PRN PRN Reason: PAIN LEVEL 6-10 Last Admin: 09/17/19 21:51 Dose: 1,000 mg Atorvastatin Calcium (Lipitor -) 40 mg PO HS [facility] Last Admin: 09/18/19 21:30 Dose: 40 mg Carbidopa/Levodopa (Sinemet *Cr* 50/200 -) 1 combo PO BID [facility] Last Admin: 09/19/19 08:59 Dose: 1 combo Heparin Sodium (Porcine) (Heparin -) 5,000 unit SQ BID [facility] Last Admin: 09/19/19 08:59 Dose: 5,000 unit Meropenem 1 gm/ Dextrose 100 mls @ 200 mls/hr IVPB Q8H-IV [facility] Last Admin: 09/19/19 08:59 Dose: 200 mls/hr Lisinopril (Prinivil) 10 mg PO DAILY [facility] Last Admin: 09/19/19 08:59 Dose: 10 mg Metoprolol Tartrate (Lopressor -) 25 mg PO BID [facility] Last Admin: 09/19/19 08:59 Dose: 25 mg Olanzapine (Zyprexa -) 10 mg PO DAILY [facility] Last Admin: 09/19/19 08:59 Dose: 10 mg Pantoprazole Sodium (Protonix Iv) 40 mg IVPUSH DAILY [facility] Last Admin: 09/19/19 08:59 Dose: 40 mg Polyethylene Glycol (Miralax (For Daily Use) -) 17 gm PO BID [facility] Last Admin: 09/19/19 08:59 Dose: 17 gm Polyethylene Glycol (Miralax (For Daily Use) -) 17 gm PO DAILY PRN PRN Reason: CONSTIPATION - Objective Vital Signs: Vital Signs Temperature 98.4 F 09/19/19 07:28 Pulse Rate 78 09/19/19 07:28 Respiratory Rate 16 09/19/19 07:28 Blood Pressure 142/73 09/19/19 07:28 O2 Sat by Pulse Oximetry (%) 98 09/19/19 09:00 Constitutional: Yes: No Distress, Calm, Obese Eyes: Yes: Conjunctiva Clear HENT: Yes: Atraumatic Neck: Yes: Supple Cardiovascular: Yes: Regular Rate and Rhythm Respiratory: Yes: Other (occasional mild wheeze at end of expiration otherwise clear bilaterally) Gastrointestinal: Yes: Normal Bowel Sounds, Soft. No: Tenderness, Rebound Extremities: Yes: Other (stasis dermatitis) Edema: Yes Edema: LLE: Trace, RLE: Trace Neurological: Yes: Alert, Oriented (oriented to place and self. knows his home address. knows the president. doesnt know the year.) Labs: CBC, BMP 09/18/19 09:05 09/18/19 16:00 Impression/Plan Impression/Plan: 84M presented with vomiting found to have ESBL UTI. Partial SBO Resolved continue miralax Sepsis due to ESBL E. coli UTI on day 7 of meropenem discussed with ID and patient needs 14 days total of IV ABx. Will need PICC on friday and discharge. Can change to ertapenem upon discharge because it is once daily and pseudomonas coverage is not needed. discussed with Dr. Sebastian. afebrile and currently asymptomatic HTN BP acceptable Continue metoprolol continue lisinopril HLD continue lipitor Dementia Parkinsonism continue sinimet continue zyprexa Dvt ppx HSQ BID GERD PPI discharge likely early this week after gets PICC line to complete 14 days of IV Abx Visit type - Emergency Visit Emergency Visit: Yes ED Registration Date: 09/11/19 Care time: The patient presented to the Emergency Department on the above date and was hospitalized for further evaluation of their emergent condition. - New Patient This patient is new to me today: No - Critical Care Critical Care patient: No
[2019-09-19] MEDS: NYSTATIN POWDER 100,000 UNITS/GM - 15 GM TOPICAL POWDER TP SCH ×2 (14:27→21:36)
--- NOTE | 2019-09-19 19:13 | PN ---
Progress Note, Physician History of Present Illness: Pt is breathing at baseline. No distress noted. Noted to have rash on neck and started on Nystatin earlier. No specific complaints. - Current Medication List Current Medications: Active Medications Acetaminophen (Tylenol -) 1,000 mg PO Q6H PRN PRN Reason: PAIN LEVEL 6-10 Last Admin: 09/17/19 21:51 Dose: 1,000 mg Atorvastatin Calcium (Lipitor -) 40 mg PO HS [facility] Last Admin: 09/18/19 21:30 Dose: 40 mg Carbidopa/Levodopa (Sinemet *Cr* 50/200 -) 1 combo PO BID [facility] Last Admin: 09/19/19 08:59 Dose: 1 combo Heparin Sodium (Porcine) (Heparin -) 5,000 unit SQ BID [facility] Last Admin: 09/19/19 08:59 Dose: 5,000 unit Meropenem 1 gm/ Dextrose 100 mls @ 200 mls/hr IVPB Q8H-IV [facility] Last Admin: 09/19/19 16:59 Dose: 200 mls/hr Lisinopril (Prinivil) 10 mg PO DAILY [facility] Last Admin: 09/19/19 08:59 Dose: 10 mg Metoprolol Tartrate (Lopressor -) 25 mg PO BID [facility] Last Admin: 09/19/19 08:59 Dose: 25 mg Nystatin (Nystop Powder -) 1 applic TP BID [facility] Last Admin: 09/19/19 14:27 Dose: 1 applic Olanzapine (Zyprexa -) 10 mg PO DAILY [facility] Last Admin: 09/19/19 08:59 Dose: 10 mg Pantoprazole Sodium (Protonix Iv) 40 mg IVPUSH DAILY [facility] Last Admin: 09/19/19 08:59 Dose: 40 mg Polyethylene Glycol (Miralax (For Daily Use) -) 17 gm PO BID [facility] Last Admin: 09/19/19 08:59 Dose: 17 gm Polyethylene Glycol (Miralax (For Daily Use) -) 17 gm PO DAILY PRN PRN Reason: CONSTIPATION - Objective Vital Signs: Vital Signs Temperature 97.8 F 09/19/19 15:31 Pulse Rate 68 09/19/19 15:31 Respiratory Rate 20 09/19/19 15:31 Blood Pressure 138/76 09/19/19 15:31 O2 Sat by Pulse Oximetry (%) 98 09/19/19 09:00 Constitutional: Yes: No Distress, Calm Eyes: Yes: Conjunctiva Clear Neck: Yes: Supple Cardiovascular: Yes: Regular Rate and Rhythm Respiratory: Yes: Diminished Gastrointestinal: Yes: Normal Bowel Sounds, Soft Integumentary: Yes: Rash (neck) Neurological: Yes: Alert Labs: CBC, BMP 09/18/19 09:05 09/18/19 16:00 Microbiology 09/12/19 09:45 Blood - Peripheral Venous Blood Culture - Final NO GROWTH AFTER 5 DAYS INCUBATION 09/12/19 09:45 Blood - Peripheral Venous Blood Culture - Final NO GROWTH AFTER 5 DAYS INCUBATION 09/11/19 09:10 Urine - Urine Clean Catch Urine Culture - Final Escherichia Coli 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 coli UTI Partial ileus Parkinsons Dementia CKD -- continue antibiotics, may switch to Ertapenem on discharge to complete total of 2 wks -- continue Nystatin powder to neck
[2019-09-19] MEDS: ATORVASTATIN CA 40 MG TABLET (FP) PO SCH (21:36)
[2019-09-20] MEDS ORDERED: DEXTROSE 5%-WATER 100 ML IVPB ONE ×3 (01:21→17:11)
[2019-09-20] MEDS ORDERED: MEROPENEM 1 GM VIAL (RESTRICTED TO ID) IVPB ONE ×3 (01:21→17:11)
[2019-09-20] MEDS: MEROPENEM 1 GM in DEXTROSE 5%-WATER 100 ML IVPB SCH ×3 (01:30→17:19)
[2019-09-20] MEDS: ACETAMINOPHEN 500 MG TABLET (FP) PO PRN (01:38)
--- NOTE | 2019-09-20 08:31 | PN ---
Teaching Attending Note Name of Resident: Nani Boothe ATTENDING PHYSICIAN STATEMENT I saw and evaluated the patient. I reviewed the resident's note and discussed the case with the resident. I agree with the resident's findings and plan as documented. SUBJECTIVE: OBJECTIVE: Vital Signs Temperature 97.4 F L 09/20/19 05:50 Pulse Rate 55 L 09/20/19 05:50 Respiratory Rate 20 09/20/19 05:50 Blood Pressure 142/61 09/20/19 05:50 O2 Sat by Pulse Oximetry (%) 98 09/19/19 21:00 General: Elderly man, comfortable, not in distress HEENT; mucous membranes moist, no anemia, no jaundice, PERRLA, no nystagmus Neck: No JVD, supple, no bruit, thyroid palpably normal, normal carotid pulsations. Chest: Nontender, clear to auscultation bilaterally CVS: S1-S2 regularno murmur/gallop/rub Abdomen: Nondistended, soft, bowel sounds present. 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 motor sensory deficit CBC, BMP 09/18/19 09:05 09/18/19 16:00 Active Medications Acetaminophen (Tylenol -) 1,000 mg PO Q6H PRN PRN Reason: PAIN LEVEL 6-10 Last Admin: 09/20/19 01:38 Dose: 1,000 mg Atorvastatin Calcium (Lipitor -) 40 mg PO HS [facility] Last Admin: 09/19/19 21:36 Dose: 40 mg Carbidopa/Levodopa (Sinemet *Cr* 50/200 -) 1 combo PO BID [facility] Last Admin: 09/19/19 21:36 Dose: 1 combo Heparin Sodium (Porcine) (Heparin -) 5,000 unit SQ BID [facility] Last Admin: 09/19/19 21:35 Dose: 5,000 unit Meropenem 1 gm/ Dextrose 100 mls @ 200 mls/hr IVPB Q8H-IV [facility] Last Admin: 09/20/19 01:30 Dose: 200 mls/hr Lisinopril (Prinivil) 10 mg PO DAILY [facility] Last Admin: 09/19/19 08:59 Dose: 10 mg Metoprolol Tartrate (Lopressor -) 25 mg PO BID [facility] Last Admin: 09/19/19 21:36 Dose: 25 mg Nystatin (Nystop Powder -) 1 applic TP BID [facility] Last Admin: 09/19/19 21:36 Dose: 1 applic Olanzapine (Zyprexa -) 10 mg PO DAILY [facility] Last Admin: 09/19/19 08:59 Dose: 10 mg Pantoprazole Sodium (Protonix Iv) 40 mg IVPUSH DAILY [facility] Last Admin: 09/19/19 08:59 Dose: 40 mg Polyethylene Glycol (Miralax (For Daily Use) -) 17 gm PO BID [facility] Last Admin: 09/19/19 21:36 Dose: 17 gm Polyethylene Glycol (Miralax (For Daily Use) -) 17 gm PO DAILY PRN PRN Reason: CONSTIPATION Urine culture: ESBL E. coli ASSESSMENT AND PLAN: 84 years old man multiple medical comorbidities, hypertension, Parkinson, GERD admitted with ESBL E. coli with sepsis improving on meropenem as per ID patient needs 2 weeks IV antibiotic. Problem List - Problems (1) UTI (urinary tract infection) Assessment/Plan: Continue IV antibiotic as per ID Problems reviewed: Yes Code(s): N39.0 - URINARY TRACT INFECTION, SITE NOT SPECIFIED (2) JAME (acute kidney injury) Assessment/Plan: Stable follow-up BMP Problems reviewed: Yes Code(s): N17.9 - ACUTE KIDNEY FAILURE, UNSPECIFIED (3) HTN (hypertension) Assessment/Plan: Well-controlled continue all home medication Problems reviewed: Yes Code(s): I10 - ESSENTIAL (PRIMARY) HYPERTENSION (4) Hyperlipidemia Assessment/Plan: Continue statin Problems reviewed: Yes Code(s): E78.5 - HYPERLIPIDEMIA, UNSPECIFIED (5) Parkinson disease Assessment/Plan: Chronic continue current medication Problems reviewed: Yes Code(s): G20 - PARKINSON'S DISEASE (6) Dementia Code(s): F03.90 - UNSPECIFIED DEMENTIA WITHOUT BEHAVIORAL DISTURBANCE
[2019-09-20] MEDS: LISINOPRIL 10 MG TABLET (FP) PO SCH (09:06)
[2019-09-20] MEDS: HEPARIN NA (PORCINE) 5,000 UNITS/ML 1ML VIAL SQ SCH ×2 (09:06→21:34)
[2019-09-20] MEDS: METOPROLOL TARTRATE 25 MG TABLET (FP) PO SCH ×2 (09:06→21:34)
[2019-09-20] MEDS: OLANZapine 10 MG TABLET PO SCH (09:06)
[2019-09-20] MEDS: NYSTATIN POWDER 100,000 UNITS/GM - 15 GM TOPICAL POWDER TP SCH ×2 (09:06→21:35)
[2019-09-20] MEDS ORDERED: PT OWN MED DRAWER 7, Y5N ONE (09:43)
--- NOTE | 2019-09-20 11:28 | PN.GI ---
GI Progress Note Subjective: GI NOte: Tomer has been eating well and is moving his bowls. No GI complaints. - Objective Vital Signs: Vital Signs Temperature 97.4 F L 09/20/19 05:50 Pulse Rate 55 L 09/20/19 05:50 Respiratory Rate 20 09/20/19 05:50 Blood Pressure 142/61 09/20/19 05:50 O2 Sat by Pulse Oximetry (%) 98 09/19/19 21:00 Constitutional: Calm ...Auscultate: Yes: Normoactive Bowel Sounds ...Palpate: Yes: Soft, Other (nontender) Labs: CBC, BMP 09/18/19 09:05 09/18/19 16:00 Assessment/Plan Impression: - Resolved partial SBO vs fecal impaction vs ileus - Guerrier's esophagus s[place] [facility] [place] has a dilated esophagus and distal esophageal wall thickening - Personal h/o colon adenomas and FH of colon cancer Plan: -- Tolerating solids -- Continue Miralax -- NO GI objections to discharge Problem List - Problems (1) SBO (small bowel obstruction) Code(s): K56.609 - UNSP INTESTNL OBST, UNSP TO PARTIAL VERSUS COMPLETE OBST (2) Projectile vomiting with nausea Code(s): R11.12 - PROJECTILE VOMITING (3) Guerrier's esophagus with high grade dysplasia Code(s): K22.711 - GUERRIER'S ESOPHAGUS WITH HIGH GRADE DYSPLASIA (4) Colon adenomas Code(s): D12.6 - BENIGN NEOPLASM OF COLON, UNSPECIFIED (5) Diverticula of colon Code(s): K57.30 - DVRTCLOS OF LG INT W/O PERFORATION OR ABSCESS W/O BLEEDING (6) Family history of colon cancer in father Code(s): Z80.0 - FAMILY HISTORY OF MALIGNANT NEOPLASM OF DIGESTIVE ORGANS (7) Parkinson disease Code(s): G20 - PARKINSON'S DISEASE (8) Abdominal pain Code(s): R10.9 - UNSPECIFIED ABDOMINAL PAIN Qualifiers: Abdominal location: unspecified location Qualified Code(s): R10.9 - Unspecified abdominal pain (9) Coffee ground emesis Code(s): K92.0 - HEMATEMESIS
[2019-09-20] MEDS: POLYETHYLENE GLYCOL 3350 119 GM BTL PO SCH ×2 (12:17→21:34)
[2019-09-20] MEDS: PANTOPRAZOLE SODIUM 40 MG VIAL IVPUSH SCH (12:41)
--- NOTE | 2019-09-20 12:48 | PN ---
Physical Exam: SUBJECTIVE: Patient seen and examined. Offers no complaints. Eating well. no abdominal pain, nausea or vomiting. OBJECTIVE: Vital Signs Period Temp Pulse Resp BP Sys/Martinez Pulse Ox Last 24 Hr 97.4 F-97.8 F 55-68 20-20 135-142/58-76 95-98 GENERAL: in NAD HEAD: Normal with no signs of trauma. EYES: PERRL, conjunctiva clear. No ptosis. ENT: moist mucous membranes. NECK: no JVD LUNGS: Breath sounds equal, clear to auscultation bilaterally HEART: RRR ABDOMEN: Soft, nontender, nondistended, +BS EXTREMITIES: 2+ pulses, no edema Active Medications Generic Name Dose Route Start Last Admin Trade Name Freq PRN Reason Stop Dose Admin Acetaminophen 1,000 mg 09/16/19 05:01 09/20/19 01:38 Tylenol - PO 1,000 mg Q6H PRN Administration PAIN LEVEL 6-10 Atorvastatin Calcium 40 mg 09/16/19 22:00 09/19/19 21:36 Lipitor - PO 40 mg HS [facility] Administration Carbidopa/Levodopa 1 combo 09/16/19 22:00 09/20/19 09:06 Sinemet *Cr* 50/200 - PO 1 combo BID [facility] Administration Heparin Sodium (Porcine) 5,000 unit 09/11/19 22:00 09/20/19 09:06 Heparin - SQ 5,000 unit BID [facility] Administration Meropenem 1 gm/ Dextrose 100 mls @ 200 mls/hr 09/13/19 13:45 09/20/19 12:41 IVPB 200 mls/hr Q8H-IV [facility] Administration Lisinopril 10 mg 09/17/19 10:00 09/20/19 09:06 Prinivil PO 10 mg DAILY [facility] Administration Metoprolol Tartrate 25 mg 09/16/19 22:00 09/20/19 09:06 Lopressor - PO 25 mg BID [facility] Administration Nystatin 1 applic 09/19/19 13:00 09/20/19 09:06 Nystop Powder - TP 1 applic BID [facility] Administration Olanzapine 10 mg 09/17/19 10:00 09/20/19 09:06 Zyprexa - PO 10 mg DAILY [facility] Administration Pantoprazole Sodium 40 mg 09/12/19 10:00 09/20/19 12:41 Protonix Iv IVPUSH 40 mg DAILY [facility] Administration Polyethylene Glycol 17 gm 09/15/19 22:00 09/20/19 12:17 Miralax (For Daily Use) - PO 17 gm BID [facility] Administration Polyethylene Glycol 17 gm 09/16/19 17:32 Miralax (For Daily Use) - PO DAILY PRN CONSTIPATION ASSESSMENT/PLAN: 84M presented with vomiting found to have ESBL UTI. #Partial SBO -resolved -soft diet -IVF d/raymon -Surgery with no intervention at this time. -cleared for discharge from GI standpoint #Sepsis-likely due to complicated UTI ESBL -leukocytosis resolved, afebrile -urine cx ESBL -blood cx negative -Day 8 Iv abx- meropenem -picc line tomorrow. d/c tomorrow and send him on ertapenem for 5 more days. ( total 14 days IV abx) -follow up ID reccs #HTN #HLD #Dementia #Parkinsonism #Arthritis cont. current management for above problems #Dvt ppx: -hep sq #FEN -off IV fluids. now eating -soft dispo: anticipate D/C tomorrow Visit type - Emergency Visit Emergency Visit: Yes ED Registration Date: 09/11/19 Care time: The patient presented to the Emergency Department on the above date and was hospitalized for further evaluation of their emergent condition. - New Patient This patient is new to me today: Yes Date on this admission: 09/20/19 - Critical Care Critical Care patient: No ATTENDING PHYSICIAN STATEMENT I saw and evaluated the patient. I reviewed the resident's note and discussed the case with the resident. I agree with the resident's findings and plan as documented. SUBJECTIVE: OBJECTIVE: ASSESSMENT AND PLAN:
--- NOTE | 2019-09-20 13:16 | PN ---
Progress Note, Physician History of Present Illness: stable no new issues tolerating diet - Current Medication List Current Medications: Active Medications Acetaminophen (Tylenol -) 1,000 mg PO Q6H PRN PRN Reason: PAIN LEVEL 6-10 Last Admin: 09/20/19 01:38 Dose: 1,000 mg Atorvastatin Calcium (Lipitor -) 40 mg PO HS [facility] Last Admin: 09/19/19 21:36 Dose: 40 mg Carbidopa/Levodopa (Sinemet *Cr* 50/200 -) 1 combo PO BID [facility] Last Admin: 09/20/19 09:06 Dose: 1 combo Heparin Sodium (Porcine) (Heparin -) 5,000 unit SQ BID [facility] Last Admin: 09/20/19 09:06 Dose: 5,000 unit Meropenem 1 gm/ Dextrose 100 mls @ 200 mls/hr IVPB Q8H-IV [facility] Last Admin: 09/20/19 12:41 Dose: 200 mls/hr Lisinopril (Prinivil) 10 mg PO DAILY [facility] Last Admin: 09/20/19 09:06 Dose: 10 mg Metoprolol Tartrate (Lopressor -) 25 mg PO BID [facility] Last Admin: 09/20/19 09:06 Dose: 25 mg Nystatin (Nystop Powder -) 1 applic TP BID [facility] Last Admin: 09/20/19 09:06 Dose: 1 applic Olanzapine (Zyprexa -) 10 mg PO DAILY [facility] Last Admin: 09/20/19 09:06 Dose: 10 mg Pantoprazole Sodium (Protonix Iv) 40 mg IVPUSH DAILY [facility] Last Admin: 09/20/19 12:41 Dose: 40 mg Polyethylene Glycol (Miralax (For Daily Use) -) 17 gm PO BID [facility] Last Admin: 09/20/19 12:17 Dose: 17 gm Polyethylene Glycol (Miralax (For Daily Use) -) 17 gm PO DAILY PRN PRN Reason: CONSTIPATION - Objective Vital Signs: Vital Signs Temperature 97.8 F 09/20/19 09:00 Pulse Rate 58 L 09/20/19 09:00 Respiratory Rate 20 09/20/19 09:00 Blood Pressure 142/58 L 09/20/19 09:00 O2 Sat by Pulse Oximetry (%) 95 09/20/19 09:00 Constitutional: Yes: No Distress, Calm Cardiovascular: Yes: S1, S2 Respiratory: Yes: Regular, CTA Bilaterally Gastrointestinal: Yes: Normal Bowel Sounds, Soft Musculoskeletal: Yes: WNL Extremities: Yes: WNL Neurological: Yes: Alert Psychiatric: Yes: Alert Labs: CBC, BMP 09/18/19 09:05 09/18/19 16:00 Assessment/Plan Problem List - Problems (1) CKD (chronic kidney disease) stage 3, GFR 30-59 ml/min Code(s): N18.3 - CHRONIC KIDNEY DISEASE, STAGE 3 (MODERATE) (2) Dementia Code(s): F03.90 - UNSPECIFIED DEMENTIA WITHOUT BEHAVIORAL DISTURBANCE Qualifiers: Dementia type: Parkinson's disease Dementia behavioral disturbance: without behavioral disturbance Qualified Code(s): G20 - Parkinson's disease; F02.80 - Dementia in other diseases classified elsewhere without behavioral disturbance (3) HTN (hypertension) Code(s): I10 - ESSENTIAL (PRIMARY) HYPERTENSION (4) Hiatal hernia with GERD Code(s): K21.9 - GASTRO-ESOPHAGEAL REFLUX DISEASE WITHOUT ESOPHAGITIS; K44.9 - DIAPHRAGMATIC HERNIA WITHOUT OBSTRUCTION OR GANGRENE (5) Hyperlipidemia Code(s): E78.5 - HYPERLIPIDEMIA, UNSPECIFIED (6) Parkinson disease Code(s): G20 - PARKINSON'S DISEASE 7 sbo complicated uti esbl plan continue abx complete a total of 14 days
[2019-09-20] MEDS: ATORVASTATIN CA 40 MG TABLET (FP) PO SCH (21:34)
[2019-09-21] MEDS ORDERED: MEROPENEM 1 GM VIAL (RESTRICTED TO ID) IVPB ONE ×2 (01:58→09:03)
[2019-09-21] MEDS ORDERED: DEXTROSE 5%-WATER 100 ML IVPB ONE ×2 (01:59→09:03)
[2019-09-21] MEDS: MEROPENEM 1 GM in DEXTROSE 5%-WATER 100 ML IVPB SCH ×3 (02:07→17:10)
--- NOTE | 2019-09-21 08:17 | PN ---
Teaching Attending Note Name of Resident: Nani Boothe ATTENDING PHYSICIAN STATEMENT I saw and evaluated the patient. I reviewed the resident's note and discussed the case with the resident. I agree with the resident's findings and plan as documented. SUBJECTIVE: No new complaint OBJECTIVE: Vital Signs Temperature 97.9 F 09/21/19 07:38 Pulse Rate 75 09/21/19 07:38 Respiratory Rate 20 09/21/19 08:02 Blood Pressure 144/75 09/21/19 07:38 O2 Sat by Pulse Oximetry (%) 97 09/21/19 08:02 General: Elderly man, comfortable, not in distress HEENT; mucous membranes moist, no anemia, no jaundice, PERRLA, no nystagmus Neck: No JVD, supple, no bruit, thyroid palpably normal, normal carotid pulsations. Chest: Nontender, clear to auscultation bilaterally CVS: S1-S2 regularno murmur/gallop/rub Abdomen: Nondistended, soft, bowel sounds present. 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 , no gross motor sensory deficit CBC, BMP 09/18/19 09:05 09/18/19 16:00 Acetaminophen (Tylenol -) 1,000 mg PO Q6H PRN PRN Reason: PAIN LEVEL 6-10 Last Admin: 09/20/19 01:38 Dose: 1,000 mg Atorvastatin Calcium (Lipitor -) 40 mg PO HS [facility] Last Admin: 09/19/19 21:36 Dose: 40 mg Carbidopa/Levodopa (Sinemet *Cr* 50/200 -) 1 combo PO BID [facility] Last Admin: 09/19/19 21:36 Dose: 1 combo Heparin Sodium (Porcine) (Heparin -) 5,000 unit SQ BID [facility] Last Admin: 09/19/19 21:35 Dose: 5,000 unit Meropenem 1 gm/ Dextrose 100 mls @ 200 mls/hr IVPB Q8H-IV [facility] Last Admin: 09/20/19 01:30 Dose: 200 mls/hr Lisinopril (Prinivil) 10 mg PO DAILY [facility] Last Admin: 09/19/19 08:59 Dose: 10 mg Metoprolol Tartrate (Lopressor -) 25 mg PO BID [facility] Last Admin: 09/19/19 21:36 Dose: 25 mg Nystatin (Nystop Powder -) 1 applic TP BID [facility] Last Admin: 09/19/19 21:36 Dose: 1 applic Olanzapine (Zyprexa -) 10 mg PO DAILY [facility] Last Admin: 09/19/19 08:59 Dose: 10 mg Pantoprazole Sodium (Protonix Iv) 40 mg IVPUSH DAILY [facility] Last Admin: 09/19/19 08:59 Dose: 40 mg Polyethylene Glycol (Miralax (For Daily Use) -) 17 gm PO BID [facility] Last Admin: 09/19/19 21:36 Dose: 17 gm Polyethylene Glycol (Miralax (For Daily Use) -) 17 gm PO DAILY PRN PRN Reason: CONSTIPATION Urine culture: ESBL E. coli ASSESSMENT AND PLAN: 84 years old man multiple medical comorbidities, hypertension, Parkinson, GERD admitted with ESBL E. coli with sepsis improving on meropenem as per ID patient needs 2 weeks IV antibiotic. Problem List - Problems (1) UTI (urinary tract infection) Assessment/Plan: Continue IV antibiotic as per ID, arrange PICC line can be discharged home on IV antibiotic Code(s): N39.0 - URINARY TRACT INFECTION, SITE NOT SPECIFIED (2) JAME (acute kidney injury) Assessment/Plan: Stable follow-up BMP Code(s): N17.9 - ACUTE KIDNEY FAILURE, UNSPECIFIED (3) HTN (hypertension) Assessment/Plan: Well-controlled continue all home medication Code(s): I10 - ESSENTIAL (PRIMARY) HYPERTENSION (4) Hyperlipidemia Assessment/Plan: Continue statin Code(s): E78.5 - HYPERLIPIDEMIA, UNSPECIFIED (5) Parkinson disease Assessment/Plan: Chronic continue current medication Code(s): G20 - PARKINSON'S DISEASE (6) Dementia Assessment/Plan: Chronic narcotic use Code(s): F03.90 - UNSPECIFIED DEMENTIA WITHOUT BEHAVIORAL DISTURBANCE
[2019-09-21] MEDS: LISINOPRIL 10 MG TABLET (FP) PO SCH (09:15)
[2019-09-21] MEDS: HEPARIN NA (PORCINE) 5,000 UNITS/ML 1ML VIAL SQ SCH (09:16)
[2019-09-21] MEDS: METOPROLOL TARTRATE 25 MG TABLET (FP) PO SCH (09:16)
[2019-09-21] MEDS: POLYETHYLENE GLYCOL 3350 119 GM BTL PO SCH (09:16)
[2019-09-21] MEDS: NYSTATIN POWDER 100,000 UNITS/GM - 15 GM TOPICAL POWDER TP SCH (09:16)
[2019-09-21] MEDS: OLANZapine 10 MG TABLET PO SCH (09:16)
[2019-09-21] MEDS: PANTOPRAZOLE SODIUM 40 MG VIAL IVPUSH SCH (11:09)
--- NOTE | 2019-09-21 11:49 | PN ---
Progress Note, Physician History of Present Illness: stable no new issues tolerating diet - Current Medication List Current Medications: Active Medications Acetaminophen (Tylenol -) 1,000 mg PO Q6H PRN PRN Reason: PAIN LEVEL 6-10 Last Admin: 09/20/19 01:38 Dose: 1,000 mg Atorvastatin Calcium (Lipitor -) 40 mg PO HS [facility] Last Admin: 09/20/19 21:34 Dose: 40 mg Carbidopa/Levodopa (Sinemet *Cr* 50/200 -) 1 combo PO BID [facility] Last Admin: 09/21/19 09:16 Dose: 1 combo Heparin Sodium (Porcine) (Heparin -) 5,000 unit SQ BID [facility] Last Admin: 09/21/19 09:16 Dose: 5,000 unit Meropenem 1 gm/ Dextrose 100 mls @ 200 mls/hr IVPB Q8H-IV [facility] Last Admin: 09/21/19 11:09 Dose: 200 mls/hr Lisinopril (Prinivil) 10 mg PO DAILY [facility] Last Admin: 09/21/19 09:15 Dose: 10 mg Metoprolol Tartrate (Lopressor -) 25 mg PO BID [facility] Last Admin: 09/21/19 09:16 Dose: 25 mg Nystatin (Nystop Powder -) 1 applic TP BID [facility] Last Admin: 09/21/19 09:16 Dose: 1 applic Olanzapine (Zyprexa -) 10 mg PO DAILY [facility] Last Admin: 09/21/19 09:16 Dose: 10 mg Pantoprazole Sodium (Protonix Iv) 40 mg IVPUSH DAILY [facility] Last Admin: 09/21/19 11:09 Dose: 40 mg Polyethylene Glycol (Miralax (For Daily Use) -) 17 gm PO BID [facility] Last Admin: 09/21/19 09:16 Dose: 17 gm Polyethylene Glycol (Miralax (For Daily Use) -) 17 gm PO DAILY PRN PRN Reason: CONSTIPATION - Objective Vital Signs: Vital Signs Temperature 97.9 F 09/21/19 07:38 Pulse Rate 75 09/21/19 07:38 Respiratory Rate 20 09/21/19 08:02 Blood Pressure 144/75 09/21/19 07:38 O2 Sat by Pulse Oximetry (%) 97 09/21/19 08:02 Constitutional: Yes: No Distress, Calm Cardiovascular: Yes: S1, S2 Respiratory: Yes: Regular, CTA Bilaterally Gastrointestinal: Yes: Normal Bowel Sounds, Soft Musculoskeletal: Yes: WNL Extremities: Yes: WNL Neurological: Yes: Alert Psychiatric: Yes: Alert Labs: CBC, BMP 09/18/19 09:05 09/18/19 16:00 Assessment/Plan Problem List - Problems (1) CKD (chronic kidney disease) stage 3, GFR 30-59 ml/min Code(s): N18.3 - CHRONIC KIDNEY DISEASE, STAGE 3 (MODERATE) (2) Dementia Code(s): F03.90 - UNSPECIFIED DEMENTIA WITHOUT BEHAVIORAL DISTURBANCE Qualifiers: Dementia type: Parkinson's disease Dementia behavioral disturbance: without behavioral disturbance Qualified Code(s): G20 - Parkinson's disease; F02.80 - Dementia in other diseases classified elsewhere without behavioral disturbance (3) HTN (hypertension) Code(s): I10 - ESSENTIAL (PRIMARY) HYPERTENSION (4) Hiatal hernia with GERD Code(s): K21.9 - GASTRO-ESOPHAGEAL REFLUX DISEASE WITHOUT ESOPHAGITIS; K44.9 - DIAPHRAGMATIC HERNIA WITHOUT OBSTRUCTION OR GANGRENE (5) Hyperlipidemia Code(s): E78.5 - HYPERLIPIDEMIA, UNSPECIFIED (6) Parkinson disease Code(s): G20 - PARKINSON'S DISEASE 7 sbo complicated uti esbl plan continue abx complete a total of 14 days
--- NOTE | 2019-09-21 12:57 | PN ---
Physical Exam: SUBJECTIVE: Patient seen and examined. Offers no complaints. No events overnight. OBJECTIVE: Vital Signs Period Temp Pulse Resp BP Sys/Martinez Pulse Ox Last 24 Hr 97.5 F-97.9 F 61-75 20-20 123-149/55-75 95-97 GENERAL: in NAD HEAD: Normal with no signs of trauma. EYES: PERRL, conjunctiva clear. No ptosis. ENT: moist mucous membranes. NECK: no JVD LUNGS: Breath sounds equal, clear to auscultation bilaterally HEART: RRR ABDOMEN: Soft, nontender, nondistended, +BS EXTREMITIES: 2+ pulses, no edema Active Medications Generic Name Dose Route Start Last Admin Trade Name Freq PRN Reason Stop Dose Admin Acetaminophen 1,000 mg 09/16/19 05:01 09/20/19 01:38 Tylenol - PO 1,000 mg Q6H PRN Administration PAIN LEVEL 6-10 Atorvastatin Calcium 40 mg 09/16/19 22:00 09/20/19 21:34 Lipitor - PO 40 mg HS [facility] Administration Carbidopa/Levodopa 1 combo 09/16/19 22:00 09/21/19 09:16 Sinemet *Cr* 50/200 - PO 1 combo BID [facility] Administration Heparin Sodium (Porcine) 5,000 unit 09/11/19 22:00 09/21/19 09:16 Heparin - SQ 5,000 unit BID [facility] Administration Meropenem 1 gm/ Dextrose 100 mls @ 200 mls/hr 09/13/19 13:45 09/21/19 11:09 IVPB 200 mls/hr Q8H-IV [facility] Administration Lisinopril 10 mg 09/17/19 10:00 09/21/19 09:15 Prinivil PO 10 mg DAILY [facility] Administration Metoprolol Tartrate 25 mg 09/16/19 22:00 09/21/19 09:16 Lopressor - PO 25 mg BID [facility] Administration Nystatin 1 applic 09/19/19 13:00 09/21/19 09:16 Nystop Powder - TP 1 applic BID [facility] Administration Olanzapine 10 mg 09/17/19 10:00 09/21/19 09:16 Zyprexa - PO 10 mg DAILY [facility] Administration Pantoprazole Sodium 40 mg 09/12/19 10:00 09/21/19 11:09 Protonix Iv IVPUSH 40 mg DAILY [facility] Administration Polyethylene Glycol 17 gm 09/15/19 22:00 09/21/19 09:16 Miralax (For Daily Use) - PO 17 gm BID [facility] Administration Polyethylene Glycol 17 gm 09/16/19 17:32 Miralax (For Daily Use) - PO DAILY PRN CONSTIPATION ASSESSMENT/PLAN: 84M presented with vomiting found to have ESBL UTI. #Partial SBO -resolved -soft diet -IVF d/raymon -Surgery with no intervention at this time. -cleared for discharge from GI standpoint #Sepsis-likely due to complicated UTI ESBL -leukocytosis resolved, afebrile -urine cx ESBL -blood cx negative -Day 9 Iv abx- meropenem -for picc line. -d/c and send him on ertapenem for 5 more days. (total 14 days IV abx) -follow up ID reccs #HTN #HLD #Dementia #Parkinsonism #Arthritis cont. current management for above problems #Dvt ppx: -hep sq Visit type - Emergency Visit Emergency Visit: Yes ED Registration Date: 09/11/19 Care time: The patient presented to the Emergency Department on the above date and was hospitalized for further evaluation of their emergent condition. - New Patient This patient is new to me today: Yes Date on this admission: 09/21/19 - Critical Care Critical Care patient: No ATTENDING PHYSICIAN STATEMENT I saw and evaluated the patient. I reviewed the resident's note and discussed the case with the resident. I agree with the resident's findings and plan as documented. SUBJECTIVE: OBJECTIVE: ASSESSMENT AND PLAN:
[2019-09-21 14:45] VITALS: BP 118/63; PULSE 63; TEMP 97.4
--- NOTE | 2019-09-21 15:48 | PN.GI ---
GI Progress Note Subjective: GI NOte: Tolerating diet and having BMs. NO abdominal pain. - Objective Vital Signs: Vital Signs Temperature 97.4 F L 09/21/19 14:44 Pulse Rate 63 09/21/19 14:44 Respiratory Rate 09/21/19 14:44 Blood Pressure 118/63 09/21/19 14:44 O2 Sat by Pulse Oximetry (%) 97 09/21/19 08:02 Constitutional: Calm ...Auscultate: Yes: Normoactive Bowel Sounds ...Palpate: Yes: Soft, Other (nontender) Labs: CBC, BMP 09/18/19 09:05 09/18/19 16:00 Assessment/Plan Impression: - Resolved partial SBO vs fecal impaction vs ileus - Guerrier's esophagus s/p ablation therapy at [facility] now has a dilated esophagus and distal esophageal wall thickening - Personal h/o colon adenomas and FH of colon cancer - High risk for elective endoscopic procedures. Plan: -- Tolerating solids -- Continue Miralax -- NO GI objections to discharge Problem List - Problems (1) SBO (small bowel obstruction) Code(s): K56.609 - UNSP INTESTNL OBST, UNSP TO PARTIAL VERSUS COMPLETE OBST (2) Projectile vomiting with nausea Code(s): R11.12 - PROJECTILE VOMITING (3) Guerrier's esophagus with high grade dysplasia Code(s): K22.711 - GUERRIER'S ESOPHAGUS WITH HIGH GRADE DYSPLASIA (4) Colon adenomas Code(s): D12.6 - BENIGN NEOPLASM OF COLON, UNSPECIFIED (5) Diverticula of colon Code(s): K57.30 - DVRTCLOS OF LG INT W/O PERFORATION OR ABSCESS W/O BLEEDING (6) Family history of colon cancer in father Code(s): Z80.0 - FAMILY HISTORY OF MALIGNANT NEOPLASM OF DIGESTIVE ORGANS (7) Parkinson disease Code(s): G20 - PARKINSON'S DISEASE (8) Abdominal pain Code(s): R10.9 - UNSPECIFIED ABDOMINAL PAIN Qualifiers: Abdominal location: unspecified location Qualified Code(s): R10.9 - Unspecified abdominal pain (9) Coffee ground emesis Code(s): K92.0 - HEMATEMESIS
== END 2019-09-21 19:28 | disposition home or self-care (01) | DRG 388 ==
LOC: JER 02:37 → JERBED 10:50 → J6S 15:09
PROVIDERS: ADMIT Internal Medicine; ATTEND Internal Medicine
PROC: 02HV33Z Insertion of Infusion Device into Superior Vena Cava, Percutaneous Approach (ICD-10-PCS; principal; 2019-09-21)
DX: K56.600 Partial intestinal obstruction, unspecified as to cause (principal); A41.9 Sepsis, unspecified organism; N39.0 Urinary tract infection, site not specified; Z16.12 Extended spectrum beta lactamase (ESBL) resistance; N17.9 Acute kidney failure, unspecified; G20 Parkinson's disease; K59.00 Constipation, unspecified; D72.829 Elevated white blood cell count, unspecified; N18.3 Chronic kidney disease, stage 3 (moderate); K22.711 Barrett's esophagus with high grade dysplasia; K56.41 Fecal impaction; E78.5 Hyperlipidemia, unspecified; F03.90 Unspecified dementia, unspecified severity, without behavioral disturbance, psychotic disturbance, mood disturbance, and anxiety; K44.9 Diaphragmatic hernia without obstruction or gangrene; I12.9 Hypertensive chronic kidney disease with stage 1 through stage 4 chronic kidney disease, or unspecified chronic kidney disease; B96.20 Unspecified Escherichia coli [E. coli] as the cause of diseases classified elsewhere; K56.0 Paralytic ileus; E66.9 Obesity, unspecified; Z68.32 Body mass index [BMI] 32.0-32.9, adult; K21.9 Gastro-esophageal reflux disease without esophagitis; R00.0 Tachycardia, unspecified
CPT/HCPCS: 36415; 36569; 71045-TC-FY; 74018-TC-FY; 74019-TC-FY; 74176-TC; 77001-TC-FY; 80048; 80053; 81003; 82272; 82962; 83605; 83735; 84100; 85025; 87040; 87086; 87186; 93005; 93010; 99285-25; C1751; J0131; J1644